=== PATIENT | male | born 1955 | race Caucasian/White ===

== ENCOUNTER 2017-12-12 07:31 | Emergency (ER) | payer MEDICARE ==
[2017-12-12 07:38] VITALS: RESP 18
[2017-12-12] MEDS ORDERED: MORPHINE SULFATE 4 MG/ML SYRINGE IVP STA (07:41)
[2017-12-12] MEDS ORDERED: SODIUM CHLORIDE 0.9% 500 ML IV STA (07:43)
--- NOTE | 2017-12-12 07:49 | ED ---
General Adult HPI - General Chief complaint: Abdominal Pain Stated complaint: ABd Pain Source: patient Mode of arrival: EMS Limitations: no limitations - History of Present Illness Initial comments: Dictation was produced using [employer] dictation software. please excuse any grammatical, word or spelling errors. Chief Complaint: 61-year-old male past medical history of coronary artery disease, diabetes, dyslipidemia, thyroid disease presents with abdominal pain 1 day. History of Present Illness: She states he's been having left-sided abdominal pain with vomiting since yesterday. Patient has a history of LAP-BAND surgery. He feels as though this pain is around his lap band site. He had this procedure done in [facility] several years ago. He has any constitutional symptoms. No diarrhea. She was brought in by EMS. Patient suffered a recent loss in his family. He states his for unknown reason recently. EMS reports that patient did have one episode of bilious emesis while in route to emergency department. The ROS documented in this emergency department record has been reviewed and confirmed by me. Those systems with pertinent positive or negative responses have been documented in the HPI. All other systems are other negative and/or noncontributory. - Related Data Home Medications Medication Instructions Recorded Confirmed Clopidogrel [Plavix] 75 mg PO DAILY 06/17/15 12/12/17 Famotidine [Pepcid] 20 mg PO BID 06/17/15 12/12/17 metFORMIN HCL [metFORMIN HCL ER] 1,000 mg PO BID 06/17/15 12/12/17 Metoprolol Succinate (ER) [Toprol 25 mg PO BID 12/13/15 12/12/17 XL] Nitroglycerin Sl Tabs [Nitrostat] 0.4 mg SUBLINGUAL Q5M PRN 12/13/15 12/12/17 Cariprazine HCl [Vraylar] 1.5 mg PO DIRECTED 12/12/17 12/12/17 Cariprazine HCl [Vraylar] 3 mg PO DIRECTED 12/12/17 12/12/17 Ergocalciferol (Vitamin D2) 50,000 unit PO MO 12/12/17 12/12/17 [Drisdol] Hydrocortisone [Cortef] 30 mg PO DAILY 12/12/17 12/12/17 Ibuprofen [Motrin] 800 mg PO TID PRN 12/12/17 12/12/17 Previous Rx's Medication Instructions Recorded Ondansetron Odt [Zofran Odt] 4 mg PO Q12HR PRN #16 tab 12/12/17 Allergies Allergy/AdvReac Type Severity Reaction Status Date / Time codeine AdvReac Nausea & Verified 12/12/17 08:17 Vomiting Review of Systems ROS Statement: Those systems with pertinent positive or pertinent negative responses have been documented in the HPI. ROS Other: All systems not noted in ROS Statement are negative. Past Medical History Past Medical History: Coronary Artery Disease (CAD), Diabetes Mellitus, Hyperlipidemia, Musculoskeletal Disorder, Thyroid Disorder Additional Past Medical History / Comment(s): ADRENAL INSUFFICIENCY. NIDDM. History of Any Multi-Drug Resistant Organisms: None Reported Past Surgical History: Back Surgery, Bariatric Surgery, Heart Catheterization With Stent Additional Past Surgical History / Comment(s): BACK SURG (decompression) X2. LAP BAND. Past Anesthesia/Blood Transfusion Reactions: No Reported Reaction Date of Last Stent Placement:: 1 Past Psychological History: Anxiety Smoking Status: Light tobacco smoker Past Alcohol Use History: None Reported Past Drug Use History: None Reported - Past Family History Father Family Medical History: Diabetes Mellitus Additional Family Medical History / Comment(s): of a ruptured aorta Mother Family Medical History: Cancer, Diabetes Mellitus Additional Family Medical History / Comment(s): PPM, liver [place] General Exam - General Exam Comments Initial Comments: PHYSICAL EXAM: General Impression: Alert and oriented x3, acute distress secondary to pain HEENT: Normocephalic atraumatic, extra-ocular movements intact, pupils equal and reactive to light bilaterally, mucous membranes moist. Cardiovascular: Heart regular rate and rhythm, S1&S2 audible, no murmurs, rubs or gallops Chest: Lungs clear to auscultation bilaterally, no rhonchi, no wheeze, no rales Abdomen: Tenderness to palpation over the left upper quadrant Musculoskeletal: Pulses present and equal in all extremities, no peripheral edema Motor: Power 5/5 bilaterally, no focal deficits noted Neurological: CN II-XII grossly intact, no focal motor or sensory deficits noted Skin: Intact with no visualized rashes Psych: Normal affect and mood Limitations: no limitations Course Vital Signs 12/12/17 12/12/17 07:32 09:13 Temperature 97.5 F L Pulse Rate 79 82 Respiratory 18 18 Rate Blood Pressure 155/77 174/80 O2 Sat by Pulse 97 96 Oximetry Medical Decision Making - Medical Decision Making ED course: 61-year-old male past medical history of bariatric surgery in LAP-BAND presents with abdominal pain to the left upper quadrant times one day. Vital signs upon arrival are within acceptable limits.Laboratory evaluation obtained. CBC is unremarkable. Coag panel shows INR 1.2. Blood panel is negative. Lactic acid level is 1.0. Abdominal labs are negative. Lipase is 31. Cardiac enzymes negative. Abdomen pelvis CT. CT abdomen and pelvis shows irregular calculus versus small adjacent calculi lower pole calyx of the left kidney. There is mild hydronephrosis with obstructing distal 2 mm ureter calculus. She is given multiple rounds of IV analgesics and antiemetics. Patient's symptoms improved. Patient is afebrile. No leukocytosis. Clinical presentation consistent with nephrolithiasis. Patient given intravenous fluids. Patient told to follow up with urology. Patient told to take his at-home Percocet when necessary pain. She is understandable and agreeable with this disposition. At this point no clear indication for administration of antibiotics at this time. Given patient's age, comorbidities and there is a obstructing 2 mm stone which is small we will withhold Flomax at this time. Pending urine culture. - Lab Data Result diagrams: 12/12/17 07:35 12/12/17 07:35 Lab Results 12/12/17 12/12/17 12/12/17 Range/Units 07:35 07:35 07:35 WBC 7.6 (3.8-10.6) k/uL RBC 4.51 (4.30-5.90) m/uL Hgb 12.6 L (13.0-17.5) gm/dL Hct 37.7 L (39.0-53.0) % MCV 83.7 (80.0-100.0) fL MCH 28.0 (25.0-35.0) pg MCHC 33.5 (31.0-37.0) g/dL RDW 14.4 (11.5-15.5) % Plt Count 259 (150-450) k/uL Neutrophils % 56 % Lymphocytes % 29 % Monocytes % 7 % Eosinophils % 6 % Basophils % 0 % Neutrophils # 4.3 (1.3-7.7) k/uL Lymphocytes # 2.2 (1.0-4.8) k/uL Monocytes # 0.6 (0-1.0) k/uL Eosinophils # 0.4 (0-0.7) k/uL Basophils # 0.0 (0-0.2) k/uL PT (9.0-12.0) sec INR (<1.2) Sodium 144 (137-145) mmol/L Potassium 3.8 (3.5-5.1) mmol/L Chloride 106 (98-107) mmol/L Carbon Dioxide 26 (22-30) mmol/L Anion Gap 12 mmol/L BUN 14 (9-20) mg/dL Creatinine 1.00 (0.66-1.25) mg/dL Est GFR (CKD-EPI)AfAm >90 (>60 ml/min/1.73 sqM) Est GFR (CKD-EPI)NonAf 80 (>60 ml/min/1.73 sqM) Glucose 108 H (74-99) mg/dL Plasma Lactic Acid Ras (0.7-2.0) mmol/L Calcium 9.9 (8.4-10.2) mg/dL Total Bilirubin 0.8 (0.2-1.3) mg/dL AST 17 (17-59) U/L ALT 24 (21-72) U/L Alkaline Phosphatase 74 (38-126) U/L Total Creatine Kinase <20 L (55-170) U/L CK-MB (CK-2) 0.2 (0.0-2.4) ng/mL CK-MB (CK-2) Rel Index Troponin I <0.012 (0.000-0.034) ng/mL Total Protein 6.9 (6.3-8.2) g/dL Albumin 3.9 (3.5-5.0) g/dL Amylase 110 (30-110) U/L Lipase 381 H (23-300) U/L 12/12/17 12/12/17 Range/Units 07:35 08:31 WBC (3.8-10.6) k/uL RBC (4.30-5.90) m/uL Hgb (13.0-17.5) gm/dL Hct (39.0-53.0) % MCV (80.0-100.0) fL MCH (25.0-35.0) pg MCHC (31.0-37.0) g/dL RDW (11.5-15.5) % Plt Count (150-450) k/uL Neutrophils % % Lymphocytes % % Monocytes % % Eosinophils % % Basophils % % Neutrophils # (1.3-7.7) k/uL Lymphocytes # (1.0-4.8) k/uL Monocytes # (0-1.0) k/uL Eosinophils # (0-0.7) k/uL Basophils # (0-0.2) k/uL PT 11.7 (9.0-12.0) sec INR 1.2 H (<1.2) Sodium (137-145) mmol/L Potassium (3.5-5.1) mmol/L Chloride (98-107) mmol/L Carbon Dioxide (22-30) mmol/L Anion Gap mmol/L BUN (9-20) mg/dL Creatinine (0.66-1.25) mg/dL Est GFR (CKD-EPI)AfAm (>60 ml/min/1.73 sqM) Est GFR (CKD-EPI)NonAf (>60 ml/min/1.73 sqM) Glucose (74-99) mg/dL Plasma Lactic Acid Ras 1.0 (0.7-2.0) mmol/L Calcium (8.4-10.2) mg/dL Total Bilirubin (0.2-1.3) mg/dL AST (17-59) U/L ALT (21-72) U/L Alkaline Phosphatase (38-126) U/L Total Creatine Kinase (55-170) U/L CK-MB (CK-2) (0.0-2.4) ng/mL CK-MB (CK-2) Rel Index Troponin I (0.000-0.034) ng/mL Total Protein (6.3-8.2) g/dL Albumin (3.5-5.0) g/dL Amylase (30-110) U/L Lipase (23-300) U/L Disposition Clinical Impression: Nephrolithiasis Disposition: HOME SELF-CARE Condition: Good Prescriptions: Ondansetron Odt [Zofran Odt] 4 mg PO Q12HR PRN #16 tab PRN Reason: Nausea Is patient prescribed a controlled substance at d/c from ED?: No Referrals: Chano Ames MD [Primary Care Provider] - 1-2 days Dio Mcginnis MD [STAFF PHYSICIAN] - 1-2 days Time of Disposition: 11:53
[2017-12-12 08:05] LABS: Basophils % (A) 0 %; Eosinophils # (A) 0.4 k/uL (0-0.7); Eosinophils % (A) 6 %; HCT 37.7 % (39.0-53.0); HGB 12.6 gm/dL (13.0-17.5); Lymphocytes # (A) 2.2 k/uL (1.0-4.8); Lymphocytes % (A) 29 %; MCHC 33.5 g/dL (31.0-37.0); MCV 83.7 fL (80.0-100.0); Mean Platelet Volume 6.9; Monocytes # (A) 0.6 k/uL (0-1.0); Monocytes % (A) 7 %; Neutrophils # (A) 4.3 k/uL (1.3-7.7); Neutrophils % (A) 56 %; Platelet Count 259 k/uL (150-450); RBC 4.51 m/uL (4.30-5.90); RDW 14.4 % (11.5-15.5); WBC 7.6 k/uL (3.8-10.6)
[2017-12-12 08:10] LABS: INR 1.2 (<1.2); Prothrombin Time 11.7 sec (9.0-12.0)
[2017-12-12 08:24] LABS: ALT 24 U/L (21-72); AST 17 U/L (17-59); Albumin 3.9 g/dL (3.5-5.0); Alkaline Phosphatase 74 U/L (38-126); Amylase 110 U/L (30-110); Anion Gap 12 mmol/L; Blood Urea Nitrogen 14 mg/dL (9-20); Calcium 9.9 mg/dL (8.4-10.2); Carbon Dioxide 26 mmol/L (22-30); Chloride 106 mmol/L (98-107); Glucose 108 mg/dL (74-99); Lipase 381 U/L (23-300); Potassium 3.8 mmol/L (3.5-5.1); Sodium 144 mmol/L (137-145); Total Bilirubin 0.8 mg/dL (0.2-1.3); Total Protein 6.9 g/dL (6.3-8.2)
[2017-12-12 08:31] LABS: Creatine Kinase <20 U/L (55-170)
[2017-12-12] MEDS ORDERED: ONDANSETRON 4 MG/2 ML VIAL IVP STA (08:37)
[2017-12-12 08:43] LABS: Creatine Kinase MB 0.2 ng/mL (0.0-2.4); Troponin I <0.012 ng/mL (0.000-0.034)
[2017-12-12] MEDS ORDERED: HYDROmorphone 0.5 MG/0.5 ML SYRINGE IVP STA (09:43)
--- NOTE | 2017-12-12 09:51 | CT ---
EXAMINATION TYPE: CT abdomen pelvis w con DATE OF EXAM: 12/12/2017 COMPARISON: CT abdomen November 03, 2009 HISTORY: LLQ pain per technologist. Abdominal pain not further specified per ER order. CT DLP: 1223.4 mGycm, Automated Exposure Control for Dose Reduction was Utilized. CONTRAST: CT scan of the abdomen and pelvis is performed without oral but with IV Contrast, patient injected wi th 100 mL of Isovue 300. FINDINGS: LUNG BASES: Dependent atelectasis is present in both bases.. LIVER/GB: Liver remains low dense relative to spleen suggesting diffuse fatty infiltration. PANCREAS: No significant abnormality is seen. SPLEEN: No significant abnormality is seen. ADRENALS: No significant abnormality is seen. KIDNEYS: There is irregular calculus in left lower pole calyx measuring up to 13 mm on long axis on c oronal image 53 versus small adjacent regular calculi felt less likely. Post contrast images show sat isfactory cortical medullary uptake and excretion from right kidney but absent excretion from left ki dney there is moderate left-sided perinephric fluid. There is moderate fullness of left renal pelvis without mild calyceal dilatation there is mild mid ureter with 2 mm calculus suspected in the distal left ureter axial image 70 and coronal image 49. No intraluminal calculi and bladder are present. BOWEL: New Lap band device is noted, position felt satisfactory just below diaphragm PROSTATE/SEMINAL VESICLES: No gross abnormality seen. LYMPH NODES: No greater than 1cm abdominal or pelvic lymph nodes are appreciated. Prominent but subc entimeter lymph nodes are seen in the bilateral groin. OSSEOUS STRUCTURES: There is dextroconvex scoliosis centered at L3 level. There is moderate to severe multilevel spurring in the thoracolumbar spine. There is moderate to severe multilevel disc space na rrowing in the mid to lower lumbar spine. There is transitional-type vertebra at lumbosacral junction . Most prominent findings are L3-L4 level with endplate sclerosis. There is postsurgical change in th e lower lumbar spine with bilateral laminectomy defects and spinous process resection at L4-L5 levels . There is moderate axial joint space loss in both hips. OTHER: No significant additional abnormality is seen. IMPRESSION: Prominent irregular calculus versus small adjacent calculi lower pole calyx left kidney. Delayed excretion left kidney with mild hydronephrosis due to obstructing distal 2 mm ureter calculus .
[2017-12-12] MEDS ORDERED: HYDROmorphone 1 MG/ML 1 ML SYRINGE IVP STA (09:55)
[2017-12-12 12:09] VITALS: BP 134/91; PULSE 89; TEMP 99.2
== END 2017-12-12 12:06 | disposition home or self-care (01) ==
LOC: EC 07:31
DX: N13.2 Hydronephrosis with renal and ureteral calculous obstruction (principal); I25.10 Atherosclerotic heart disease of native coronary artery without angina pectoris; E11.9 Type 2 diabetes mellitus without complications; F17.200 Nicotine dependence, unspecified, uncomplicated; Z79.84 Long term (current) use of oral hypoglycemic drugs; Z79.02 Long term (current) use of antithrombotics/antiplatelets; Z79.899 Other long term (current) drug therapy; Z88.5 Allergy status to narcotic agent; Z98.84 Bariatric surgery status; Z95.5 Presence of coronary angioplasty implant and graft
CPT/HCPCS: 36415; 93005; 80053; 82150; 82550; 82553; 83605; 83690; 84484; 85025; 85610; 74177; 99285; 96374; 96375 ×2; 96361; J2270; J2405; J1170; Q9967

== ENCOUNTER 2017-12-13 04:56 | Emergency (ER) | payer MEDICARE ==
[2017-12-13 05:03] VITALS: TEMP 97.9
[2017-12-13] MEDS ORDERED: KETOROLAC 30 MG/ML 1 ML VIAL IVP ONE (05:41)
[2017-12-13] MEDS ORDERED: SODIUM CHLORIDE 0.9% 1,000 ML IV ONE (05:41)
--- NOTE | 2017-12-13 05:42 | ED ---
General Adult HPI - General Chief complaint: Abdominal Pain Stated complaint: Kidney stone Time Seen by Provider: 12/13/17 05:10 Source: patient Mode of arrival: ambulatory Limitations: no limitations - History of Present Illness Initial comments: Suzan is a 61-year-old male who was evaluated in our emergency department yesterday for nausea vomiting abdominal pain, diagnosed with a kidney stone and discharged home in stable condition. Patient reports that the Dilaudid he received in the ER treated his pain immediate much more comfortable. Patient states that he had oxycodone at home but didn't take any because it doesn't work as well for his pain so when his pain returned he return to the ER requesting more Dilaudid. She denies any fevers, chills, nausea, vomiting. He has not attempted to eat or take anything at home for the medication. He still urinating, there is still mild blood in his urine. - Related Data Home Medications Medication Instructions Recorded Confirmed Clopidogrel [Plavix] 75 mg PO DAILY 06/17/15 12/12/17 Famotidine [Pepcid] 20 mg PO BID 06/17/15 12/12/17 metFORMIN HCL [metFORMIN HCL ER] 1,000 mg PO BID 06/17/15 12/12/17 Metoprolol Succinate (ER) [Toprol 25 mg PO BID 12/13/15 12/12/17 XL] Nitroglycerin Sl Tabs [Nitrostat] 0.4 mg SUBLINGUAL Q5M PRN 12/13/15 12/12/17 Cariprazine HCl [Vraylar] 1.5 mg PO DIRECTED 12/12/17 12/12/17 Cariprazine HCl [Vraylar] 3 mg PO DIRECTED 12/12/17 12/12/17 Ergocalciferol (Vitamin D2) 50,000 unit PO MO 12/12/17 12/12/17 [Drisdol] Hydrocortisone [Cortef] 30 mg PO DAILY 12/12/17 12/12/17 Ibuprofen [Motrin] 800 mg PO TID PRN 12/12/17 12/12/17 Previous Rx's Medication Instructions Recorded Ondansetron Odt [Zofran Odt] 4 mg PO Q12HR PRN #16 tab 12/12/17 Allergies Allergy/AdvReac Type Severity Reaction Status Date / Time codeine AdvReac Nausea & Verified 12/13/17 05:03 Vomiting Review of Systems ROS Statement: Those systems with pertinent positive or pertinent negative responses have been documented in the HPI. ROS Other: All systems not noted in ROS Statement are negative. Past Medical History Past Medical History: Coronary Artery Disease (CAD), Diabetes Mellitus, Hyperlipidemia, Musculoskeletal Disorder, Thyroid Disorder Additional Past Medical History / Comment(s): ADRENAL INSUFFICIENCY. NIDDM. History of Any Multi-Drug Resistant Organisms: None Reported Past Surgical History: Back Surgery, Bariatric Surgery, Heart Catheterization With Stent Additional Past Surgical History / Comment(s): BACK SURG (decompression) X2. LAP BAND. Past Anesthesia/Blood Transfusion Reactions: No Reported Reaction Date of Last Stent Placement:: 1 Past Psychological History: Anxiety Smoking Status: Light tobacco smoker Past Alcohol Use History: None Reported Past Drug Use History: None Reported - Past Family History Father Family Medical History: Diabetes Mellitus Additional Family Medical History / Comment(s): of a ruptured aorta Mother Family Medical History: Cancer, Diabetes Mellitus Additional Family Medical History / Comment(s): PPM, liver [place] General Exam - General Exam Comments Initial Comments: GENERAL: Patient is well-developed and well-nourished. Patient is nontoxic and well- hydrated, he appears anxious. HENT: Normocephalic, Atraumatic. EYES: The sclera were anicteric and conjunctiva were pink and moist. Extraocular movements were intact and pupils were equal round and reactive to light. Eyelids were unremarkable. PULMONARY: Unlabored respirations. Good breath sounds bilaterally. No audible rales rhonchi or wheezing was noted. CARDIOVASCULAR: There is a regular rate and rhythm without any murmurs gallops or rubs. ABDOMEN: Soft and nontender with normal bowel sounds. SKIN: Skin is clear with no lesions or rashes and otherwise unremarkable. NEUROLOGIC: Patient is alert and oriented x3. Cranial nerves II through XII are grossly intact. Motor and sensory are also intact. Normal speech, volume and content. Symmetrical smile. MUSCULOSKELETAL: Normal extremities with adequate strength and full range of motion. No lower extremity swelling or edema. No calf tenderness. LYMPHATICS: No significant lymphadenopathy is noted PSYCHIATRIC: Patient expresses grief over the loss of his on September 20 of this year, is following with a grief counselor Limitations: no limitations Limitations: no limitations Course Vital Signs 12/13/17 12/13/17 05:00 07:59 Temperature 97.9 F 97.9 F Pulse Rate 98 78 Respiratory 18 16 Rate Blood Pressure 139/90 138/59 O2 Sat by Pulse 98 99 Oximetry Medical Decision Making - Medical Decision Making The patient was seen and evaluated, history is obtained from patient and review of medical record patient has a 2 mm ureteral stone. he reports his pain was improved with IV Dilaudid, he has not attempted any home pain medications despite being prescribed oral narcotics Patient requesting IV Dilaudid Patient not expanse any nausea vomiting, diarrhea or worsening pain. Patient reports this pain has returned and is similar to earlier so he came back for repeat doses of Dilaudid At this time I do not feel feel it is appropriate to give the patient repeat doses of Dilaudid for a 2 mm stone with mild hydro-, I will repeat his labs as he did have a mildly elevated lipase earlier in the day Labs have improved from previous, creatinine stable At this time patient is stable for discharge home, and encouraged the patient to take by mouth medications return to the ER for any worsening pain or development of nausea, inability tolerate by mouth intake worsening pain, decreased urinary output or any new or concerning symptoms. - Lab Data Result diagrams: 12/13/17 05:20 12/13/17 05:20 Lab Results 12/13/17 12/13/17 12/13/17 Range/Units 05:20 05:20 06:44 WBC 8.6 (3.8-10.6) k/uL RBC 4.85 (4.30-5.90) m/uL Hgb 13.3 (13.0-17.5) gm/dL Hct 40.8 (39.0-53.0) % MCV 84.2 (80.0-100.0) fL MCH 27.5 (25.0-35.0) pg MCHC 32.7 (31.0-37.0) g/dL RDW 14.3 (11.5-15.5) % Plt Count 273 (150-450) k/uL Neutrophils % 66 % Lymphocytes % 23 % Monocytes % 6 % Eosinophils % 4 % Basophils % 0 % Neutrophils # 5.7 (1.3-7.7) k/uL Lymphocytes # 2.0 (1.0-4.8) k/uL Monocytes # 0.6 (0-1.0) k/uL Eosinophils # 0.3 (0-0.7) k/uL Basophils # 0.0 (0-0.2) k/uL Sodium 139 (137-145) mmol/L Potassium 4.0 (3.5-5.1) mmol/L Chloride 103 (98-107) mmol/L Carbon Dioxide 25 (22-30) mmol/L Anion Gap 11 mmol/L BUN 14 (9-20) mg/dL Creatinine 1.02 (0.66-1.25) mg/dL Est GFR (CKD-EPI)AfAm >90 (>60 ml/min/1.73 sqM) Est GFR (CKD-EPI)NonAf 78 (>60 ml/min/1.73 sqM) Glucose 121 H (74-99) mg/dL Calcium 10.0 (8.4-10.2) mg/dL Total Bilirubin 1.0 (0.2-1.3) mg/dL AST 19 (17-59) U/L ALT 21 (21-72) U/L Alkaline Phosphatase 81 (38-126) U/L Total Protein 6.9 (6.3-8.2) g/dL Albumin 3.9 (3.5-5.0) g/dL Lipase 197 (23-300) U/L Urine Color Yellow Urine Appearance Cloudy (Clear) Urine pH 5.5 (5.0-8.0) Ur Specific [place] 1.027 (1.001-1.035) Urine Protein 1+ H (Negative) Urine Glucose (UA) Negative (Negative) Urine Ketones Negative (Negative) Urine Blood Large H (Negative) Urine Nitrite Negative (Negative) Urine Bilirubin Negative (Negative) Urine Urobilinogen <2.0 (<2.0) mg/dL Ur Leukocyte Esterase Negative (Negative) Urine RBC 19 H (0-5) /hpf Urine WBC 1 (0-5) /hpf Ur Squamous Epith Cells 10 H (0-4) /hpf Urine Mucus Many H (None) /hpf Disposition Clinical Impression: Kidney stone Disposition: HOME SELF-CARE Condition: Stable Instructions: Kidney Stones (ED) Additional Instructions: Taking her home medications including her narcotic pain medications. Drink plenty of fluids. Return to the ER if you develop any nausea, vomiting inability to tolerate your oral medications fevers or signs of infection. Is patient prescribed a controlled substance at d/c from ED?: No Referrals: Chano Ames MD [Primary Care Provider] - 1-2 days
[2017-12-13 05:53] LABS: Basophils % (A) 0 %; Eosinophils # (A) 0.3 k/uL (0-0.7); Eosinophils % (A) 4 %; HCT 40.8 % (39.0-53.0); HGB 13.3 gm/dL (13.0-17.5); Lymphocytes % (A) 23 %; MCH 27.5 pg (25.0-35.0); MCHC 32.7 g/dL (31.0-37.0); MCV 84.2 fL (80.0-100.0); Mean Platelet Volume 6.8; Monocytes # (A) 0.6 k/uL (0-1.0); Monocytes % (A) 6 %; Neutrophils # (A) 5.7 k/uL (1.3-7.7); Neutrophils % (A) 66 %; Platelet Count 273 k/uL (150-450); RBC 4.85 m/uL (4.30-5.90); RDW 14.3 % (11.5-15.5); WBC 8.6 k/uL (3.8-10.6)
[2017-12-13 06:01] LABS: ALT 21 U/L (21-72); AST 19 U/L (17-59); Albumin 3.9 g/dL (3.5-5.0); Alkaline Phosphatase 81 U/L (38-126); Anion Gap 11 mmol/L; Blood Urea Nitrogen 14 mg/dL (9-20); Carbon Dioxide 25 mmol/L (22-30); Chloride 103 mmol/L (98-107); Glucose 121 mg/dL (74-99); Lipase 197 U/L (23-300); Sodium 139 mmol/L (137-145); Total Protein 6.9 g/dL (6.3-8.2)
[2017-12-13 07:00] LABS: Appearance,Urine Cloudy (Clear); Bilirubin,Urine Negative (Negative); Blood,Urine Large (Negative); Color,Urine Yellow; Glucose,Urine (UA) Negative (Negative); Ketones,Urine Negative (Negative); Leukocyte Esterase,Urine Negative (Negative); Mucus,Urine Many /hpf; Nitrite,Urine Negative (Negative); PH, Urine 5.5 (5.0-8.0); Protein,Urine 1+ (Negative); RBC,Urine 19 /hpf (0-5); Specific Gravity,Urine 1.027 (1.001-1.035); Squamous Epithelial Cell,Urine 10 /hpf (0-4); Urobilinogen,Urine <2.0 mg/dL (<2.0); WBC,Urine 1 /hpf (0-5)
[2017-12-13 08:00] VITALS: BP 138/59; PULSE 78; RESP 16
== END 2017-12-13 08:01 | disposition home or self-care (01) ==
LOC: EC 04:56
DX: N20.2 Calculus of kidney with calculus of ureter (principal); I25.10 Atherosclerotic heart disease of native coronary artery without angina pectoris; E11.9 Type 2 diabetes mellitus without complications; F17.200 Nicotine dependence, unspecified, uncomplicated; Z98.84 Bariatric surgery status; Z95.5 Presence of coronary angioplasty implant and graft; Z79.02 Long term (current) use of antithrombotics/antiplatelets; Z79.84 Long term (current) use of oral hypoglycemic drugs; Z79.52 Long term (current) use of systemic steroids; Z79.899 Other long term (current) drug therapy; Z88.5 Allergy status to narcotic agent
CPT/HCPCS: 36415; 80053; 83690; 85025; 81001; 99284; 96374; 96361; J1885

== ENCOUNTER 2018-02-16 11:55 | Emergency (ER) | payer MEDICARE ==
[2018-02-16 12:05] VITALS: TEMP 97.7
[2018-02-16 13:58] LABS: Basophils # (A) 0.1 k/uL (0-0.2); Basophils % (A) 1 %; Eosinophils # (A) 0.3 k/uL (0-0.7); Eosinophils % (A) 4 %; HCT 33.8 % (39.0-53.0); Lymphocytes % (A) 28 %; MCH 28.1 pg (25.0-35.0); MCHC 32.6 g/dL (31.0-37.0); MCV 86.2 fL (80.0-100.0); Mean Platelet Volume 6.7; Monocytes # (A) 0.3 k/uL (0-1.0); Monocytes % (A) 4 %; Neutrophils # (A) 4.3 k/uL (1.3-7.7); Neutrophils % (A) 62 %; Platelet Count 258 k/uL (150-450); RBC 3.92 m/uL (4.30-5.90); RDW 15.7 % (11.5-15.5)
--- NOTE | 2018-02-16 14:01 | ED ---
General Adult HPI - General Chief complaint: Urogenital Stated complaint: blood in urine Time Seen by Provider: 02/16/18 13:11 Source: patient, RN notes reviewed Mode of arrival: ambulatory Limitations: no limitations - History of Present Illness Initial comments: Patient 62-year-old male presented to the emergency room today with chief complaint of hematuria. Patient has not that he is on Plavix. He is been on this for the past 3 years after had stents placed. Patient states that he was some blood in his urine 2 days ago. He states that he did have quite a bit of pain with voiding. He states that if he goes with normal strength is uncomfortable. She states that he tries to slow things down and feels better. Patient denies any other complaints or symptoms. States never had symptoms like this in the past. Patient denies any recent fever, chills, shortness of breath, chest pain, back pain, abdominal pain, nausea or vomiting, numbness or tingling, headaches or visual changes, or any other complaints. - Related Data Home Medications Medication Instructions Recorded Confirmed Clopidogrel [Plavix] 75 mg PO DAILY 06/17/15 12/12/17 Famotidine [Pepcid] 20 mg PO BID 06/17/15 12/12/17 metFORMIN HCL [metFORMIN HCL ER] 1,000 mg PO BID 06/17/15 12/12/17 Metoprolol Succinate (ER) [Toprol 25 mg PO BID 12/13/15 12/12/17 XL] Nitroglycerin Sl Tabs [Nitrostat] 0.4 mg SUBLINGUAL Q5M PRN 12/13/15 12/12/17 Cariprazine HCl [Vraylar] 1.5 mg PO DIRECTED 12/12/17 12/12/17 Cariprazine HCl [Vraylar] 3 mg PO DIRECTED 12/12/17 12/12/17 Ergocalciferol (Vitamin D2) 50,000 unit PO MO 12/12/17 12/12/17 [Drisdol] Hydrocortisone [Cortef] 30 mg PO DAILY 12/12/17 12/12/17 Ibuprofen [Motrin] 800 mg PO TID PRN 12/12/17 12/12/17 Previous Rx's Medication Instructions Recorded Ondansetron Odt [Zofran Odt] 4 mg PO Q12HR PRN #16 tab 12/12/17 Sulfamethox-Tmp 800-160Mg [Bactrim 1 tab PO Q12HR #28 tab 02/16/18 DS 800-160 mg] Allergies Allergy/AdvReac Type Severity Reaction Status Date / Time codeine AdvReac Nausea & Verified 02/16/18 12:05 Vomiting Review of Systems ROS Statement: Those systems with pertinent positive or pertinent negative responses have been documented in the HPI. ROS Other: All systems not noted in ROS Statement are negative. Past Medical History Past Medical History: Coronary Artery Disease (CAD), Diabetes Mellitus, Hyperlipidemia, Musculoskeletal Disorder, Thyroid Disorder Additional Past Medical History / Comment(s): ADRENAL INSUFFICIENCY. NIDDM. History of Any Multi-Drug Resistant Organisms: None Reported Past Surgical History: Back Surgery, Bariatric Surgery, Heart Catheterization With Stent Additional Past Surgical History / Comment(s): BACK SURG (decompression) X2. LAP BAND. Past Anesthesia/Blood Transfusion Reactions: No Reported Reaction Date of Last Stent Placement:: 1 Past Psychological History: Anxiety Smoking Status: Light tobacco smoker Past Alcohol Use History: None Reported Past Drug Use History: None Reported - Past Family History Father Family Medical History: Diabetes Mellitus Additional Family Medical History / Comment(s): of a ruptured aorta Mother Family Medical History: Cancer, Diabetes Mellitus Additional Family Medical History / Comment(s): PPM, liver CA General Exam - General Exam Comments Initial Comments: General: The patient is awake and alert, in no distress, and does not appear acutely ill. Eye: There is normal conjunctiva bilaterally. No signs of icterus. Ears, nose, mouth and throat: There are moist mucous membranes and no oral lesions. Neck: The neck is supple, there is no tenderness or JVD. Cardiovascular: There is a regular rate and rhythm. No murmur, rub or gallop is appreciated. Respiratory: Lungs are clear to auscultation, respirations are non-labored, breath sounds are equal. No wheezes, stridor, rales, or rhonchi. Gastrointestinal: Soft on palpation. No rebound, guarding or CVA tenderness. Musculoskeletal: Normal ROM, no tenderness. Sensation intact. Strength 5/5. Pulses equal bilaterally 2+. Neurological: A&O x 3. CN II-XII intact, There are no obvious motor or sensory deficits. Coordination appears grossly intact. Speech is normal. Skin: Skin is warm and dry and no rashes or lesions are noted. Psychiatric: Cooperative, appropriate mood & affect, normal judgment. Limitations: no limitations Course Vital Signs 02/16/18 02/16/18 12:03 14:35 Temperature 97.7 F Pulse Rate 89 70 Respiratory 18 18 Rate Blood Pressure 124/74 124/60 O2 Sat by Pulse 98 98 Oximetry Medical Decision Making - Medical Decision Making Patient reexamined at this time shows no signs of distress resting comfortable. Patient's labs reviewed. Does show some blood with white cells in the urinalysis. Patient will be covered for infection. He is resting comfortably in his abdomen soft nontender. His mental history kidney stones. He states he does have a lot of pressure with voiding a few days ago. His possibility that a stone was passed. Patient is advised that he should follow-up urologist in the next 2 days. Advised to have repeat urinalysis. Advised to return if symptoms increase or worsen. - Lab Data Result diagrams: 02/16/18 13:37 02/16/18 13:37 Lab Results 02/16/18 02/16/18 02/16/18 Range/Units 13:37 13:37 13:37 WBC 7.0 (3.8-10.6) k/uL RBC 3.92 L (4.30-5.90) m/uL Hgb 11.0 L (13.0-17.5) gm/dL Hct 33.8 L (39.0-53.0) % MCV 86.2 (80.0-100.0) fL MCH 28.1 (25.0-35.0) pg MCHC 32.6 (31.0-37.0) g/dL RDW 15.7 H (11.5-15.5) % Plt Count 258 (150-450) k/uL Neutrophils % 62 % Lymphocytes % 28 % Monocytes % 4 % Eosinophils % 4 % Basophils % 1 % Neutrophils # 4.3 (1.3-7.7) k/uL Lymphocytes # 2.0 (1.0-4.8) k/uL Monocytes # 0.3 (0-1.0) k/uL Eosinophils # 0.3 (0-0.7) k/uL Basophils # 0.1 (0-0.2) k/uL PT 11.3 (9.0-12.0) sec INR 1.2 H (<1.2) APTT 23.1 (22.0-30.0) sec Sodium 141 (137-145) mmol/L Potassium 4.6 (3.5-5.1) mmol/L Chloride 108 H (98-107) mmol/L Carbon Dioxide 25 (22-30) mmol/L Anion Gap 8 mmol/L BUN 17 (9-20) mg/dL Creatinine 0.86 (0.66-1.25) mg/dL Est GFR (CKD-EPI)AfAm >90 (>60 ml/min/1.73 sqM) Est GFR (CKD-EPI)NonAf >90 (>60 ml/min/1.73 sqM) Glucose 176 H (74-99) mg/dL Calcium 10.5 H (8.4-10.2) mg/dL Total Bilirubin 0.4 (0.2-1.3) mg/dL AST 19 (17-59) U/L ALT 26 (21-72) U/L Alkaline Phosphatase 76 (38-126) U/L Total Protein 6.2 L (6.3-8.2) g/dL Albumin 3.3 L (3.5-5.0) g/dL Urine Color Urine Appearance (Clear) Urine pH (5.0-8.0) Ur Specific [place] (1.001-1.035) Urine Protein (Negative) Urine Glucose (UA) (Negative) Urine Ketones (Negative) Urine Blood (Negative) Urine Nitrite (Negative) Urine Bilirubin (Negative) Urine Urobilinogen (<2.0) mg/dL Ur Leukocyte Esterase (Negative) Urine RBC (0-5) /hpf Urine WBC (0-5) /hpf Ur Squamous Epith Cells (0-4) /hpf Calcium Oxalate Crystal (None) /hpf Hyaline Casts (0-2) /lpf Urine Mucus (None) /hpf 02/16/ Range/Units 13:37 WBC (3.8-10.6) k/uL RBC (4.30-5.90) m/uL Hgb (13.0-17.5) gm/dL Hct (39.0-53.0) % MCV (80.0-100.0) fL MCH (25.0-35.0) pg MCHC (31.0-37.0) g/dL RDW (11.5-15.5) % Plt Count (150-450) k/uL Neutrophils % % Lymphocytes % % Monocytes % % Eosinophils % % Basophils % % Neutrophils # (1.3-7.7) k/uL Lymphocytes # (1.0-4.8) k/uL Monocytes # (0-1.0) k/uL Eosinophils # (0-0.7) k/uL Basophils # (0-0.2) k/uL PT (9.0-12.0) sec INR (<1.2) APTT (22.0-30.0) sec Sodium (137-145) mmol/L Potassium (3.5-5.1) mmol/L Chloride (98-107) mmol/L Carbon Dioxide (22-30) mmol/L Anion Gap mmol/L BUN (9-20) mg/dL Creatinine (0.66-1.25) mg/dL Est GFR (CKD-EPI)AfAm (>60 ml/min/1.73 sqM) Est GFR (CKD-EPI)NonAf (>60 ml/min/1.73 sqM) Glucose (74-99) mg/dL Calcium (8.4-10.2) mg/dL Total Bilirubin (0.2-1.3) mg/dL AST (17-59) U/L ALT (21-72) U/L Alkaline Phosphatase (38-126) U/L Total Protein (6.3-8.2) g/dL Albumin (3.5-5.0) g/dL Urine Color Yellow Urine Appearance Cloudy (Clear) Urine pH 5.5 (5.0-8.0) Ur Specific [place] 1.020 (1.001-1.035) Urine Protein Trace H (Negative) Urine Glucose (UA) Trace H (Negative) Urine Ketones Negative (Negative) Urine Blood Trace H (Negative) Urine Nitrite Negative (Negative) Urine Bilirubin Negative (Negative) Urine Urobilinogen <2.0 (<2.0) mg/dL Ur Leukocyte Esterase Trace H (Negative) Urine RBC 14 H (0-5) /hpf Urine WBC 8 H (0-5) /hpf Ur Squamous Epith Cells 2 (0-4) /hpf Calcium Oxalate Crystal Rare H (None) /hpf Hyaline Casts 3 H (0-2) /lpf Urine Mucus Rare H (None) /hpf Disposition Clinical Impression: Hematuria, UTI (urinary tract infection) Disposition: HOME SELF-CARE Condition: Good Instructions: Urinary Tract Infection in Men (ED) Additional Instructions: Please use medication as discussed. Please follow-up with family doctor in the next 2 days of symptoms have not improved. Please return to emergency room if the symptoms increase or worsen or for any other concerns. Prescriptions: Sulfamethox-Tmp 800-160Mg [Bactrim DS 800-160 mg] 1 tab PO Q12HR #28 tab Is patient prescribed a controlled substance at d/c from ED?: No Referrals: Chano Ames MD [Primary Care Provider] - 1-2 days Time of Disposition: 15:31
[2018-02-16 14:05] LABS: ALT 26 U/L (21-72); AST 19 U/L (17-59); Albumin 3.3 g/dL (3.5-5.0); Alkaline Phosphatase 76 U/L (38-126); Anion Gap 8 mmol/L; Blood Urea Nitrogen 17 mg/dL (9-20); Calcium 10.5 mg/dL (8.4-10.2); Carbon Dioxide 25 mmol/L (22-30); Chloride 108 mmol/L (98-107); Glucose 176 mg/dL (74-99); Potassium 4.6 mmol/L (3.5-5.1); Sodium 141 mmol/L (137-145); Total Bilirubin 0.4 mg/dL (0.2-1.3); Total Protein 6.2 g/dL (6.3-8.2)
[2018-02-16 14:07] LABS: INR 1.2 (<1.2); Partial Thromboplastin Time 23.1 sec (22.0-30.0); Prothrombin Time 11.3 sec (9.0-12.0)
[2018-02-16 14:11] LABS: Appearance,Urine Cloudy (Clear); Bilirubin,Urine Negative (Negative); Blood,Urine Trace (Negative); Calcium Oxalate Crystals,Urine Rare /hpf; Color,Urine Yellow; Glucose,Urine (UA) Trace (Negative); Hyaline Casts,Urine 3 /lpf (0-2); Ketones,Urine Negative (Negative); Leukocyte Esterase,Urine Trace (Negative); Mucus,Urine Rare /hpf; Nitrite,Urine Negative (Negative); PH, Urine 5.5 (5.0-8.0); Protein,Urine Trace (Negative); RBC,Urine 14 /hpf (0-5); Squamous Epithelial Cell,Urine 2 /hpf (0-4); Urobilinogen,Urine <2.0 mg/dL (<2.0); WBC,Urine 8 /hpf (0-5)
--- NOTE | 2018-02-16 15:04 | XR ---
Abdomen HISTORY: Hematuria, pain Frontal view of the abdomen on [address] 12/12/2017 Patient is post lap band. Lung bases are clear. There is no evident bowel obstruction or pneumoperito neum. Calcification left hemipelvis felt likely to be due to phlebolith. There are air-fluid levels w ithout bowel distention. Overlying bowel gas may obscure underlying detail, renal calcifications. IMPRESSION: There may be an underlying ileus. Renal calcifications noted on prior CT may be obscured by overlying bowel gas, tubing, lap band port.
--- NOTE | 2018-02-16 15:37 | ED ---
Medical Decision Making - Lab Data Result diagrams: 02/16/18 13:37 02/16/18 13:37 Lab Results 02/16/18 02/16/18 02/16/18 Range/Units 13:37 13:37 13:37 WBC 7.0 (3.8-10.6) k/uL RBC 3.92 L (4.30-5.90) m/uL Hgb 11.0 L (13.0-17.5) gm/dL Hct 33.8 L (39.0-53.0) % MCV 86.2 (80.0-100.0) fL MCH 28.1 (25.0-35.0) pg MCHC 32.6 (31.0-37.0) g/dL RDW 15.7 H (11.5-15.5) % Plt Count 258 (150-450) k/uL Neutrophils % 62 % Lymphocytes % 28 % Monocytes % 4 % Eosinophils % 4 % Basophils % 1 % Neutrophils # 4.3 (1.3-7.7) k/uL Lymphocytes # 2.0 (1.0-4.8) k/uL Monocytes # 0.3 (0-1.0) k/uL Eosinophils # 0.3 (0-0.7) k/uL Basophils # 0.1 (0-0.2) k/uL PT 11.3 (9.0-12.0) sec INR 1.2 H (<1.2) APTT 23.1 (22.0-30.0) sec Sodium 141 (137-145) mmol/L Potassium 4.6 (3.5-5.1) mmol/L Chloride 108 H (98-107) mmol/L Carbon Dioxide 25 (22-30) mmol/L Anion Gap 8 mmol/L BUN 17 (9-20) mg/dL Creatinine 0.86 (0.66-1.25) mg/dL Est GFR (CKD-EPI)AfAm >90 (>60 ml/min/1.73 sqM) Est GFR (CKD-EPI)NonAf >90 (>60 ml/min/1.73 sqM) Glucose 176 H (74-99) mg/dL Calcium 10.5 H (8.4-10.2) mg/dL Total Bilirubin 0.4 (0.2-1.3) mg/dL AST 19 (17-59) U/L ALT 26 (21-72) U/L Alkaline Phosphatase 76 (38-126) U/L Total Protein 6.2 L (6.3-8.2) g/dL Albumin 3.3 L (3.5-5.0) g/dL Urine Color Urine Appearance (Clear) Urine pH (5.0-8.0) Ur Specific [place] (1.001-1.035) Urine Protein (Negative) Urine Glucose (UA) (Negative) Urine Ketones (Negative) Urine Blood (Negative) Urine Nitrite (Negative) Urine Bilirubin (Negative) Urine Urobilinogen (<2.0) mg/dL Ur Leukocyte Esterase (Negative) Urine RBC (0-5) /hpf Urine WBC (0-5) /hpf Ur Squamous Epith Cells (0-4) /hpf Calcium Oxalate Crystal (None) /hpf Hyaline Casts (0-2) /lpf Urine Mucus (None) /hpf 02/16/ Range/Units 13:37 WBC (3.8-10.6) k/uL RBC (4.30-5.90) m/uL Hgb (13.0-17.5) gm/dL Hct (39.0-53.0) % MCV (80.0-100.0) fL MCH (25.0-35.0) pg MCHC (31.0-37.0) g/dL RDW (11.5-15.5) % Plt Count (150-450) k/uL Neutrophils % % Lymphocytes % % Monocytes % % Eosinophils % % Basophils % % Neutrophils # (1.3-7.7) k/uL Lymphocytes # (1.0-4.8) k/uL Monocytes # (0-1.0) k/uL Eosinophils # (0-0.7) k/uL Basophils # (0-0.2) k/uL PT (9.0-12.0) sec INR (<1.2) APTT (22.0-30.0) sec Sodium (137-145) mmol/L Potassium (3.5-5.1) mmol/L Chloride (98-107) mmol/L Carbon Dioxide (22-30) mmol/L Anion Gap mmol/L BUN (9-20) mg/dL Creatinine (0.66-1.25) mg/dL Est GFR (CKD-EPI)AfAm (>60 ml/min/1.73 sqM) Est GFR (CKD-EPI)NonAf (>60 ml/min/1.73 sqM) Glucose (74-99) mg/dL Calcium (8.4-10.2) mg/dL Total Bilirubin (0.2-1.3) mg/dL AST (17-59) U/L ALT (21-72) U/L Alkaline Phosphatase (38-126) U/L Total Protein (6.3-8.2) g/dL Albumin (3.5-5.0) g/dL Urine Color Yellow Urine Appearance Cloudy (Clear) Urine pH 5.5 (5.0-8.0) Ur Specific [place] 1.020 (1.001-1.035) Urine Protein Trace H (Negative) Urine Glucose (UA) Trace H (Negative) Urine Ketones Negative (Negative) Urine Blood Trace H (Negative) Urine Nitrite Negative (Negative) Urine Bilirubin Negative (Negative) Urine Urobilinogen <2.0 (<2.0) mg/dL Ur Leukocyte Esterase Trace H (Negative) Urine RBC 14 H (0-5) /hpf Urine WBC 8 H (0-5) /hpf Ur Squamous Epith Cells 2 (0-4) /hpf Calcium Oxalate Crystal Rare H (None) /hpf Hyaline Casts 3 H (0-2) /lpf Urine Mucus Rare H (None) /hpf Disposition Clinical Impression: Hematuria, UTI (urinary tract infection) Disposition: HOME SELF-CARE Condition: Good Instructions: Urinary Tract Infection in Men (ED) Additional Instructions: Please use medication as discussed. Please follow-up with urology/family doctor in the next 2 days of symptoms have not improved. Please return to emergency room if the symptoms increase or worsen or for any other concerns. Prescriptions: Sulfamethox-Tmp 800-160Mg [Bactrim DS 800-160 mg] 1 tab PO Q12HR #28 tab Is patient prescribed a controlled substance at d/c from ED?: No Referrals: Chano Ames MD [Primary Care Provider] - 1-2 days Tomy Horner MD [STAFF PHYSICIAN] - 1-2 days Time of Disposition: 15:36
[2018-02-16 16:12] VITALS: BP 110/64; PULSE 79; RESP 16
== END 2018-02-16 16:05 | disposition home or self-care (01) ==
LOC: EC 11:55
DX: N39.0 Urinary tract infection, site not specified (principal); I25.10 Atherosclerotic heart disease of native coronary artery without angina pectoris; E11.9 Type 2 diabetes mellitus without complications; F17.200 Nicotine dependence, unspecified, uncomplicated; Z79.899 Other long term (current) drug therapy; Z88.5 Allergy status to narcotic agent; Z95.5 Presence of coronary angioplasty implant and graft; Z98.84 Bariatric surgery status
CPT/HCPCS: 36415; 74018; 80053; 81001; 85025; 85610; 85730; 87086; 99283

== ENCOUNTER → 2018-05-22 | Outpatient (CLI) | payer MEDICARE ==
--- NOTE | 2018-05-22 17:41 | CT ---
EXAMINATION TYPE: CT abdomen pelvis wo con DATE OF EXAM: 05/22/2018 COMPARISON: 12/12/2017 HISTORY: abdominal pain, hematuria CT DLP: 788.1 mGycm Automated exposure control for dose reduction was used. TECHNIQUE: Helical acquisition of images was performed from the lung bases through the pelvis. FINDINGS: Images are obtained from the diaphragm to the floor the pelvis with oral contrast only. There is mild pleural thickening and fluid at the left posterior lung base. Heart is top normal in si ze. There is no pericardial effusion. There is a gastric sling at the gastric fundus. Spleen appears normal. There is no evidence of a pancreatic mass. Liver shows no focal defect. Bile ducts are not di lated. There is no adrenal mass. The kidneys have normal size. There are multiple calcifications in the left renal pelvis. There is 2 cm exophytic cyst posterior left kidney. There is no hydronephrosis. Ureter s are not dilated. There is no retroperitoneal adenopathy. Bladder distends smoothly. There is no ing uinal hernia. There is no free fluid in the pelvis. I see no intestinal wall thickening. There is no evidence of free air. There is no ascites. There is no mesenteric edema. Appendix is not seen. There is no sign of appendicitis. There is multilevel spondylotic changes in the thoracic and lumbar spine. There is laminectomy defect in the lower lumbar spine. I see no focal bone destruction. IMPRESSION: THERE IS PLEURAL THICKENING AND ATELECTASIS AT THE LUNG BASES SIMILAR TO OLD EXAM. PREVIOUS BARIATRIC SURGERY. MULTIPLE LEFT RENAL CALCULI WITHOUT HYDRONEPHROSIS OR HYDROURETER. THERE IS CLEARING OF THE LEFT SIDE MILD HYDRONEPHROSIS COMPARED TO OLD EXAM.
== END | disposition home or self-care (01) ==
LOC: RADCTMAIN 15:04
PROVIDERS: ATTEND Family Medicine
DX: N20.0 Calculus of kidney (principal); Z98.84 Bariatric surgery status
CPT/HCPCS: 74176

== ENCOUNTER 2018-07-09 15:16 | Inpatient (IN) | payer MEDICARE ==
[2018-07-09 16:22] LABS: Anisocytosis Slight; Basophils % (A) 0 %; Eosinophils # (A) 0.1 k/uL (0-0.7); Eosinophils % (A) 1 %; HCT 29.6 % (39.0-53.0); HGB 9.3 gm/dL (13.0-17.5); Hypochromasia Slight; Lymphocytes # (A) 2.9 k/uL (1.0-4.8); Lymphocytes % (A) 29 %; MCH 29.1 pg (25.0-35.0); MCHC 31.6 g/dL (31.0-37.0); MCV 92.1 fL (80.0-100.0); Mean Platelet Volume 7.8; Monocytes # (A) 0.3 k/uL (0-1.0); Monocytes % (A) 3 %; Neutrophils # (A) 6.6 k/uL (1.3-7.7); Neutrophils % (A) 66 %; Platelet Count 260 k/uL (150-450); RBC 3.21 m/uL (4.30-5.90); RDW 16.7 % (11.5-15.5)
[2018-07-09 16:30] LABS: ALT 22 U/L (21-72); AST 19 U/L (17-59); Albumin 2.7 g/dL (3.5-5.0); Alkaline Phosphatase 77 U/L (38-126); Amylase <30 U/L (30-110); Anion Gap 8 mmol/L; Blood Urea Nitrogen 32 mg/dL (9-20); Calcium 8.9 mg/dL (8.4-10.2); Carbon Dioxide 29 mmol/L (22-30); Chloride 103 mmol/L (98-107); Glucose 248 mg/dL (74-99); INR 1.1 (<1.2); Lipase 30 U/L (23-300); Partial Thromboplastin Time 26.1 sec (22.0-30.0); Potassium 3.5 mmol/L (3.5-5.1); Prothrombin Time 11.9 sec (9.0-12.0); Sodium 140 mmol/L (137-145); Total Bilirubin 0.9 mg/dL (0.2-1.3); Total Protein 4.9 g/dL (6.3-8.2)
[2018-07-09] MEDS ORDERED: SODIUM CHLORIDE 0.9% 1,000 ML IV ONE (16:46)
--- NOTE | 2018-07-09 17:17 | ED ---
General Adult HPI - General Chief complaint: Abdominal Pain Stated complaint: Blood in urine Time Seen by Provider: 07/09/18 16:39 Source: patient, RN notes reviewed, old records reviewed Mode of arrival: ambulatory Limitations: no limitations - History of Present Illness Initial comments: 62-year-old male presents with increased generalized weakness. Patient has history of recent urinary tract infection, he was admitted at an outside hospital with diagnosis generalized weakness and UTI. He was initiated on antibiotics over these were discontinued. He states he's continued to have urinary frequency and incontinence. Denies flank pain or abdominal pain. Denies nausea vomiting or diarrhea. Denies fever but states he has been chills. He is not currently on any body aches. His previous history of CAD status post stenting. No dyspnea, no chest pain. Chief complaint generalized weakness and urinary frequency and incontinence. - Related Data Home Medications Medication Instructions Recorded Confirmed Famotidine [Pepcid] 20 mg PO BID 06/17/15 07/09/18 Metoprolol Succinate (ER) [Toprol 25 mg PO BID 12/13/15 07/09/18 XL] Ergocalciferol (Vitamin D2) 50,000 unit PO MO 12/12/17 07/09/18 [Drisdol] Hydrocortisone [Cortef] 30 mg PO DAILY 12/12/17 07/09/18 Ibuprofen [Motrin] 800 mg PO TID PRN 12/12/17 07/09/18 Atorvastatin [Lipitor] 80 mg PO HS 07/09/18 07/09/18 Diazepam 15 mg PO DAILY PRN 07/09/18 07/09/18 Ferrous Sulfate [Feosol] 325 mg PO DAILY 07/09/18 07/09/18 Levothyroxine Sodium 88 mcg PO DAILY 07/09/18 07/09/18 Omeprazole 40 mg PO DAILY 07/09/18 07/09/18 glyBURIDE [Diabeta] 2.5 mg PO AC-BID 07/09/18 07/09/18 metFORMIN HCL 1,000 mg PO BID 07/09/18 07/09/18 oxyCODONE HCL [oxyCODONE HCL (IR)] 30 mg PO Q6H PRN 07/09/18 07/09/18 Allergies Allergy/AdvReac Type Severity Reaction Status Date / Time codeine AdvReac Nausea & Verified 07/09/18 17:41 Vomiting Review of Systems ROS Statement: Those systems with pertinent positive or pertinent negative responses have been documented in the HPI. ROS Other: All systems not noted in ROS Statement are negative. Past Medical History Past Medical History: Coronary Artery Disease (CAD), Diabetes Mellitus, Hyperlipidemia, Musculoskeletal Disorder, Thyroid Disorder Additional Past Medical History / Comment(s): ADRENAL INSUFFICIENCY. NIDDM. History of Any Multi-Drug Resistant Organisms: None Reported Past Surgical History: Back Surgery, Bariatric Surgery, Heart Catheterization With Stent Additional Past Surgical History / Comment(s): BACK SURG (decompression) X2. LAP BAND. Past Anesthesia/Blood Transfusion Reactions: No Reported Reaction Date of Last Stent Placement:: 1 Past Psychological History: Anxiety Smoking Status: Light tobacco smoker Past Alcohol Use History: None Reported Past Drug Use History: None Reported - Past Family History Father Family Medical History: Diabetes Mellitus Additional Family Medical History / Comment(s): of a ruptured aorta Mother Family Medical History: Cancer, Diabetes Mellitus Additional Family Medical History / Comment(s): PPM, liver CA General Exam Limitations: no limitations General appearance: alert, in no apparent distress Head exam: Present: atraumatic, normocephalic Eye exam: Present: normal appearance, PERRL ENT exam: Present: mucous membranes dry Neck exam: Present: normal inspection. Absent: tenderness, meningismus Respiratory exam: Present: normal lung sounds bilaterally. Absent: respiratory distress, wheezes, rales Cardiovascular Exam: Present: regular rate, normal rhythm GI/Abdominal exam: Present: soft. Absent: distended, tenderness, guarding Extremities exam: Present: normal inspection, normal capillary refill. Absent: pedal edema Neurological exam: Present: alert, oriented X3, CN II-XII intact. Absent: motor sensory deficit Psychiatric exam: Present: normal affect, normal mood Skin exam: Present: warm, dry, intact. Absent: cyanosis, diaphoretic Course Vital Signs 07/09/18 07/09/18 07/09/18 15:32 17:45 18:32 Temperature 95.9 F L 97.0 F L 96.8 F L Pulse Rate 72 67 78 Respiratory 22 18 17 Rate Blood Pressure 92/50 93/52 93/52 O2 Sat by Pulse 97 98 98 Oximetry 07/09/18 19:03 Temperature Pulse Rate 71 Respiratory 18 Rate Blood Pressure 99/57 O2 Sat by Pulse 98 Oximetry Medical Decision Making - Medical Decision Making 62 male presenting for evaluation generalized weakness, recent UTI. Patient has normal white blood cell count, hemoglobin 9.3, normal electrolytes, lactic acid 2.0. His significant urinary tract infection, greater than 182 white cells, many bacteria. Cultures will be obtained. These records from outside hospital will be requested. Patient initiated on antibiotics, will be For IV antibiotics and IV hydration. Case discussed with admitting physician. - Lab Data Result diagrams: 07/09/18 16:00 07/09/18 16:00 Lab Results 07/09/18 07/09/18 07/09/18 Range/Units 16:00 16:00 16:00 WBC 10.0 (3.8-10.6) k/uL RBC 3.21 L (4.30-5.90) m/uL Hgb 9.3 L (13.0-17.5) gm/dL Hct 29.6 L (39.0-53.0) % MCV 92.1 (80.0-100.0) fL MCH 29.1 (25.0-35.0) pg MCHC 31.6 (31.0-37.0) g/dL RDW 16.7 H (11.5-15.5) % Plt Count 260 (150-450) k/uL Neutrophils % 66 % Lymphocytes % 29 % Monocytes % 3 % Eosinophils % 1 % Basophils % 0 % Neutrophils # 6.6 (1.3-7.7) k/uL Lymphocytes # 2.9 (1.0-4.8) k/uL Monocytes # 0.3 (0-1.0) k/uL Eosinophils # 0.1 (0-0.7) k/uL Basophils # 0.0 (0-0.2) k/uL Hypochromasia Slight Anisocytosis Slight PT (9.0-12.0) sec INR (<1.2) APTT (22.0-30.0) sec Sodium 140 (137-145) mmol/L Potassium 3.5 (3.5-5.1) mmol/L Chloride 103 (98-107) mmol/L Carbon Dioxide 29 (22-30) mmol/L Anion Gap 8 mmol/L BUN 32 H (9-20) mg/dL Creatinine 1.11 (0.66-1.25) mg/dL Est GFR (CKD-EPI)AfAm 81 (>60 ml/min/1.73 sqM) Est GFR (CKD-EPI)NonAf 70 (>60 ml/min/1.73 sqM) Glucose 248 H (74-99) mg/dL Plasma Lactic Acid Ras (0.7-2.0) mmol/L Calcium 8.9 (8.4-10.2) mg/dL Total Bilirubin 0.9 (0.2-1.3) mg/dL AST 19 (17-59) U/L ALT 22 (21-72) U/L Alkaline Phosphatase 77 (38-126) U/L Troponin I <0.012 (0.000-0.034) ng/mL Total Protein 4.9 L (6.3-8.2) g/dL Albumin 2.7 L (3.5-5.0) g/dL Amylase <30 L (30-110) U/L Lipase 30 (23-300) U/L TSH (0.465-4.680) mIU/L Urine Color Urine Appearance (Clear) Urine pH (5.0-8.0) Ur Specific [place] (1.001-1.035) Urine Protein (Negative) Urine Glucose (UA) (Negative) Urine Ketones (Negative) Urine Blood (Negative) Urine Nitrite (Negative) Urine Bilirubin (Negative) Urine Urobilinogen (<2.0) mg/dL Ur Leukocyte Esterase (Negative) Urine RBC (0-5) /hpf Urine WBC (0-5) /hpf Urine WBC Clumps (None) /hpf Ur Squamous Epith Cells (0-4) /hpf Amorphous Sediment (None) /hpf Urine Bacteria (None) /hpf Hyaline Casts (0-2) /lpf Urine Mucus (None) /hpf 07/09/18 07/09/18 07/09/18 Range/Units 16:00 16:00 17:14 WBC (3.8-10.6) k/uL RBC (4.30-5.90) m/uL Hgb (13.0-17.5) gm/dL Hct (39.0-53.0) % MCV (80.0-100.0) fL MCH (25.0-35.0) pg MCHC (31.0-37.0) g/dL RDW (11.5-15.5) % Plt Count (150-450) k/uL Neutrophils % % Lymphocytes % % Monocytes % % Eosinophils % % Basophils % % Neutrophils # (1.3-7.7) k/uL Lymphocytes # (1.0-4.8) k/uL Monocytes # (0-1.0) k/uL Eosinophils # (0-0.7) k/uL Basophils # (0-0.2) k/uL Hypochromasia Anisocytosis PT 11.9 (9.0-12.0) sec INR 1.1 (<1.2) APTT 26.1 (22.0-30.0) sec Sodium (137-145) mmol/L Potassium (3.5-5.1) mmol/L Chloride (98-107) mmol/L Carbon Dioxide (22-30) mmol/L Anion Gap mmol/L BUN (9-20) mg/dL Creatinine (0.66-1.25) mg/dL Est GFR (CKD-EPI)AfAm (>60 ml/min/1.73 sqM) Est GFR (CKD-EPI)NonAf (>60 ml/min/1.73 sqM) Glucose (74-99) mg/dL Plasma Lactic Acid Ras (0.7-2.0) mmol/L Calcium (8.4-10.2) mg/dL Total Bilirubin (0.2-1.3) mg/dL AST (17-59) U/L ALT (21-72) U/L Alkaline Phosphatase (38-126) U/L Troponin I (0.000-0.034) ng/mL Total Protein (6.3-8.2) g/dL Albumin (3.5-5.0) g/dL Amylase (30-110) U/L Lipase (23-300) U/L TSH 1.030 (0.465-4.680) mIU/L Urine Color Yellow Urine Appearance Cloudy (Clear) Urine pH 5.5 (5.0-8.0) Ur Specific [place] 1.022 (1.001-1.035) Urine Protein 1+ H (Negative) Urine Glucose (UA) Trace H (Negative) Urine Ketones Negative (Negative) Urine Blood Small H (Negative) Urine Nitrite Negative (Negative) Urine Bilirubin Negative (Negative) Urine Urobilinogen <2.0 (<2.0) mg/dL Ur Leukocyte Esterase Large H (Negative) Urine RBC 41 H (0-5) /hpf Urine WBC >182 H (0-5) /hpf Urine WBC Clumps Few H (None) /hpf Ur Squamous Epith Cells 2 (0-4) /hpf Amorphous Sediment Occasional H (None) /hpf Urine Bacteria Many H (None) /hpf Hyaline Casts 116 H (0-2) /lpf Urine Mucus Occasional H (None) /hpf 07/09/18 Range/Units 17:14 WBC (3.8-10.6) k/uL RBC (4.30-5.90) m/uL Hgb (13.0-17.5) gm/dL Hct (39.0-53.0) % MCV (80.0-100.0) fL MCH (25.0-35.0) pg MCHC (31.0-37.0) g/dL RDW (11.5-15.5) % Plt Count (150-450) k/uL Neutrophils % % Lymphocytes % % Monocytes % % Eosinophils % % Basophils % % Neutrophils # (1.3-7.7) k/uL Lymphocytes # (1.0-4.8) k/uL Monocytes # (0-1.0) k/uL Eosinophils # (0-0.7) k/uL Basophils # (0-0.2) k/uL Hypochromasia Anisocytosis PT (9.0-12.0) sec INR (<1.2) APTT (22.0-30.0) sec Sodium (137-145) mmol/L Potassium (3.5-5.1) mmol/L Chloride (98-107) mmol/L Carbon Dioxide (22-30) mmol/L Anion Gap mmol/L BUN (9-20) mg/dL Creatinine (0.66-1.25) mg/dL Est GFR (CKD-EPI)AfAm (>60 ml/min/1.73 sqM) Est GFR (CKD-EPI)NonAf (>60 ml/min/1.73 sqM) Glucose (74-99) mg/dL Plasma Lactic Acid Ras 2.0 (0.7-2.0) mmol/L Calcium (8.4-10.2) mg/dL Total Bilirubin (0.2-1.3) mg/dL AST (17-59) U/L ALT (21-72) U/L Alkaline Phosphatase (38-126) U/L Troponin I (0.000-0.034) ng/mL Total Protein (6.3-8.2) g/dL Albumin (3.5-5.0) g/dL Amylase (30-110) U/L Lipase (23-300) U/L TSH (0.465-4.680) mIU/L Urine Color Urine Appearance (Clear) Urine pH (5.0-8.0) Ur Specific [place] (1.001-1.035) Urine Protein (Negative) Urine Glucose (UA) (Negative) Urine Ketones (Negative) Urine Blood (Negative) Urine Nitrite (Negative) Urine Bilirubin (Negative) Urine Urobilinogen (<2.0) mg/dL Ur Leukocyte Esterase (Negative) Urine RBC (0-5) /hpf Urine WBC (0-5) /hpf Urine WBC Clumps (None) /hpf Ur Squamous Epith Cells (0-4) /hpf Amorphous Sediment (None) /hpf Urine Bacteria (None) /hpf Hyaline Casts (0-2) /lpf Urine Mucus (None) /hpf Disposition Clinical Impression: Dehydration, UTI (urinary tract infection) Disposition: ADMITTED IP TO THIS [facility] Condition: Stable Is patient prescribed a controlled substance at d/c from ED?: No Referrals: Chano Ames MD [Primary Care Provider] - 1-2 days Decision to Admit Reason: Admit from EC Decision Date: 07/09/18 Decision Time: 19:21
--- NOTE | 2018-07-09 17:39 | XR ---
EXAMINATION TYPE: XR chest 2V DATE OF EXAM: 07/09/2018 COMPARISON: 12/12/2015 HISTORY: Fever TECHNIQUE: Frontal and lateral views of the chest are obtained. FINDINGS: Heart and mediastinum are normal. Lungs are clear. Costophrenic angles are clear. Bony tho rax is intact. Pulmonary vascularity is normal. IMPRESSION: Normal chest. No change.
[2018-07-09 18:17] LABS: Amorphous Sediment,Urine Occasional /hpf; Appearance,Urine Cloudy (Clear); Bacteria,Urine Many /hpf; Bilirubin,Urine Negative (Negative); Blood,Urine Small (Negative); Color,Urine Yellow; Glucose,Urine (UA) Trace (Negative); Hyaline Casts,Urine 116 /lpf (0-2); Ketones,Urine Negative (Negative); Leukocyte Esterase,Urine Large (Negative); Mucus,Urine Occasional /hpf; Nitrite,Urine Negative (Negative); PH, Urine 5.5 (5.0-8.0); Protein,Urine 1+ (Negative); RBC,Urine 41 /hpf (0-5); Specific Gravity,Urine 1.022 (1.001-1.035); Squamous Epithelial Cell,Urine 2 /hpf (0-4); Urobilinogen,Urine <2.0 mg/dL (<2.0); WBC,Urine >182 /hpf (0-5)
[2018-07-09] MEDS ORDERED: cefTRIAXone IN SWFI 1,000 MG/10 ML SYRINGE IVP STA (18:41)
[2018-07-09] MEDS ORDERED: SODIUM CHLORIDE 0.9% 500 ML 500 ML IV ONE (18:42)
[2018-07-09] MEDS ORDERED: ACETAMINOPHEN TAB 325 MG TAB PO PRN (19:15)
[2018-07-09] MEDS ORDERED: NALOXONE 0.4 MG/ML 1 ML VIAL IV PRN (19:15)
[2018-07-09] MEDS: SODIUM CHLORIDE 0.9% 1,000 ML IV SCH (19:45)
[2018-07-09 23:07] VITALS: BMI 31.1
[2018-07-09] MEDS ORDERED: IBUPROFEN 800 MG TAB PO PRN (23:55)
[2018-07-09] MEDS ORDERED: DIAZEPAM 5 MG TAB PO PRN (23:57)
[2018-07-10] MEDS: FAMOTIDINE 20 MG TAB PO SCH ×3 (00:27→21:03)
[2018-07-10] MEDS: ATORVASTATIN 80 MG TAB PO SCH ×2 (00:27→21:03)
[2018-07-10] MEDS: LEVOTHYROXINE 88 MCG TAB PO SCH (05:52)
[2018-07-10] MEDS: SODIUM CHLORIDE 0.9% 1,000 ML IV SCH ×2 (05:53→17:17)
[2018-07-10] MEDS: METOPROLOL SUCCINATE (ER) 25 MG TAB.ER.24H PO SCH ×2 (07:16→21:03)
[2018-07-10] MEDS: PANTOPRAZOLE 40 MG TABLET PO SCH (07:21)
[2018-07-10] MEDS: metFORMIN 500 MG TAB PO SCH ×2 (07:22→18:06)
[2018-07-10 07:38] LABS: Glucose,Whole Blood 82 mg/dL (75-99)
[2018-07-10] MEDS ORDERED: HYDROCORTISONE 20 MG TAB PO SCH (09:00)
[2018-07-10 11:08] LABS: Glucose,Whole Blood 112 mg/dL (75-99)
[2018-07-10] MEDS: FERROUS SULFATE 325 MG TAB PO SCH (12:19)
[2018-07-10 16:55] LABS: Glucose,Whole Blood 238 mg/dL (75-99)
[2018-07-10 20:09] LABS: Glucose,Whole Blood 229 mg/dL (75-99)
[2018-07-10] MEDS: HYDROCORTISONE SUCCINATE 100 MG/2 ML VIAL IV SCH ×2 (21:03→23:32)
--- NOTE | 2018-07-10 21:53 | HP ---
HISTORY AND PHYSICAL DATE OF SERVICE: July 09, 2018. DATE OF SERVICE: July 10, 2018. PRESENTING COMPLAINT: Weak and tired. HISTORY OF PRESENTING COMPLAINT: A very pleasant 62 -year-old patient of Dr. Ames. Chronic stable medical conditions include coronary artery disease with stent, diabetes, hyperlipidemia, osteoarthritis, hypothyroid, renal insufficiency. The patient has recently had a UTI for which she was treated. The patient presents with feeling dizzy, lightheaded, really could not walk. Recently was treated with Bactrim DS. The patient's appetite had really gone down. No fever. No chills. Had some urinary symptoms. The patient admitted, found to have a infected appearing urine, started on IV ceftriaxone. Admitted for the same. The patient was feeling tired and run down. REVIEW OF SYSTEMS: CONSTITUTIONAL: Weak, tired, run down. HEENT: None. RESPIRATORY: None. CARDIOVASCULAR: None. GASTROINTESTINAL: None. GENITOURINARY: Urinary symptoms. DERMATOLOGICAL, HEMATOLOGIC, LYMPHATIC: none. PSYCHIATRY none. NEUROLOGICAL: None. PAST MEDICAL HISTORY: Coronary artery disease with stent, diabetes, hyperlipidemia, osteoarthritis, hypothyroid, adrenal insufficiency, kidney stones. PAST SURGICAL HISTORY: Back surgery, bariatric surgery, cardiac cath with stent, lap band. PSYCH HISTORY: Anxiety. SOCIAL HISTORY: Patient is smoking a pipe occasionally. Lives at home with his daughter and a 6-year- old grandson. 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 No alcohol. FAMILY HISTORY: Diabetes. HOME MEDICATIONS: 1. Oxycodone 30 mg q.6h p.r.n. 2. Metformin 1000 mg p.o. b.i.d. 3. DiaBeta 2.5 p.o. b.i.d. 4. Omeprazole 40 mg p.o. daily. 5. Toprol-XL 25 mg b.i.d. 6. Levothyroxine 88 mcg a day. 7. Motrin 800 mg p.o. t.i.d. p.r.n. 8. Cortef 30 mg p.o. daily. 9. Iron 325 p.o. daily. 10.Pepcid 20 mg b.i.d. 11.Drisdol 50,000 units p.o. Friday. 12.Valium 50 mg p.o. daily p.r.n. 13.Lipitor 80 mg q.h.s. 14.Tylenol 325 p.o. p.r.n. ALLERGIES: CODEINE, causing nausea, and vomiting. PHYSICAL EXAMINATION: VITAL SIGNS: Temperature 97, pulse 68, respiration 18, blood pressure 98/48. Pulse ox 97% on room air. GENERAL APPEARANCE: Well built, BMI 31.1. Lying in bed, tired-appearing. EYES: Pupils equal. Conjunctivae normal. HEENT: External appearance of nose and ears normal. Oral cavity normal. NECK: JVD not raised. Mass not palpable. RESPIRATORY: Effort normal. LUNGS are clear. CARDIOVASCULAR: 1st and 2nd heart sounds normal. ABDOMEN: Soft, nontender. Liver and spleen not palpable. LYMPHATICS: No lymph nodes palpable in the neck and axilla. PSYCHIATRY: Alert and oriented x3. Mood and affect normal. NEUROLOGICAL: Pupils equal. Cranial nerves grossly intact. Power and sensation grossly intact. INVESTIGATIONS: White count 10, hemoglobin 9.3, potassium 3.5, BUN 32, creatinine 1.11. UA positive for leukocyte esterase. WBC, RBC 2 epithelial cells. ASSESSMENT: 1. Acute severe urinary tract infection from cystitis that has been recurrent with systemic symptoms of feeling dizzy, lightheaded, really could not walk. 2. Coronary artery disease with stents. 3. Diabetes mellitus type 2 on oral hypoglycemic. 4. Hyperlipidemia. 5. Primary osteoarthritis. 6. Hypothyroidism. 7. Adrenal insufficiency. PLAN: Home medications resumed. Patient put on IV ceftriaxone. Getting IV fluids. Will put the patient on a stress dose of steroids. Care was discussed with the patient. Questions were answered. Copy to Dr. Ames. DUYEN / MINDY: [id number] /
[2018-07-11 04:59] VITALS: BP 110/54; PULSE 72; RESP 16; TEMP 97.8
[2018-07-11] MEDS: LEVOTHYROXINE 88 MCG TAB PO SCH (06:23)
[2018-07-11 07:06] LABS: Glucose,Whole Blood 216 mg/dL (75-99)
[2018-07-11] MEDS: HYDROCORTISONE SUCCINATE 100 MG/2 ML VIAL IV SCH (08:52)
[2018-07-11] MEDS: PANTOPRAZOLE 40 MG TABLET PO SCH (08:52)
[2018-07-11] MEDS: FAMOTIDINE 20 MG TAB PO SCH (08:52)
[2018-07-11] MEDS: METOPROLOL SUCCINATE (ER) 25 MG TAB.ER.24H PO SCH (08:53)
[2018-07-11] MEDS: FERROUS SULFATE 325 MG TAB PO SCH (08:54)
[2018-07-11] MEDS: metFORMIN 500 MG TAB PO SCH (09:02)
[2018-07-11 11:22] LABS: Glucose,Whole Blood 214 mg/dL (75-99)
--- NOTE | 2018-07-11 16:03 | P.DS ---
Providers Date of admission: 07/09/18 19:16 Attending physician: Prem Yadav [facility]: 63-year-old admitted for possibly. Tract infection urine is positive for gram- negative bacilli which are less than 100,000 although patient was partially treated recently with Bactrim double strength after which his symptoms returned. Patient is insisting on discharge because of which are good and discharge him on Ceftin patient apparently was discharged on ampicillin in the past. On admission patient was also lightheaded which is better I believe secondary to his opiates he is using and low blood pressure secondary to that. PHYSICAL EXAMINATION: GENERAL: The patient is alert and oriented x3, not in any acute distress. Well developed, well nourished. HEENT: Pupils are round and equally reacting to light. EOMI. No scleral icterus. No conjunctival pallor. Normocephalic, atraumatic. No pharyngeal erythema. No thyromegaly. CARDIOVASCULAR: S1 and S2 present. No murmurs, rubs, or gallops. PULMONARY: Chest is clear to auscultation, no wheezing or crackles. ABDOMEN: Soft, nontender, nondistended, normoactive bowel sounds. No palpable organomegaly. MUSCULOSKELETAL: No joint swelling or deformity. EXTREMITIES: No cyanosis, clubbing, or pedal edema. NEUROLOGICAL: Gross neurological examination did not reveal any focal deficits. SKIN: No rashes. For rest of the other chronic medical problems and hospital physician course please refer to dictation of H&P a from Dr. Yadav from yesterday Patient Condition at Discharge: Stable Plan - Discharge Summary Discharge Rx Participant: Yes New Discharge Prescriptions: New Cefuroxime Axetil [Ceftin] 500 mg PO BID #10 tab Continue Famotidine [Pepcid] 20 mg PO BID Metoprolol Succinate (ER) [Toprol XL] 25 mg PO BID Ergocalciferol (Vitamin D2) [Drisdol] 50,000 unit PO MO Hydrocortisone [Cortef] 30 mg PO DAILY Ibuprofen [Motrin] 800 mg PO TID PRN PRN Reason: Pain metFORMIN HCL 1,000 mg PO BID Atorvastatin [Lipitor] 80 mg PO HS Diazepam 15 mg PO DAILY PRN PRN Reason: Anxiety Ferrous Sulfate [Iron (65 MG Elemental)] 325 mg PO DAILY glyBURIDE [Diabeta] 2.5 mg PO AC-BID Levothyroxine Sodium 88 mcg PO DAILY Omeprazole 40 mg PO DAILY oxyCODONE HCL [oxyCODONE HCL (IR)] 30 mg PO Q6H PRN PRN Reason: Pain Acetaminophen 325 mg PO PRN PRN Reason: Pain Discharge Medication List Famotidine [Pepcid] 20 mg PO BID 06/17/15 [History] Metoprolol Succinate (ER) [Toprol XL] 25 mg PO BID 12/13/15 [History] Ergocalciferol (Vitamin D2) [Drisdol] 50,000 unit PO MO 12/12/17 [History] Hydrocortisone [Cortef] 30 mg PO DAILY 12/12/17 [History] Ibuprofen [Motrin] 800 mg PO TID PRN 12/12/17 [History] Acetaminophen 325 mg PO PRN 07/09/18 [History] Atorvastatin [Lipitor] 80 mg PO HS 07/09/18 [History] Diazepam 15 mg PO DAILY PRN 07/09/18 [History] Ferrous Sulfate [Iron (65 MG Elemental)] 325 mg PO DAILY 07/09/18 [History] Levothyroxine Sodium 88 mcg PO DAILY 07/09/18 [History] Omeprazole 40 mg PO DAILY 07/09/18 [History] glyBURIDE [Diabeta] 2.5 mg PO AC-BID 07/09/18 [History] metFORMIN HCL 1,000 mg PO BID 07/09/18 [History] oxyCODONE HCL [oxyCODONE HCL (IR)] 30 mg PO Q6H PRN 07/09/18 [History] Cefuroxime Axetil [Ceftin] 500 mg PO BID #10 tab 07/11/18 [Rx] Follow up Appointment(s)/Referral(s): Chano Ames MD [Primary Care Provider] - 3 Days (Patient to call Dr. Ames's office Friday to schedule follow up a ppointment. The office is closed at time of discharge. ) Patient Instructions/Handouts: Cefuroxime (By mouth), Dehydration (DC), Urinary Tract Infection in Men (DC) Discharge Disposition: HOME SELF-CARE
== END 2018-07-11 14:10 | disposition home or self-care (01) | DRG 690 ==
LOC: EC 15:16 → 3NMEDONC 19:15 → OBSVTOIN 19:16
PROVIDERS: ADMIT Hospitalist; ATTEND Hospitalist
DX: N30.01 Acute cystitis with hematuria (principal); E27.40 Unspecified adrenocortical insufficiency; B96.1 Klebsiella pneumoniae [K. pneumoniae] as the cause of diseases classified elsewhere; E03.9 Hypothyroidism, unspecified; E11.9 Type 2 diabetes mellitus without complications; E78.5 Hyperlipidemia, unspecified; E86.0 Dehydration; F17.210 Nicotine dependence, cigarettes, uncomplicated; I25.10 Atherosclerotic heart disease of native coronary artery without angina pectoris; M19.91 Primary osteoarthritis, unspecified site; N28.9 Disorder of kidney and ureter, unspecified; Z79.84 Long term (current) use of oral hypoglycemic drugs; Z79.890 Hormone replacement therapy; Z80.0 Family history of malignant neoplasm of digestive organs; Z83.3 Family history of diabetes mellitus; Z87.442 Personal history of urinary calculi; Z95.5 Presence of coronary angioplasty implant and graft; Z79.899 Other long term (current) drug therapy; Z98.84 Bariatric surgery status; M19.90 Unspecified osteoarthritis, unspecified site
CPT/HCPCS: 36415; 71046; 80053; 81001; 82150; 83605; 83690; 84443; 84484; 85025; 85610; 85730; 87040; 87077; 87086; 87186; 93005; 96361; 96374; 99285

== ENCOUNTER 2018-09-12 14:13 | Inpatient (IN) | payer MEDICARE ==
[2018-09-12] MEDS ORDERED: ACETAMINOPHEN TAB 325 MG TAB PO STA (14:40)
--- NOTE | 2018-09-12 14:45 | ED ---
General Adult HPI - General Chief complaint: Altered Mental Status Stated complaint: Altered mental status Time Seen by Provider: 09/12/18 14:20 Source: patient, family, EMS Mode of arrival: EMS Limitations: altered mental status - History of Present Illness Initial comments: Dictation was produced using [employer] dictation software. please excuse any grammatical, word or spelling errors. Chief Complaint: 62-year-old male with recently diagnosed lymphoma, coronary artery disease, thyroid disease presents with altered mental status. History of Present Illness: [age]-year-old male. Patient was brought in by EMS. He was allegedly at [facility] reported to [facility] staff that he needed a PET scan. Patient has no complaints at this time. He does feel however generally weak. Denies chest pain, shortness breath, cough, urinary symptoms. Vital signs are stable per EMS with normal sugar. Patient states he has no specific complaints at this time. He reports that he is here to get his PET scan. More history was obtained from daughter who is unable to come to the emergency department at this time. She reports that patient has intermittent episodes of confusion. She told us that patient was supposed to have an MRI performed at [facility]. The ROS documented in this emergency department record has been reviewed and confirmed by me. Those systems with pertinent positive or negative responses have been documented in the HPI. All other systems are other negative and/or noncontributory. PHYSICAL EXAM: General Impression: Alert and oriented x3, not in acute distress HEENT: Normocephalic atraumatic, extra-ocular movements intact, pupils equal and reactive to light bilaterally, mucous membranes moist. Cardiovascular: Heart regular rate and rhythm, S1&S2 audible, no murmurs, rubs or gallops Chest: Lungs clear to auscultation bilaterally, no rhonchi, no wheeze, no rales Abdomen: Bowel sounds present, abdomen soft, non-tender, non-distended, no organomegaly Musculoskeletal: Pulses present and equal in all extremities, no peripheral edema Motor: no focal deficits noted Neurological: CN II-XII grossly intact, no focal motor or sensory deficits noted Skin: Intact with no visualized rashes, port site in the right upper chest is clean dry and intact without any erythema or signs of infection, there is also a 2 cm well-healing wound to the right groin area Psych: Normal affect and mood ED course: 62-year-old male presents with altered mental status. Patient is alert and oriented 4 out of 4. He has no specific complaints at this time. He reports that he is here for his PET scan. Shows temperature 102.8, respiratory signs within acceptable limits. Patient has any localizing symptoms at this time. There is concern that patient's mentation is secondary to sepsis.Laboratory evaluation obtained. CBC is unremarkable. No leukocytosis. Patient has a hemoglobin of 9.7 which is at his baseline. Coag panel unremarkable. Patient has a critical low potassium of 2.7. Patient does have alkalosis on his metabolic panel. Lactic acidosis 2.3. Rest of labs grossly unremarkable. Urinalysis negative. Influenza test is negative. Chest x-ray was obtained showing interstitial changes concerning for possible pneumonia. Brain CT is negative. Patient given antibiotics for concerns of sepsis. There is concern that patient's fever is from pulmonary source. Patient however does not have any localizing complaints. Patient treated with antibiotics. Patient to be admitted to [facility]. Discussed patient case with Dr. Kyler wilson. Patient also given [id number] potassium. EKG interpretation: Ventricular rate 85, normal sinus rhythm,. Interval 150, Q's 82, QTc 454. No MS prolongation, no QTC prolongation, no ST or T-wave changes noted. Overall, this EKG is unremarkable - Related Data Home Medications Medication Instructions Recorded Confirmed Famotidine [Pepcid] 20 mg PO BID 06/17/15 09/12/18 Metoprolol Succinate (ER) [Toprol 25 mg PO BID 12/13/15 09/12/18 XL] Levothyroxine Sodium 88 mcg PO DAILY 07/09/18 09/12/18 glyBURIDE [Diabeta] 2.5 mg PO AC-BID 07/09/18 09/12/18 metFORMIN HCL 1,000 mg PO BID 07/09/18 09/12/18 Atorvastatin [Lipitor] 40 mg PO HS 09/12/18 09/12/18 Cortisone Acetate [Cortone] 25 mg PO DAILY 09/12/18 09/12/18 Furosemide [Lasix] 40 mg PO DAILY 09/12/18 09/12/18 Potassium Chloride [Klor-Con 10] 10 meq PO DAILY 09/12/18 09/12/18 Allergies Allergy/AdvReac Type Severity Reaction Status Date / Time codeine AdvReac Nausea & Verified 09/12/18 14:59 Vomiting Review of Systems ROS Statement: Those systems with pertinent positive or pertinent negative responses have been documented in the HPI. ROS Other: All systems not noted in ROS Statement are negative. Past Medical History Past Medical History: Coronary Artery Disease (CAD), Diabetes Mellitus, Hyperlipidemia, Osteoarthritis (OA), Thyroid Disorder Additional Past Medical History / Comment(s): ADRENAL INSUFFICIENCY, NIDDM, kidney stones, recurrent UTI History of Any Multi-Drug Resistant Organisms: ESBL Date of last positivie culture/infection: 07/09/18 MDRO Source:: ESBL URINE Past Surgical History: Back Surgery, Bariatric Surgery, Heart Catheterization With Stent Additional Past Surgical History / Comment(s): BACK SURG (decompression) X2. LAP BAND. Past Anesthesia/Blood Transfusion Reactions: No Reported Reaction Date of Last Stent Placement:: 2014 Past Psychological History: Anxiety Smoking Status: Light tobacco smoker Past Alcohol Use History: None Reported Past Drug Use History: None Reported - Past Family History Father Family Medical History: Diabetes Mellitus Additional Family Medical History / Comment(s): of a ruptured aorta Mother Family Medical History: Cancer, Diabetes Mellitus Additional Family Medical History / Comment(s): PPM, liver CA General Exam Limitations: altered mental status Course Vital Signs 09/12/18 09/12/18 09/12/18 14:23 14:40 17:22 Temperature 102.8 F H 99.0 F Pulse Rate 96 71 Respiratory 18 18 Rate Blood Pressure 101/49 105/52 O2 Sat by Pulse 98 99 96 Oximetry Medical Decision Making - Lab Data Result diagrams: 09/12/18 14:22 09/12/18 14:22 Lab Results 09/12/18 09/12/18 09/12/18 Range/Units 14:22 14:22 14:22 WBC 5.7 (3.8-10.6) k/uL RBC 3.23 L (4.30-5.90) m/uL Hgb 9.7 L (13.0-17.5) gm/dL Hct 29.5 L (39.0-53.0) % MCV 91.3 (80.0-100.0) fL MCH 29.9 (25.0-35.0) pg MCHC 32.7 (31.0-37.0) g/dL RDW 16.8 H (11.5-15.5) % Plt Count 187 (150-450) k/uL Neutrophils % 39 % Lymphocytes % 49 % Monocytes % 6 % Eosinophils % 4 % Basophils % 0 % Neutrophils # 2.2 (1.3-7.7) k/uL Lymphocytes # 2.8 (1.0-4.8) k/uL Monocytes # 0.4 (0-1.0) k/uL Eosinophils # 0.2 (0-0.7) k/uL Basophils # 0.0 (0-0.2) k/uL Hypochromasia Slight Poikilocytosis Slight Anisocytosis Slight PT (9.0-12.0) sec INR (<1.2) APTT (22.0-30.0) sec Sodium 138 (137-145) mmol/L Potassium 2.7 L* (3.5-5.1) mmol/L Chloride 94 L (98-107) mmol/L Carbon Dioxide 39 H (22-30) mmol/L Anion Gap 5 mmol/L BUN 16 (9-20) mg/dL Creatinine 0.86 (0.66-1.25) mg/dL Est GFR (CKD-EPI)AfAm >90 (>60 ml/min/1.73 sqM) Est GFR (CKD-EPI)NonAf >90 (>60 ml/min/1.73 sqM) Glucose 85 (74-99) mg/dL Plasma Lactic Acid Ras 2.3 H* (0.7-2.0) mmol/L Calcium 8.4 (8.4-10.2) mg/dL Total Bilirubin 1.2 (0.2-1.3) mg/dL AST 17 (17-59) U/L ALT 15 L (21-72) U/L Alkaline Phosphatase 56 (38-126) U/L Total Protein 4.8 L (6.3-8.2) g/dL Albumin 2.8 L (3.5-5.0) g/dL Urine Color Urine Appearance (Clear) Urine pH (5.0-8.0) Ur Specific [place] (1.001-1.035) Urine Protein (Negative) Urine Glucose (UA) (Negative) Urine Ketones (Negative) Urine Blood (Negative) Urine Nitrite (Negative) Urine Bilirubin (Negative) Urine Urobilinogen (<2.0) mg/dL Ur Leukocyte Esterase (Negative) Influenza Type A RNA (Not Detectd) Influenza Type B (PCR) (Not Detectd) 09/12/18 09/12/18 09/12/18 Range/Units 14:22 15:09 Unknown WBC (3.8-10.6) k/uL RBC (4.30-5.90) m/uL Hgb (13.0-17.5) gm/dL Hct (39.0-53.0) % MCV (80.0-100.0) fL MCH (25.0-35.0) pg MCHC (31.0-37.0) g/dL RDW (11.5-15.5) % Plt Count (150-450) k/uL Neutrophils % % Lymphocytes % % Monocytes % % Eosinophils % % Basophils % % Neutrophils # (1.3-7.7) k/uL Lymphocytes # (1.0-4.8) k/uL Monocytes # (0-1.0) k/uL Eosinophils # (0-0.7) k/uL Basophils # (0-0.2) k/uL Hypochromasia Poikilocytosis Anisocytosis PT 12.4 H (9.0-12.0) sec INR 1.2 H (<1.2) APTT 26.5 (22.0-30.0) sec Sodium (137-145) mmol/L Potassium (3.5-5.1) mmol/L Chloride (98-107) mmol/L Carbon Dioxide (22-30) mmol/L Anion Gap mmol/L BUN (9-20) mg/dL Creatinine (0.66-1.25) mg/dL Est GFR (CKD-EPI)AfAm (>60 ml/min/1.73 sqM) Est GFR (CKD-EPI)NonAf (>60 ml/min/1.73 sqM) Glucose (74-99) mg/dL Plasma Lactic Acid Ras (0.7-2.0) mmol/L Calcium (8.4-10.2) mg/dL Total Bilirubin (0.2-1.3) mg/dL AST (17-59) U/L ALT (21-72) U/L Alkaline Phosphatase (38-126) U/L Total Protein (6.3-8.2) g/dL Albumin (3.5-5.0) g/dL Urine Color Yellow Urine Appearance Clear (Clear) Urine pH 6.0 (5.0-8.0) Ur Specific [place] 1.014 (1.001-1.035) Urine Protein Trace H (Negative) Urine Glucose (UA) Negative (Negative) Urine Ketones Negative (Negative) Urine Blood Negative (Negative) Urine Nitrite Negative (Negative) Urine Bilirubin Negative (Negative) Urine Urobilinogen <2.0 (<2.0) mg/dL Ur Leukocyte Esterase Negative (Negative) Influenza Type A RNA Not Detected (Not Detectd) Influenza Type B (PCR) Not Detected (Not Detectd) Disposition Clinical Impression: Hypokalemia, Sepsis due to pneumonia Disposition: ADMITTED IP TO THIS HOSP Condition: Fair Referrals: Chano Ames MD [Primary Care Provider] - 1-2 days Decision Time: 17:35
[2018-09-12 14:53] LABS: Anisocytosis Slight; Basophils % (A) 0 %; Eosinophils # (A) 0.2 k/uL (0-0.7); Eosinophils % (A) 4 %; HCT 29.5 % (39.0-53.0); HGB 9.7 gm/dL (13.0-17.5); Hypochromasia Slight; Lymphocytes # (A) 2.8 k/uL (1.0-4.8); Lymphocytes % (A) 49 %; MCH 29.9 pg (25.0-35.0); MCHC 32.7 g/dL (31.0-37.0); MCV 91.3 fL (80.0-100.0); Mean Platelet Volume 7.4; Monocytes # (A) 0.4 k/uL (0-1.0); Monocytes % (A) 6 %; Neutrophils # (A) 2.2 k/uL (1.3-7.7); Neutrophils % (A) 39 %; Platelet Count 187 k/uL (150-450); Poikilocytosis Slight; RBC 3.23 m/uL (4.30-5.90); RDW 16.8 % (11.5-15.5); WBC 5.7 k/uL (3.8-10.6)
[2018-09-12] MEDS: SODIUM CHLORIDE 0.9% 500 ML 500 ML IV SCH (15:05)
[2018-09-12 15:07] LABS: ALT 15 U/L (21-72); AST 17 U/L (17-59); African American GFR (CKD) >90 (>60 ml/min/1.73 sqM); Albumin 2.8 g/dL (3.5-5.0); Alkaline Phosphatase 56 U/L (38-126); Anion Gap 5 mmol/L; Blood Urea Nitrogen 16 mg/dL (9-20); Calcium 8.4 mg/dL (8.4-10.2); Carbon Dioxide 39 mmol/L (22-30); Chloride 94 mmol/L (98-107); Glucose 85 mg/dL (74-99); Sodium 138 mmol/L (137-145); Total Bilirubin 1.2 mg/dL (0.2-1.3); Total Protein 4.8 g/dL (6.3-8.2)
[2018-09-12 15:08] LABS: INR 1.2 (<1.2); Partial Thromboplastin Time 26.5 sec (22.0-30.0); Prothrombin Time 12.4 sec (9.0-12.0)
[2018-09-12 15:11] LABS: Potassium 2.7 mmol/L (3.5-5.1)
--- NOTE | 2018-09-12 15:51 | CT ---
EXAMINATION TYPE: CT brain wo con DATE OF EXAM: 09/12/2018 COMPARISON: 12/12/2015 HISTORY: 62-year-old male confusion, Altered mental status. TECHNIQUE: Examination was done in axial plane without intravenous contrast. Coronal and sagittal r econstructions performed. CT DLP: 1066.4 mGycm Automated exposure control for dose reduction was used. FINDINGS: There is no evidence of acute intracranial hemorrhage, acute ischemic changes, mass, mass-effect, or extra-axial fluid collection. There is no effacement of cerebral sulci or basal subarachnoid cister ns. There is no hydrocephalus. There is no midline shift. Rich-white matter distinction is preserv ed. Scattered moderate mucosal thickening ethmoid air cells. Mastoid air cells well pneumatized. The glob es are intact. Mild bifrontal cerebral atrophy. Benign basal ganglionic calcifications on the right. IMPRESSION: Mild bifrontal atrophy. No acute intracranial abnormality seen. Mild chronic ethmoid sinus disease.
--- NOTE | 2018-09-12 16:03 | XR ---
EXAMINATION TYPE: XR chest 2V DATE OF EXAM: 09/12/2018 COMPARISON: 07/09/2018 HISTORY: 62-year-old male fever TECHNIQUE: AP and lateral views FINDINGS: Heart upper limits of normal size. Right anterior chest wall injection port with subclavian approach. Catheter tip seen at the upper SVC level. Mild diffuse interstitial prominence slightly increased. B and of atelectasis at the left base. Patchy posterior basilar opacity on the lateral view. IMPRESSION: Increased interstitial changes and patchy posterior basilar opacity on the lateral view. Underlying p neumonia difficult to exclude including possibility of atypical pneumonias.
[2018-09-12] MEDS ORDERED: AZITHROMYCIN 500 MG in SODIUM CHLORIDE 0.9% 250 ML IVPB STA (16:50)
[2018-09-12 17:08] LABS: Appearance,Urine Clear (Clear); Bilirubin,Urine Negative (Negative); Blood,Urine Negative (Negative); Color,Urine Yellow; Glucose,Urine (UA) Negative (Negative); Ketones,Urine Negative (Negative); Leukocyte Esterase,Urine Negative (Negative); Nitrite,Urine Negative (Negative); Protein,Urine Trace (Negative); Specific Gravity,Urine 1.014 (1.001-1.035); Urobilinogen,Urine <2.0 mg/dL (<2.0)
[2018-09-12] MEDS ORDERED: ONDANSETRON 4 MG/2 ML VIAL IVP PRN (17:09)
[2018-09-12] MEDS ORDERED: NALOXONE 0.4 MG/ML 1 ML VIAL IV PRN (17:09)
--- NOTE | 2018-09-12 17:15 | P.HPIM ---
History of Present Illness H&P Date: 09/12/18 Chief Complaint: Confusion The patient is a 62-year-old male with recently diagnosed lymphoma, history of coronary artery disease with stenting 2, adrenal insufficiency, type 2 diabetes, essential hypertension, hyperlipidemia and hypothyroidism presents to the ER after being brought here by EMS with apparent confusion. Apparently the patient was at [facility] trying to obtain a PET scan that was ordered by Dr. Gama. The patient was initially confused and much of the history was obtained by his daughter Who reports increasing episodes of confusion over the last several days, the patient has been increasingly weak and dizzy and has had falls. Patient was apparently recently diagnosed with lymphoma and had a Mediport placed and was supposed to follow-up with Dr. Gama in clinic. The patient denied any chest pain or shortness of breath, he does report intermittent fevers, he is denying any episodes of confusion. Review of records indicates the patient was recently here approximately a month ago and was diagnosed with ESBL Klebsiella UTI with noted multi drug-resistant and was subsequently discharged on Ceftin. In the ER the patient had a comprehensive workup, he was was be febrile with a temperature 102.8, hemoglobin was 9.7, serum potassium was 2.7 and serum lactic acid was 2.3, influenza was negative. Chest x-ray showed interstitial changes and patchy posterior basilar opacity in the lateral view. CT of the head showed mild bifrontal cerebral atrophy without any acute intracranial pathology Past Medical History Past Medical History: Coronary Artery Disease (CAD), Diabetes Mellitus, Hyper lipidemia, Osteoarthritis (OA), Thyroid Disorder Additional Past Medical History / Comment(s): ADRENAL INSUFFICIENCY, NIDDM, kidney stones, recurrent UTI History of Any Multi-Drug Resistant Organisms: ESBL Date of last positivie culture/infection: 07/09/18 MDRO Source:: ESBL URINE Past Surgical History: Back Surgery, Bariatric Surgery, Heart Catheterization With Stent Additional Past Surgical History / Comment(s): BACK SURG (decompression) X2. [place] P BAND. Past Anesthesia/Blood Transfusion Reactions: No Reported Reaction Date of Last Stent Placement:: 2014 Past Psychological History: Anxiety Smoking Status: Light tobacco smoker Past Alcohol Use History: None Reported Past Drug Use History: None Reported - Past Family History Father Family Medical History: Diabetes Mellitus Additional Family Medical History / Comment(s): of a ruptured aorta Mother Family Medical History: Cancer, Diabetes Mellitus Additional Family Medical History / Comment(s): PPM, liver CA Medications and Allergies Home Medications Medication Instructions Recorded Confirmed Type Famotidine [Pepcid] 20 mg PO BID 06/17/15 09/12/18 History Metoprolol Succinate (ER) [Toprol 25 mg PO BID 12/13/15 09/12/18 History XL] Levothyroxine Sodium 88 mcg PO DAILY 07/09/18 09/12/18 History glyBURIDE [Diabeta] 2.5 mg PO AC-BID 07/09/18 09/12/18 History metFORMIN HCL 1,000 mg PO BID 07/09/18 09/12/18 History Atorvastatin [Lipitor] 40 mg PO HS 09/12/18 09/12/18 History Cortisone Acetate [Cortone] 25 mg PO DAILY 09/12/18 09/12/18 History Furosemide [Lasix] 40 mg PO DAILY 09/12/18 09/12/18 History Potassium Chloride [Klor-Con 10] 10 meq PO DAILY 09/12/18 09/12/18 History Allergies Allergy/AdvReac Type Severity Reaction Status Date / Time codeine AdvReac Nausea & Verified 09/12/18 14:59 Vomiting Physical Exam Vitals: Vital Signs Temp Pulse Resp BP Pulse Ox 09/12/18 14:40 99 09/12/18 14:23 102.8 F H 96 18 101/49 98 Intake and Output 09/12/18 09/12/18 09/12/18 06:59 14:59 22:59 Other: Weight 85.729 kg Constitutional: No acute distress, conversant, pleasant Eyes: Anicteric sclerae, moist conjunctiva, no lid-lag, PERRLA ENMT: NC/AT,Oropharynx clear, no erythema, exudates Neck:Supple, FROM, no masses, or JVD, No carotid bruits; No thyromegaly Lungs: Diminished in the bases, left sided Rales and rhonchi noted Cardiovascular: Heart regular in rate and rhythm, No murmurs, gallops, or rubs no peripheral edema Abdominal: Soft Nontender, nom distended, no guarding, no rebound or rigidity, Normoactive bowel sounds No hepatomegaly, No splenomegaly, No palpable mass No abdominal wall hernia noted Skin: Normal temperature, tone, texture, turgor, No induration No subcutaneous nodules, No rash, lesions, No ulcers Extremities:No digital cyanosis No clubbing, Pedal pulses intact and symmetrical Radial pulses intact and symmetrical Normal gait and station, No calf tenderness Psychiatric: Alert and oriented to person, place and time, Appropriate affect Intact judgement Neuro: Muscles Strength 5/5 in all 4 extremities, Sensation to light touch grossly present throughout, Cranial nerves II-XII grossly intact. No focal sensory deficits Results CBC & Chem 7: 09/13/18 06:48 09/13/18 06:48 Labs: Abnormal Lab Results - Last 24 Hours (Table) 09/12/18 09/12/18 09/12/18 Range/Units 14:22 14:22 14:22 RBC 3.23 L (4.30-5.90) m/uL Hgb 9.7 L (13.0-17.5) gm/dL Hct 29.5 L (39.0-53.0) % RDW 16.8 H (11.5-15.5) % PT (9.0-12.0) sec INR (<1.2) Potassium 2.7 L* (3.5-5.1) mmol/L Chloride 94 L (98-107) mmol/L Carbon Dioxide 39 H (22-30) mmol/L Plasma Lactic Acid Ras 2.3 H* (0.7-2.0) mmol/L ALT 15 L (21-72) U/L Total Protein 4.8 L (6.3-8.2) g/dL Albumin 2.8 L (3.5-5.0) g/dL 09/12/18 Range/Units 14:22 RBC (4.30-5.90) m/uL Hgb (13.0-17.5) gm/dL Hct (39.0-53.0) % RDW (11.5-15.5) % PT 12.4 H (9.0-12.0) sec INR 1.2 H (<1.2) Potassium (3.5-5.1) mmol/L Chloride (98-107) mmol/L Carbon Dioxide (22-30) mmol/L Plasma Lactic Acid Ras (0.7-2.0) mmol/L ALT (21-72) U/L Total Protein (6.3-8.2) g/dL Albumin (3.5-5.0) g/dL Assessment and Plan (1) Acute metabolic encephalopathy Current Visit: Yes Status: Acute Code(s): G93.41 - METABOLIC ENCEPHALOPATHY SNOMED Code(s): 42088122 (2) Sepsis Current Visit: Yes Status: Acute Code(s): A41.9 - SEPSIS, UNSPECIFIED ORGANISM SNOMED Code(s): 64269687 (3) Pneumonia Current Visit: Yes Status: Acute Code(s): J18.9 - PNEUMONIA, UNSPECIFIED ORGANISM SNOMED Code(s): 047657444 (4) Hypokalemia Current Visit: Yes Status: Acute Code(s): E87.6 - HYPOKALEMIA SNOMED Code(s): 31719340 (5) Type 2 diabetes mellitus Current Visit: Yes Status: Acute Code(s): E11.9 - TYPE 2 DIABETES MELLITUS WITHOUT COMPLICATIONS SNOMED Code(s): 24432083 Plan: The patient is admitted anticipated greater than 2 midnight stay with sepsis presumably secondary to the pneumonia with acute metabolic encephalopathy and severe hypokalemia. The patient was started on empiric IV antibiotics we'll switch to Zosyn and Levaquin as a patient was recently hospitalized, we'll put replace his potassium check a magnesium. We'll hold his blood pressure medication today as BP is borderline. We'll consult heme onc for further recommendations. Urinalysis is negative, blood cultures are pending. Continue to follow his clinical course. CODE STATUS: Full code Discussed plan of care with: Patient and his daughter Anticipated discharge: 2-3 days Prophylaxis SCDs and heparin Time with Patient: Greater than 30
[2018-09-12] MEDS: POTASSIUM CHLORIDE 10 MEQ in WATER FOR INJECTION 1 100ML.BAG IVPB SCH ×6 (17:21→22:45)
[2018-09-12] MEDS ORDERED: GLYBURIDE 2.5 MG PO SCH (17:30)
[2018-09-12] MEDS ORDERED: PIPERACILLIN-TAZOBACTAM 3.375 GM in SODIUM CHLORIDE 0.9% 100 ML IVPB ONE (17:45)
[2018-09-12] MEDS ORDERED: LEVOFLOXACIN 750MG-D5W PMX 750 MG in DEXTROSE/WATER 1 150ML.BAG IVPB ONE (17:45)
[2018-09-12] MEDS: FAMOTIDINE 20 MG TAB PO SCH (20:38)
[2018-09-12] MEDS: ATORVASTATIN 40 MG TAB PO SCH (20:38)
[2018-09-12 21:28] LABS: Glucose,Whole Blood 171 mg/dL (75-99)
[2018-09-13] MEDS: PIPERACILLIN-TAZOBACTAM 3.375 GM in SODIUM CHLORIDE 0.9% 100 ML IVPB SCH ×4 (00:02→23:49)
[2018-09-13] MEDS: HEPARIN SODIUM,PORCINE 5,000 UNIT/ML 1 ML VIAL SQ SCH ×4 (00:02→23:49)
[2018-09-13 01:44] LABS: Hemoglobin A1C 5.8 % (4.0-6.0)
[2018-09-13] MEDS: LEVOTHYROXINE 88 MCG TAB PO SCH ×2 (05:10→06:27)
[2018-09-13] MEDS: ACETAMINOPHEN TAB 325 MG TAB PO PRN ×3 (06:27→20:19)
[2018-09-13 07:00] LABS: Glucose,Whole Blood 96 mg/dL (75-99)
[2018-09-13 07:11] LABS: Anisocytosis Slight; Basophils % (A) 0 %; Eosinophils # (A) 0.2 k/uL (0-0.7); Eosinophils % (A) 4 %; Hypochromasia Moderate; Lymphocytes # (A) 2.4 k/uL (1.0-4.8); Lymphocytes % (A) 46 %; MCH 28.6 pg (25.0-35.0); MCV 92.3 fL (80.0-100.0); Mean Platelet Volume 7.1; Monocytes # (A) 0.3 k/uL (0-1.0); Monocytes % (A) 6 %; Neutrophils # (A) 2.2 k/uL (1.3-7.7); Neutrophils % (A) 42 %; Platelet Count 210 k/uL (150-450); Poikilocytosis Slight; RBC 3.15 m/uL (4.30-5.90); RDW 16.7 % (11.5-15.5); WBC 5.2 k/uL (3.8-10.6)
[2018-09-13 07:27] LABS: ALT 15 U/L (21-72); AST 18 U/L (17-59); African American GFR (CKD) >90 (>60 ml/min/1.73 sqM); Albumin 2.7 g/dL (3.5-5.0); Alkaline Phosphatase 57 U/L (38-126); Anion Gap 3 mmol/L; Blood Urea Nitrogen 21 mg/dL (9-20); Calcium 8.7 mg/dL (8.4-10.2); Carbon Dioxide 38 mmol/L (22-30); Chloride 99 mmol/L (98-107); Glucose 91 mg/dL (74-99); Magnesium 1.3 mg/dL (1.6-2.3); Potassium 3.1 mmol/L (3.5-5.1); Sodium 140 mmol/L (137-145); Total Bilirubin 1.3 mg/dL (0.2-1.3); Total Protein 4.7 g/dL (6.3-8.2)
[2018-09-13] MEDS: MAGNESIUM SULFATE-D5W PMX 1 GM in DEXTROSE/WATER 1 100ML.BAG IVPB SCH ×3 (07:43→09:49)
[2018-09-13] MEDS: FAMOTIDINE 20 MG TAB PO SCH ×2 (07:44→20:19)
[2018-09-13] MEDS: FUROSEMIDE 40 MG TAB PO SCH (07:44)
[2018-09-13] MEDS: CORTISONE ACETATE 25 MG PO SCH (08:37)
[2018-09-13 10:49] LABS: Glucose,Whole Blood 197 mg/dL (75-99)
--- NOTE | 2018-09-13 11:15 | P.PN ---
Subjective Progress Note Date: 09/13/18 Patient seen and examined at bedside, and mentation appears to be better today. Still nurses still reporting episodes of confusion, the patient found to be profoundly hypomagnesemic yesterday with a mag level of 1.1, this morning's potassium is 3.1. Patient also appears to be febrile at 100.7. Objective - Vital Signs Vital signs: Vital Signs Temp 100.7 F H 09/13/18 07:21 Pulse 84 09/13/18 05:49 Resp 16 09/13/18 08:00 BP 124/69 09/13/18 05:49 Pulse Ox 95 09/13/18 05:49 Intake & Output 09/12/18 09/13/18 09/13/18 18:59 06:59 18:59 Weight 85.729 kg Other: Voiding Method Toilet Toilet # Voids 3 3 - Exam Constitutional: No acute distress, conversant, pleasant Eyes: Anicteric sclerae, moist conjunctiva, no lid-lag, PERRLA ENMT: NC/AT,Oropharynx clear, no erythema, exudates Neck:Supple, FROM, no masses, or JVD, No carotid bruits; No thyromegaly Lungs: Diminished in the bases, left-sided basilar rales Cardiovascular: Heart regular in rate and rhythm, No murmurs, gallops, or rubs no peripheral edema Abdominal: Soft Nontender, nom distended, no guarding, no rebound or rigidity, Normoactive bowel sounds No hepatomegaly, No splenomegaly, No palpable mass No abdominal wall hernia noted Skin: Normal temperature, tone, texture, turgor, No induration No subcutaneous nodules, No rash, lesions, No ulcers Extremities:No digital cyanosis No clubbing, Pedal pulses intact and symmetrical Radial pulses intact and symmetrical Normal gait and station, No calf tenderness Psychiatric: Alert and oriented to person, place and time, Appropriate affect Intact judgement Neuro: Muscles Strength 5/5 in all 4 extremities, Sensation to light touch grossly present throughout, Cranial nerves II-XII grossly intact. No focal sensory deficits - Labs CBC & Chem 7: 09/13/18 06:48 09/13/18 06:48 Labs: Abnormal Lab Results - Last 24 Hours (Table) 09/12/18 09/12/18 09/12/18 Range/Units 14:22 14:22 14:22 RBC 3.23 L (4.30-5.90) m/uL Hgb 9.7 L (13.0-17.5) gm/dL Hct 29.5 L (39.0-53.0) % RDW 16.8 H (11.5-15.5) % PT (9.0-12.0) sec INR (<1.2) Potassium 2.7 L* (3.5-5.1) mmol/L Chloride 94 L (98-107) mmol/L Carbon Dioxide 39 H (22-30) mmol/L BUN (9-20) mg/dL POC Glucose (mg/dL) (75-99) mg/dL Plasma Lactic Acid Ras 2.3 H* (0.7-2.0) mmol/L Magnesium (1.6-2.3) mg/dL ALT 15 L (21-72) U/L Total Protein 4.8 L (6.3-8.2) g/dL Albumin 2.8 L (3.5-5.0) g/dL Urine Protein (Negative) 09/12/18 09/12/18 09/12/18 Range/Units 14:22 14:22 21:16 RBC (4.30-5.90) m/uL Hgb (13.0-17.5) gm/dL Hct (39.0-53.0) % RDW (11.5-15.5) % PT 12.4 H (9.0-12.0) sec INR 1.2 H (<1.2) Potassium (3.5-5.1) mmol/L Chloride (98-107) mmol/L Carbon Dioxide (22-30) mmol/L BUN (9-20) mg/dL POC Glucose (mg/dL) 171 H (75-99) mg/dL Plasma Lactic Acid Ras (0.7-2.0) mmol/L Magnesium 1.1 L (1.6-2.3) mg/dL ALT (21-72) U/L Total Protein (6.3-8.2) g/dL Albumin (3.5-5.0) g/dL Urine Protein (Negative) 09/12/18 09/13/18 09/13/18 Range/Units Unknown 06:48 06:48 RBC 3.15 L (4.30-5.90) m/uL Hgb 9.0 L (13.0-17.5) gm/dL Hct 29.0 L (39.0-53.0) % RDW 16.7 H (11.5-15.5) % PT (9.0-12.0) sec INR (<1.2) Potassium 3.1 L (3.5-5.1) mmol/L Chloride (98-107) mmol/L Carbon Dioxide 38 H (22-30) mmol/L BUN 21 H (9-20) mg/dL POC Glucose (mg/dL) (75-99) mg/dL Plasma Lactic Acid Ras (0.7-2.0) mmol/L Magnesium 1.3 L (1.6-2.3) mg/dL ALT 15 L (21-72) U/L Total Protein 4.7 L (6.3-8.2) g/dL Albumin 2.7 L (3.5-5.0) g/dL Urine Protein Trace H (Negative) 09/13/18 Range/Units 10:47 RBC (4.30-5.90) m/uL Hgb (13.0-17.5) gm/dL Hct (39.0-53.0) % RDW (11.5-15.5) % PT (9.0-12.0) sec INR (<1.2) Potassium (3.5-5.1) mmol/L Chloride (98-107) mmol/L Carbon Dioxide (22-30) mmol/L BUN (9-20) mg/dL POC Glucose (mg/dL) 197 H (75-99) mg/dL Plasma Lactic Acid Ras (0.7-2.0) mmol/L Magnesium (1.6-2.3) mg/dL ALT (21-72) U/L Total Protein (6.3-8.2) g/dL Albumin (3.5-5.0) g/dL Urine Protein (Negative) Microbiology - Last 24 Hours (Table) 09/12/18 Unknown Urine Culture - Preliminary Urine,Voided Assessment and Plan (1) Sepsis Narrative/Plan: * Secondary to pneumonia, urinalysis negative, blood culture pending * continue regimen with Levaquin and Zosyn * Patient hemodynamically stable Current Visit: Yes Status: Acute Code(s): A41.9 - SEPSIS, UNSPECIFIED ORGANISM SNOMED Code(s): 87645149 (2) Acute metabolic encephalopathy Narrative/Plan: * Possibly secondary to sepsis and profound electrolyte abnormalities * We'll consult neurology for further recommendations * Current Visit: Yes Status: Resolved Code(s): G93.41 - METABOLIC ENCEPHALOPATHY SNOMED Code(s): 96761406 (3) Pneumonia Narrative/Plan: * Treatment as above Current Visit: Yes Status: Acute Code(s): J18.9 - PNEUMONIA, UNSPECIFIED O RGANISM SNOMED Code(s): 117381779 (4) Hypokalemia Narrative/Plan: * Also profound hypomagnesemia * We'll replace his magnesium and potassium today and recheck in the morning Current Visit: Yes Status: Acute Code(s): E87.6 - HYPOKALEMIA SNOMED Code(s): 20418122 (5) Type 2 diabetes mellitus Narrative/Plan: * Blood sugars elevated as high as 197 this morning and fasting blood sugar * Continue Accu-Cheks we'll initiate sliding scale protocol Current Visit: Yes Status: Acute Code(s): E11.9 - TYPE 2 DIABETES MELLITUS WITHOUT COMPLICATIONS SNOMED Code(s): 70021659 Plan: Disposition * Follow-up consultants recommendations * Patient still running fevers, continue IV antibiotics and breathing treatments
--- NOTE | 2018-09-13 12:00 | P.CONS ---
History of Present Illness - Reason for Consult Consult date: 09/13/18 Diffuse large B-cell non-Hodgkin's lymphoma multiple sites, MS changes - History of Present Illness The patient is a 62-year-old white male, well known to our service. He has a fairly completed past medical history. He had initially presented with enlarged lymph nodes in the b/l neck area in 09/15. He had a left scalene node biopsied revealing an atypical T cell proliferation. He was referred to Dr Philip. However T cell receptor gene rearrangement was negative for any malignant population, and thus the referral was cancelled. The pt continued to have enlarged nodes in the neck area. He had also develop ed the same in b/l inguinal regions since at least early 2018. However he remained asymptomatic He was admitted with weakness and fever, due to UTI and sepsis to [facility] in 08/16. He recovered well with treatment. CT CAP showed extensive adenopathy in the b/l cervical, SC, mediastinal, axillary, retroperitoneal and inguinal nodes. He was therefore seen in consult on 08/20/18, and repeat biopsy recommended. He had right inguinal lymph node biopsy on 08/25/18 revealing diffuse large B-cell lymphoma, BCL-2 positive but BCL 6 negative. He was admitted again in the first week of 09/16, with progressive weakness. There was concern for recurrent UTI though the symptoms could also have been due to lymphoma. He was seen again that visit and set up for a follow-up PET scan and office follow up The patient was supposed to have a PET scan on 09/12/18. He states that he felt fine, but continued past the hospital and ended up 3 [place] in [facility] parking lot. He was apparently making inquiries they're about his PET scan. He was therefore asked to come back into the hospital. In the emergency room imaging revealed the possibility of pneumonia. His potassium was also quite low. He was therefore admitted further management. The patient denied any diarrhea. He feels that his lymph nodes have increased in size further over the last couple of weeks. Review of Systems Constitutional: Reports poor appetite, Reports sweats, Reports weakness Eyes: denies blurred vision, denies pain Ears: deny: decreased hearing, ear discharge, earache, tinnitus Ears, nose, mouth and throat: Denies headache, Denies sore throat Cardiovascular: Reports decreased exercise tolerance Respiratory: Denies cough Gastrointestinal: Denies abdominal pain, Denies diarrhea, Denies nausea, Denies vomiting Genitourinary: Reports as per HPI, Reports urinary frequency, Reports urinary hesitancy Musculoskeletal: Reports muscle weakness Integumentary: Denies pruritus, Denies rash Neurological: Reports change in mentation, Reports confusion, Reports weakness Psychiatric: Reports confusion Endocrine: Reports fatigue Hematologic/Lymphatic: Reports lymphadenopathy Past Medical History Past Medical History: Coronary Artery Disease (CAD), Diabetes Mellitus, Hyperlipidemia, Osteoarthritis (OA), Thyroid Disorder Additional Past Medical History / Comment(s): ADRENAL INSUFFICIENCY, NIDDM, kidney stones, recurrent UTI History of Any Multi-Drug Resistant Organisms: ESBL Year Discovered:: 07/09/18 MDRO Source:: ESBL URINE Past Surgical History: Back Surgery, Bariatric Surgery, Heart Catheterization With Stent Additional Past Surgical History / Comment(s): BACK SURG (decompression) X2. LAP BAND. Past Anesthesia/Blood Transfusion Reactions: No Reported Reaction Date of Last Stent Placement:: 2014 Past Psychological History: Anxiety Smoking Status: Light tobacco smoker Past Alcohol Use History: None Reported Past Drug Use History: None Reported - Past Family History Father Family Medical History: Diabetes Mellitus Additional Family Medical History / Comment(s): of a ruptured aorta Mother Family Medical History: Cancer, Diabetes Mellitus Additional Family Medical History / Comment(s): PPM, liver CA Medications and Allergies Home Medications Medication Instructions Recorded Confirmed Type Famotidine [Pepcid] 20 mg PO BID 06/17/15 09/12/18 History Metoprolol Succinate (ER) [Toprol 25 mg PO BID 12/13/15 09/12/18 History XL] Levothyroxine Sodium 88 mcg PO DAILY 07/09/18 09/12/18 History glyBURIDE [Diabeta] 2.5 mg PO AC-BID 07/09/18 09/12/18 History metFORMIN HCL 1,000 mg PO BID 07/09/18 09/12/18 History Atorvastatin [Lipitor] 40 mg PO HS 09/12/18 09/12/18 History Cortisone Acetate [Cortone] 25 mg PO DAILY 09/12/18 09/12/18 History Furosemide [Lasix] 40 mg PO DAILY 09/12/18 09/12/18 History Potassium Chloride [Klor-Con 10] 10 meq PO DAILY 06/15/19 06/15/19 History Allergies Allergy/AdvReac Type Severity Reaction Status Date / Time codeine AdvReac Nausea & Verified 09/12/18 14:59 Vomiting Physical Exam Vitals: Vital Signs Temp Pulse Pulse Resp BP BP Pulse Ox 09/13/18 08:00 16 09/13/18 07:21 100.7 F H 09/13/18 05:49 98.7 F 84 16 124/69 95 09/12/18 22:00 98.5 F 70 16 100/64 99 09/12/18 20:52 96 09/12/18 17:22 99.0 F 71 18 105/52 96 09/12/18 14:40 99 09/12/18 14:23 102.8 F H 96 18 101/49 98 Intake and Output 09/12/18 09/13/18 09/13/18 22:59 06:59 14:59 Other: Voiding Method Toilet Toilet # Voids 1 3 3 - Constitutional General appearance: no acute distress - EENT Eyes: EOMI, PERRLA ENT: hearing grossly normal, normal oropharynx - Neck Neck: lymphadenopathy (Bilateral supraclavicular, multiple confluent nodes, ranging from subcentimeter to about 2 cm) Thyroid: bilateral: normal size - Respiratory Respiratory: bilateral: CTA - Cardiovascular Rhythm: regular Heart sounds: normal: S1, S2 - Gastrointestinal General gastrointestinal: normal bowel sounds, soft - Integumentary Integumentary: normal - Neurologic Neurologic: CNII-XII intact - Musculoskeletal Musculoskeletal: generalized weakness, strength equal bilaterally - Psychiatric Psychiatric: A&O x's 3, appropriate affect Bilateral extensive confluent inguinal adenopathy, largest nodes 3-4 cm, bilateral axillary nodes, largest 1.5-2 cm Results CBC & Chem 7: 09/13/18 06:48 09/13/18 06:48 Labs: Abnormal Lab Results - Last 24 Hours (Table) 09/12/18 09/12/18 09/12/18 Range/Units 14:22 14:22 14:22 RBC 3.23 L (4.30-5.90) m/uL Hgb 9.7 L (13.0-17.5) gm/dL Hct 29.5 L (39.0-53.0) % RDW 16.8 H (11.5-15.5) % PT (9.0-12.0) sec INR (<1.2) Potassium 2.7 L* (3.5-5.1) mmol/L Chloride 94 L (98-107) mmol/L Carbon Dioxide 39 H (22-30) mmol/L BUN (9-20) mg/dL POC Glucose (mg/dL) (75-99) mg/dL Plasma Lactic Acid Ras 2.3 H* (0.7-2.0) mmol/L Magnesium (1.6-2.3) mg/dL ALT 15 L (21-72) U/L Total Protein 4.8 L (6.3-8.2) g/dL Albumin 2.8 L (3.5-5.0) g/dL Urine Protein (Negative) 09/12/18 09/12/18 09/12/18 Range/Units 14:22 14:22 21:16 RBC (4.30-5.90) m/uL Hgb (13.0-17.5) gm/dL Hct (39.0-53.0) % RDW (11.5-15.5) % PT 12.4 H (9.0-12.0) sec INR 1.2 H (<1.2) Potassium (3.5-5.1) mmol/L Chloride (98-107) mmol/L Carbon Dioxide (22-30) mmol/L BUN (9-20) mg/dL POC Glucose (mg/dL) 171 H (75-99) mg/dL Plasma Lactic Acid Ras (0.7-2.0) mmol/L Magnesium 1.1 L (1.6-2.3) mg/dL ALT (21-72) U/L Total Protein (6.3-8.2) g/dL Albumin (3.5-5.0) g/dL Urine Protein (Negative) 09/12/18 09/13/18 09/13/18 Range/Units Unknown 06:48 06:48 RBC 3.15 L (4.30-5.90) m/uL Hgb 9.0 L (13.0-17.5) gm/dL Hct 29.0 L (39.0-53.0) % RDW 16.7 H (11.5-15.5) % PT (9.0-12.0) sec INR (<1.2) Potassium 3.1 L (3.5-5.1) mmol/L Chloride (98-107) mmol/L Carbon Dioxide 38 H (22-30) mmol/L BUN 21 H (9-20) mg/dL POC Glucose (mg/dL) (75-99) mg/dL Plasma Lactic Acid Ras (0.7-2.0) mmol/L Magnesium 1.3 L (1.6-2.3) mg/dL ALT 15 L (21-72) U/L Total Protein 4.7 L (6.3-8.2) g/dL Albumin 2.7 L (3.5-5.0) g/dL Urine Protein Trace H (Negative) 09/13/18 Range/Units 10:47 RBC (4.30-5.90) m/uL Hgb (13.0-17.5) gm/dL Hct (39.0-53.0) % RDW (11.5-15.5) % PT (9.0-12.0) sec INR (<1.2) Potassium (3.5-5.1) mmol/L Chloride (98-107) mmol/L Carbon Dioxide (22-30) mmol/L BUN (9-20) mg/dL POC Glucose (mg/dL) 197 H (75-99) mg/dL Plasma Lactic Acid Ras (0.7-2.0) mmol/L Magnesium (1.6-2.3) mg/dL ALT (21-72) U/L Total Protein (6.3-8.2) g/dL Albumin (3.5-5.0) g/dL Urine Protein (Negative) Microbiology - Last 24 Hours (Table) 09/12/18 Unknown Urine Culture - Preliminary Urine,Voided Chest x-ray: report reviewed CT Scan - head: report reviewed Assessment and Plan (1) Altered mental status Narrative/Plan: On questioning the patient states that he is apparently had episodes in the past infrequently. He cannot remember other circumstances, specifically these were related to his UTI occurrences. The current episode could be due to pneumonia and metabolic encephalopathy given his severe hypokalemia. However I'm concerned with his history of lymphoma and rapid progression. The patient certainly appears to be improved with antibiotics and fluids. I will check MRI of the brain. If negative LP can be considered to rule out lepto meningeal disease Current Visit: No Status: Acute Code(s): R41.82 - ALTERED MENTAL STATUS, UNSPECIFIED SNOMED Code(s): 311763736 (2) Large B-cell lymphoma Narrative/Plan: Diagnosis, with extensive disease. The patient appears to be having clinical progression even within a few weeks. He was supposed to have a PET scan done yesterday but was unable to do so. We'll discuss with the primary oncologist about starting treatment, without necessarily waiting for the PET scan, since t he patient has at least stage III disease. We will however need to rule out SPORTS ANNOUNCER involvement. At this time testing for triple hit lymphoma is also pending. Assuming that his current presentation is due to pneumonia, we will need to wait for adequate course of antibiotic therapy before starting treatment anyway. Again, if this presentation is due to pneumonia and other metabolic issues, the patient's symptoms from the lymphoma itself are not very marked despite extensive adenopathy. Check uric acid level. No evidence of tumor lysis otherwise with normal creatinine and actually low potassium Current Visit: Yes Status: Acute Code(s): C85.10 - UNSPECIFIED B-CELL LYMPHOMA, UNSPECIFIED SITE SNOMED Code(s): 525764586 Plan: Defer to the admitting service for management of his other medical problems
[2018-09-13] MEDS: INSULIN ASPART (NovoLOG) 100 UNIT/ML VIAL SQ PRN ×3 (12:24→20:21)
[2018-09-13 16:41] LABS: Glucose,Whole Blood 161 mg/dL (75-99)
[2018-09-13] MEDS: LEVOFLOXACIN 750MG-D5W PMX 750 MG in DEXTROSE/WATER 1 150ML.BAG IVPB SCH (17:56)
[2018-09-13 20:13] LABS: Glucose,Whole Blood 147 mg/dL (75-99)
[2018-09-13] MEDS: ATORVASTATIN 40 MG TAB PO SCH (20:19)
--- NOTE | 2018-09-13 23:12 | P.CNNES ---
History of Present Illness Consult date: 09/13/18 Reason for Consult: Episodes of confusion History of Present Illness: Patient is a 62-year-old male, who has been diagnosed with lymphoma was brought to the hospital after he was noted to be confused. Patient apparently was scheduled for PET scan, and he went to [facility] to get his PET scan done. Patient was felt to be confused by [facility] staff therefore EMS was called and patient was brought to the hospital. There were no focal symptoms reported. Patient did not have any chest pain shortness of breath cough or urinary symptoms. He had normal vitals and blood sugar. It was later reported by his daughter to the ED staff that patient has intermittent episodes of confusion. Patient was scheduled for an MRI of the brain at [facility]. According to the nurse, patient although is fully oriented, but still gets sometimes confused . He also appears to be very short tempered, and if does not get anything that he wants, gets upset very easily. Patient denies any focal symptoms, numbness tingling problem with the vision speech or swallow. Patient denies any problem with walking, using his upper extremities. Patient himself says that he sometimes not able to find his ways around. Patient's temperature was 102.8 when he arrived to the ER, pulse rate 96 blood pressure 101/49 and oxygen 98. Computed tomography scan of head showed mild bifrontal atrophy with no acute abnormality. EKG showed normal sinus rhythm. Chest x-ray showed increased interstitial changes and patchy posterior basilar opacity on lateral view. Underlying pneumonia versus atypical pneumonia is a concern. Patient's blood test shows WBC 5.2 hemoglobin 9.0 platelets 210. Sodium 140 potassium 3.1 normal renal functions. Calcium normal, UA negative. Liver panel normal. Review of Systems Denies any diplopia, headache, problem with the vision, dysphagia, dysarthria. Complains of frequency of urination as he is getting IV fluids and some medication. Denies any neck or back pain. Past Medical History Past Medical History: Coronary Artery Disease (CAD), Diabetes Mellitus, H yperlipidemia, Osteoarthritis (OA), Thyroid Disorder Additional Past Medical History / Comment(s): ADRENAL INSUFFICIENCY, NIDDM, kidney stones, recurrent UTI History of Any Multi-Drug Resistant Organisms: ESBL Date of last positivie culture/infection: 07/09/18 MDRO Source:: ESBL URINE Past Surgical History: Back Surgery, Bariatric Surgery, Heart Catheterization With Stent Additional Past Surgical History / Comment(s): BACK SURG (decompression) X2. LAP BAND. Past Anesthesia/Blood Transfusion Reactions: No Reported Reaction Date of Last Stent Placement:: 2014 Past Psychological History: Anxiety Smoking Status: Light tobacco smoker Past Alcohol Use History: None Reported Past Drug Use History: None Reported - Past Family History Father Family Medical History: Diabetes Mellitus Additional Family Medical History / Comment(s): of a ruptured aorta Mother Family Medical History: Cancer, Diabetes Mellitus Additional Family Medical History / Comment(s): PPM, liver CA Medications and Allergies Home Medications Medication Instructions Recorded Confirmed Type Famotidine [Pepcid] 20 mg PO BID 06/17/15 09/12/18 History Metoprolol Succinate (ER) [Toprol 25 mg PO BID 12/13/15 09/12/18 History XL] Levothyroxine Sodium 88 mcg PO DAILY 07/09/18 09/12/18 History glyBURIDE [Diabeta] 2.5 mg PO AC-BID 07/09/18 09/12/18 History metFORMIN HCL 1,000 mg PO BID 07/09/18 09/12/18 History Atorvastatin [Lipitor] 40 mg PO HS 09/12/18 09/12/18 History Cortisone Acetate [Cortone] 25 mg PO DAILY 09/12/18 09/12/18 History Furosemide [Lasix] 40 mg PO DAILY 09/12/18 09/12/18 History Potassium Chloride [Klor-Con 10] 10 meq PO DAILY 09/12/18 09/12/18 History Allergies Allergy/AdvReac Type Severity Reaction Status Date / Time codeine AdvReac Nausea & Verified 09/12/18 14:59 Vomiting Physical Examination - Vital Signs Vital Signs: Vital Signs Temp Pulse Resp BP Pulse Ox 09/13/18 14:53 16 09/13/18 11:42 98.2 F 86 16 101/55 93 L 09/13/18 08:00 16 09/13/18 07:21 100.7 F H 09/13/18 05:49 98.7 F 84 16 124/69 95 09/12/18 22:00 98.5 F 70 16 100/64 99 09/12/18 20:52 96 Intake and Output 09/13/18 09/13/18 09/13/18 06:59 14:59 22:59 Other: Voiding Method Toilet # Voids 3 1 On examination patient is an elderly male, in no acute distress. He is alert and awake. He knows it is August 2018 that he is in [facility]. He knows that he is in the hospital but does not know the name, [facility]. He knows name of the current president and believes his age is 52. Speech and language functions are normal. Attention and concentration and fund of knowledge appears adequate. On cranial nerve examination pupils are round and reacting, visual liang are full, face is symmetric and tongue protrudes the midline. Palatal elevation sensation normal. On muscle strength testing there is no pronator drift and the strength is normal in arms and legs distally and proximally. Reflexes are slightly hypoactive and plantars downgoing sensory touch is equal. No ataxia for [id number] testing, tone of muscles normal bulk of muscles slightly decreased in the proximal upper extremities. No obvious bruit or murmur. No edema. Results - Laboratory Findings CBC and BMP: 09/13/18 06:48 09/13/18 06:48 Abnormal Lab Findings: Abnormal Labs 09/12/18 09/12/18 09/12/18 14:22 14:22 14:22 RBC 3.23 L Hgb 9.7 L Hct 29.5 L RDW 16.8 H PT INR Potassium 2.7 L* Chloride 94 L Carbon Dioxide 39 H BUN POC Glucose (mg/dL) Plasma Lactic Acid Ras 2.3 H* Magnesium ALT 15 L Total Protein 4.8 L Albumin 2.8 L Urine Protein 09/12/18 09/12/18 09/12/18 14:22 14:22 21:16 RBC Hgb Hct RDW PT 12.4 H INR 1.2 H Potassium Chloride Carbon Dioxide BUN POC Glucose (mg/dL) 171 H Plasma Lactic Acid Ras Magnesium 1.1 L ALT Total Protein Albumin Urine Protein 09/12/18 09/13/18 09/13/18 Unknown 06:48 06:48 RBC 3.15 L Hgb 9.0 L Hct 29.0 L RDW 16.7 H PT INR Potassium 3.1 L Chloride Carbon Dioxide 38 H BUN 21 H POC Glucose (mg/dL) Plasma Lactic Acid Ras Magnesium 1.3 L ALT 15 L Total Protein 4.7 L Albumin 2.7 L Urine Protein Trace H 09/13/18 09/13/18 09/13/18 10:47 16:40 20:11 RBC Hgb Hct RDW PT INR Potassium Chloride Carbon Dioxide BUN POC Glucose (mg/dL) 197 H 161 H 147 H Plasma Lactic Acid Ras Magnesium ALT Total Protein Albumin Urine Protein Assessment and Plan Assessment: * Altered mental status, probably due metabolic encephalopathy due to probable pneumonia. * Diffuse large B-cell lymphoma diagnosed 08/25/2018, stage III * Probable pneumonia with sepsis. * Type 2 diabetes Plan: * MRI of the brain with and without contrast to rule out any FIRE EQUIPMENT REPAIRER INSPECTOR involvement from lymphoma. * EEG to rule out any epileptiform activity versus encephalopathy. * His altered mental status probably due to pneumonia. If mentation worsens, then may need lumbar puncture. * Hematology input appreciated. * Patient's TSH is normal. We will also check B12, folate. Hemoglobin A1c normal 5.8. * Patient now to be followed up by Dr. Nahid Muse from neurology perspective.
[2018-09-14] MEDS: ACETAMINOPHEN TAB 325 MG TAB PO PRN ×3 (04:50→18:37)
[2018-09-14 07:20] LABS: Glucose,Whole Blood 91 mg/dL (75-99)
[2018-09-14] MEDS: PIPERACILLIN-TAZOBACTAM 3.375 GM in SODIUM CHLORIDE 0.9% 100 ML IVPB SCH ×2 (09:08→15:42)
[2018-09-14] MEDS ORDERED: VANCOMYCIN IV PER PHARMACY 1 EACH MISC MISCELLANE PRN (09:22)
[2018-09-14] MEDS ORDERED: MAGNESIUM SULFATE-D5W PMX 1 GM in DEXTROSE/WATER 1 100ML.BAG IVPB SCH (09:30)
[2018-09-14] MEDS ORDERED: VANCOMYCIN 1,500 MG in SODIUM CHLORIDE 0.9% 250 ML IVPB SCH (10:00)
[2018-09-14 10:21] LABS: Calcium 8.3 mg/dL (8.4-10.2); Magnesium 1.3 mg/dL (1.6-2.3)
[2018-09-14 10:30] LABS: Potassium 2.6 mmol/L (3.5-5.1)
[2018-09-14] MEDS: HEPARIN SODIUM,PORCINE 5,000 UNIT/ML 1 ML VIAL SQ SCH ×3 (10:41→23:16)
[2018-09-14] MEDS: FUROSEMIDE 40 MG TAB PO SCH (10:43)
[2018-09-14] MEDS: FAMOTIDINE 20 MG TAB PO SCH ×2 (10:43→20:13)
[2018-09-14] MEDS: CORTISONE ACETATE 25 MG PO SCH (11:32)
[2018-09-14 11:35] LABS: Glucose,Whole Blood 101 mg/dL (75-99)
[2018-09-14] MEDS: MAGNESIUM SULFATE-D5W PMX 1 GM in DEXTROSE/WATER 1 100ML.BAG IVPB SCH ×3 (12:57→15:41)
[2018-09-14] MEDS: POTASSIUM CHLORIDE ER 20 MEQ TAB.ER PO SCH ×2 (13:03→14:24)
--- NOTE | 2018-09-14 13:17 | P.PN ---
Subjective Progress Note Date: 09/14/18 Patient seen and examined at bedside, and mentation appears to be better today. Still nurses still reporting episodes of confusion, the patient found to be hypomagnesemic this am with a mag level of 1.3 , this morning's potassium is 2.6. Patient also appears to be febrile at tmax 103.2 today. patient seen by neurology today planks have a EEG and MRI done. Objective - Vital Signs Vital signs: Vital Signs Temp 100.9 F H 09/14/18 05:34 Pulse 89 09/14/18 05:34 Resp 16 09/14/18 08:50 BP 152/67 09/14/18 05:00 Pulse Ox 93 L 09/14/18 05:00 Intake & Output 09/13/18 09/14/18 09/14/18 18:59 06:59 18:59 Intake Total 950 Balance 950 Intake: Oral 950 Other: Voiding Method Toilet Toilet Urinal # Voids 1 3 - Exam Constitutional: No acute distress, conversant, pleasant, nurses still reporting episodes of confusion Eyes: Anicteric sclerae, moist conjunctiva, no lid-lag, PERRLA ENMT: NC/AT,Oropharynx clear, no erythema, exudates Neck:Supple, FROM, no masses, or JVD, No carotid bruits; No thyromegaly Lungs: Diminished in the bases, left-sided basilar rales Cardiovascular: Heart regular in rate and rhythm, No murmurs, gallops, or rubs no peripheral edema Abdominal: Soft Nontender, nom distended, no guarding, no rebound or rigidity, Normoactive bowel sounds No hepatomegaly, No splenomegaly, No palpable mass No abdominal wall hernia noted Skin: Normal temperature, tone, texture, turgor, No induration No subcutaneous nodules, No rash, lesions, No ulcers Extremities:No digital cyanosis No clubbing, Pedal pulses intact and sym metrical Radial pulses intact and symmetrical Normal gait and station, No calf tenderness Psychiatric: Alert and oriented to person, place and time, Appropriate affect Intact judgement Neuro: Muscles Strength 5/5 in all 4 extremities, Sensation to light touch grossly present throughout, Cranial nerves II-XII grossly intact. No focal sensory deficits - Labs CBC & Chem 7: 09/13/18 06:48 09/14/18 09:34 Labs: Abnormal Lab Results - Last 24 Hours (Table) 09/13/18 09/13/18 09/14/18 Range/Units 16:40 20:11 09:34 Potassium 2.6 L* (3.5-5.1) mmol/L Chloride 95 L (98-107) mmol/L Carbon Dioxide 37 H (22-30) mmol/L Glucose 105 H (74-99) mg/dL POC Glucose (mg/dL) 161 H 147 H (75-99) mg/dL Calcium 8.3 L (8.4-10.2) mg/dL Magnesium 1.3 L (1.6-2.3) mg/dL 09/14/18 Range/Units 11:32 Potassium (3.5-5.1) mmol/L Chloride (98-107) mmol/L Carbon Dioxide (22-30) mmol/L Glucose (74-99) mg/dL POC Glucose (mg/dL) 101 H (75-99) mg/dL Calcium (8.4-10.2) mg/dL Magnesium (1.6-2.3) mg/dL Microbiology - Last 24 Hours (Table) 09/12/18 Unknown Urine Culture - Final Urine,Voided 09/12/18 14:49 Blood Culture - Preliminary Blood No Growth after 24 hours Assessment and Plan (1) Sepsis Narrative/Plan: * Secondary to pneumonia, urinalysis negative, blood culture pending * the patient continues to be febrile,we'll plan to expand coverage to include vancomycin and continue regimen with Levaquin and Zosyn * Patient hemodynamically stable * plans consult ID for further recommendations Current Visit: Yes Status: Acute Code(s): A41.9 - SEPSIS, UNSPECIFIED ORGANISM SNOMED Code(s): 35984518 (2) Acute metabolic encephalopathy Narrative/Plan: * Possibly secondary to sepsis and profound electrolyte abnormalities * appreciate neurology recommendations * EEG done today we'll follow-up results, MRI scheduled for later today Current Visit: Yes Status: Resolved Code(s): G93.41 - METABOLIC ENCEPHALOPATHY SNOMED Code(s): 44063555 (3) Pneumonia Narrative/Plan: * Treatment as above Current Visit: Yes Status: Acute Code(s): J18.9 - PNEUMONIA, UNSPECIFIED ORGANISM SNOMED Code(s): 828867409 (4) Hypokalemia Narrative/Plan: * Also profound hypomagnesemic * We'll replace his magnesium and potassium today and recheck in the morning * initiate daily oral supplementation Current Visit: Yes Status: Acute Code(s): E87.6 - HYPOKALEMIA SNOMED Code(s): 28298337 (5) Type 2 diabetes mellitus Narrative/Plan: * Blood sugars much improved this morning, A1c ` 5.8 * Continue Accu-Cheks we'll initiate sliding scale protocol Current Visit: Yes Status: Acute Code(s): E11.9 - TYPE 2 DIABETES MELLITUS WITHOUT COMPLICATIONS SNOMED Code(s): 20243900 Plan: Disposition * Follow-up consultants recommendations * Patient still running fevers, continue IV antibiotics and breathing treatments
--- NOTE | 2018-09-14 14:58 | P.PN ---
Subjective Progress Note Date: 09/14/18 Principal diagnosis: Fever, NHL In f/u today pt continues to have some trouble comprehending his lymphoma and treatment, he had fever overnight, denies sores in mouth, difficulty swallowing, chest pain, TROY, abd distension, diarrhea or swelling. He states the adenopathy in his neck can be tender at times. Objective - Vital Signs Vital signs: Vital Signs Temp 98.8 F 09/14/18 13:00 Pulse 92 09/14/18 13:00 Resp 17 09/14/18 13:00 BP 90/52 09/14/18 13:00 Pulse Ox 93 L 09/14/18 13:00 Intake & Output 09/13/18 09/14/18 09/14/18 18:59 06:59 18:59 Intake Total 950 Balance 950 Intake: Oral 950 Other: Voiding Method Toilet Toilet Urinal # Voids 1 3 2 - Constitutional General appearance: Present: average body habitus, cooperative, mild distress - EENT Eyes: Present: anicteric sclerae, EOMI ENT: Present: hearing grossly normal, normal oropharynx - Neck Details: cervical, supraclavicular, axillary and inguinal adenopathy palpable, nuberous node, most <2cm, firm/hard, fixed, tender Neck: Present: lymphadenopathy - Respiratory Respiratory: bilateral: CTA - Cardiovascular Heart sounds: normal: S1, S2 Abnormal Heart Sounds: Absent: systolic murmur, diastolic murmur, rub, S3 Gallop, S4 Gallop, click, other - Peripheral edema leg Peripheral Edema: bilateral: None - Gastrointestinal General gastrointestinal: Present: normal bowel sounds, soft - Neurologic Neurologic: Present: CNII-XII intact - Musculoskeletal Musculoskeletal: Present: strength equal bilaterally - Psychiatric Psychiatric: Present: A&O x's 3, appropriate affect - Labs CBC & Chem 7: 09/13/18 06:48 09/14/18 09:34 Labs: Abnormal Lab Results - Last 24 Hours (Table) 09/13/18 09/13/18 09/14/18 Range/Units 16:40 20:11 09:34 Potassium 2.6 L* (3.5-5.1) mmol/L Chloride 95 L (98-107) mmol/L Carbon Dioxide 37 H (22-30) mmol/L Glucose 105 H (74-99) mg/dL POC Glucose (mg/dL) 161 H 147 H (75-99) mg/dL Calcium 8.3 L (8.4-10.2) mg/dL Magnesium 1.3 L (1.6-2.3) mg/dL 09/14/18 Range/Units 11:32 Potassium (3.5-5.1) mmol/L Chloride (98-107) mmol/L Carbon Dioxide (22-30) mmol/L Glucose (74-99) mg/dL POC Glucose (mg/dL) 101 H (75-99) mg/dL Calcium (8.4-10.2) mg/dL Magnesium (1.6-2.3) mg/dL Microbiology - Last 24 Hours (Table) 09/12/18 Unknown Urine Culture - Final Urine,Voided 09/12/18 14:49 Blood Culture - Preliminary Blood No Growth after 24 hours Assessment and Plan (1) Sepsis Narrative/Plan: Tmax 103.2F this AM. Micro at 24 hours is negative. Pt continues on mult abx Current Visit: Yes Status: Acute Code(s): A41.9 - SEPSIS, UNSPECIFIED ORGANISM SNOMED Code(s): 90967990 (2) Fever Narrative/Plan: Persistent. Pt has had recurrent infections-secondary to his poor immunity from NHL. Despite shortage, small doses of IVIG are available for serious situations, we will evaluate pt Ig levels for severity. Current Visit: Yes Status: Acute Priority: High Code(s): R50.9 - FEVER, UNSPECIFIED SNOMED Code(s): 015058851 (3) Lymphadenopathy Narrative/Plan: Secondary to NHL DLBCL Current Visit: Yes Status: Acute Priority: High Code(s): R59.1 - GENERALIZED ENLARGED LYMPH NODES SNOMED Code(s): 62674157 (4) Large B-cell lymphoma Narrative/Plan: Port placed, pending staging PET Current Visit: Yes Status: Acute Code(s): C85.10 - UNSPECIFIED B-CELL LYMPHOMA, UNSPECIFIED SITE SNOMED Code(s): 973085712 Plan: Pt is needing to start treatment for symptomatic disease. Will review case with Primary Oncologist
[2018-09-14 16:38] LABS: Folate, Serum 6.2 ng/mL
[2018-09-14 17:09] LABS: Glucose,Whole Blood 120 mg/dL (75-99)
--- NOTE | 2018-09-14 17:15 | MR ---
EXAMINATION TYPE: MR brain wo/w con DATE OF EXAM: 09/14/2018 COMPARISON: 12/13/2015 HISTORY: Lymphoma. Altered mental status TECHNIQUE: Multiplanar, multisequence images of the brain and brainstem is performed without and with IV contras t, utilizing 8.5 mL intravenous . gadavist. FINDINGS: There is some thinning of the corpus callosum. There is diffuse cerebral cortical atrophy. There is n o mass effect nor midline shift. There is no sign of intracranial hemorrhage. Brainstem is intact. On the FLAIR images there is some linear increased signal in the periventricular white matter. There is patchy increased fluid signal in the ethmoid sinuses bilaterally. There is no evidence of cortical i nfarct. There is some enlargement of the sella turcica. There is symmetric prominent pituitary gland. Gland m easures 10.5 x 7 mm. Optic chiasm appears normal. There is no definite pathologic enhancement. IMPRESSION: Cerebral atrophy. 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 No significant hydrocephalus. Large pituitary gland unchanged. Ethmoid sinusitis. No definite evidence for intracranial metastatic disease. There is overall not a significant change c ompared to old exam. There was a small focus of left frontal lobe cortical increased signal on old ex am that is not evident on today's exam.
[2018-09-14] MEDS: LEVOFLOXACIN 750MG-D5W PMX 750 MG in DEXTROSE/WATER 1 150ML.BAG IVPB SCH (19:09)
[2018-09-14] MEDS: ERTAPENEM 1 GM in SODIUM CHLORIDE 0.9% 50 ML IVPB SCH (19:13)
[2018-09-14 20:08] LABS: Glucose,Whole Blood 131 mg/dL (75-99)
[2018-09-14] MEDS: ATORVASTATIN 40 MG TAB PO SCH (20:13)
[2018-09-14] MEDS: MAGNESIUM OXIDE 400 MG TAB PO SCH (20:13)
--- NOTE | 2018-09-14 23:54 | P.CONS ---
History of Present Illness - Reason for Consult Consult date: 09/14/18 - Chief Complaint Fever and weakness - History of Present Illness 62-year-old male who has been having difficulties over the last year, the patient did have a scalene node biopsy performed last summer that was nondiagnostic of any specific disease state. The patient continues some diff iculties with lymphadenopathy. He required hospitalization at an outside facility, Nontender was evidence of sepsis and there was also evidence of multiple areas of lymphadenopathy including inguinal. Given him a difficulties general surgery did perform the inguinal lymph node biopsy in August 25. This has now come back as the diffuse large B-cell lymphoma and he has been referred to oncology. He was admitted at the outside hospital with a fever which was thought to be due to urinary tract infection as well as a possibility of fever related to his underlying disease state. It is related the patient was driving to go to his PET scan. [facility] and went into the store, the employees were very concerned about him and EMS was called he was transported to the emergency center where he was found evidence of significant confusion. He was admitted without and 3.2 fever with concerns of sepsis in immunocompromised host the consult was requested. It is in the patient has received fluids hydration and antibiotic therapy and seems to be doing somewhat better. It is noticed that he did have a low IgG level at the other facility. Review of Systems The patient is somewhat vague but is able to answer specific questions HEENT:Denies headache or acute visual change. Denies sinus or mouth discomforts. Denies neck stiffness or pain. Denies significant oral cavity pain. Denies difficulty on swallowing. Lungs: Denies significant shortness of breath, cough, sputum production, or hemoptysis. Cardiovascular: Denies significant shortness of breath, chest pain, chest wall pain, orthopnea, dyspnea on exertion, syncope Gastrointestinal:Denies nausea, vomiting, diarrhea, constipation, hematemesis, melena, hematochezia. No no significant change of bowel habit noticed. Musculoskeletal: Chronic musculoskeletal pain Skin: Denies new rash or lesions. No new ulcers or wounds are related.. Neuro: No headache no seizures Psychiatric:Denies anxiety or depression. Endocrine: Significant fatigue has had weight loss Past Medical History Past Medical History: Coronary Artery Disease (CAD), Diabetes Mellitus, Hyperlipidemia, Osteoarthritis (OA), Thyroid Disorder Additional Past Medical History / Comment(s): ADRENAL INSUFFICIENCY, NIDDM, kidney stones, recurrent UTI History of Any Multi-Drug Resistant Organisms: ESBL Year Discovered:: 09/13/2018 MDRO Source:: ESBL URINE Past Surgical History: Back Surgery, Bariatric Surgery, Heart Catheterization With Stent Additional Past Surgical History / Comment(s): BACK SURG (decompression) X2. LAP BAND. Past Anesthesia/Blood Transfusion Reactions: No Reported Reaction Date of Last Stent Placement:: 2014 Past Psychological History: Anxiety Smoking Status: Light tobacco smoker Past Alcohol Use History: None Reported Past Drug Use History: None Reported - Past Family History Father Family Medical History: Diabetes Mellitus Additional Family Medical History / Comment(s): of a ruptured aorta Mother Family Medical History: Cancer, Diabetes Mellitus Additional Family Medical History / Comment(s): PPM, liver CA Medications and Allergies Home Medications and Allergies Comment(s): Current Medications Acetaminophen (Tylenol Tab) 650 mg PO Q6HR PRN PRN Reason: Mild Pain or Fever > 100.5 Last Admin: 09/14/18 18:37 Dose: 650 mg Documented by: Atorvastatin Calcium (Lipitor) 40 mg PO HS [facility] Last Admin: 09/14/18 20:13 Dose: 40 mg Documented by: Famotidine (Pepcid) 20 mg PO BID [facility] Last Admin: 09/14/18 20:13 Dose: 20 mg Documented by: Furosemide (Lasix) 40 mg PO DAILY [facility] Last Admin: 09/14/18 10:43 Dose: 40 mg Documented by: Heparin Sodium (Porcine) (Heparin) 5,000 unit SQ Q8HR [facility] Last Admin: 09/14/18 23:16 Dose: 5,000 unit Documented by: Hydrocortisone (Cortef) 20 mg PO DAILY [facility] Ertapenem 1 gm/ Sodium (Chloride) 50 mls @ 100 mls/hr IVPB DAILY [facility]; Protocol Last Admin: 09/14/18 19:13 Dose: 100 mls/hr Documented by: Insulin Aspart (Novolog) 0 unit SQ ACHS PRN; Protocol PRN Reason: Blood Sugar - High Last Admin: 09/13/18 20:21 Dose: 1 unit Documented by: Levothyroxine Sodium (Synthroid) 88 mcg PO DAILY@0630 [facility] Last Admin: 09/13/18 06:27 Dose: 88 mcg Documented by: Magnesium Oxide (Mag-Ox) 400 mg PO BID [facility] Last Admin: 09/14/18 20:13 Dose: 400 mg Documented by: Naloxone HCl (Narcan) 0.2 mg IV Q2M PRN PRN Reason: Opioid Reversal Ondansetron HCl (Zofran) 4 mg IVP Q8HR PRN PRN Reason: Nausea And Vomiting Potassium Chloride (K-Dur 20) 40 meq PO DAILY [facility] Tramadol HCl (Ultram) 50 mg PO QID PRN PRN Reason: Pain Home Medications Medication Instructions Recorded Confirmed Type Famotidine [Pepcid] 20 mg PO BID 06/17/15 09/12/18 History Metoprolol Succinate (ER) [Toprol 25 mg PO BID 12/13/15 09/12/18 History XL] Levothyroxine Sodium 88 mcg PO DAILY 07/09/18 09/12/18 History glyBURIDE [Diabeta] 2.5 mg PO AC-BID 07/09/18 09/12/18 History metFORMIN HCL 1,000 mg PO BID 07/09/18 09/12/18 History Atorvastatin [Lipitor] 40 mg PO HS 09/12/18 09/12/18 History Cortisone Acetate [Cortone] 25 mg PO DAILY 09/12/18 09/12/18 History Furosemide [Lasix] 40 mg PO DAILY 09/12/18 09/12/18 History Potassium Chloride [Klor-Con 10] 10 meq PO DAILY 09/12/18 09/12/18 History Allergies Allergy/AdvReac Type Severity Reaction Status Date / Time codeine AdvReac Nausea & Verified 09/12/18 14:59 Vomiting Physical Exam Vitals: Vital Signs Temp Pulse Resp BP Pulse Ox 09/14/18 20:52 99.0 F 78 16 93/57 95 09/14/18 17:30 99.4 F 108/61 09/14/18 13:00 98.8 F 92 17 90/52 93 L 09/14/18 08:50 16 09/14/18 05:34 100.9 F H 89 09/14/18 05:00 103.2 F H 103 H 16 152/67 93 L 09/14/18 00:00 16 Intake and Output 09/14/18 09/14/18 09/15/18 14:59 22:59 06:59 Intake Total 480 Balance 480 Intake: Oral 480 Other: Voiding Method Urinal Urinal # Voids 2 62-year-old male who does not remember me from consultation at the other hospital. HEENT: Anicteric conjunctiva pale nasal mucosa grossly intact without significant lesions, there is no thrush. Neck: The neck is supple without significant lymphadenopathy or thyromegaly. Lungs: Symmetrical air entry with expiratory wheezes that are scattered with no jaye bronchial sounds or dullness or egophony Heart: Regular rate and rhythm with an audible S1-S2, no S3 no S4. There is no significant murmur click or rub, PMI was nondisplaced. Abdomen: Obese, Positive bowel sounds soft and nontender without palpable masses or organomegaly. There was no guarding or rebound. Extremities: The upper extremities have excellent pulses they are symmetric, no significant petechiae or telangiectasia. No splinter hemorrhages were noted. Lower extremities have 1+ symmetric edema without open ulcerations Neuro: Awake alert oriented to person and is aware he is at Hospital does not recall the observer from his other hospital stays. Results CBC & Chem 7: 09/13/18 06:48 09/14/18 09:34 Labs: Abnormal Lab Results - Last 24 Hours (Table) 09/14/18 09/14/18 09/14/18 Range/Units 09:34 11:32 17:04 Potassium 2.6 L* (3.5-5.1) mmol/L Chloride 95 L (98-107) mmol/L Carbon Dioxide 37 H (22-30) mmol/L Glucose 105 H (74-99) mg/dL POC Glucose (mg/dL) 101 H 120 H (75-99) mg/dL Calcium 8.3 L (8.4-10.2) mg/dL Magnesium 1.3 L (1.6-2.3) mg/dL 09/14/18 Range/Units 20:06 Potassium (3.5-5.1) mmol/L Chloride (98-107) mmol/L Carbon Dioxide (22-30) mmol/L Glucose (74-99) mg/dL POC Glucose (mg/dL) 131 H (75-99) mg/dL Calcium (8.4-10.2) mg/dL Magnesium (1.6-2.3) mg/dL Microbiology - Last 24 Hours (Table) 09/12/18 14:49 Blood Culture - Preliminary Blood No Growth after 48 hours 09/12/18 Unknown Urine Culture - Final Urine,Voided Laboratory Results WBC 5.2 k/uL (3.8-10.6) 09/13/18 06:48 RBC 3.15 m/uL (4.30-5.90) L 09/13/18 06:48 Hgb 9.0 gm/dL (13.0-17.5) L 09/13/18 06:48 Hct 29.0 % (39.0-53.0) L 09/13/18 06:48 MCV 92.3 fL (80.0-100.0) 09/13/18 06:48 MCH 28.6 pg (25.0-35.0) 09/13/18 06:48 MCHC 31.0 g/dL (31.0-37.0) 09/13/18 06:48 RDW 16.7 % (11.5-15.5) H 09/13/18 06:48 Plt Count 210 k/uL (150-450) 09/13/18 06:48 Neutrophils % 42 % 09/13/18 06:48 Lymphocytes % 46 % 09/13/18 06:48 Monocytes % 6 % 09/13/18 06:48 Eosinophils % 4 % 09/13/18 06:48 Basophils % 0 % 09/13/18 06:48 Neutrophils # 2.2 k/uL (1.3-7.7) 09/13/18 06:48 Lymphocytes # 2.4 k/uL (1.0-4.8) 09/13/18 06:48 Monocytes # 0.3 k/uL (0-1.0) 09/13/18 06:48 Eosinophils # 0.2 k/uL (0-0.7) 09/13/18 06:48 Basophils # 0.0 k/uL (0-0.2) 09/13/18 06:48 Hypochromasia Moderate 09/13/18 06:48 Poikilocytosis Slight 09/13/18 06:48 Anisocytosis Slight 09/13/18 06:48 PT 12.4 sec (9.0-12.0) H 09/12/18 14:22 INR 1.2 (<1.2) H 09/12/18 14:22 APTT 26.5 sec (22.0-30.0) 09/12/18 14:22 Sodium 140 mmol/L (137-145) 09/14/18 09:34 Potassium 2.6 mmol/L (3.5-5.1) L* 09/14/18 09:34 Chloride 95 mmol/L (98-107) L 09/14/18 09:34 Carbon Dioxide 37 mmol/L (22-30) H 09/14/18 09:34 Anion Gap 8 mmol/L 09/14/18 09:34 BUN 17 mg/dL (9-20) 09/14/18 09:34 Creatinine 1.02 mg/dL (0.66-1.25) 09/14/18 09:34 Est GFR (CKD-EPI)AfAm 90 (>60 ml/min/1.73 sqM) 09/14/18 09:34 Est GFR (CKD-EPI)NonAf 78 (>60 ml/min/1.73 sqM) 09/14/18 09:34 Glucose 105 mg/dL (74-99) H 09/14/18 09:34 POC Glucose (mg/dL) 131 mg/dL (75-99) H 09/14/18 20:06 POC Glu Assembly Operator Diya Jade 09/14/18 20:[address] Glu mg/dL 120 09/12/18 14:22 Hemoglobin A1c 5.8 % (4.0-6.0) 09/12/18 14:22 Lactic Ac Sepsis Rflx Y 09/12/18 15:16 Plasma Lactic Acid Ras 1.5 mmol/L (0.7-2.0) 09/12/18 18:25 Calcium 8.3 mg/dL (8.4-10.2) L 09/14/18 09:34 Magnesium 1.3 mg/dL (1.6-2.3) L 09/14/18 09:34 Total Bilirubin 1.3 mg/dL (0.2-1.3) 09/13/18 06:48 AST 18 U/L (17-59) 09/13/18 06:48 ALT 15 U/L (21-72) L 09/13/18 06:48 Alkaline Phosphatase 57 U/L (38-126) 09/13/18 06:48 Total Protein 4.7 g/dL (6.3-8.2) L 09/13/18 06:48 Albumin 2.7 g/dL (3.5-5.0) L 09/13/18 06:48 Vitamin B12 224.0 pg/mL (200.0-944.0) 09/13/18 06:48 Folate 6.2 ng/mL 09/13/18 06:48 Urine Color Yellow 09/12/18 Unknown Urine Appearance Clear (Clear) 09/12/18 Unknown Urine pH 6.0 (5.0-8.0) 09/12/18 Unknown Ur Specific [place] 1.014 (1.001-1.035) 09/12/18 Unknown Urine Protein Trace (Negative) H 09/12/18 Unknown Urine Glucose (UA) Negative (Negative) 09/12/18 Unknown Urine Ketones Negative (Negative) 09/12/18 Unknown Urine Blood Negative (Negative) 09/12/18 Unknown Urine Nitrite Negative (Negative) 09/12/18 Unknown Urine Bilirubin Negative (Negative) 09/12/18 Unknown Urine Urobilinogen <2.0 mg/dL (<2.0) 09/12/18 Unknown Ur Leukocyte Esterase Negative (Negative) 09/12/18 Unknown Influenza Type A RNA Not Detected (Not Detectd) 09/12/18 15:09 Influenza Type B (PCR) Not Detected (Not Detectd) 09/12/18 15:09 Microbiology 09/12/18 14:49 Blood Blood Culture - Preliminary No Growth after 48 hours 09/12/18 Unknown Urine,Voided Urine Culture - Final Assessment and Plan (1) Large B-cell lymphoma Current Visit: Yes Status: Acute Code(s): C85.10 - UNSPECIFIED B-CELL LYMPHOMA, UNSPECIFIED SITE SNOMED Code(s): 714605738 (2) Hypogammaglobulinemia Current Visit: Yes Status: Acute Code(s): D80.1 - NONFAMILIAL HYPOGAMMAGLOBULINEMIA SNOMED Code(s): 703722520 (3) Fever Narrative/Plan: 62-year-old male with a history of recently diagnosed large B-cell lymphoma who has been seen by oncology with plans for intervention. He was to have his PET scan performed but he became confused and is now admitted with another bout of high-grade fever and concerns to sepsis. Review of data from the other hospital does reveal at his discharge day urine culture was obtained and now shows evidence of the ESBL Klebsiella. With this ertapenem was initiated for treatment of this pathogen. Once the patient has improved especially if there is no bacteremia with him be able to initiate his chemotherapy as per oncology. At this time would appear that his mental status changes on the basis of his underlying sepsis however oncology is pursuing further workup, then may need lumbar puncture to evaluate for central nervous system involvement. MRI does not reveal evidence of any significant disease at this time. Current Visit: Yes Status: Acute Priority: High Code(s): R50.9 - FEVER, UNSPECIFIED SNOMED Code(s): 791244911
[2018-09-15] MEDS: LEVOTHYROXINE 88 MCG TAB PO SCH (05:32)
[2018-09-15] MEDS: traMADol 50 MG TAB PO PRN (05:32)
[2018-09-15 06:59] LABS: Glucose,Whole Blood 97 mg/dL (75-99)
[2018-09-15 07:00] LABS: Anisocytosis Slight; Basophils % (A) 1 %; Eosinophils # (A) 0.3 k/uL (0-0.7); Eosinophils % (A) 5 %; HCT 28.2 % (39.0-53.0); HGB 8.6 gm/dL (13.0-17.5); Hypochromasia Moderate; Lymphocytes # (A) 2.4 k/uL (1.0-4.8); Lymphocytes % (A) 52 %; MCH 28.5 pg (25.0-35.0); MCHC 30.6 g/dL (31.0-37.0); MCV 93.1 fL (80.0-100.0); Mean Platelet Volume 7.7; Monocytes # (A) 0.3 k/uL (0-1.0); Monocytes % (A) 5 %; Neutrophils # (A) 1.6 k/uL (1.3-7.7); Neutrophils % (A) 35 %; Platelet Count 178 k/uL (150-450); RBC 3.03 m/uL (4.30-5.90); RDW 17.1 % (11.5-15.5); WBC 4.6 k/uL (3.8-10.6)
[2018-09-15 07:27] LABS: Calcium 8.4 mg/dL (8.4-10.2)
[2018-09-15] MEDS: ERTAPENEM 1 GM in SODIUM CHLORIDE 0.9% 50 ML IVPB SCH (08:35)
[2018-09-15] MEDS: ACETAMINOPHEN TAB 325 MG TAB PO PRN (08:36)
[2018-09-15] MEDS: HEPARIN SODIUM,PORCINE 5,000 UNIT/ML 1 ML VIAL SQ SCH ×3 (08:36→23:10)
[2018-09-15] MEDS: HYDROCORTISONE 20 MG TAB PO SCH (08:37)
[2018-09-15] MEDS: FAMOTIDINE 20 MG TAB PO SCH ×2 (08:37→20:10)
[2018-09-15] MEDS: MAGNESIUM OXIDE 400 MG TAB PO SCH ×2 (08:37→20:10)
[2018-09-15] MEDS: FUROSEMIDE 40 MG TAB PO SCH (08:37)
[2018-09-15] MEDS: POTASSIUM CHLORIDE ER 20 MEQ TAB.ER PO SCH (08:40)
--- NOTE | 2018-09-15 09:43 | EEG ---
ELECTROENCEPHALOGRAM REPORT REFERRING PHYSICIAN: Kyler Barnes MD CLINICAL HISTORY: This is an 18 channel EEG with 1 channel EKG recording on a 62-year-old male with mental status changes and recently diagnosed lymphoma. This study is being done to rule out epileptiform discharges. FINDINGS: Wakefulness was obtained during the recording. In maximal awake state, a moderate voltage 10 hertz posterior dominant background rhythm was demonstrated. This is regulated, sustained, symmetric and reactive. Low-voltage faster frequencies were best seen over the frontal central head regions. Photic stimulation produced a symmetric driving response at a few flash frequencies. No sleep architecture was seen. No epileptiform discharges or focal lateralizing features are present. SUMMARY: Normal awake EEG. INTERPRETATION: This EEG is within normal limits for age. No epileptiform discharges or focal lateralizing features are present. MMODL / IJN: [id number] / MTDD
[2018-09-15 11:19] LABS: Glucose,Whole Blood 110 mg/dL (75-99)
--- NOTE | 2018-09-15 11:34 | P.PN ---
Subjective Progress Note Date: 09/15/18 Principal diagnosis: Fever, NHL In f/u today ongoing difficulties with comprehension of disease, current hospitalization (pt thought he was being admitted to hospital for chemo, did not remember being at [facility] asking where he gets his PET). no fever overnight, states he only drinks water, not eating, states weakness but he ambulated to the bathroom without difficulty or ambulatory device. Objective - Vital Signs Vital signs: Vital Signs Temp 99.5 F 09/15/18 05:00 Pulse 92 09/15/18 05:00 Resp 17 09/15/18 07:45 BP 110/65 09/15/18 05:00 Pulse Ox 94 L 09/15/18 05:00 Intake & Output 09/14/18 09/15/18 09/15/18 18:59 06:59 18:59 Intake Total 1600 Output Total 800 Balance 800 Intake: Intake, IV Titration 50 Amount Ertapenem 1 gm In Sodium 50 Chloride 0.9% 50 ml @ 100 mls/hr IVPB DAILY [facility] Rx #:[id number] Oral 1550 Output: Urine 800 Other: Voiding Method Urinal Urinal Urinal # Voids 2 2 - Constitutional General appearance: Present: average body habitus, mild distress - EENT Eyes: Present: anicteric sclerae ENT: Present: hearing grossly normal - Neck Neck: Present: lymphadenopathy - Respiratory Details: respirations even and unlabored - Cardiovascular Details: skin warm and dry, radial pulse 2+, regular - Peripheral edema leg Peripheral Edema: bilateral: None - Gastrointestinal General gastrointestinal: Present: normal bowel sounds, soft - Neurologic Neurologic: Present: CNII-XII intact - Musculoskeletal Musculoskeletal: Present: strength equal bilaterally - Psychiatric Psychiatric Comment(s): Alert, oriented to self, place and time, occasionally to situation - Labs CBC & Chem 7: 09/15/18 06:36 09/15/18 06:36 Labs: Abnormal Lab Results - Last 24 Hours (Table) 09/14/18 09/14/18 09/14/18 Range/Units 11:32 17:04 20:06 RBC (4.30-5.90) m/uL Hgb (13.0-17.5) gm/dL Hct (39.0-53.0) % MCHC (31.0-37.0) g/dL RDW (11.5-15.5) % Potassium (3.5-5.1) mmol/L Carbon Dioxide (22-30) mmol/L POC Glucose (mg/dL) 101 H 120 H 131 H (75-99) mg/dL Magnesium (1.6-2.3) mg/dL 09/15/18 09/15/18 09/15/18 Range/Units 06:36 06:36 06:36 RBC 3.03 L (4.30-5.90) m/uL Hgb 8.6 L (13.0-17.5) gm/dL Hct 28.2 L (39.0-53.0) % MCHC 30.6 L (31.0-37.0) g/dL RDW 17.1 H (11.5-15.5) % Potassium 3.0 L (3.5-5.1) mmol/L Carbon Dioxide 38 H (22-30) mmol/L POC Glucose (mg/dL) (75-99) mg/dL Magnesium 1.5 L (1.6-2.3) mg/dL Microbiology - Last 24 Hours (Table) 09/12/18 14:49 Blood Culture - Preliminary Blood No Growth after 48 hours - Imaging and Cardiology MRI - head: report reviewed Assessment and Plan (1) Sepsis Narrative/Plan: No fever since yesterday afternoon. Urine and blood cultures negative at 48 hours. Pt continues on mult abx. ESBL in urine, ID following Current Visit: Yes Status: Acute Priority: Medium Code(s): A41.9 - SEPSIS, UNSPECIFIED ORGANISM SNOMED Code(s): 35182916 (2) Fever Current Visit: Yes Status: Resolved Priority: High Code(s): R50.9 - FEVER, UNSPECIFIED SNOMED Code(s): 540756277 (3) Lymphadenopathy Current Visit: Yes Status: Acute Priority: High Code(s): R59.1 - GENERA LIZED ENLARGED LYMPH NODES SNOMED Code(s): 01048195 (4) Large B-cell lymphoma Narrative/Plan: Port placed. Awaiting Primary Oncologist decision if staging with CT vs PET to expedite initiation of treatment Current Visit: Yes Status: Acute Code(s): C85.10 - UNSPECIFIED B-CELL LYMPHOMA, UNSPECIFIED SITE SNOMED Code(s): 562517715 (5) White matter abnormality on MRI of brain Narrative/Plan: Discussed abnormal findings with pt. He denied any history of ETOH abuse or neurological disorders. Explained to pt that evaluation of the CSF will tell us if his lymphoma is in the CSF, which would alter treatment to include treatment of the CSF. I told him that the Physician performing the procedure would go over it with him and he said "I don't want to", stating to just do it. I told him that he has to consent to the procedure or it will not be performed. Discussed briefly with Neurologist, who agrees with LP with CSF studies. Orders entered for procedure with IR, lab studies requested. Current Visit: Yes Status: Acute Priority: High Code(s): R90.82 - WHITE MATTER DISEASE, UNSPECIFIED SNOMED Code(s): 374995497 Plan: Pt asked about chemo and what he needs to do. I told pt that he needs to eat, drink and move. He needs to maintain his strength. Will cont to reinforce self care and importance of mobility-not only for treatment but for quality of life.
--- NOTE | 2018-09-15 12:34 | PN ---
PROGRESS NOTE DATE OF SERVICE: 09/15/2018 Esequiel Dukes is a 62-year-old male who is seen in neurologic followup/crosscover. Patient initially presented on 09/12/2018 due to confusion as he apparently inadvertently went to a [facility] to get a scheduled PET scan done. Initial CT scan of the brain demonstrated mild bifrontal atrophy but no acute pathology was identified. The patient was febrile on presentation and has had a temperature as high as 103.2 yesterday. A few days before this admission, the patient had been at [facility] and states he was treated for a urinary tract infection. Urine cultures from that facility demonstrated ESBL and Klebsiella. Question was also raised regarding possible underlying pneumonia as the patient's chest x-ray demonstrated increase in interstitial changes and patchy posterior basilar opacity. Currently, the patient denies headache, vertigo, diplopia, dysarthria, difficulty chewing/swallowing or focal weakness/numbness in the extremities. He has no previous history of stroke or seizure. Nursing staff continues to report intermittent confusion. The patient states he underwent lap band surgery around 5 years ago with 50 pound weight loss. CURRENT MEDICATIONS: Tylenol p.r.n., atorvastatin, ertapenem, Pepcid, Lasix, heparin subcu, hydrocortisone, NovoLog, Synthroid, Mag-Ox, K-Dur and Ultram p.r.n. PHYSICAL EXAMINATION: On physical exam, upon my arrival to the patient's room, he was lying in bed, appears comfortable, alert, in no acute distress. He is not agitated or delusional. VITAL SIGNS: Blood pressure is 110/65 with pulse of 92, respiratory rate 16, temperature is 99.5. NEUROLOGIC EXAMINATION: The patient is alert and oriented to self. He knew he was in [place], knew the year, month and day of week. He was able to name and repeat. There was no aphasia or dysarthria. CRANIAL NERVES II THROUGH XII: Pupils are postsurgical and reactive to light. No afferent pupillary defect. Visual liang are intact to confrontation. Extraocular movements were full. No facial asymmetry. Palate edouard in the midline. Dentition is poor. Trapezius strength intact. Tongue protruded midline. MOTOR EXAMINATION: There is no pronator drift. Normal bulk and tone noted in all major muscle groups with no involuntary movements noted. Strength is 5/5 throughout. Plantar responses flexor bilaterally. Abraham's is absent. Nbkghf-qv-ofks, tbdw-tj-sgkk movements are intact. Rapid alternating movements are symmetric with finger tapping. DIAGNOSTIC TESTING: The patient had an MRI of the brain completed with and without contrast, which demonstrated atrophy without hydrocephalus. There is no evidence of acute stroke, enhancing lesions. Pituitary gland was described as large. Overall this study was described as unchanged including the pituitary gland as compared to a previous imaging study of 12/13/2015. EEG from 09/14/2018 demonstrated no epileptiform discharges and was read as normal study. Lab work demonstrates a white blood count of 4.6, hemoglobin of 8.6, platelet count 178. Sodium 139, potassium 3.0, BUN 15 with a creatinine 1.07. Hemoglobin A1c 5.8. Magnesium 1.3. ALT 15, AST 18. B12 of 228, folate 6.2. Blood cultures demonstrated no growth at 48 hours. IMPRESSION: 1. Encephalopathy with fever likely secondary to urinary tract infection (ESBL/Klebsiella) per culture at outside facility where the patient had been admitted a few days prior to this hospitalization. The patient currently denies headache and has no meningeal signs. 2. Stage III diffuse large B-cell lymphoma diagnosed on 08/25/2018, the patient has undergone no treatments in this regard to date. 3. Hypogammaglobulinemia. 4. Type 2 diabetes mellitus. 5. History of lap band surgery 5 years ago with 50 pound weight loss. 6. Borderline B12 level. 7. Hypomagnesemia. RECOMMENDATION: 1. I discussed the results of the patient's diagnostic testing with him and he expressed understanding. 2. In the setting of the patient's fever, episodic confusion, and recently diagnosed lymphoma, agree with pursuing lumbar puncture to include cell count/differential, protein, glucose, flow cytometry, cytology, cultures and HSV PCR. 3. Treatment of urinary tract infection/electrolyte derangements per primary service. 4. B12 supplementation. 5. We will follow with you. Thank you for allowing me to participate in the care of your patient. MMODL / IJN: [id number] / [email or web address]
--- NOTE | 2018-09-15 12:55 | CDI ---
Documentation Clarification Form Date: 09/15/2018 12:41:04 PM From: Elo Aguirre RN, CCDS Admit Date: 09/12/2018 5:13:00 PM Patient Name: Esequiel Dukes Visit Number: [id number] Discharge Date: ATTENTION: The Clinical Documentation Specialists (CDI) and [facility] Coding Staff appreciate your assistance in clarifying documentation. Please respond to the clarification below the line at the bottom and electronically sign. The CDI & [facility] Coding staff will review the response and follow-up if needed. Please note: Queries are made part of the Legal Health Record. If you have any questions, please contact the author of this message via ITS. Dr. Kyler Barnes Pneumonia was documented in the H & P and Progress Note History/Risk Factors: 62 year old male presented to the ED via EMS for confusion. Medical history includes new diagnosis of Lymphoma, DM; CAD; Clinical Indicators: Per the H & P The patient was started on empiric IV antibiotics well switch to Zosyn and Levaqiun as patient was recently hospitalized Vital signs: 101/49 96 102.8 18 98% ra WBC 5.7 X-ray: Increased interstital changes and patchy posterior basilar opacity on the lateral view Lung/Breathing assessment diminished in the bases, left sided rales and rhonchi noted. Treatment: Antibiotics Zosyn Ivpb and Levaquin Ivpb Discontinued. Started on Ertapenem Ivpb Daily In order to capture the severity of condition, please clarify if the condition signifies and you are treating for: * please refer to progress note 09/15 (Last Revision: June 2017) MTDD
--- NOTE | 2018-09-15 15:55 | FL ---
EXAMINATION TYPE: FL guided lumbar puncture LP DATE OF EXAM: 09/15/2018 HISTORY: Lymphoma Maximal barrier technique was utilized. The skin overlying the L3 vertebral body was localized under fluoroscopy and the overlying skin prepped and draped. Lidocaine used for local anesthesia. 20-gau ge needle was advanced into the thecal sac under fluoroscopic guidance and cerebrospinal fluid was no zulema to return in the hub of the needle. Approximately 10 cc of cerebrospinal fluid was obtained for laboratory analysis and submitted in sterile tubes. Needle was removed. Hemostasis achieved. No immed iate complication. 33 seconds fluoroscopy time, no intraoperative images. The patient remained in stable condition, the needle was removed. Hemostasis achieved. No immediate complication. IMPRESSION: Cerebral spinal fluid obtained for laboratory analysis, this procedure performed by the undersigned.
--- NOTE | 2018-09-15 15:57 | P.PCN ---
Date of Procedure: 09/15/18 Preoperative Diagnosis: lymphoma Postoperative Diagnosis: same Procedure(s) Performed: lumbar puncture Anesthesia: local Estimated Blood Loss (ml): 5 Pathology: other (4 tubes csf) Condition: stable Disposition: floor Indications for Procedure: above Operative Findings: 2-3cc per tube, 4 tubes
--- NOTE | 2018-09-15 16:29 | P.PN ---
Subjective Progress Note Date: 09/15/18 Patient seen and examined at bedside, nursing reporting improvement of his cognition. Patient was apparently afebrile overnight. Patient apparently has ESBL Klebsiella from previous hospitalization at outside facility and was started on Invanz by ID. 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 Objective - Vital Signs Vital signs: Vital Signs Temp 98.1 F 09/15/18 11:47 Pulse 81 09/15/18 15:30 Resp 16 09/15/18 15:30 BP 115/73 09/15/18 15:30 Pulse Ox 96 09/15/18 15:30 Intake & Output 09/14/18 09/15/18 09/15/18 18:59 06:59 18:59 Intake Total 1600 450 Output Total 800 Balance 800 450 Intake: Intake, IV Titration 50 100 Amount Ertapenem 1 gm In Sodium 50 100 Chloride 0.9% 50 ml @ 100 mls/hr IVPB DAILY [facility] Rx #:[id number] Oral 1550 350 Output: Urine 800 Other: Voiding Method Urinal Urinal Urinal # Voids 2 2 2 - Exam Constitutional: No acute distress, conversant, pleasant, nurses still reporting episodes of confusion Eyes: Anicteric sclerae, moist conjunctiva, no lid-lag, PERRLA ENMT: NC/AT,Oropharynx clear, no erythema, exudates Neck:Supple, FROM, no masses, or JVD, No carotid bruits; No thyromegaly Lungs: Diminished in the bases, left-sided basilar rales Cardiovascular: Heart regular in rate and rhythm, No murmurs, gallops, or rubs no peripheral edema Abdominal: Soft Nontender, nom distended, no guarding, no rebound or rigidity, Normoactive bowel sounds No hepatomegaly, No splenomegaly, No palpable mass No abdominal wall hernia noted Skin: Normal temperature, tone, texture, turgor, No induration No subcutaneous nodules, No rash, lesions, No ulcers Extremities:No digital cyanosis No clubbing, Pedal pulses intact and symmetrical Radial pulses intact and symmetrical Normal gait and station, No calf tenderness Psychiatric: Alert and oriented to person, place and time, Appropriate affect Intact judgement Neuro: Muscles Strength 5/5 in all 4 extremities, Sensation to light touch grossly present throughout, Cranial nerves II-XII grossly intact. No focal sensory deficits - Labs CBC & Chem 7: 09/15/18 06:36 09/15/18 06:36 Labs: Abnormal Lab Results - Last 24 Hours (Table) 09/14/18 09/14/18 09/15/18 Range/Units 17:04 20:06 06:36 RBC 3.03 L (4.30-5.90) m/uL Hgb 8.6 L (13.0-17.5) gm/dL Hct 28.2 L (39.0-53.0) % MCHC 30.6 L (31.0-37.0) g/dL RDW 17.1 H (11.5-15.5) % Potassium (3.5-5.1) mmol/L Carbon Dioxide (22-30) mmol/L POC Glucose (mg/dL) 120 H 131 H (75-99) mg/dL Magnesium (1.6-2.3) mg/dL 09/15/18 09/15/18 09/15/18 Range/Units 06:36 06:36 11:18 RBC (4.30-5.90) m/uL Hgb (13.0-17.5) gm/dL Hct (39.0-53.0) % MCHC (31.0-37.0) g/dL RDW (11.5-15.5) % Potassium 3.0 L (3.5-5.1) mmol/L Carbon Dioxide 38 H (22-30) mmol/L POC Glucose (mg/dL) 110 H (75-99) mg/dL Magnesium 1.5 L (1.6-2.3) mg/dL Microbiology - Last 24 Hours (Table) 09/12/18 14:49 Blood Culture - Preliminary Blood No Growth after 48 hours Assessment and Plan (1) Sepsis Narrative/Plan: * Secondary to ESBL Klebsiella blood culture negative 2 days * the patient afebrile since starting on Invanz * Patient hemodynamically stable * Appreciate ID recommendations * Previously thought to be secondary to secondary to pneumonia however this is now unlikely Current Visit: Yes Status: Acute Priority: Medium Code(s): A41.9 - SEPSIS, UNSPECIFIED ORGANISM SNOMED Code(s): 87158302 (2) Acute metabolic encephalopathy Narrative/Plan: * Possibly secondary to sepsis due to ESBL UTI and profound electrolyte abnormalities now improved * appreciate neurology recommendations * EEG done today we'll follow-up results, MRI indicating cerebral atrophy an paraventricular subependymoma * Patient scheduled to have IR to do lumbar puncture with CSF analysis including flow cytometry Current Visit: Yes Status: Resolved Code(s): G93.41 - METABOLIC ENCEPHALOPATHY SNOMED Code(s): 85897529 (3) Hypokalemia Narrative/Plan: * We'll replace his magnesium and potassium today and recheck in the morning * Continue daily oral supplementation Current Visit: Yes Status: Acute Code(s): E87.6 - HYPOKALEMIA SNOMED Code(s): 90206100 (4) Type 2 diabetes mellitus Narrative/Plan: * Blood sugars much improved this morning, A1c ` 5.8 * Continue Accu-Cheks we'll initiate sliding scale protocol Current Visit: Yes Status: Chronic Code(s): E11.9 - TYPE 2 DIABETES MELLITUS WITHOUT COMPLICATIONS SNOMED Code(s): 68615855 (5) Large B-cell lymphoma Narrative/Plan: * Port placed. Awaiting Primary Oncologist decision if staging with CT vs PET to expedite initiation of treatment Current Visit: Yes Status: Acute Code(s): C85.10 - UNSPECIFIED B-CELL LYMPHOMA, UNSPECIFIED SITE SNOMED Code(s): 545000494
[2018-09-15 16:57] LABS: Glucose,Whole Blood 120 mg/dL (75-99)
[2018-09-15 17:45] LABS: Immunoglobulin A 55.2 mg/dL (60.0-350.0); Immunoglobulin M 21.7 mg/dL (40.0-280.0)
[2018-09-15 18:42] LABS: Appearance,CSF Clear; CSF Tube Number 4; CSF Tube Volume 2.5; Glucose,CSF 53 mg/dL (40-70); Nucleated Cells, CSF 0 u/L (0-5); Red Blood Cell,CSF 0 u/L (0-10); Total Protein,CSF 45 mg/dL (12-60)
[2018-09-15 18:43] LABS: Appearance,CSF Clear; CSF Tube Number 1; CSF Tube Volume 2.5; Nucleated Cells, CSF 1 u/L (0-5); Red Blood Cell,CSF 1 u/L (0-10)
[2018-09-15] MEDS: ATORVASTATIN 40 MG TAB PO SCH (20:10)
[2018-09-15 20:41] LABS: Glucose,Whole Blood 134 mg/dL (75-99)
[2018-09-15 21:22] LABS: Glucose,CSF 56 mg/dL (40-70); Total Protein,CSF 37 mg/dL (12-60)
[2018-09-16] MEDS: traMADol 50 MG TAB PO PRN ×2 (00:26→05:48)
[2018-09-16] MEDS: LEVOTHYROXINE 88 MCG TAB PO SCH (05:48)
[2018-09-16 07:21] LABS: Glucose,Whole Blood 92 mg/dL (75-99)
[2018-09-16] MEDS: ERTAPENEM 1 GM in SODIUM CHLORIDE 0.9% 50 ML IVPB SCH (08:35)
[2018-09-16] MEDS: POTASSIUM CHLORIDE ER 20 MEQ TAB.ER PO SCH (08:35)
[2018-09-16] MEDS: FAMOTIDINE 20 MG TAB PO SCH ×2 (08:36→21:15)
[2018-09-16] MEDS: FUROSEMIDE 40 MG TAB PO SCH (08:36)
[2018-09-16] MEDS: MAGNESIUM OXIDE 400 MG TAB PO SCH ×2 (08:37→21:15)
[2018-09-16] MEDS: HYDROCORTISONE 20 MG TAB PO SCH (08:43)
[2018-09-16] MEDS: CYANOCOBALAMIN 1,000 MCG/ML 1 ML VIAL IM SCH (08:43)
[2018-09-16] MEDS: HEPARIN SODIUM,PORCINE 5,000 UNIT/ML 1 ML VIAL SQ SCH ×2 (08:44→15:38)
[2018-09-16 09:47] LABS: Anisocytosis Slight; Basophils % (A) 1 %; Eosinophils # (A) 0.3 k/uL (0-0.7); Eosinophils % (A) 6 %; HCT 27.4 % (39.0-53.0); HGB 8.2 gm/dL (13.0-17.5); Hypochromasia Marked; Lymphocytes # (A) 1.9 k/uL (1.0-4.8); Lymphocytes % (A) 44 %; MCH 28.4 pg (25.0-35.0); MCV 94.5 fL (80.0-100.0); Mean Platelet Volume 7.8; Monocytes # (A) 0.3 k/uL (0-1.0); Monocytes % (A) 7 %; Neutrophils # (A) 1.8 k/uL (1.3-7.7); Neutrophils % (A) 42 %; Platelet Count 207 k/uL (150-450); RDW 17.1 % (11.5-15.5); WBC 4.3 k/uL (3.8-10.6)
--- NOTE | 2018-09-16 09:58 | PN ---
PROGRESS NOTE DATE OF SERVICE: 09/16/2018 I had the pleasure of re-evaluating Esequiel Dukes who is currently lying flat in bed, status post lumbar puncture performed yesterday. The patient currently denies headache. Nursing staff stated that he has been doing quite well without fluctuating confusion and has been afebrile for nearly 24 hours. The patient was quite appropriate, when discussing what day it was he stated that he needed to call his daughter and remind her to take out the garbage tomorrow. CURRENT MEDICATIONS: Tylenol, Lipitor, B12, ertapenem, Pepcid, Lasix, heparin subcu, hydrocortisone, NovoLog, Synthroid, magnesium, Zofran p.r.n., K-Dur, and Ultram p.r.n. PHYSICAL EXAM: The patient is currently lying flat in bed, he was watching television when I entered the room. The patient was receptive to the examiner, recollecting me from yesterday's examination. He is alert and conversant. VITAL SIGNS: Blood pressure is 134/58 with a pulse of 84, respiratory rate 16, temperature is 98.1. SKIN AND EXTREMITIES: Arthritic change on the hands. HEAD AND NECK: Neck is supple without meningeal signs. Arteries are nontender and without bruits. HEART: Regular rate and rhythm. HIGHER CORTICAL FUNCTION: MENTAL STATUS: Patient was alert, oriented to self. He knew he was in [facility]. He knew the floor, year, month and day of the week. He was able to name and repeat. There was no aphasia or dysarthria. CRANIAL NERVES 2 through 12 are intact with postsurgical pupils. Visual liang are intact to confrontation. There is no facial asymmetry. Tongue is midline. Shoulder shrug is equal. MOTOR EXAMINATION: There is no pronator drift. Normal bulk and tone is noted in all major muscle groups with no involuntary movements noted. Strength is 5/5 throughout. Plantar responses flexor bilaterally. Abraham's is absent. COORDINATION: Zaywhj-jv-kiqd, zwue-pi-ciyl movements are intact. Rapid alternating movements are symmetric with finger tapping. DIAGNOSTIC TESTING: The patient had lumbar puncture completed yesterday with preliminary results including in tube #1 CSF WBC 1, CSF RBC 1, in tube #4 CSF WBC 0, CSF RBC 0, CSF glucose 56, CSF protein 37. CSF Gram stain no organisms. Blood cultures demonstrated no growth at 72 hours. IMPRESSION: 1. Encephalopathy with fever likely secondary to urinary tract infection (ESBL/Klebsiella) per culture at outside facility where the patient had been admitted a few days prior to this hospitalization. MRI of the brain demonstrated no structural lesion or stroke, EEG was normal and preliminary CSF analysis is unrevealing. 2. Stage III diffuse large B-cell lymphoma diagnosed on 08/25/2018, the patient has undergone no treatments in this regard to date. The unrevealing preliminary CSF results would speak against meningeal carcinomatosis. Flow cytometry and cytology are pending at the time of this dictation. 3. Hypogammaglobulinemia. 4. Type 2 diabetes mellitus. 5. History of lap band surgery 5 years ago with 50-pound weight loss. 6. Borderline B12 level, under supplementation. RECOMMENDATION: 1. I discussed my impression and results of diagnostic testing with the patient and he expressed understanding. 2. The patient will remain flat post lumbar puncture per protocol. 3. CSF flow cytometry, cytology and cultures are pending. 4. Treatment of urinary tract infection per primary service. 5. Will follow with you on an intermittent basis. Thank you for allowing me to participate in the care of your patient. MMODL / IJN: [id number] / DONAVAN
[2018-09-16 09:59] LABS: African American GFR (CKD) >90 (>60 ml/min/1.73 sqM); Anion Gap 3 mmol/L; Blood Urea Nitrogen 17 mg/dL (9-20); Calcium 8.1 mg/dL (8.4-10.2); Carbon Dioxide 34 mmol/L (22-30); Chloride 102 mmol/L (98-107); Glucose 82 mg/dL (74-99); Potassium 3.1 mmol/L (3.5-5.1); Sodium 139 mmol/L (137-145)
[2018-09-16 12:13] LABS: Glucose,Whole Blood 141 mg/dL (75-99)
--- NOTE | 2018-09-16 16:34 | P.PN ---
Subjective Progress Note Date: 09/16/18 Principal diagnosis: Fever, NHL In f/u today pt feels better, he is more alert and comprehending the information. No fevers, chills, he is drinking, eating some, no nausea, he has not been up since LP, denies back pain or headache Objective - Vital Signs Vital signs: Vital Signs Temp 98.6 F 09/16/18 12:34 Pulse 80 09/16/18 12:34 Resp 18 09/16/18 12:34 BP 107/59 09/16/18 12:34 Pulse Ox 90 L 09/16/18 12:34 Intake & Output 09/15/18 09/16/18 09/16/18 18:59 06:59 18:59 Intake Total 450 590 460 Output Total 200 150 Balance 450 390 310 Weight 80.5 kg Intake: Intake, IV Titration 100 100 Amount Ertapenem 1 gm In Sodium 100 100 Chloride 0.9% 50 ml @ 100 mls/hr IVPB DAILY [facility] Rx #:[id number] Oral 350 590 360 Output: Urine 200 150 Other: Voiding Method Urinal Urinal Urinal # Voids 2 2 2 - Constitutional General appearance: Present: average body habitus, cooperative, no acute distress - EENT Eyes: Present: anicteric sclerae, EOMI - Respiratory Respiratory: bilateral: CTA - Cardiovascular Heart sounds: normal: S1, S2 - Peripheral edema leg Peripheral Edema: bilateral: None - Gastrointestinal General gastrointestinal: Present: normal bowel sounds, soft - Musculoskeletal Musculoskeletal: Present: generalized weakness, strength equal bilaterally - Psychiatric Psychiatric: Present: A&O x's 3, appropriate affect, intact judgment & insight - Labs CBC & Chem 7: 09/16/18 08:39 09/16/18 08:39 Labs: Abnormal Lab Results - Last 24 Hours (Table) 09/14/18 09/15/18 09/15/18 Range/Units 09:34 16:56 20:40 RBC (4.30-5.90) m/uL Hgb (13.0-17.5) gm/dL Hct (39.0-53.0) % MCHC (31.0-37.0) g/dL RDW (11.5-15.5) % Potassium (3.5-5.1) mmol/L Carbon Dioxide (22-30) mmol/L POC Glucose (mg/dL) 120 H 134 H (75-99) mg/dL Calcium (8.4-10.2) mg/dL IgG 346.0 L (700.0-1600.0) mg/dL IgA 55.2 L (60.0-350.0) mg/dL IgM 21.7 L (40.0-280.0) mg/dL 09/16/18 09/16/18 09/16/18 Range/Units 08:39 08:39 11:53 RBC 2.90 L (4.30-5.90) m/uL Hgb 8.2 L (13.0-17.5) gm/dL Hct 27.4 L (39.0-53.0) % MCHC 30.0 L (31.0-37.0) g/dL RDW 17.1 H (11.5-15.5) % Potassium 3.1 L (3.5-5.1) mmol/L Carbon Dioxide 34 H (22-30) mmol/L POC Glucose (mg/dL) 141 H (75-99) mg/dL Calcium 8.1 L (8.4-10.2) mg/dL IgG (700.0-1600.0) mg/dL IgA (60.0-350.0) mg/dL IgM (40.0-280.0) mg/dL Microbiology - Last 24 Hours (Table) 09/15/18 15:15 CSF Gram Stain - Preliminary Cerebral Spinal Fluid CSF Culture - Preliminary 09/15/18 15:15 Anaerobic Culture - Preliminary Cerebral Spinal Fluid 09/12/18 14:49 Blood Culture - Preliminary Blood No Growth after 72 hours Assessment and Plan (1) Sepsis Current Visit: Yes Status: Resolved Priority: Medium Code(s): A41.9 - SEPSIS, UNSPECIFIED ORGANISM SNOMED Code(s): 98903567 (2) Fever Current Visit: Yes Status: Resolved Priority: High Code(s): R50.9 - FEVER, UNSPECIFIED SNOMED Code(s): 618504459 (3) Lymphadenopathy Current Visit: Yes Status: Acute Priority: High Code(s): R59.1 - GENERALIZED ENLARGED LYMPH NODES SNOMED Code(s): 15021902 (4) Large B-cell lymphoma Narrative/Plan: Port placed. Pending staging images Patient is going to require IV antibiotics for ESBL urinary tract infection. No chemotherapy will be considered/administered until patient has completed therapy for the same. Current Visit: Yes Status: Acute Code(s): C85.10 - UNSPECIFIED B-CELL LYMPHOMA, UNSPECIFIED SITE SNOMED Code(s): 572196110 (5) White matter abnormality on MRI of brain Narrative/Plan: Case discussed with Neurologist. Does not appear to be infectious or malignant. This was discussed with the patient. Unknown white matter changes, Neuro continues to follow Current Visit: Yes Status: Acute Priority: High Code(s): R90.82 - WHITE MATTER DISEASE, UNSPECIFIED SNOMED Code(s): 018563227 (6) Hypogammaglobulinemia Narrative/Plan: IgG level is <400, untreated lymphoma, active infection. Case discussed with Pharmacist who will review case for need/availability of IVIG during shortage. Current Visit: Yes Status: Acute Priority: High Code(s): D80.1 - NONFAMILIAL HYPOGAMMAGLOBULINEMIA SNOMED Code(s): 633751484 Plan: reinforced self care during chemo, eating, drinking and moving.
--- NOTE | 2018-09-16 17:11 | P.PN ---
Subjective Progress Note Date: 09/16/18 Patient seen and examined at bedside, nursing reporting improvement of his cognition, episodes of confusion have resolved, patient has been afebrile for over 2 days. Patient apparently has ESBL Klebsiella from previous hospitalization at outside facility and was started on Invanz by ID. 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 Patient had LP done yesterday, preliminary analysis is not suggestive of any infection at this time Objective - Vital Signs Vital signs: Vital Signs Temp 98.6 F 09/16/18 12:34 Pulse 80 09/16/18 12:34 Resp 18 09/16/18 15:50 BP 107/59 09/16/18 12:34 Pulse Ox 90 L 09/16/18 12:34 Intake & Output 09/15/18 09/16/18 09/16/18 18:59 06:59 18:59 Intake Total 450 590 460 Output Total 200 150 Balance 450 390 310 Weight 80.5 kg Intake: Intake, IV Titration 100 100 Amount Ertapenem 1 gm In Sodium 100 100 Chloride 0.9% 50 ml @ 100 mls/hr IVPB DAILY [facility] Rx #:[id number] Oral 350 590 360 Output: Urine 200 150 Other: Voiding Method Urinal Urinal Toilet Urinal # Voids 2 2 2 - Exam Constitutional: No acute distress, conversant, pleasant, nurses still reporting episodes of confusion Eyes: Anicteric sclerae, moist conjunctiva, no lid-lag, PERRLA ENMT: NC/AT,Oropharynx clear, no erythema, exudates Neck:Supple, FROM, no masses, or JVD, No carotid bruits; No thyromegaly Lungs: Diminished in the bases, left-sided basilar rales Cardiovascular: Heart regular in rate and rhythm, No murmurs, gallops, or rubs no peripheral edema Abdominal: Soft Nontender, nom distended, no guarding, no rebound or rigidity, Normoactive bowel sounds No hepatomegaly, No splenomegaly, No palpable mass No abdominal wall hernia noted Skin: Normal temperature, tone, texture, turgor, No induration No subcutaneous nodules, No rash, lesions, No ulcers Extremities:No digital cyanosis No clubbing, Pedal pulses intact and symmetrical Radial pulses intact and symmetrical Normal gait and station, No calf tenderness Psychiatric: Alert and oriented to person, place and time, Appropriate affect Intact judgement Neuro: Muscles Strength 5/5 in all 4 extremities, Sensation to light touch grossly present throughout, Cranial nerves II-XII grossly intact. No focal sensory deficits - Labs CBC & Chem 7: 09/16/18 08:39 09/16/18 08:39 Labs: Abnormal Lab Results - Last 24 Hours (Table) 09/14/18 09/15/18 09/16/18 Range/Units 09:34 20:40 08:39 RBC 2.90 L (4.30-5.90) m/uL Hgb 8.2 L (13.0-17.5) gm/dL Hct 27.4 L (39.0-53.0) % MCHC 30.0 L (31.0-37.0) g/dL RDW 17.1 H (11.5-15.5) % Potassium (3.5-5.1) mmol/L Carbon Dioxide (22-30) mmol/L POC Glucose (mg/dL) 134 H (75-99) mg/dL Calcium (8.4-10.2) mg/dL IgG 346.0 L (700.0-1600.0) mg/dL IgA 55.2 L (60.0-350.0) mg/dL IgM 21.7 L (40.0-280.0) mg/dL 09/16/18 09/16/18 Range/Units 08:39 11:53 RBC (4.30-5.90) m/uL Hgb (13.0-17.5) gm/dL Hct (39.0-53.0) % MCHC (31.0-37.0) g/dL RDW (11.5-15.5) % Potassium 3.1 L (3.5-5.1) mmol/L Carbon Dioxide 34 H (22-30) mmol/L POC Glucose (mg/dL) 141 H (75-99) mg/dL Calcium 8.1 L (8.4-10.2) mg/dL IgG (700.0-1600.0) mg/dL IgA (60.0-350.0) mg/dL IgM (40.0-280.0) mg/dL Microbiology - Last 24 Hours (Table) 09/12/18 14:49 Blood Culture - Preliminary Blood No Growth after 96 hours 09/15/18 15:15 CSF Gram Stain - Preliminary Cerebral Spinal Fluid CSF Culture - Preliminary 09/15/18 15:15 Anaerobic Culture - Preliminary Cerebral Spinal Fluid Assessment and Plan (1) Sepsis Narrative/Plan: * Secondary to ESBL Klebsiella blood culture negative 2 days * the patient afebrile since starting on Invanz * Patient hemodynamically stable * Appreciate ID recommendations * Previously thought to be secondary to secondary to pneumonia however this is now unlikely Current Visit: Yes Status: Resolved Priority: Medium Code(s): A41.9 - SEPSIS, UNSPECIFIED ORGANISM SNOMED Code(s): 91889631 (2) Acute metabolic encephalopathy Narrative/Plan: * Possibly secondary to sepsis due to ESBL UTI and profound electrolyte abnormalities now improved * appreciate neurology recommendations * EEG done today we'll follow-up results, MRI indicating cerebral atrophy an paraventricular subependymoma * Patient scheduled to have IR to do lumbar puncture with CSF analysis including flow cytometry Current Visit: Yes Status: Resolved Code(s): G93.41 - METABOLIC ENCEPHALOPATHY SNOMED Code(s): 82368412 (3) Hypokalemia Narrative/Plan: * We'll replace his magnesium and potassium today and recheck in the morning * Continue daily oral supplementation Current Visit: Yes Status: Acute Code(s): E87.6 - HYPOKALEMIA SNOMED Code(s): 54268077 (4) Type 2 diabetes mellitus Narrative/Plan: * Blood sugars much improved this morning, A1c ` 5.8 * Continue Accu-Cheks we'll initiate sliding scale protocol Current Visit: Yes Status: Chronic Code(s): E11.9 - TYPE 2 DIABETES MELLITUS WITHOUT COMPLICATIONS SNOMED Code(s): 31360155 (5) Large B-cell lymphoma Narrative/Plan: * Port placed. Awaiting Primary Oncologist decision if staging with CT vs PET to expedite initiation of treatment Current Visit: Yes Status: Acute Code(s): C85.10 - UNSPECIFIED B-CELL LYMPH NARDA, UNSPECIFIED SITE SNOMED Code(s): 336236041 Plan: Disposition * Follow-up consultants recommendations * Patient still running fevers, continue IV antibiotics and breathing treatments
[2018-09-16 17:30] LABS: Glucose,Whole Blood 187 mg/dL (75-99)
[2018-09-16] MEDS: INSULIN ASPART (NovoLOG) 100 UNIT/ML VIAL SQ PRN ×2 (18:09→21:19)
[2018-09-16 20:11] LABS: Glucose,Whole Blood 196 mg/dL (75-99)
[2018-09-16] MEDS: ATORVASTATIN 40 MG TAB PO SCH (21:15)
[2018-09-17] MEDS: HEPARIN SODIUM,PORCINE 5,000 UNIT/ML 1 ML VIAL SQ SCH ×4 (00:49→23:24)
[2018-09-17 06:47] LABS: Glucose,Whole Blood 103 mg/dL (75-99)
[2018-09-17] MEDS: LEVOTHYROXINE 88 MCG TAB PO SCH (07:32)
[2018-09-17 07:40] LABS: Anisocytosis Slight; Basophils % (A) 1 %; Eosinophils # (A) 0.2 k/uL (0-0.7); Eosinophils % (A) 5 %; HCT 27.6 % (39.0-53.0); HGB 8.4 gm/dL (13.0-17.5); Hypochromasia Marked; Lymphocytes % (A) 46 %; MCH 28.4 pg (25.0-35.0); MCHC 30.4 g/dL (31.0-37.0); MCV 93.4 fL (80.0-100.0); Mean Platelet Volume 7.8; Monocytes # (A) 0.3 k/uL (0-1.0); Monocytes % (A) 6 %; Neutrophils # (A) 1.8 k/uL (1.3-7.7); Neutrophils % (A) 40 %; Platelet Count 194 k/uL (150-450); Poikilocytosis Slight; RBC 2.95 m/uL (4.30-5.90); RDW 16.4 % (11.5-15.5); WBC 4.4 k/uL (3.8-10.6)
[2018-09-17 08:04] LABS: African American GFR (CKD) >90 (>60 ml/min/1.73 sqM); Anion Gap 5 mmol/L; Blood Urea Nitrogen 16 mg/dL (9-20); Carbon Dioxide 31 mmol/L (22-30); Chloride 106 mmol/L (98-107); Glucose 84 mg/dL (74-99); Sodium 142 mmol/L (137-145)
[2018-09-17] MEDS: ERTAPENEM 1 GM in SODIUM CHLORIDE 0.9% 50 ML IVPB SCH (09:40)
[2018-09-17] MEDS: CYANOCOBALAMIN 1,000 MCG/ML 1 ML VIAL IM SCH (09:45)
[2018-09-17] MEDS: POTASSIUM CHLORIDE ER 20 MEQ TAB.ER PO SCH (09:46)
[2018-09-17] MEDS: FAMOTIDINE 20 MG TAB PO SCH ×2 (09:46→21:37)
[2018-09-17] MEDS: MAGNESIUM OXIDE 400 MG TAB PO SCH ×2 (09:46→21:37)
[2018-09-17] MEDS: FUROSEMIDE 40 MG TAB PO SCH (09:46)
[2018-09-17] MEDS: HYDROCORTISONE 20 MG TAB PO SCH (09:46)
[2018-09-17 11:27] LABS: Glucose,Whole Blood 168 mg/dL (75-99)
[2018-09-17] MEDS ORDERED: IMMUNE GLOBULIN (GAMMAGARD) 10 GM in EMPTY BAG 1 BAG IV ONE (12:00)
[2018-09-17] MEDS ORDERED: IMMUNE GLOBULIN (GAMMAGARD) 20 GM in EMPTY BAG 1 BAG IV ONE (12:00)
--- NOTE | 2018-09-17 15:32 | P.PN ---
Subjective Progress Note Date: 09/17/18 Principal diagnosis: Fever, NHL In f/u today pt continues to feel better, he is getting around the room independently, tolerating oral intake, no fevers. Objective - Vital Signs Vital signs: Vital Signs Temp 98.3 F 09/17/18 13:00 Pulse 68 09/17/18 13:00 Resp 16 09/17/18 13:00 BP 104/94 09/17/18 13:00 Pulse Ox 94 L 09/17/18 13:00 Intake & Output 09/16/18 09/17/18 09/17/18 18:59 06:59 18:59 Intake Total 460 650 Output Total 150 750 Balance 310 -100 Weight 80.9 kg Intake: Intake, IV Titration 100 Amount Ertapenem 1 gm In Sodium 100 Chloride 0.9% 50 ml @ 100 mls/hr IVPB DAILY [facility] Rx #:[id number] Oral 360 650 Output: Urine 150 750 Other: Voiding Method Toilet Toilet Urinal Urinal # Voids 2 2 - Constitutional General appearance: Present: average body habitus, cooperative, no acute distress - EENT Eyes: Present: anicteric sclerae, EOMI - Neck Neck: Present: lymphadenopathy - Respiratory Respiratory: bilateral: CTA - Cardiovascular Heart sounds: normal: S1, S2 - Peripheral edema leg Peripheral Edema: bilateral: None - Gastrointestinal General gastrointestinal: Present: normal bowel sounds, soft - Neurologic Neurologic: Present: CNII-XII intact - Musculoskeletal Musculoskeletal: Present: strength equal bilaterally - Psychiatric Psychiatric Comment(s): Has trouble remembering complex information/kimmie care plans Psychiatric: Present: A&O x's 3, appropriate affect - Labs CBC & Chem 7: 09/17/18 07:15 09/17/18 07:15 Labs: Abnormal Lab Results - Last 24 Hours (Table) 09/16/18 09/16/18 09/17/18 Range/Units 17:18 20:09 06:46 RBC (4.30-5.90) m/uL Hgb (13.0-17.5) gm/dL Hct (39.0-53.0) % MCHC (31.0-37.0) g/dL RDW (11.5-15.5) % Potassium (3.5-5.1) mmol/L Carbon Dioxide (22-30) mmol/L POC Glucose (mg/dL) 187 H 196 H 103 H (75-99) mg/dL 09/17/18 09/17/18 09/17/18 Range/Units 07:15 07:15 11:26 RBC 2.95 L (4.30-5.90) m/uL Hgb 8.4 L (13.0-17.5) gm/dL Hct 27.6 L (39.0-53.0) % MCHC 30.4 L (31.0-37.0) g/dL RDW 16.4 H (11.5-15.5) % Potassium 3.0 L (3.5-5.1) mmol/L Carbon Dioxide 31 H (22-30) mmol/L POC Glucose (mg/dL) 168 H (75-99) mg/dL Microbiology - Last 24 Hours (Table) 09/15/18 15:15 CSF Gram Stain - Preliminary Cerebral Spinal Fluid CSF Culture - Preliminary 09/12/18 14:49 Blood Culture - Preliminary Blood No Growth after 96 hours Assessment and Plan (1) Sepsis Current Visit: Yes Status: Resolved Priority: Medium Code(s): A41.9 - SEPSIS, UNSPECIFIED ORGANISM SNOMED Code(s): 44915647 (2) Fever Current Visit: Yes Status: Resolved Priority: High Code(s): R50.9 - FEVER, UNSPECIFIED SNOMED Code(s): 073750237 (3) Lymphadenopathy Current Visit: Yes Status: Acute Priority: High Code(s): R59.1 - GENERALIZED ENLARGED LYMPH NODES SNOMED Code(s): 23574833 (4) Large B-cell lymphoma Narrative/Plan: Port placed. ECHO completed last month at [facility]. Pending staging images. Patient is going to require IV antibiotics for ESBL urinary tract infection. No chemotherapy will be considered/administered until patient has completed treatment for the same. We reviewed this plan again. Told pt that he can receive his abx outpatient and once complete he will be able to start treatment for his lymphoma. He verbalized understanding the plan at this time. Will continue to reinforce Current Visit: Yes Status: Acute Code(s): C85.10 - UNSPECIFIED B-CELL LYMPHOMA, UNSPECIFIED SITE SNOMED Code(s): 015162845 (5) White matter abnormality on MRI of brain Narrative/Plan: Pathology is still pending Current Visit: Yes Status: Acute Priority: High Code(s): R90.82 - WHITE MATTER DISEASE, UNSPECIFIED SNOMED Code(s): 575100423 (6) Hypogammaglobulinemia Narrative/Plan: Pharmacy was able to obtain IVIG! Pt will receive a dose today Current Visit: Yes Status: Acute Priority: High Code(s): D80.1 - NONFAMILIAL HYPOGAMMAGLOBULINEMIA SNOMED Code(s): 366494732
[2018-09-17 16:44] LABS: Glucose,Whole Blood 205 mg/dL (75-99)
[2018-09-17] MEDS: INSULIN ASPART (NovoLOG) 100 UNIT/ML VIAL SQ PRN (18:13)
[2018-09-17] MEDS: ATORVASTATIN 40 MG TAB PO SCH (21:37)
--- NOTE | 2018-09-17 21:45 | P.PN ---
Progress Note - Text Progress Note Date: 09/17/18 Presenting complaint: Tired Interval history: This is a patient with diffuse large B-cell non-Hodgkin's lymphoma pending starting a treatment, chronic renal insufficiency, coronary artery disease with stent. Recently's had recurrent UTIs including ESBL Klebsiella. CSF fluid came back negative for any lymphoma cells. Today-feels better. Has been out of bed. Did tolerate his diet. No fever no chills. Review of systems: Was done for constitutional, cardiovascular, GI, pulmonary. relevant finding as above Current medications are reviewed and include IV ertapenem On examination: VITAL SIGNS: Afebrile, 68, 16, 104/94, 94% room air GENERAL APPEARANCE: Average build. Lying in bed, not in distress. HEENT: Normal external appearance of nose and ear. Oral cavity normal EYES: Pupils equal. Conjunctiva normal. NECK: JVD not raised. Mass not palpable. RESPIRATORY: Respiratory effort normal. Lungs clear to auscultation. CARDIOVASCULAR: First and second sounds normal. No edema. ABDOMEN: Soft. Liver and spleen not palpable. No tenderness. No mass palpable. PSYCHIATRY: Alert and oriented x3. Mood and affect normal. Investigations: White count 4.5, hemoglobin 8.4, potassium 3.0, BUN 16 creatinine 0.87 Urine and blood cultures are negative none CSF negative for cytology Assessment: -Sepsis causing acute metabolic encephalopathy, exact source unknown. UA being negative -Chronic kidney dysfunction uses a walker -Essential hypertension -Hypothyroidism -Coronary artery disease a prior history of stent -Diabetes mellitus type 2 -Chronic renal insufficiency -Diffuse large B cell non-Hodgkin lymphoma Plan: Care was discussed with the patient. Patient clinically looking better. No fever. I'll discuss with Dr. Lara about antibiotics. Patient anxious to start his treatment for his NHL. Patient patient was informed that it is hard and that we clear the infection.
[2018-09-18 00:02] LABS: Glucose,Whole Blood 140 mg/dL (75-99)
--- NOTE | 2018-09-18 00:14 | P.PN ---
Subjective Progress Note Date: 09/17/18 62-year-old male who has been having difficulties over the last year, the patient did have a scalene node biopsy performed last summer that was nondiagnostic of any specific disease state. The patient continues some difficulties with lymphadenopathy. He required hospitalization at an outside f acility, Nontender was evidence of sepsis and there was also evidence of multiple areas of lymphadenopathy including inguinal. Given him a difficulties general surgery did perform the inguinal lymph node biopsy in August 25. This has now come back as the diffuse large B-cell lymphoma and he has been referred to oncology. He was admitted at the outside hospital with a fever which was thought to be due to urinary tract infection as well as a possibility of fever related to his underlying disease state. It is related the patient was driving to go to his PET scan. He ended up at [email or web address] and went into the store, the employees were very concerned about him and EMS was called he was transported to the emergency center where he was found evidence of significant confusion. He was admitted without and 3.2 fever with concerns of sepsis in immunocompromised host the consult was requested. It is i n the patient has received fluids hydration and antibiotic therapy and seems to be doing somewhat better. It is noticed that he did have a low IgG level at the other facility. 09/17/2018 the patient is feeling slightly better. Still has confusion. Is having difficulty understanding the complexity of the situation. Wants to discuss: Start his chemotherapy. We discussed that he has an underlying infection and this will need to be adequately treated before he would be a good candidate for chemotherapy for the treatment of his lymphoma. Fortunately a dose of IVIG as become available is receiving that today. Hopefully that will help him more rapidly resolve his current urinary infection. Objective - Vital Signs Vital signs: Vital Signs Temp 97.7 F 09/17/18 20:30 Pulse 71 09/17/18 20:30 Resp 20 09/17/18 20:30 BP 113/59 09/17/18 20:30 Pulse Ox 95 09/17/18 20:30 Intake & Output 09/17/18 09/17/18 09/18/18 06:59 18:59 06:59 Intake Total 650 373.5 Output Total 750 Balance -100 373.5 Weight 80.9 kg Intake: IV 150 0.9 150 Intake, IV Titration 223.5 Amount Ertapenem 1 gm In Sodium 50 Chloride 0.9% 50 ml @ 100 mls/hr IVPB DAILY [facility] Rx #:[id number] Immune Globulin ( 173.5 Gammagard) 20 gm In Empty Bag 1 bag @ Titrate IV . Q0M ONE Rx#:[id number] Oral 650 Output: Urine 750 Other: Voiding Method Toilet Toilet Urinal Urinal # Voids 2 3 1 - Exam 62-year-old male who does not remember me from consultation at the other hospital. HEENT: Anicteric conjunctiva pale nasal mucosa grossly intact without significant lesions, there is no thrush. Neck: The neck is supple without significant lymphadenopathy or thyromegaly. Lungs: Symmetrical air entry with expiratory wheezes that are scattered with no jaye bronchial sounds or dullness or egophony Heart: Regular rate and rhythm with an audible S1-S2, no S3 no S4. There is no significant murmur click or rub, PMI was nondisplaced. Abdomen: Obese, Positive bowel sounds soft and nontender without palpable masses or organomegaly. There was no guarding or rebound. Extremities: The upper extremities have excellent pulses they are symmetric, no significant petechiae or telangiectasia. No splinter hemorrhages were noted. Lower extremities have 1+ symmetric edema without open ulcerations Neuro: Awake alert oriented to person and is aware he is at Hospital does not re call the observer from his other hospital stays. - Labs CBC & Chem 7: 09/17/18 07:15 09/17/18 07:15 Labs: Abnormal Lab Results - Last 24 Hours (Table) 09/17/18 09/17/18 09/17/18 Range/Units 06:46 07:15 07:15 RBC 2.95 L (4.30-5.90) m/uL Hgb 8.4 L (13.0-17.5) gm/dL Hct 27.6 L (39.0-53.0) % MCHC 30.4 L (31.0-37.0) g/dL RDW 16.4 H (11.5-15.5) % Potassium 3.0 L (3.5-5.1) mmol/L Carbon Dioxide 31 H (22-30) mmol/L POC Glucose (mg/dL) 103 H (75-99) mg/dL 09/17/18 09/17/18 Range/Units 11:26 16:43 RBC (4.30-5.90) m/uL Hgb (13.0-17.5) gm/dL Hct (39.0-53.0) % MCHC (31.0-37.0) g/dL RDW (11.5-15.5) % Potassium (3.5-5.1) mmol/L Carbon Dioxide (22-30) mmol/L POC Glucose (mg/dL) 168 H 205 H (75-99) mg/dL Microbiology - Last 24 Hours (Table) 09/12/18 14:49 Blood Culture - Preliminary Blood No Growth after 120 hours 09/15/18 15:15 CSF Gram Stain - Preliminary Cerebral Spinal Fluid CSF Culture - Preliminary Laboratory Results WBC 4.4 k/uL (3.8-10.6) 09/17/18 07:15 RBC 2.95 m/uL (4.30-5.90) L 09/17/18 07:15 Hgb 8.4 gm/dL (13.0-17.5) L 09/17/18 07:15 Hct 27.6 % (39.0-53.0) L 09/17/18 07:15 MCV 93.4 fL (80.0-100.0) 09/17/18 07:15 MCH 28.4 pg (25.0-35.0) 09/17/18 07:15 MCHC 30.4 g/dL (31.0-37.0) L 09/17/18 07:15 RDW 16.4 % (11.5-15.5) H 09/17/18 07:15 Plt Count 194 k/uL (150-450) 09/17/18 07:15 Neutrophils % 40 % 09/17/18 07:15 Lymphocytes % 46 % 09/17/18 07:15 Monocytes % 6 % 09/17/18 07:15 Eosinophils % 5 % 09/17/18 07:15 Basophils % 1 % 09/17/18 07:15 Neutrophils # 1.8 k/uL (1.3-7.7) 09/17/18 07:15 Lymphocytes # 2.0 k/uL (1.0-4.8) 09/17/18 07:15 Monocytes # 0.3 k/uL (0-1.0) 09/17/18 07:15 Eosinophils # 0.2 k/uL (0-0.7) 09/17/18 07:15 Basophils # 0.0 k/uL (0-0.2) 09/17/18 07:15 Hypochromasia Marked 09/17/18 07:15 Poikilocytosis Slight 09/17/18 07:15 Anisocytosis Slight 09/17/18 07:15 PT 12.4 sec (9.0-12.0) H 09/12/18 14:22 INR 1.2 (<1.2) H 09/12/18 14:22 APTT 26.5 sec (22.0-30.0) 09/12/18 14:22 Sodium 142 mmol/L (137-145) 09/17/18 07:15 Potassium 3.0 mmol/L (3.5-5.1) L 09/17/18 07:15 Chloride 106 mmol/L (98-107) 09/17/18 07:15 Carbon Dioxide 31 mmol/L (22-30) H 09/17/18 07:15 Anion Gap 5 mmol/L 09/17/18 07:15 BUN 16 mg/dL (9-20) 09/17/18 07:15 Creatinine 0.87 mg/dL (0.66-1.25) 09/17/18 07:15 Est GFR (CKD-EPI)AfAm >90 (>60 ml/min/1.73 sqM) 09/17/18 07:15 Est GFR (CKD-EPI)NonAf >90 (>60 ml/min/1.73 sqM) 09/17/18 07:15 Glucose 84 mg/dL (74-99) 09/17/18 07:15 POC Glucose (mg/dL) 140 mg/dL (75-99) H 09/18/18 00:00 POC Glu Data Warehouse Manager ID Fernanda Barkley 09/18/18 00:[address] Glu mg/dL 120 09/12/18 14:22 Hemoglobin A1c 5.8 % (4.0-6.0) 09/12/18 14:22 Lactic Ac Sepsis Rflx Y 09/12/18 15:16 Plasma Lactic Acid Ars 1.5 mmol/L (0.7-2.0) 09/12/18 18:25 Calcium 9.0 mg/dL (8.4-10.2) 09/17/18 07:15 Magnesium 1.5 mg/dL (1.6-2.3) L 09/15/18 06:36 Total Bilirubin 1.3 mg/dL (0.2-1.3) 09/13/18 06:48 AST 18 U/L (17-59) 09/13/18 06:48 ALT 15 U/L (21-72) L 09/13/18 06:48 Alkaline Phosphatase 57 U/L (38-126) 09/13/18 06:48 Total Protein 4.7 g/dL (6.3-8.2) L 09/13/18 06:48 Albumin 2.7 g/dL (3.5-5.0) L 09/13/18 06:48 Vitamin B12 224.0 pg/mL (200.0-944.0) 09/13/18 06:48 Folate 6.2 ng/mL 09/13/18 06:48 Urine Color Yellow 09/12/18 Unknown Urine Appearance Clear (Clear) 09/12/18 Unknown Urine pH 6.0 (5.0-8.0) 09/12/18 Unknown Ur Specific [place] 1.014 (1.001-1.035) 09/12/18 Unknown Urine Protein Trace (Negative) H 09/12/18 Unknown Urine Glucose (UA) Negative (Negative) 09/12/18 Unknown Urine Ketones Negative (Negative) 09/12/18 Unknown Urine Blood Negative (Negative) 09/12/18 Unknown Urine Nitrite Negative (Negative) 09/12/18 Unknown Urine Bilirubin Negative (Negative) 09/12/18 Unknown Urine Urobilinogen <2.0 mg/dL (<2.0) 09/12/18 Unknown Ur Leukocyte Esterase Negative (Negative) 09/12/18 Unknown CSF Tube Number 1 09/15/18 15:15 CSF Volume 2.5 09/15/18 15:15 CSF Appearance Clear 09/15/18 15:15 CSF Color Colorless 09/15/18 15:15 CSF RBC 1 u/L (0-10) 09/15/18 15:15 CSF Tot Nucleated Cells 1 u/L (0-5) 09/15/18 15:15 CSF Glucose 56 mg/dL (40-70) 09/15/18 15:18 CSF Total Protein 37 mg/dL (12-60) 09/15/18 15:18 IgG 346.0 mg/dL (700.0-1600.0) L 09/14/18 09:34 IgA 55.2 mg/dL (60.0-350.0) L 09/14/18 09:34 IgM 21.7 mg/dL (40.0-280.0) L 09/14/18 09:34 HSV I DNA PCR Not detected (Not detected) 09/15/18 15:15 HSV II DNA PCR Not detected (Not detected) 09/15/18 15:15 HSV (PCR) Source 09/15/18 15:15 Influenza Type A RNA Not Detected (Not Detectd) 09/12/18 15:09 Influenza Type B (PCR) Not Detected (Not Detectd) 09/12/18 15:09 Flow Results See Pathology Report 09/15/18 15:34 Microbiology 09/12/18 14:49 Blood Blood Culture - Preliminary No Growth after 120 hours 09/15/18 15:15 Cerebral Spinal Fluid CSF Gram Stain - Preliminary 09/15/18 15:15 Cerebral Spinal Fluid CSF Culture - Preliminary 09/15/18 15:15 Cerebral Spinal Fluid Anaerobic Culture - Preliminary 09/12/18 Unknown Urine,Voided Urine Culture - Final Assessment and Plan (1) Large B-cell lymphoma Current Visit: Yes Status: Acute Code(s): C85.10 - UNSPECIFIED B-CELL LYMPHOMA, UNSPECIFIED SITE SNOMED Code(s): 118973441 (2) Hypogammaglobulinemia Current Visit: Yes Status: Acute Priority: High Code(s): D80.1 - NONFAMILIAL HYPOGAMMAGLOBULINEMIA SNOMED Code(s): 819660990 (3) Fever Narrative/Plan: 62-year-old male with a history of recently diagnosed large B-cell lymphoma who has been seen by oncology with plans for intervention. He was to have his PET scan performed but he became confused and is now admitted with another bout of high-grade fever and concerns to sepsis. Review of data from the other hospital does reveal at his discharge day urine culture was obtained and now shows evidence of the ESBL Klebsiella. With this ertapenem was initiated for treatment of this pathogen. Once the patient has improved especially if there is no bacteremia with him be able to initiate his chemotherapy as per oncology. At this time would appear that his mental status changes on the basis of his underlying sepsis however oncology is pursuing further workup, then may need lumbar puncture to evaluate for central nervous system involvement. MRI does not reveal evidence of any significant disease at this time. 09/17/2018 the patient seems to be less confused. It is still somewhat anxious to initiate chemotherapy. Unclear if the discharge plan will be to go to rehab to complete his antibiotics and start his chemotherapy profile outpatient antibiotic therapy and then start his chemotherapy. As noted there is no bacteremia. We would need four more days of Invanz, and as long is without symptoms and fever may proceed to chemotherapy at that time. Current Visit: Yes Status: Resolved Priority: High Code(s): R50.9 - FEVER, UNSPECIFIED SNOMED Code(s): 349682832
[2018-09-18 07:34] LABS: Glucose,Whole Blood 110 mg/dL (75-99)
[2018-09-18] MEDS: HYDROCORTISONE 20 MG TAB PO SCH (08:11)
[2018-09-18] MEDS: POTASSIUM CHLORIDE ER 20 MEQ TAB.ER PO SCH (08:11)
[2018-09-18] MEDS: FUROSEMIDE 40 MG TAB PO SCH (08:11)
[2018-09-18] MEDS: FAMOTIDINE 20 MG TAB PO SCH ×2 (08:11→21:40)
[2018-09-18] MEDS: LEVOTHYROXINE 88 MCG TAB PO SCH (08:11)
[2018-09-18] MEDS: CYANOCOBALAMIN 1,000 MCG/ML 1 ML VIAL IM SCH (08:12)
[2018-09-18] MEDS: MAGNESIUM OXIDE 400 MG TAB PO SCH ×2 (08:12→21:40)
[2018-09-18] MEDS: HEPARIN SODIUM,PORCINE 5,000 UNIT/ML 1 ML VIAL SQ SCH ×2 (08:12→17:36)
[2018-09-18] MEDS: ERTAPENEM 1 GM in SODIUM CHLORIDE 0.9% 50 ML IVPB SCH (08:13)
[2018-09-18 11:07] LABS: Glucose,Whole Blood 168 mg/dL (75-99)
[2018-09-18] MEDS: ACETAMINOPHEN TAB 325 MG TAB PO PRN (12:24)
[2018-09-18] MEDS: INSULIN ASPART (NovoLOG) 100 UNIT/ML VIAL SQ PRN ×2 (13:23→17:36)
--- NOTE | 2018-09-18 15:58 | PN ---
PROGRESS NOTE DATE OF SERVICE: 09/18/2018 I had the pleasure of re-evaluating Esequiel Dukes. The patient is currently lying in bed. He denies confusion, although states he feels weaker today than he did yesterday. He states yesterday he was up walking in the hallway with 2 assistants. He did work with Physical Therapy earlier today. He denies headache. CURRENT MEDICATIONS: 1. Tylenol. 2. Lipitor. 3. B12. 4. Ertapenem. 5. Pepcid. 6. Lasix. 7. Heparin subcutaneously. 8. Hydrocortisone. 9. NovoLog. 10.Synthroid. 11.Magnesium. 12.Zofran. 13.K-Dur. 14.Ultram. PHYSICAL EXAMINATION: The patient is lying in bed, receptive to the examiner. He is alert and conversant. Affect is mildly flat. VITAL SIGNS: Blood pressure is 105/55 with a pulse 73, respiratory rate 16. Temperature is 97.9. The patient has been afebrile since 09/15/2018. SKIN AND EXTREMITIES: Arthritic changes are noted in the hands. HEAD AND NECK: Neck is supple without meningeal signs. HEART: Regular rate and rhythm. HIGHER CORTICAL FUNCTION: MENTAL STATUS: Patient was alert and oriented to self. He knew he was at [facility]. He knew the year, month. Speech was fluent and he followed commands readily. CRANIAL NERVES II THROUGH XII: Cranial nerves II through XII demonstrate post- surgical pupils. Visual liang were intact to confrontation. There was no facial asymmetry. Tongue was midline. Shoulder shrug was equal. MOTOR EXAMINATION: No pronator drift. Normal bulk and tone is noted in all major muscle groups with no involuntary movements noted. Strength is 5/5 throughout. Plantar response is flexor bilaterally. Abraham's is absent. COORDINATION: Eplycq-ym-psbc, rnca-ib-ciqv movements are intact. Rapid alternating movements are symmetric with finger tapping. TESTING: Patient's CSF cultures have demonstrated no growth at 48 hours. CSF HSV PCR negative. CSF cytology negative. IMPRESSION: 1. Encephalopathy with fever likely secondary to urinary tract infection (ESBL/Klebsiella) per culture at outside facility. Patient has been afebrile for several days, MRI of the brain demonstrated no structural lesion or stroke, EEG was normal, and CSF analysis was unrevealing. 2. Stage III diffuse large B-cell lymphoma diagnosed on 08/25/2018. The patient has undergone no treatment in this regard to date. CSF cytology was negative. 3. Hypogammaglobulinemia. 4. Type 2 diabetes mellitus. 5. History of lap band surgery 5 years ago with 50-pound weight loss. 6. Borderline B12 level, under supplementation. 7. Deconditioning. RECOMMENDATIONS: 1. I discussed the follow-up spinal fluid results with the patient and he expressed understanding. 2. Treatment of urinary tract infection per primary service. 3. Physical therapy for conditioning exercises. The patient should increase activity as tolerated. 4. Please feel free to contact me if there are further questions from a neurologic standpoint. Thank you for the opportunity to participate in the care of your patient. MMODL / IJN: [id number] / DONAVAN
--- NOTE | 2018-09-18 16:33 | P.PN ---
Subjective Progress Note Date: 09/18/18 Principal diagnosis: ESBL Urine. IV Antibiotics and Physical Debility with recent diagnosis lymphoma. patient is rounding close to completion of IV antibiotics, although he is a high risk for tumor lysis with first chemotherapy. Recommend first treatment in hospital with [facility] next week if cleared by infectious disease, then plan for rehab. Objective - Vital Signs Vital signs: Vital Signs Temp 97.9 F 09/18/18 11:38 Pulse 73 09/18/18 11:38 Resp 16 09/18/18 11:38 BP 105/55 09/18/18 11:38 Pulse Ox 95 09/18/18 11:38 Intake & Output 09/17/18 09/18/18 09/18/18 18:59 06:59 18:59 Intake Total 373.5 350 Output Total 550 Balance 373.5 -200 Weight 82.3 kg 82.3 kg Intake: IV 150 0.9 150 Intake, IV Titration 223.5 100 Amount Ertapenem 1 gm In Sodium 50 Chloride 0.9% 50 ml @ 100 mls/hr IVPB DAILY [facility] Rx #:[id number] Immune Globulin ( 100 Gammagard) 10 gm In Empty Bag 1 bag @ Titrate IV . Q0M ONE Rx#:[id number] Immune Globulin ( 173.5 Gammagard) 20 gm In Empty Bag 1 bag @ Titrate IV . Q0M ONE Rx#:[id number] Oral 250 Output: Urine 550 Other: Voiding Method Toilet Toilet Toilet Urinal Urinal Urinal # Voids 3 1 # Bowel Movements 1 - Exam General: Alert and Oriented x3, No Acute Distress Head: Normocytic, Atraumatic Neck: Supple Mouth: No Lesions, No Thrush Eyes: Non-sclerotic No Palpable cervical, supraclavicular, axillary adenopathy Heart: Regular Rate, Regular Rhythm Lungs: Clear to Ausculations, No Wheeze, No Rhonchi, Diminishe bilateral lower lobes, No increased respiratory effort noted Abdomen: Soft, Non-Distended, Non-Tended, BSx4 Extremities: No Edema, Equal Strength Neurological: No Focal Defects: No sensory or motor deficits noted Psych: Calm and cooperative - Labs CBC & Chem 7: 09/17/18 07:15 09/17/18 07:15 Labs: Abnormal Lab Results - Last 24 Hours (Table) 09/17/18 09/18/18 09/18/18 Range/Units 16:43 00:00 07:32 POC Glucose (mg/dL) 205 H 140 H 110 H (75-99) mg/dL 09/18/18 Range/Units 11:06 POC Glucose (mg/dL) 168 H (75-99) mg/dL Microbiology - Last 24 Hours (Table) 09/12/18 14:49 Blood Culture - Preliminary Blood No Growth after 120 hours 09/15/18 15:15 CSF Gram Stain - Preliminary Cerebral Spinal Fluid CSF Culture - Preliminary Assessment and Plan Plan: Assesment and Recommendations: 1. Non Hodgkins Lymphoma: - Rec initiation of chemotherapy induction after completion of antibiotics - High Risk for TLS, therefore recommended to receive first treatment inpatient if ok with ID after completeion of IV antibiotics. 2. ESBL Urine - IV Antibiotics - 4 days of IV antibiotics left although has become considerably weaker over the past few weeks, rehabilitation is recommended. 3. Acute Illness Debility - Rehabilitation is recommendation for his worsening performance status over the past few weeks secondary to acute infection - Will hold off on chemotherapy until increased performamce although with already delayed treatment would like to initiate within next 10-14 days. PT to evaluate expectations and if greater than 2 weeks may give first dose of chemotherapy inpatient prior to discharge to rehab. 4. Hypokalemia: - Recheck potassium and magnesium today and tomorrow - Replace prn. Plan: Recommend first treatment in hospital with [facility] next week if cleared by infectious disease, then plan for rehab. Physician Attestation: I have performed the full physical examination and r eviewed the full history of this patient, as well as pertinent findings. I have created the completed impression and recommendations. I agree with the above dictation by DAVIDSON Rodriguez. This dictation has been written as a scribe.
--- NOTE | 2018-09-18 17:01 | DS ---
DISCHARGE SUMMARY DATE OF ADMISSION: 09/12/2018 DATE OF DISCHARGE: 09/18/2018 FINAL DIAGNOSES: 1. Sepsis causing acute metabolic encephalopathy, exact source unknown; possible urinary tract infection. 2. Chronic gait dysfunction. Uses a walker. 3. Essential hypertension. 4. Hypothyroidism. 5. Coronary artery disease with prior history of stent. 6. Diabetes mellitus, type 2. 7. Diffuse large B-cell non-Hodgkin's lymphoma, pending treatment. 8. Chronic adrenal insufficiency. CONSULTATIONS: 1. Dr. Lara from Infectious Disease. 2. Dr. Gorman from Oncology. 3. Dr. Muse from Neurology. HOSPITAL COURSE: This is a patient diagnosed with the above type of non-Hodgkin's lymphoma, pending treatment when his UTI is cleared up. Patient yet again with a sepsis picture. Encephalopathy did improve. No obvious source of infection was found. It could have been a UTI again. The patient had some mental status changes. Subsequently, the patient did have an MRI of the brain that showed some chronic cerebral atrophy, nil acute. EEG was within normal limits. No seizure activity. He also had a lumbar puncture. Cytology specimen was unremarkable. The patient was seen by Dr. Lara. Antibiotics were coordinated. The patient's blood cultures were negative. Urine culture was negative. CSF was negative for Gram stain or white blood cells. The patient at baseline is unsteady on his feet. Today care was discussed at length with the patient. Many questions were answered. He is keen to get his treatment started for his non-Hodgkin's lymphoma. I explained to him at length that he needs to have infection cleared. On examination, temperature 97.9, pulse 73, respiration 16, blood pressure 105/55, pulse 95% on room air. LUNGS: Fair air entry. CARDIOVASCULAR: First and second sounds normal. LABS: White count 4.4, hemoglobin 8.4, platelets 194. BUN 16, creatinine 0.87. DISCHARGE MEDICATIONS: 1. Pepcid 20 mg b.i.d. 2. Levothyroxine 88 mcg a day. 3. Metformin 1000 mg b.i.d. 4. Lipitor 40 mg at bedtime. 5. Cortisone 25 mg p.o. daily. 6. Lasix 40 mg p.o. daily. 7. Potassium 10 mEq daily. 8. Invanz 1 gram IV piggyback daily. 9. Toprol-XL 25 mg a day. DISCONTINUED MEDICATION: DiaBeta is discontinued. FOLLOWUP: 1. Follow up with Dr. Isaac at [facility]. 2. Follow up with Dr. Chano Ames after discharge from the [facility]. 3. Follow up with Dr. Gorman in one week. Discussion and discharge planning more than 35 minutes. DUYEN / SHELLEYN: [id number] /
[2018-09-18 17:17] LABS: Anisocytosis Slight; Basophils % (A) 1 %; Eosinophils # (A) 0.1 k/uL (0-0.7); Eosinophils % (A) 3 %; HCT 26.8 % (39.0-53.0); HGB 8.5 gm/dL (13.0-17.5); Hypochromasia Marked; Lymphocytes # (A) 2.4 k/uL (1.0-4.8); Lymphocytes % (A) 54 %; MCH 28.8 pg (25.0-35.0); MCHC 31.6 g/dL (31.0-37.0); MCV 91.4 fL (80.0-100.0); Mean Platelet Volume 8.8; Monocytes # (A) 0.3 k/uL (0-1.0); Monocytes % (A) 7 %; Neutrophils # (A) 1.5 k/uL (1.3-7.7); Neutrophils % (A) 33 %; Platelet Count 198 k/uL (150-450); Poikilocytosis Slight; RBC 2.93 m/uL (4.30-5.90); RDW 16.6 % (11.5-15.5); WBC 4.4 k/uL (3.8-10.6)
[2018-09-18 17:21] LABS: Glucose,Whole Blood 174 mg/dL (75-99)
[2018-09-18 17:28] LABS: ALT 22 U/L (21-72); AST 20 U/L (17-59); African American GFR (CKD) >90 (>60 ml/min/1.73 sqM); Albumin 2.5 g/dL (3.5-5.0); Alkaline Phosphatase 91 U/L (38-126); Anion Gap 5 mmol/L; Blood Urea Nitrogen 14 mg/dL (9-20); Calcium 9.2 mg/dL (8.4-10.2); Carbon Dioxide 33 mmol/L (22-30); Chloride 103 mmol/L (98-107); Glucose 169 mg/dL (74-99); Magnesium 1.3 mg/dL (1.6-2.3); Potassium 3.3 mmol/L (3.5-5.1); Sodium 141 mmol/L (137-145); Total Bilirubin 0.6 mg/dL (0.2-1.3); Total Protein 4.8 g/dL (6.3-8.2); Uric Acid 5.1 mg/dL (3.5-8.5)
[2018-09-18 20:29] LABS: Glucose,Whole Blood 218 mg/dL (75-99)
[2018-09-18] MEDS: ATORVASTATIN 40 MG TAB PO SCH (21:40)
[2018-09-18] MEDS: INSULIN ASPART (NovoLOG) 100 UNIT/ML VIAL SQ SCH (21:40)
--- NOTE | 2018-09-18 22:54 | P.PN ---
Progress Note - Text Progress Note Date: 09/18/18 Presenting complaint: Tired Interval history: This is a patient with diffuse large B-cell non-Hodgkin's lymphoma pending starting a treatment, chronic renal insufficiency, coronary artery disease with stent. Recently's had recurrent UTIs including ESBL Klebsiella. CSF fluid came back negative for any lymphoma cells. Today-anxious to get discharged. Hearing intact. Patient is on IV antibiotics for [address] Lara. the case medical/psychiatric social worker. Looking onto patient will ECF. Review of systems: Was done for constitutional, cardiovascular, GI, pulmonary. relevant finding as above Current medications are reviewed and include IV ertapenem On examination: VITAL SIGNS: 97.9, 73, 16, 105/55, 95% room air GENERAL APPEARANCE: Laying in bed, comfortable. HEENT: Normal external appearance of nose and ear. Oral cavity normal EYES: Pupils equal. Conjunctiva normal. NECK: JVD not raised. Mass not palpable. RESPIRATORY: Respiratory effort normal. Lungs clear to auscultation. CARDIOVASCULAR: First and second sounds normal. No edema. ABDOMEN: Soft. Liver and spleen not palpable. No tenderness. No mass palpable. PSYCHIATRY: Alert and oriented x3. Mood and affect normal. Investigations: White count 4.4 hemoglobin 8.5 potassium 3.3. 1420 0.93 Accu-Cheks 169, 134, 218 Assessment: -Sepsis causing acute metabolic encephalopathy, exact source unknown. UA being negative, clinically improved -Chronic kidney dysfunction uses a walker -Essential hypertension -Hypothyroidism -Coronary artery disease a prior history of stent -Diabetes mellitus type 2 -Chronic renal insufficiency -Diffuse large B cell non-Hodgkin lymphoma Plan: Patient is ready for discharge. Pending clearance from discharge planners. The continue current medication treatment plan. Care was discussed with the patient. Patient be discharged when bed is available at the ECF. Patient was i nitially not ready to cough the ECF but the daughter called to say that she is not able to help the patient much. Patient finally agreed. Spoke with the psychiatric social worker.
[2018-09-19] MEDS: HEPARIN SODIUM,PORCINE 5,000 UNIT/ML 1 ML VIAL SQ SCH ×3 (00:05→18:06)
[2018-09-19 07:04] LABS: Glucose,Whole Blood 120 mg/dL (75-99)
[2018-09-19 08:01] LABS: Anisocytosis Slight; Basophils # (A) 0.1 k/uL (0-0.2); Basophils % (A) 1 %; Eosinophils # (A) 0.2 k/uL (0-0.7); Eosinophils % (A) 4 %; HCT 27.6 % (39.0-53.0); HGB 8.4 gm/dL (13.0-17.5); Hypochromasia Marked; Lymphocytes # (A) 2.6 k/uL (1.0-4.8); Lymphocytes % (A) 47 %; MCH 28.1 pg (25.0-35.0); MCHC 30.4 g/dL (31.0-37.0); MCV 92.4 fL (80.0-100.0); Monocytes # (A) 0.4 k/uL (0-1.0); Monocytes % (A) 7 %; Neutrophils # (A) 2.1 k/uL (1.3-7.7); Neutrophils % (A) 39 %; Platelet Count 206 k/uL (150-450); Poikilocytosis Slight; RBC 2.99 m/uL (4.30-5.90); RDW 16.9 % (11.5-15.5); WBC 5.5 k/uL (3.8-10.6)
[2018-09-19 08:11] LABS: ALT 24 U/L (21-72); AST 16 U/L (17-59); African American GFR (CKD) >90 (>60 ml/min/1.73 sqM); Albumin 2.4 g/dL (3.5-5.0); Alkaline Phosphatase 82 U/L (38-126); Anion Gap 5 mmol/L; Blood Urea Nitrogen 15 mg/dL (9-20); Calcium 9.4 mg/dL (8.4-10.2); Carbon Dioxide 33 mmol/L (22-30); Chloride 107 mmol/L (98-107); Glucose 102 mg/dL (74-99); Magnesium 1.4 mg/dL (1.6-2.3); Potassium 3.1 mmol/L (3.5-5.1); Sodium 145 mmol/L (137-145); Total Bilirubin 0.6 mg/dL (0.2-1.3); Total Protein 4.7 g/dL (6.3-8.2)
[2018-09-19] MEDS: ERTAPENEM 1 GM in SODIUM CHLORIDE 0.9% 50 ML IVPB SCH (09:45)
[2018-09-19] MEDS: POTASSIUM CHLORIDE ER 20 MEQ TAB.ER PO SCH (09:46)
[2018-09-19] MEDS: FUROSEMIDE 40 MG TAB PO SCH (09:46)
[2018-09-19] MEDS: MAGNESIUM OXIDE 400 MG TAB PO SCH ×2 (09:46→20:30)
[2018-09-19] MEDS: FAMOTIDINE 20 MG TAB PO SCH ×2 (09:46→20:37)
[2018-09-19] MEDS: INSULIN ASPART (NovoLOG) 100 UNIT/ML VIAL SQ SCH ×4 (09:48→20:38)
[2018-09-19] MEDS: LEVOTHYROXINE 88 MCG TAB PO SCH (09:51)
[2018-09-19] MEDS: CYANOCOBALAMIN 1,000 MCG/ML 1 ML VIAL IM SCH (09:51)
[2018-09-19] MEDS: HYDROCORTISONE 20 MG TAB PO SCH (09:51)
[2018-09-19] MEDS: ACETAMINOPHEN TAB 325 MG TAB PO PRN (10:00)
[2018-09-19 11:10] LABS: Glucose,Whole Blood 158 mg/dL (75-99)
[2018-09-19 17:21] LABS: Glucose,Whole Blood 293 mg/dL (75-99)
[2018-09-19] MEDS ORDERED: Magnesium Replacement Protocol 1 EACH MISC MISCELLANE PRN (19:06)
[2018-09-19] MEDS ORDERED: Potassium Replacement Protocol 1 EACH MISC MISCELLANE PRN ×2 (19:06→19:09)
[2018-09-19 19:55] LABS: Glucose,Whole Blood 212 mg/dL (75-99)
[2018-09-19] MEDS: ATORVASTATIN 40 MG TAB PO SCH (20:37)
[2018-09-19] MEDS: MAGNESIUM SULFATE-D5W PMX 1 GM in DEXTROSE/WATER 1 100ML.BAG IVPB SCH ×3 (20:38→22:37)
--- NOTE | 2018-09-19 21:25 | P.PN ---
Progress Note - Text Progress Note Date: 09/19/18 Presenting complaint: Tired Interval history: This is a patient with diffuse large B-cell non-Hodgkin's lymphoma pending starting a treatment, chronic renal insufficiency, coronary artery disease with stent. Recently's had recurrent UTIs including ESBL Klebsiella. CSF fluid came back negative for any lymphoma cells. Today-laying in bed. Comfortable. Start his diet. Awaiting transfer to the ECF. No new issues. No fever. Review of systems: Was done for constitutional, cardiovascular, GI, pulmonary. relevant finding as above Current medications are reviewed and include IV ertapenem On examination: VITAL SIGNS: 98.1, 78, 17, 110/53, 91% room air GENERAL APPEARANCE: Laying in bed, comfortable. HEENT: Normal external appearance of nose and ear. Oral cavity normal EYES: Pupils equal. Conjunctiva normal. NECK: JVD not raised. Mass not palpable. RESPIRATORY: Respiratory effort normal. Lungs clear to auscultation. CARDIOVASCULAR: First and second sounds normal. No edema. ABDOMEN: Soft. Liver and spleen not palpable. No tenderness. No mass palpable. PSYCHIATRY: Alert and oriented x3. Mood and affect normal. Investigations: Accu-Cheks 158, 293, 212 Assessment: -Sepsis causing acute metabolic encephalopathy, exact source unknown. UA being negative, clinically improved -Chronic kidney dysfunction uses a walker -Essential hypertension -Hypothyroidism -Coronary artery disease a prior history of stent -Diabetes mellitus type 2 -Chronic renal insufficiency -Diffuse large B cell non-Hodgkin lymphoma Plan: Stable. Getting IV antibiotics. Spoke to chris from case management. Discharge to wait till Friday. Patient antibiotic should be done by then. We'll await further input from them. This was discussed with the patient.
[2018-09-20] MEDS: HEPARIN SODIUM,PORCINE 5,000 UNIT/ML 1 ML VIAL SQ SCH ×3 (00:39→16:20)
[2018-09-20] MEDS: POTASSIUM CHLORIDE 20 MEQ in WATER FOR INJECTION 1 100ML.BAG IVPB SCH ×2 (00:39→02:38)
[2018-09-20 07:02] LABS: Glucose,Whole Blood 90 mg/dL (75-99)
[2018-09-20] MEDS: INSULIN ASPART (NovoLOG) 100 UNIT/ML VIAL SQ SCH ×4 (07:11→21:45)
[2018-09-20 07:25] LABS: African American GFR (CKD) >90 (>60 ml/min/1.73 sqM); Anion Gap 5 mmol/L; Blood Urea Nitrogen 15 mg/dL (9-20); Calcium 9.2 mg/dL (8.4-10.2); Carbon Dioxide 33 mmol/L (22-30); Chloride 106 mmol/L (98-107); Glucose 93 mg/dL (74-99); Magnesium 1.8 mg/dL (1.6-2.3); Potassium 3.7 mmol/L (3.5-5.1); Sodium 144 mmol/L (137-145)
[2018-09-20] MEDS: CYANOCOBALAMIN 1,000 MCG/ML 1 ML VIAL IM SCH (07:36)
[2018-09-20] MEDS: HYDROCORTISONE 20 MG TAB PO SCH (07:36)
[2018-09-20] MEDS: LEVOTHYROXINE 88 MCG TAB PO SCH (07:37)
[2018-09-20] MEDS: FUROSEMIDE 40 MG TAB PO SCH (07:39)
[2018-09-20] MEDS: POTASSIUM CHLORIDE ER 20 MEQ TAB.ER PO SCH (07:39)
[2018-09-20] MEDS: FAMOTIDINE 20 MG TAB PO SCH ×2 (07:39→21:44)
[2018-09-20] MEDS: MAGNESIUM OXIDE 400 MG TAB PO SCH ×2 (07:39→21:44)
[2018-09-20] MEDS: ERTAPENEM 1 GM in SODIUM CHLORIDE 0.9% 50 ML IVPB SCH (07:40)
[2018-09-20] MEDS: MAGNESIUM SULFATE-D5W PMX 1 GM in DEXTROSE/WATER 1 100ML.BAG IVPB SCH ×2 (09:31→10:30)
[2018-09-20] MEDS ORDERED: POTASSIUM CHLORIDE ER 20 MEQ TAB.ER PO SCH (10:00)
[2018-09-20 11:09] LABS: Glucose,Whole Blood 276 mg/dL (75-99)
[2018-09-20 17:15] LABS: Glucose,Whole Blood 215 mg/dL (75-99)
[2018-09-20] MEDS: ACETAMINOPHEN TAB 325 MG TAB PO PRN (17:41)
[2018-09-20 20:01] LABS: Glucose,Whole Blood 168 mg/dL (75-99)
--- NOTE | 2018-09-20 20:16 | P.PN ---
Progress Note - Text Progress Note Date: 09/20/18 Presenting complaint: Tired Interval history: This is a patient with diffuse large B-cell non-Hodgkin's lymphoma pending starting a treatment, chronic renal insufficiency, coronary artery disease with stent. Recently's had recurrent UTIs including ESBL Klebsiella. CSF fluid came back negative for any lymphoma cells. Today-no new issues. Tolerating a diet. Getting IV antibiotic. Anxious about course of things. Was to go home not to rehab. Review of systems: Was done for constitutional, cardiovascular, GI, pulmonary. relevant finding as above Current medications are reviewed and include IV ertapenem On examination: VITAL SIGNS: 98.2, 83, 15, 106/54, 93% room air GENERAL APPEARANCE: Laying in bed, comfortable. HEENT: Normal external appearance of nose and ear. Oral cavity normal EYES: Pupils equal. Conjunctiva normal. NECK: JVD not raised. Mass not palpable. RESPIRATORY: Respiratory effort normal. Lungs clear to auscultation. CARDIOVASCULAR: First and second sounds normal. No edema. ABDOMEN: Soft. Liver and spleen not palpable. No tenderness. No mass palpable. PSYCHIATRY: Alert and oriented x3. Mood and affect normal. Investigations: Potassium 3.7, BUN 15, creatinine 0.95 Tzen-Thkmu-40, 276, 215 Assessment: -Sepsis causing acute metabolic encephalopathy, exact source unknown. UA being negative, clinically improved -Chronic kidney dysfunction uses a walker -Essential hypertension -Hypothyroidism -Coronary artery disease a prior history of stent -Diabetes mellitus type 2 -Chronic renal insufficiency probably not present. Creatinine is now normal. -Diffuse large B cell non-Hodgkin lymphoma Plan: Patient gives lost his of IV antibiotic tomorrow. She'll be done then. Did talk to the patient. He is keen to go home. He'll doctor's daughter. Not inclined to go to rehab. Did speak to test case developer. We'll finalize accordingly.
[2018-09-20] MEDS: ATORVASTATIN 40 MG TAB PO SCH (21:45)
[2018-09-21] MEDS: HEPARIN SODIUM,PORCINE 5,000 UNIT/ML 1 ML VIAL SQ SCH ×4 (03:14→23:44)
[2018-09-21 06:15] LABS: Glucose,Whole Blood 92 mg/dL (75-99)
[2018-09-21] MEDS: INSULIN ASPART (NovoLOG) 100 UNIT/ML VIAL SQ SCH ×4 (08:25→20:39)
[2018-09-21] MEDS: LEVOTHYROXINE 88 MCG TAB PO SCH ×2 (08:26→08:32)
[2018-09-21] MEDS: FUROSEMIDE 40 MG TAB PO SCH (08:31)
[2018-09-21] MEDS: ERTAPENEM 1 GM in SODIUM CHLORIDE 0.9% 50 ML IVPB SCH (08:31)
[2018-09-21] MEDS: POTASSIUM CHLORIDE ER 20 MEQ TAB.ER PO SCH (08:31)
[2018-09-21] MEDS: FAMOTIDINE 20 MG TAB PO SCH ×2 (08:31→19:48)
[2018-09-21] MEDS: MAGNESIUM OXIDE 400 MG TAB PO SCH ×2 (08:31→19:48)
[2018-09-21] MEDS: ACETAMINOPHEN TAB 325 MG TAB PO PRN (08:32)
[2018-09-21] MEDS: HYDROCORTISONE 20 MG TAB PO SCH (08:32)
[2018-09-21 09:37] LABS: African American GFR (CKD) >90 (>60 ml/min/1.73 sqM); Anion Gap 7 mmol/L; Blood Urea Nitrogen 13 mg/dL (9-20); Calcium 9.6 mg/dL (8.4-10.2); Carbon Dioxide 32 mmol/L (22-30); Chloride 103 mmol/L (98-107); Glucose 104 mg/dL (74-99); Magnesium 1.6 mg/dL (1.6-2.3); Potassium 3.2 mmol/L (3.5-5.1); Sodium 142 mmol/L (137-145)
[2018-09-21 11:14] LABS: Glucose,Whole Blood 144 mg/dL (75-99)
--- NOTE | 2018-09-21 13:52 | P.PN ---
Progress Note - Text Progress Note Date: 09/21/18 Presenting complaint: Tired Interval history: This is a patient with diffuse large B-cell non-Hodgkin's lymphoma pending starting a treatment, chronic renal insufficiency, coronary artery disease with stent. Recently's had recurrent UTIs including ESBL Klebsiella. CSF fluid came back negative for any lymphoma cells. Today-stable. Comfortable. Getting IV antibiotics. Tolerating a diet. No fever or chills. Feeling well. Anxious about starting chemotherapy. Review of systems: Was done for constitutional, cardiovascular, GI, pulmonary. relevant finding as above Current medications are reviewed and include IV ertapenem On examination: VITAL SIGNS: 97.9, 85, 18, 91/58, 94% room air GENERAL APPEARANCE: Laying in bed, comfortable. HEENT: Normal external appearance of nose and ear. Oral cavity normal EYES: Pupils equal. Conjunctiva normal. NECK: JVD not raised. Mass not palpable. RESPIRATORY: Respiratory effort normal. Lungs clear to auscultation. CARDIOVASCULAR: First and second sounds normal. No edema. ABDOMEN: Soft. Liver and spleen not palpable. No tenderness. No mass palpable. PSYCHIATRY: Alert and oriented x3. Mood and affect normal. Investigations: Potassium 3.2 Accu-Cheks 144 Assessment: -Sepsis causing acute metabolic encephalopathy, exact source unknown. UA being negative, clinically improved. Last dose of antibiotic today -Chronic kidney dysfunction uses a walker -Essential hypertension -Hypothyroidism -Coronary artery disease a prior history of stent -Diabetes mellitus type 2 -Chronic renal insufficiency probably not present. Creatinine is now normal. -Diffuse large B cell non-Hodgkin lymphoma Plan: Dr. Davion lozano in [facility] from oncology. Last dose of antibiotic today. They will be starting first dose of chemotherapy tomorrow. As it is rather toxic it is to be done inpatient. And watching for 24 hours. Arrangements are being made for the same. I conveyed this to the patient. Patient anxious about the same. He had further questions I told him to discuss it with hematology. Also discussed with the nurse. If everything goes as planned and anticipate discharge on per oncology. Repeat labs in the morning.
--- NOTE | 2018-09-21 16:14 | P.PN ---
Subjective Progress Note Date: 09/21/18 Principal diagnosis: Fever, NHL In follow-up today patient is going to be completing his antibiotics for ESBL positive urine. He is concerned about his lymphoma growing as he has not started treatment yet. Patient requires frequent view of his diagnosis in plan of care. Patient denies fevers, nausea, difficulty swallowing, abdominal pain, patient is experiencing some groin pain on the left due to an enlarged lymph node, denies acute changes in bowel or bladder habits, adenopathy pain is fairly well managed. Objective - Vital Signs Vital signs: Vital Signs Temp 97.9 F 09/21/18 11:50 Pulse 85 09/21/18 11:50 Resp 18 09/21/18 11:50 BP 91/58 09/21/18 11:50 Pulse Ox 94 L 09/21/18 11:50 Intake & Output 09/20/18 09/21/18 09/21/18 18:59 06:59 18:59 Intake Total 90 Output Total 800 Balance -800 90 Weight 81.873 kg 80.7 kg Intake: IV 40 0.9 40 Intake, IV Titration 50 Amount Ertapenem 1 gm In Sodium 50 Chloride 0.9% 50 ml @ 100 mls/hr IVPB DAILY [facility] Rx #:[id number] Output: Urine 800 Other: Voiding Method Toilet Toilet Toilet Urinal Urinal Urinal # Voids 1 1 - Constitutional General appearance: Present: average body habitus, cooperative, no acute distress - EENT Eyes: Present: anicteric sclerae, EOMI ENT: Present: hearing grossly normal, normal oropharynx - Neck Details: slightly progressive adenopathy in the left groin Neck: Present: lymphadenopathy - Respiratory Respiratory: bilateral: CTA - Cardiovascular Rhythm: regular Heart sounds: normal: S1, S2 Abnormal Heart Sounds: Absent: systolic murmur, diastolic murmur, rub, S3 Gallop, S4 Gallop, click, other - Peripheral edema leg Peripheral Edema: bilateral: None - Gastrointestinal General gastrointestinal: Present: normal bowel sounds, soft - Integumentary Integumentary: Present: normal turgor - Neurologic Neurologic: Present: CNII-XII intact - Musculoskeletal Musculoskeletal: Present: strength equal bilaterally - Psychiatric Psychiatric: Present: A&O x's 3, appropriate affect - Labs CBC & Chem 7: 09/19/18 07:30 09/21/18 08:45 Labs: Abnormal Lab Results - Last 24 Hours (Table) 09/20/18 09/20/18 09/21/18 Range/Units 17:14 20:00 08:45 Potassium 3.2 L (3.5-5.1) mmol/L Carbon Dioxide 32 H (22-30) mmol/L Glucose 104 H (74-99) mg/dL POC Glucose (mg/dL) 215 H 168 H (75-99) mg/dL 09/21/18 Range/Units 11:04 Potassium (3.5-5.1) mmol/L Carbon Dioxide (22-30) mmol/L Glucose (74-99) mg/dL POC Glucose (mg/dL) 144 H (75-99) mg/dL Assessment and Plan (1) Sepsis Current Visit: Yes Status: Resolved Priority: Medium Code(s): A41.9 - SEPSIS, UNSPECIFIED ORGANISM SNOMED Code(s): 44450351 (2) Fever Current Visit: Yes Status: Resolved Priority: High Code(s): R50.9 - FEVER, UNSPECIFIED SNOMED Code(s): 096896510 (3) Lymphadenopathy Narrative/Plan: Secondary to NHL DLBCL, enlarging LN in the left groin Current Visit: Yes Status: Acute Priority: High Code(s): R59.1 - GENERALIZED ENLARGED LYMPH NODES SNOMED Code(s): 83906194 (4) Large B-cell lymphoma Narrative/Plan: Plan is to start treatment as soon as antibiotic therapy for ESBL is completed. Case was discussed with Attending Physician today. Patient is receiving his last dose of parenteral antibiotics today. Plan is to administer chemotherapy as soon as possible inpatient. The reason for inpatient is due to heavy disease burden, pt has significant adenopathy and is at significant risk for tumor lysis syndrome. Labs of been ordered for monitoring of the same. Orders are being sent over by chemotherapy nurses to the unit as well as to pharmacy. Hope to give tomorrow Current Visit: Yes Status: Acute Code(s): C85.10 - UNSPECIFIED B-CELL LYMPHOMA, UNSPECIFIED SITE SNOMED Code(s): 889257401 (5) White matter abnormality on MRI of brain Narrative/Plan: Pathology negative for malignant cells. Discussed case with Oncologist, no recommendation at this time for prophylactic intrathecal chemotherapy due to the underlying abnormalities of white matter and unknown cause. Current Visit: Yes Status: Acute Priority: High Code(s): R90.82 - WHITE MATTER DISEASE, UNSPECIFIED SNOMED Code(s): 791822622 (6) Hypogammaglobulinemia Narrative/Plan: Pt did received a dose of IVIG Current Visit: Yes Status: Acute Priority: High Code(s): D80.1 - NONFAMILIAL HYPOGAMMAGLOBULINEMIA SNOMED Code(s): 209545853
[2018-09-21 17:48] LABS: Glucose,Whole Blood 204 mg/dL (75-99)
[2018-09-21] MEDS: ATORVASTATIN 40 MG TAB PO SCH (19:48)
[2018-09-21 20:36] LABS: Glucose,Whole Blood 187 mg/dL (75-99)
--- NOTE | 2018-09-22 00:37 | P.PN ---
Subjective Progress Note Date: 09/21/18 62-year-old male who has been having difficulties over the last year, the patient did have a scalene node biopsy performed last summer that was nondiagnostic of any specific disease state. The patient continues some difficulties with lymphadenopathy. He required hospitalization at an outside f acility, Nontender was evidence of sepsis and there was also evidence of multiple areas of lymphadenopathy including inguinal. Given him a difficulties general surgery did perform the inguinal lymph node biopsy in August 25. This has now come back as the diffuse large B-cell lymphoma and he has been referred to oncology. He was admitted at the outside hospital with a fever which was thought to be due to urinary tract infection as well as a possibility of fever related to his underlying disease state. It is related the patient was driving to go to his PET scan. [facility] and went into the store, the employees were very concerned about him and EMS was called he was transported to the emergency center where he was found evidence of significant confusion. He was admitted without and 3.2 fever with concerns of sepsis in immunocompromised host the consult was requested. It is i n the patient has received fluids hydration and antibiotic therapy and seems to be doing somewhat better. It is noticed that he did have a low IgG level at the other facility. 09/17/2018 the patient is feeling slightly better. Still has confusion. Is having difficulty understanding the complexity of the situation. Wants to discuss: Start his chemotherapy. We discussed that he has an underlying infection and this will need to be adequately treated before he would be a good candidate for chemotherapy for the treatment of his lymphoma. Fortunately a dose of IVIG as become available is receiving that today. Hopefully that will help him more rapidly resolve his current urinary infection. 09/21/2018 the patient does feel better. Confusion persists. He is hopefully to start chemotherapy tomorrow now that is completed the treatment of his ESBL E. coli. He has been given a dose of IVIG. He does appear to be feeling a bit stronger overall. He no difficulty arising from a laying flat position to sitting up. Objective - Vital Signs Vital signs: Vital Signs Temp 98.0 F 09/21/18 21:00 Pulse 69 09/21/18 21:00 Resp 16 09/21/18 21:00 BP 105/66 09/21/18 21:00 Pulse Ox 96 09/21/18 21:00 Intake & Output 09/21/18 09/21/18 09/22/18 06:59 18:59 06:59 Intake Total 90 Balance 90 Weight 80.7 kg Intake: IV 40 0.9 40 Intake, IV Titration 50 Amount Ertapenem 1 gm In Sodium 50 Chloride 0.9% 50 ml @ 100 mls/hr IVPB DAILY [facility] Rx #:[id number] Other: Voiding Method Toilet Toilet Toilet Urinal Urinal Urinal # Voids 1 1 - Exam 62-year-old male who does not remember me from consultation at the other hospital. HEENT: Anicteric conjunctiva pale nasal mucosa grossly intact without significant lesions, there is no thrush. Neck: The neck is supple without significant lymphadenopathy or thyromegaly. Lungs: Symmetrical air entry with expiratory wheezes that are scattered with no jaye bronchial sounds or dullness or egophony Heart: Regular rate and rhythm with an audible S1-S2, no S3 no S4. There is no significant murmur click or rub, PMI was nondisplaced. Abdomen: Obese, Positive bowel sounds soft and nontender without palpable masses or organomegaly. There was no guarding or rebound. Extremities: The upper extremities have excellent pulses they are symmetric, no significant petechiae or telangiectasia. No splinter hemorrhages were noted. Lower extremities have 1+ symmetric edema without open ulcerations Neuro: Awake alert oriented to person and is aware he is at Hospital does not recall the observer from his other hospital stays. - Labs CBC & Chem 7: 09/19/18 07:30 09/21/18 08:45 Labs: Abnormal Lab Results - Last 24 Hours (Table) 09/21/18 09/21/18 09/21/18 Range/Units 08:45 11:04 17:45 Potassium 3.2 L (3.5-5.1) mmol/L Carbon Dioxide 32 H (22-30) mmol/L Glucose 104 H (74-99) mg/dL POC Glucose (mg/dL) 144 H 204 H (75-99) mg/dL 09/21/18 Range/Units 20:35 Potassium (3.5-5.1) mmol/L Carbon Dioxide (22-30) mmol/L Glucose (74-99) mg/dL POC Glucose (mg/dL) 187 H (75-99) mg/dL Laboratory Results WBC 5.5 k/uL (3.8-10.6) 09/19/18 07:30 RBC 2.99 m/uL (4.30-5.90) L 09/19/18 07:30 Hgb 8.4 gm/dL (13.0-17.5) L 09/19/18 07:30 Hct 27.6 % (39.0-53.0) L 09/19/18 07:30 MCV 92.4 fL (80.0-100.0) 09/19/18 07:30 MCH 28.1 pg (25.0-35.0) 09/19/18 07:30 MCHC 30.4 g/dL (31.0-37.0) L 09/19/18 07:30 RDW 16.9 % (11.5-15.5) H 09/19/18 07:30 Plt Count 206 k/uL (150-450) 09/19/18 07:30 Neutrophils % 39 % 09/19/18 07:30 Lymphocytes % 47 % 09/19/18 07:30 Monocytes % 7 % 09/19/18 07:30 Eosinophils % 4 % 09/19/18 07:30 Basophils % 1 % 09/19/18 07:30 Neutrophils # 2.1 k/uL (1.3-7.7) 09/19/18 07:30 Lymphocytes # 2.6 k/uL (1.0-4.8) 09/19/18 07:30 Monocytes # 0.4 k/uL (0-1.0) 09/19/18 07:30 Eosinophils # 0.2 k/uL (0-0.7) 09/19/18 07:30 Basophils # 0.1 k/uL (0-0.2) 09/19/18 07:30 Hypochromasia Marked 09/19/18 07:30 Poikilocytosis Slight 09/19/18 07:30 Anisocytosis Slight 09/19/18 07:30 PT 12.4 sec (9.0-12.0) H 09/12/18 14:22 INR 1.2 (<1.2) H 09/12/18 14:22 APTT 26.5 sec (22.0-30.0) 09/12/18 14:22 Sodium 142 mmol/L (137-145) 09/21/18 08:45 Potassium 3.2 mmol/L (3.5-5.1) L 09/21/18 08:45 Chloride 103 mmol/L (98-107) 09/21/18 08:45 Carbon Dioxide 32 mmol/L (22-30) H 09/21/18 08:45 Anion Gap 7 mmol/L 09/21/18 08:45 BUN 13 mg/dL (9-20) 09/21/18 08:45 Creatinine 0.90 mg/dL (0.66-1.25) 09/21/18 08:45 Est GFR (CKD-EPI)AfAm >90 (>60 ml/min/1.73 sqM) 09/21/18 08:45 Est GFR (CKD-EPI)NonAf 90 (>60 ml/min/1.73 sqM) 09/21/18 08:45 Glucose 104 mg/dL (74-99) H 09/21/18 08:45 POC Glucose (mg/dL) 187 mg/dL (75-99) H 09/21/18 20:35 POC Glu Naturopathic Doctor Diya Jade 09/21/18 20:[address] Glu mg/dL 120 09/12/18 14:22 Hemoglobin A1c 5.8 % (4.0-6.0) 09/12/18 14:22 Lactic Ac Sepsis Rflx Y 09/12/18 15:16 Plasma Lactic Acid Ras 1.5 mmol/L (0.7-2.0) 09/12/18 18:25 Uric Acid 5.1 mg/dL (3.5-8.5) 09/18/18 17:03 Calcium 9.6 mg/dL (8.4-10.2) 09/21/18 08:45 Magnesium 1.6 mg/dL (1.6-2.3) 09/21/18 08:45 Total Bilirubin 0.6 mg/dL (0.2-1.3) 09/19/18 07:30 AST 16 U/L (17-59) L 09/19/18 07:30 ALT 24 U/L (21-72) 09/19/18 07:30 Alkaline Phosphatase 82 U/L (38-126) 09/19/18 07:30 Total Protein 4.7 g/dL (6.3-8.2) L 09/19/18 07:30 Albumin 2.4 g/dL (3.5-5.0) L 09/19/18 07:30 Vitamin B12 224.0 pg/mL (200.0-944.0) 09/13/18 06:48 Folate 6.2 ng/mL 09/13/18 06:48 Urine Color Yellow 09/12/18 Unknown Urine Appearance Clear (Clear) 09/12/18 Unknown Urine pH 6.0 (5.0-8.0) 09/12/18 Unknown Ur Specific [place] 1.014 (1.001-1.035) 09/12/18 Unknown Urine Protein Trace (Negative) H 09/12/18 Unknown Urine Glucose (UA) Negative (Negative) 09/12/18 Unknown Urine Ketones Negative (Negative) 09/12/18 Unknown Urine Blood Negative (Negative) 09/12/18 Unknown Urine Nitrite Negative (Negative) 09/12/18 Unknown Urine Bilirubin Negative (Negative) 09/12/18 Unknown Urine Urobilinogen <2.0 mg/dL (<2.0) 09/12/18 Unknown Ur Leukocyte Esterase Negative (Negative) 09/12/18 Unknown CSF Tube Number 1 09/15/18 15:15 CSF Volume 2.5 09/15/18 15:15 CSF Appearance Clear 09/15/18 15:15 CSF Color Colorless 09/15/18 15:15 CSF RBC 1 u/L (0-10) 09/15/18 15:15 CSF Tot Nucleated Cells 1 u/L (0-5) 09/15/18 15:15 CSF Glucose 56 mg/dL (40-70) 09/15/18 15:18 CSF Total Protein 37 mg/dL (12-60) 09/15/18 15:18 IgG 346.0 mg/dL (700.0-1600.0) L 09/14/18 09:34 IgA 55.2 mg/dL (60.0-350.0) L 09/14/18 09:34 IgM 21.7 mg/dL (40.0-280.0) L 09/14/18 09:34 HSV I DNA PCR Not detected (Not detected) 09/15/18 15:15 HSV II DNA PCR Not detected (Not detected) 09/15/18 15:15 HSV (PCR) Source 09/15/18 15:15 Influenza Type A RNA Not Detected (Not Detectd) 09/12/18 15:09 Influenza Type B (PCR) Not Detected (Not Detectd) 09/12/18 15:09 Flow Results See Pathology Report 09/15/18 15:34 Microbiology 09/15/18 15:15 Cerebral Spinal Fluid CSF Gram Stain - Final 09/15/18 15:15 Cerebral Spinal Fluid CSF Culture - Final 09/12/18 14:49 Blood Blood Culture - Final No Growth after 144 hours 09/15/18 15:15 Cerebral Spinal Fluid Anaerobic Culture - Preliminary 09/12/18 Unknown Urine,Voided Urine Culture - Final Assessment and Plan (1) Large B-cell lymphoma Current Visit: Yes Status: Acute Code(s): C85.10 - UNSPECIFIED B-CELL LYMPHOMA, UNSPECIFIED SITE SNOMED Code(s): 892381779 (2) Hypogammaglobulinemia Current Visit: Yes Status: Acute Priority: High Code(s): D80.1 - NONFAMILIAL HYPOGAMMAGLOBULINEMIA SNOMED Code(s): 839074385 (3) Fever Narrative/Plan: 62-year-old male with a history of recently diagnosed large B-cell lymphoma who has been seen by oncology with plans for intervention. He was to have his PET scan performed but he became confused and is now admitted with another bout of high-grade fever and concerns to sepsis. Review of data from the other hospital does reveal at his discharge day urine culture was obtained and now shows evidence of the ESBL Klebsiella. With this ertapenem was initiated for treatment of this pathogen. Once the patient has improved especially if there is no bacteremia with him be able to initiate his chemotherapy as per oncology. At this time would appear that his mental status changes on the basis of his underlying sepsis however oncology is pursuing further workup, then may need lumbar puncture to evaluate for central nervous system involvement. MRI does not reveal evidence of any significant disease at this time. 09/17/2018 the patient seems to be less confused. It is still somewhat anxious to initiate chemotherapy. Unclear if the discharge plan will be to go to rehab to complete his antibiotics and start his chemotherapy profile outpatient anti biotic therapy and then start his chemotherapy. As noted there is no bacteremia. We would need four more days of Invanz, and as long is without symptoms and fever may proceed to chemotherapy at that time. 09/21/2018 the patient has now completed his course of intravenous antibiotic therapy with Invanz for his ESBL Klebsiella urinary tract infection. He is improved his mental status has improved somewhat but certainly is not a normal baseline. He will be initiating his chemotherapy for his B-cell lymphoma as of tomorrow. Current Visit: Yes Status: Resolved Priority: High Code(s): R50.9 - FEVER, UNSPECIFIED SNOMED Code(s): 486103038
[2018-09-22] MEDS: ACETAMINOPHEN TAB 325 MG TAB PO PRN (04:29)
[2018-09-22] MEDS: LEVOTHYROXINE 88 MCG TAB PO SCH (06:01)
[2018-09-22 07:14] LABS: Glucose,Whole Blood 106 mg/dL (75-99)
[2018-09-22] MEDS: INSULIN ASPART (NovoLOG) 100 UNIT/ML VIAL SQ SCH ×4 (08:38→20:36)
[2018-09-22] MEDS: HEPARIN SODIUM,PORCINE 5,000 UNIT/ML 1 ML VIAL SQ SCH ×3 (09:07→23:05)
[2018-09-22] MEDS: FAMOTIDINE 20 MG TAB PO SCH ×2 (09:07→20:37)
[2018-09-22] MEDS: FUROSEMIDE 40 MG TAB PO SCH (09:07)
[2018-09-22] MEDS: MAGNESIUM OXIDE 400 MG TAB PO SCH ×2 (09:07→20:37)
[2018-09-22] MEDS: POTASSIUM CHLORIDE ER 20 MEQ TAB.ER PO SCH (09:07)
[2018-09-22 09:36] LABS: Anisocytosis Slight; Basophils % (A) 0 %; Eosinophils # (A) 0.2 k/uL (0-0.7); Eosinophils % (A) 5 %; HCT 27.8 % (39.0-53.0); HGB 8.3 gm/dL (13.0-17.5); Hypochromasia Marked; Lymphocytes # (A) 2.4 k/uL (1.0-4.8); Lymphocytes % (A) 50 %; MCHC 29.8 g/dL (31.0-37.0); MCV 93.8 fL (80.0-100.0); Mean Platelet Volume 7.9; Monocytes # (A) 0.4 k/uL (0-1.0); Monocytes % (A) 9 %; Neutrophils # (A) 1.7 k/uL (1.3-7.7); Neutrophils % (A) 34 %; Platelet Count 205 k/uL (150-450); RBC 2.96 m/uL (4.30-5.90); RDW 16.9 % (11.5-15.5); WBC 4.9 k/uL (3.8-10.6)
[2018-09-22] MEDS: HYDROCORTISONE 20 MG TAB PO SCH (09:39)
[2018-09-22 09:47] LABS: Albumin 2.4 g/dL (3.5-5.0); Calcium 9.4 mg/dL (8.4-10.2); Magnesium 1.4 mg/dL (1.6-2.3); Phosphorus 3.8 mg/dL (2.5-4.5); Potassium 3.1 mmol/L (3.5-5.1); Total Bilirubin 0.7 mg/dL (0.2-1.3); Total Protein 4.4 g/dL (6.3-8.2); Uric Acid 6.2 mg/dL (3.5-8.5)
[2018-09-22 10:59] LABS: Glucose,Whole Blood 186 mg/dL (75-99)
[2018-09-22] MEDS: FAMOTIDINE 20 MG/2 ML VIAL IV SCH (12:55)
[2018-09-22 15:07] VITALS: BMI 30.4
[2018-09-22] MEDS ORDERED: methylPREDNISolone SOD SUCCI 125 MG/2 ML VIAL IV ONE (16:00)
[2018-09-22] MEDS ORDERED: diphenhydrAMINE 50 MG/ML 1 ML VIAL IVP ONE (16:00)
[2018-09-22] MEDS ORDERED: ACETAMINOPHEN TAB 500 MG TAB PO ONE (16:00)
[2018-09-22] MEDS ORDERED: riTUXimab 700 MG in SODIUM CHLORIDE 0.9% 500 ML 500 ML IV NR (16:00)
[2018-09-22] MEDS ORDERED: PETROLATUM, WHITE OINT 50 GM TUBE TOPICAL PRN (16:08)
--- NOTE | 2018-09-22 16:08 | P.PN ---
Subjective Progress Note Date: 09/22/18 Principal diagnosis: Fever, NHL In follow-up today patient had fever of 100.6F, no chills, nausea, difficulty swallowing, abdominal pain, acute changes in bowel or bladder habits, adenopathy pain is fairly well managed. Objective - Vital Signs Vital signs: Vital Signs Temp 98.1 F 09/22/18 14:30 Pulse 72 09/22/18 14:30 Resp 14 09/22/18 14:30 BP 106/55 09/22/18 14:30 Pulse Ox 92 L 09/22/18 14:30 Intake & Output 09/21/18 09/22/18 09/22/18 18:59 06:59 18:59 Intake Total 90 590 25 Output Total 500 Balance 90 90 25 Weight 80.5 kg 80.5 kg Intake: IV 40 0.9 40 Intake, IV Titration 50 25 Amount Ertapenem 1 gm In Sodium 50 Chloride 0.9% 50 ml @ 100 mls/hr IVPB DAILY [facility] Rx #:[id number] riTUXimab 700 mg In 25 Sodium Chloride 0.9% 500 ml 500 ml @ Titrate IV . Q0M NR Rx#:[id number] Oral 590 Output: Urine 500 Other: Voiding Method Toilet Toilet Toilet Urinal Urinal Urinal # Voids 1 3 4 # Bowel Movements 1 - Exam Well-developed, well-nourished, no acute distress, anicteric sclera,alert and oriented to self, place, time, patient does require reorientation to his situation, definite component of anxiety related to disease process and treatment of disease, respirations even and unlabored, patient is independently ambulatory, no lower extremity swelling - Labs CBC & Chem 7: 09/22/18 08:47 09/22/18 08:47 Labs: Abnormal Lab Results - Last 24 Hours (Table) 09/21/18 09/21/18 09/22/18 Range/Units 17:45 20:35 07:00 RBC (4.30-5.90) m/uL Hgb (13.0-17.5) gm/dL Hct (39.0-53.0) % MCHC (31.0-37.0) g/dL RDW (11.5-15.5) % Potassium (3.5-5.1) mmol/L Carbon Dioxide (22-30) mmol/L Glucose (74-99) mg/dL POC Glucose (mg/dL) 204 H 187 H 106 H (75-99) mg/dL Magnesium (1.6-2.3) mg/dL AST (17-59) U/L ALT (21-72) U/L Total Protein (6.3-8.2) g/dL Albumin (3.5-5.0) g/dL 09/22/18 09/22/18 09/22/18 Range/Units 08:47 08:47 10:56 RBC 2.96 L (4.30-5.90) m/uL Hgb 8.3 L (13.0-17.5) gm/dL Hct 27.8 L (39.0-53.0) % MCHC 29.8 L (31.0-37.0) g/dL RDW 16.9 H (11.5-15.5) % Potassium 3.1 L (3.5-5.1) mmol/L Carbon Dioxide 31 H (22-30) mmol/L Glucose 153 H (74-99) mg/dL POC Glucose (mg/dL) 186 H (75-99) mg/dL Magnesium 1.4 L (1.6-2.3) mg/dL AST 14 L (17-59) U/L ALT 14 L (21-72) U/L Total Protein 4.4 L (6.3-8.2) g/dL Albumin 2.4 L (3.5-5.0) g/dL Assessment and Plan (1) Sepsis Current Visit: Yes Status: Resolved Priority: Medium Code(s): A41.9 - SEPSIS, UNSPECIFIED ORGANISM SNOMED Code(s): 69304027 (2) Fever Narrative/Plan: Highly suspecting 100.6 Fahrenheit fever related to tumor/lymphoma. Collaborated with ID, no additional orders at this time, patient is to be monitored closely for any signs or symptoms of infection Current Visit: Yes Status: Resolved Priority: High Code(s): R50.9 - FEVER, UNSPECIFIED SNOMED Code(s): 958236201 (3) Lymphadenopathy Current Visit: Yes Status: Acute Priority: High Code(s): R59.1 - GENERALIZED ENLARGED LYMPH NODES SNOMED Code(s): 77879348 (4) Large B-cell lymphoma Narrative/Plan: Due to the high risk for tumor lysis patient is being administered R [facility] inpatient. Labs have been ordered daily for monitoring. Anticipate discharge in the next 48-72 hours as long as patient does well. Current Visit: Yes Status: Acute Code(s): C85.10 - UNSPECIFIED B-CELL LYMPHOMA, UNSPECIFIED SITE SNOMED Code(s): 385914640 (5) White matter abnormality on MRI of brain Current Visit: Yes Status: Acute Priority: High Code(s): R90.82 - WHITE MATTER DISEASE, UNSPECIFIED SNOMED Code(s): 117131768 (6) Hypogammaglobulinemia Current Visit: Yes Status: Acute Priority: High Code(s): D80.1 - NONFAMILIAL HYPOGAMMAGLOBULINEMIA SNOMED Code(s): 697433992 Plan: Supportive medications ordered, labs ordered, proceed with chemotherapy.
[2018-09-22] MEDS ORDERED: ONDANSETRON 4 MG/2 ML VIAL IVP PRN (16:10)
[2018-09-22 17:02] LABS: Glucose,Whole Blood 290 mg/dL (75-99)
[2018-09-22] MEDS: SALT AND SODA MOUTHWASH 1,000 ML PO SCH ×3 (18:05→23:07)
[2018-09-22 20:17] LABS: Glucose,Whole Blood 356 mg/dL (75-99)
[2018-09-22] MEDS: ATORVASTATIN 40 MG TAB PO SCH (20:37)
--- NOTE | 2018-09-22 20:38 | P.PN ---
Progress Note - Text Progress Note Date: 09/22/18 Presenting complaint: Tired Interval history: This is a patient with diffuse large B-cell non-Hodgkin's lymphoma pending starting a treatment, chronic renal insufficiency, coronary artery disease with stent. Recently's had recurrent UTIs including ESBL Klebsiella. CSF fluid came back negative for any lymphoma cells. Today-feeling better. Laying in bed. Due to get started with chemotherapy today. No other new issues. Patient anxious about the same. Review of systems: Was done for constitutional, cardiovascular, GI, pulmonary. relevant finding as above Current medications are reviewed and include IV ertapenem On examination: VITAL SIGNS: 98.2, 77, 20, 101/51, 95% room air GENERAL APPEARANCE: Laying in bed, comfortable. HEENT: Normal external appearance of nose and ear. Oral cavity normal EYES: Pupils equal. Conjunctiva normal. NECK: JVD not raised. Mass not palpable. RESPIRATORY: Respiratory effort normal. Lungs clear to auscultation. CARDIOVASCULAR: First and second sounds normal. No edema. ABDOMEN: Soft. Liver and spleen not palpable. No tenderness. No mass palpable. PSYCHIATRY: Alert and oriented x3. Mood and affect normal. Investigations: White count 4.9, hemoglobin 8.3, platelets 205, potassium 3.1, crit 1.0 to Assessment: -Sepsis causing acute metabolic encephalopathy, exact source unknown. UA being negative, clinically improved. Antibiotic completed -Chronic kidney dysfunction uses a walker -Essential hypertension -Hypothyroidism -Coronary artery disease a prior history of stent -Diabetes mellitus type 2 -Chronic renal insufficiency probably not present. Creatinine is now normal. -Diffuse large B cell non-Hodgkin lymphoma Plan: Patient had his last dose of antibiotics last night antibiotic. Due to start chemotherapy today. Care was discussed with the patient reassured. Follow with oncology.
--- NOTE | 2018-09-22 22:24 | P.PN ---
Subjective Progress Note Date: 09/22/18 62-year-old male who has been having difficulties over the last year, the patient did have a scalene node biopsy performed last summer that was nondiagnostic of any specific disease state. The patient continues some difficulties with lymphadenopathy. He required hospitalization at an outside f acility, Nontender was evidence of sepsis and there was also evidence of multiple areas of lymphadenopathy including inguinal. Given him a difficulties general surgery did perform the inguinal lymph node biopsy in August 25. This has now come back as the diffuse large B-cell lymphoma and he has been referred to oncology. He was admitted at the outside hospital with a fever which was thought to be due to urinary tract infection as well as a possibility of fever related to his underlying disease state. It is related the patient was driving to go to his PET scan. [facility] and went into the store, the employees were very concerned about him and EMS was called he was transported to the emergency center where he was found evidence of significant confusion. He was admitted without and 3.2 fever with concerns of sepsis in immunocompromised host the consult was requested. It is i n the patient has received fluids hydration and antibiotic therapy and seems to be doing somewhat better. It is noticed that he did have a low IgG level at the other facility. 09/17/2018 the patient is feeling slightly better. Still has confusion. Is having difficulty understanding the complexity of the situation. Wants to discuss: Start his chemotherapy. We discussed that he has an underlying infection and this will need to be adequately treated before he would be a good candidate for chemotherapy for the treatment of his lymphoma. Fortunately a dose of IVIG as become available is receiving that today. Hopefully that will help him more rapidly resolve his current urinary infection. 09/21/2018 the patient does feel better. Confusion persists. He is hopefully to start chemotherapy tomorrow now that is completed the treatment of his ESBL E. coli. He has been given a dose of IVIG. He does appear to be feeling a bit stronger overall. He no difficulty arising from a laying flat position to sitting up. 09/22/2018 patient is comfortable and actually awaits his chemotherapy to start today. No new complaints except his extensive lymphadenopathy which is painful. Objective - Vital Signs Vital signs: Vital Signs Temp 97.5 F L 09/22/18 20:33 Pulse 64 09/22/18 20:33 Resp 20 09/22/18 20:33 BP 122/59 09/22/18 20:33 Pulse Ox 95 09/22/18 20:33 Intake & Output 09/22/18 09/22/18 09/23/18 06:59 18:59 06:59 Intake Total 590 501.667 Output Total 500 Balance 90 501.667 Weight 80.5 kg 80.5 kg Intake: Intake, IV Titration 501.667 Amount riTUXimab 700 mg In 501.667 Sodium Chloride 0.9% 500 ml 500 ml @ Titrate IV . Q0M NR Rx#:[id number] Oral 590 Output: Urine 500 Other: Voiding Method Toilet Toilet Urinal Urinal # Voids 3 4 # Bowel Movements 1 - Exam 62-year-old male anxious but comfortable HEENT: Anicteric conjunctiva pale nasal mucosa grossly intact without significant lesions, there is no thrush. Neck: The neck is supple without significant lymphadenopathy or thyromegaly. Lungs: Symmetrical air entry with expiratory wheezes that are scattered with no jaye bronchial sounds or dullness or egophony Heart: Regular rate and rhythm with an audible S1-S2, no S3 no S4. There is no significant murmur click or rub, PMI was nondisplaced. Abdomen: Obese, Positive bowel sounds soft and nontender without palpable masses or organomegaly. There was no guarding or rebound. Extremities: The upper extremities have excellent pulses they are symmetric, no significant petechiae or telangiectasia. No splinter hemorrhages were noted. Lower extremities have 1+ symmetric edema without open ulcerations Neuro: Awake alert oriented to person and is aware he is at Hospital some confusion - Labs CBC & Chem 7: 09/22/18 08:47 09/22/18 08:47 Labs: Abnormal Lab Results - Last 24 Hours (Table) 09/22/18 09/22/18 09/22/18 Range/Units 07:00 08:47 08:47 RBC 2.96 L (4.30-5.90) m/uL Hgb 8.3 L (13.0-17.5) gm/dL Hct 27.8 L (39.0-53.0) % MCHC 29.8 L (31.0-37.0) g/dL RDW 16.9 H (11.5-15.5) % Potassium 3.1 L (3.5-5.1) mmol/L Carbon Dioxide 31 H (22-30) mmol/L Glucose 153 H (74-99) mg/dL POC Glucose (mg/dL) 106 H (75-99) mg/dL Magnesium 1.4 L (1.6-2.3) mg/dL AST 14 L (17-59) U/L ALT 14 L (21-72) U/L Total Protein 4.4 L (6.3-8.2) g/dL Albumin 2.4 L (3.5-5.0) g/dL 09/22/18 09/22/18 09/22/18 Range/Units 10:56 17:01 20:16 RBC (4.30-5.90) m/uL Hgb (13.0-17.5) gm/dL Hct (39.0-53.0) % MCHC (31.0-37.0) g/dL RDW (11.5-15.5) % Potassium (3.5-5.1) mmol/L Carbon Dioxide (22-30) mmol/L Glucose (74-99) mg/dL POC Glucose (mg/dL) 186 H 290 H 356 H (75-99) mg/dL Magnesium (1.6-2.3) mg/dL AST (17-59) U/L ALT (21-72) U/L Total Protein (6.3-8.2) g/dL Albumin (3.5-5.0) g/dL Laboratory Results WBC 4.9 k/uL (3.8-10.6) 09/22/18 08:47 RBC 2.96 m/uL (4.30-5.90) L 09/22/18 08:47 Hgb 8.3 gm/dL (13.0-17.5) L 09/22/18 08:47 Hct 27.8 % (39.0-53.0) L 09/22/18 08:47 MCV 93.8 fL (80.0-100.0) 09/22/18 08:47 MCH 28.0 pg (25.0-35.0) 09/22/18 08:47 MCHC 29.8 g/dL (31.0-37.0) L 09/22/18 08:47 RDW 16.9 % (11.5-15.5) H 09/22/18 08:47 Plt Count 205 k/uL (150-450) 09/22/18 08:47 Neutrophils % 34 % 09/22/18 08:47 Lymphocytes % 50 % 09/22/18 08:47 Monocytes % 9 % 09/22/18 08:47 Eosinophils % 5 % 09/22/18 08:47 Basophils % 0 % 09/22/18 08:47 Neutrophils # 1.7 k/uL (1.3-7.7) 09/22/18 08:47 Lymphocytes # 2.4 k/uL (1.0-4.8) 09/22/18 08:47 Monocytes # 0.4 k/uL (0-1.0) 09/22/18 08:47 Eosinophils # 0.2 k/uL (0-0.7) 09/22/18 08:47 Basophils # 0.0 k/uL (0-0.2) 09/22/18 08:47 Hypochromasia Marked 09/22/18 08:47 Poikilocytosis Slight 09/19/18 07:30 Anisocytosis Slight 09/22/18 08:47 PT 12.4 sec (9.0-12.0) H 09/12/18 14:22 INR 1.2 (<1.2) H 09/12/18 14:22 APTT 26.5 sec (22.0-30.0) 09/12/18 14:22 Sodium 143 mmol/L (137-145) 09/22/18 08:47 Potassium 3.1 mmol/L (3.5-5.1) L 09/22/18 08:47 Chloride 103 mmol/L (98-107) 09/22/18 08:47 Carbon Dioxide 31 mmol/L (22-30) H 09/22/18 08:47 Anion Gap 9 mmol/L 09/22/18 08:47 BUN 16 mg/dL (9-20) 09/22/18 08:47 Creatinine 1.02 mg/dL (0.66-1.25) 09/22/18 08:47 Est GFR (CKD-EPI)AfAm 90 (>60 ml/min/1.73 sqM) 09/22/18 08:47 Est GFR (CKD-EPI)NonAf 78 (>60 ml/min/1.73 sqM) 09/22/18 08:47 Glucose 153 mg/dL (74-99) H 09/22/18 08:47 POC Glucose (mg/dL) 356 mg/dL (75-99) H 09/22/18 20:16 POC Glu Meat Clerk ID Diya Brandon 09/22/18 20:[address] Glu mg/dL 120 09/12/18 14:22 Hemoglobin A1c 5.8 % (4.0-6.0) 09/12/18 14:22 Lactic Ac Sepsis Rflx Y 09/12/18 15:16 Plasma Lactic Acid Ras 1.5 mmol/L (0.7-2.0) 09/12/18 18:25 Uric Acid 6.2 mg/dL (3.5-8.5) 09/22/18 08:47 Calcium 9.4 mg/dL (8.4-10.2) 09/22/18 08:47 Phosphorus 3.8 mg/dL (2.5-4.5) 09/22/18 08:47 Magnesium 1.4 mg/dL (1.6-2.3) L 09/22/18 08:47 Total Bilirubin 0.7 mg/dL (0.2-1.3) 09/22/18 08:47 AST 14 U/L (17-59) L 09/22/18 08:47 ALT 14 U/L (21-72) L 09/22/18 08:47 Alkaline Phosphatase 68 U/L (38-126) 09/22/18 08:47 Total Protein 4.4 g/dL (6.3-8.2) L 09/22/18 08:47 Albumin 2.4 g/dL (3.5-5.0) L 09/22/18 08:47 Vitamin B12 224.0 pg/mL (200.0-944.0) 09/13/18 06:48 Folate 6.2 ng/mL 09/13/18 06:48 Urine Color Yellow 09/12/18 Unknown Urine Appearance Clear (Clear) 09/12/18 Unknown Urine pH 6.0 (5.0-8.0) 09/12/18 Unknown Ur Specific [place] 1.014 (1.001-1.035) 09/12/18 Unknown Urine Protein Trace (Negative) H 09/12/18 Unknown Urine Glucose (UA) Negative (Negative) 09/12/18 Unknown Urine Ketones Negative (Negative) 09/12/18 Unknown Urine Blood Negative (Negative) 09/12/18 Unknown Urine Nitrite Negative (Negative) 09/12/18 Unknown Urine Bilirubin Negative (Negative) 09/12/18 Unknown Urine Urobilinogen <2.0 mg/dL (<2.0) 09/12/18 Unknown Ur Leukocyte Esterase Negative (Negative) 09/12/18 Unknown CSF Tube Number 1 09/15/18 15:15 CSF Volume 2.5 09/15/18 15:15 CSF Appearance Clear 09/15/18 15:15 CSF Color Colorless 09/15/18 15:15 CSF RBC 1 u/L (0-10) 09/15/18 15:15 CSF Tot Nucleated Cells 1 u/L (0-5) 09/15/18 15:15 CSF Glucose 56 mg/dL (40-70) 09/15/18 15:18 CSF Total Protein 37 mg/dL (12-60) 09/15/18 15:18 IgG 346.0 mg/dL (700.0-1600.0) L 09/14/18 09:34 IgA 55.2 mg/dL (60.0-350.0) L 09/14/18 09:34 IgM 21.7 mg/dL (40.0-280.0) L 09/14/18 09:34 HSV I DNA PCR Not detected (Not detected) 09/15/18 15:15 HSV II DNA PCR Not detected (Not detected) 09/15/18 15:15 HSV (PCR) Source 09/15/18 15:15 Influenza Type A RNA Not Detected (Not Detectd) 09/12/18 15:09 Influenza Type B (PCR) Not Detected (Not Detectd) 09/12/18 15:09 Flow Results See Pathology Report 09/15/18 15:34 Microbiology 09/15/18 15:15 Cerebral Spinal Fluid CSF Gram Stain - Final 09/15/18 15:15 Cerebral Spinal Fluid CSF Culture - Final 09/12/18 14:49 Blood Blood Culture - Final No Growth after 144 hours 09/15/18 15:15 Cerebral Spinal Fluid Anaerobic Culture - Preliminary 09/12/18 Unknown Urine,Voided Urine Culture - Final Assessment and Plan (1) Large B-cell lymphoma Current Visit: Yes Status: Acute Code(s): C85.10 - UNSPECIFIED B-CELL LYMPHOMA, UNSPECIFIED SITE SNOMED Code(s): 659442286 (2) Hypogammaglobulinemia Current Visit: Yes Status: Acute Priority: High Code(s): D80.1 - NONFAMILIAL HYPOGAMMAGLOBULINEMIA SNOMED Code(s): 661491451 (3) Fever Narrative/Plan: 62-year-old male with a history of recently diagnosed large B-cell lymphoma who has been seen by oncology with plans for intervention. He was to have his PET scan performed but he became confused and is now admitted with another bout of high-grade fever and concerns to sepsis. Review of data from the other hospital does reveal at his discharge day urine culture was obtained and now shows evidence of the ESBL Klebsiella. With this ertapenem was initiated for treatment of this pathogen. Once the patient has improved especially if there is no bacteremia with him be able to initiate his chemotherapy as per oncology. At this time would appear that his mental status changes on the basis of his underlying sepsis however oncology is pursuing further workup, then may need lumbar puncture to evaluate for central nervous system involvement. MRI does not reveal evidence of any significant disease at this time. 09/17/2018 the patient seems to be less confused. It is still somewhat anxious to initiate chemotherapy. Unclear if the discharge plan will be to go to rehab to complete his antibiotics and start his chemotherapy profile outpatient antibiotic therapy and then start his chemotherapy. As noted there is no bacteremia. We would need four more days of Invanz, and as long is without symptoms and fever may proceed to chemotherapy at that time. 09/21/2018 the patient has now completed his course of intravenous antibiotic therapy with Invanz for his ESBL Klebsiella urinary tract infection. He is improved his mental status has improved somewhat but certainly is not a normal baseline. He will be initiating his chemotherapy for his B-cell lymphoma as of tomorrow. 09/22/2018 patient had low-grade fever yesterday 100.6 likely due to underlying disease state. He has no new urinary symptoms prior urinary tract infection has been well treated with his antibiotic therapy and will start his chemotherapy today. Current Visit: Yes Status: Resolved Priority: High Code(s): R50.9 - FEVER, UNSPECIFIED SNOMED Code(s): 961383663
[2018-09-23] MEDS: SALT AND SODA MOUTHWASH 1,000 ML PO SCH ×5 (06:03→23:26)
[2018-09-23] MEDS: LEVOTHYROXINE 88 MCG TAB PO SCH (06:03)
[2018-09-23 06:59] LABS: Glucose,Whole Blood 294 mg/dL (75-99)
[2018-09-23 07:42] LABS: African American GFR (CKD) >90 (>60 ml/min/1.73 sqM); Anion Gap 3 mmol/L; Blood Urea Nitrogen 21 mg/dL (9-20); Calcium 9.2 mg/dL (8.4-10.2); Carbon Dioxide 33 mmol/L (22-30); Chloride 108 mmol/L (98-107); Glucose 238 mg/dL (74-99); Magnesium 1.5 mg/dL (1.6-2.3); Phosphorus 4.3 mg/dL (2.5-4.5); Potassium 4.1 mmol/L (3.5-5.1); Sodium 144 mmol/L (137-145); Uric Acid 6.8 mg/dL (3.5-8.5)
[2018-09-23] MEDS: predniSONE 50 MG TAB PO SCH (08:16)
[2018-09-23] MEDS: FUROSEMIDE 40 MG TAB PO SCH (08:16)
[2018-09-23] MEDS: MAGNESIUM OXIDE 400 MG TAB PO SCH ×2 (08:16→20:30)
[2018-09-23] MEDS: HEPARIN SODIUM,PORCINE 5,000 UNIT/ML 1 ML VIAL SQ SCH ×3 (08:16→23:24)
[2018-09-23] MEDS: INSULIN ASPART (NovoLOG) 100 UNIT/ML VIAL SQ SCH ×4 (08:16→20:30)
[2018-09-23] MEDS: POTASSIUM CHLORIDE ER 20 MEQ TAB.ER PO SCH (08:16)
[2018-09-23] MEDS: FAMOTIDINE 20 MG TAB PO SCH ×2 (08:16→20:30)
[2018-09-23] MEDS: HYDROCORTISONE 20 MG TAB PO SCH (08:49)
[2018-09-23 11:49] LABS: Glucose,Whole Blood 206 mg/dL (75-99)
[2018-09-23] MEDS: FAMOTIDINE 20 MG/2 ML VIAL IV SCH (14:21)
--- NOTE | 2018-09-23 15:37 | P.PN ---
Subjective Progress Note Date: 09/23/18 Principal diagnosis: Fever, NHL In follow-up today patient doing well, no fevers, oral irritation, TROY, SOB, cough, palpitations, abdominal pain, acute changes in bowel or bladder habits, he feels that his adenopathy may already be shrinking. Objective - Vital Signs Vital signs: Vital Signs Temp 97.5 F L 09/23/18 12:00 Pulse 82 09/23/18 12:00 Resp 20 09/23/18 12:00 BP 119/58 09/23/18 12:00 Pulse Ox 97 09/23/18 12:00 Intake & Output 09/22/18 09/23/18 09/23/18 18:59 06:59 18:59 Intake Total 501.667 420 Balance 501.667 420 Weight 80.5 kg 81.5 kg Intake: Intake, IV Titration 501.667 Amount riTUXimab 700 mg In 501.667 Sodium Chloride 0.9% 500 ml 500 ml @ Titrate IV . Q0M NR Rx#:[id number] Oral 420 Other: Voiding Method Toilet Toilet Urinal # Voids 4 2 3 # Bowel Movements 1 - Constitutional General appearance: Present: average body habitus, cooperative, no acute distress - EENT Eyes: Present: anicteric sclerae, EOMI ENT: Present: hearing grossly normal, normal oropharynx - Neck Neck: Present: lymphadenopathy - Respiratory Respiratory: bilateral: CTA - Cardiovascular Rhythm: regular Heart sounds: normal: S1, S2 Abnormal Heart Sounds: Absent: systolic murmur, diastolic murmur, rub, S3 Gallop, S4 Gallop, click, other - Peripheral edema leg Peripheral Edema: bilateral: None - Gastrointestinal General gastrointestinal: Present: normal bowel sounds, soft - Neurologic Neurologic: Present: CNII-XII intact - Musculoskeletal Musculoskeletal: Present: strength equal bilaterally - Psychiatric Psychiatric: Present: A&O x's 3, appropriate affect, intact judgment & insight - Labs CBC & Chem 7: 09/22/18 08:47 09/23/18 06:48 Labs: Abnormal Lab Results - Last 24 Hours (Table) 09/22/18 09/22/18 09/23/18 Range/Units 17:01 20:16 06:48 Chloride 108 H (98-107) mmol/L Carbon Dioxide 33 H (22-30) mmol/L BUN 21 H (9-20) mg/dL Glucose 238 H (74-99) mg/dL POC Glucose (mg/dL) 290 H 356 H (75-99) mg/dL Magnesium 1.5 L (1.6-2.3) mg/dL 09/23/18 09/23/18 Range/Units 06:57 11:47 Chloride (98-107) mmol/L Carbon Dioxide (22-30) mmol/L BUN (9-20) mg/dL Glucose (74-99) mg/dL POC Glucose (mg/dL) 294 H 206 H (75-99) mg/dL Magnesium (1.6-2.3) mg/dL Microbiology - Last 24 Hours (Table) 09/15/18 15:15 Anaerobic Culture - Final Cerebral Spinal Fluid Assessment and Plan (1) Sepsis Current Visit: Yes Status: Resolved Priority: Medium Code(s): A41.9 - SEPSIS, UNSPECIFIED ORGANISM SNOMED Code(s): 46269328 (2) Fever Current Visit: Yes Status: Resolved Priority: High Code(s): R50.9 - FEVER, UNSPECIFIED SNOMED Code(s): 837064671 (3) Lymphadenopathy Current Visit: Yes Status: Acute Priority: High Code(s): R59.1 - GENERALIZED ENLARGED LYMPH NODES SNOMED Code(s): 91297752 (4) Large B-cell lymphoma Narrative/Plan: Day 2 of R-CHOP today. Pt handled well so far, no evidence to suggest TLS at this time. Pt encouraged to drink plenty of fluids and move around. Anticipate DC tomorrow as long as stable and doing well. Current Visit: Yes Status: Acute Code(s): C85.10 - UNSPECIFIED B-CELL LYMPHOMA, UNSPECIFIED SITE SNOMED Code(s): 813072549 (5) White matter abnormality on MRI of brain Current Visit: Yes Status: Acute Priority: High Code(s): R90.82 - WHITE MATTER DISEASE, UNSPECIFIED SNOMED Code(s): 363402722 (6) Hypogammaglobulinemia Current Visit: Yes Status: Acute Priority: High Code(s): D80.1 - NONFAMILIAL HYPOGAMMAGLOBULINEMIA SNOMED Code(s): 853508098 Plan: Supportive medications ordered, labs ordered, proceed with chemotherapy as ordered. Pt will receive GCSF in the outpatient setting
[2018-09-23] MEDS ORDERED: DOXORUBICIN HCL IV ONE ×2 (16:00)
[2018-09-23] MEDS ORDERED: APREPITANT 130 MG/18 ML VIAL IV ONE (16:00)
[2018-09-23] MEDS ORDERED: ONDANSETRON 16 MG in SODIUM CHLORIDE 0.9% 50 ML IVPB ONE (16:00)
[2018-09-23] MEDS ORDERED: DEXAMETHASONE SOD PHOSPHATE 10 MG/ML 1 ML VIAL IV ONE (16:00)
[2018-09-23] MEDS ORDERED: [UNRECOGNIZED DRUG - OTHER] IV ONE (16:00)
[2018-09-23] MEDS ORDERED: CYCLOPHOSPHAMIDE IV ONE (16:00)
[2018-09-23 17:20] LABS: Glucose,Whole Blood 358 mg/dL (75-99)
[2018-09-23 20:15] LABS: Glucose,Whole Blood 364 mg/dL (75-99)
--- NOTE | 2018-09-23 20:17 | P.PN ---
Progress Note - Text Progress Note Date: 09/23/18 Presenting complaint: Tired Interval history: This is a patient with diffuse large B-cell non-Hodgkin's lymphoma pending starting a treatment, chronic renal insufficiency, coronary artery disease with stent. Recently's had recurrent UTIs including ESBL Klebsiella. CSF fluid came back negative for any lymphoma cells. Today-patient received chemotherapy yesterday.. Laying in bed. No new issues. No fever no chills. Review of systems: Was done for constitutional, cardiovascular, GI, pulmonary. relevant finding as above Current medications are reviewed and include IV ertapenem On examination: VITAL SIGNS: 97.7, 62, 16, 1 36 x 63, 94% on room air GENERAL APPEARANCE: Laying in bed, comfortable. HEENT: Normal external appearance of nose and ear. Oral cavity normal EYES: Pupils equal. Conjunctiva normal. NECK: JVD not raised. Mass not palpable. RESPIRATORY: Respiratory effort normal. Lungs clear to auscultation. CARDIOVASCULAR: First and second sounds normal. No edema. ABDOMEN: Soft. Liver and spleen not palpable. No tenderness. No mass palpable. PSYCHIATRY: Alert and oriented x3. Mood and affect normal. Investigations: Potassium 4.1 BUN 21 and creatinine 0.89 Accu-Cheks noted to 194, 206, Assessment: -Sepsis causing acute metabolic encephalopathy, exact source unknown. UA being negative, clinically improved. Antibiotic completed -Chronic kidney dysfunction uses a walker -Essential hypertension -Hypothyroidism -Coronary artery disease a prior history of stent -Diabetes mellitus type 2 -Chronic renal insufficiency probably not present. Creatinine is now normal. -Diffuse large B cell non-Hodgkin lymphoma-started on chemotherapy Plan: Chemotherapy started. Given yesterday. No new issues. Follow with oncology
[2018-09-23] MEDS: ACETAMINOPHEN TAB 325 MG TAB PO PRN (20:29)
[2018-09-23] MEDS: ATORVASTATIN 40 MG TAB PO SCH (20:30)
[2018-09-23 21:34] VITALS: RESP 16
[2018-09-24 05:28] VITALS: BP 129/56; PULSE 52; TEMP 97.7
[2018-09-24] MEDS: SALT AND SODA MOUTHWASH 1,000 ML PO SCH (05:29)
[2018-09-24] MEDS: LEVOTHYROXINE 88 MCG TAB PO SCH (06:26)
[2018-09-24 07:29] LABS: Glucose,Whole Blood 217 mg/dL (75-99)
[2018-09-24] MEDS: FUROSEMIDE 40 MG TAB PO SCH (08:10)
[2018-09-24] MEDS: POTASSIUM CHLORIDE ER 20 MEQ TAB.ER PO SCH (08:10)
[2018-09-24] MEDS: predniSONE 50 MG TAB PO SCH (08:10)
[2018-09-24] MEDS: MAGNESIUM OXIDE 400 MG TAB PO SCH (08:10)
[2018-09-24] MEDS: INSULIN ASPART (NovoLOG) 100 UNIT/ML VIAL SQ SCH (08:10)
[2018-09-24] MEDS: FAMOTIDINE 20 MG TAB PO SCH (08:10)
[2018-09-24] MEDS: HEPARIN SODIUM,PORCINE 5,000 UNIT/ML 1 ML VIAL SQ SCH (08:11)
[2018-09-24] MEDS: HYDROCORTISONE 20 MG TAB PO SCH (08:52)
[2018-09-24 08:54] LABS: Anisocytosis Slight; Basophils % (A) 0 %; Eosinophils % (A) 0 %; HCT 28.9 % (39.0-53.0); HGB 8.6 gm/dL (13.0-17.5); Hypochromasia Marked; Lymphocytes % (A) 28 %; MCH 28.4 pg (25.0-35.0); MCHC 29.9 g/dL (31.0-37.0); MCV 95.1 fL (80.0-100.0); Mean Platelet Volume 7.8; Monocytes # (A) 0.3 k/uL (0-1.0); Monocytes % (A) 5 %; Neutrophils # (A) 4.7 k/uL (1.3-7.7); Neutrophils % (A) 66 %; Platelet Count 283 k/uL (150-450); RBC 3.04 m/uL (4.30-5.90); RDW 16.9 % (11.5-15.5); WBC 7.2 k/uL (3.8-10.6)
[2018-09-24 09:02] LABS: ALT 19 U/L (21-72); AST 15 U/L (17-59); African American GFR (CKD) >90 (>60 ml/min/1.73 sqM); Albumin 2.5 g/dL (3.5-5.0); Alkaline Phosphatase 68 U/L (38-126); Anion Gap 4 mmol/L; Blood Urea Nitrogen 24 mg/dL (9-20); Calcium 9.2 mg/dL (8.4-10.2); Carbon Dioxide 31 mmol/L (22-30); Chloride 108 mmol/L (98-107); Glucose 235 mg/dL (74-99); Magnesium 1.6 mg/dL (1.6-2.3); Phosphorus 4.1 mg/dL (2.5-4.5); Potassium 3.8 mmol/L (3.5-5.1); Sodium 143 mmol/L (137-145); Total Bilirubin 0.6 mg/dL (0.2-1.3); Total Protein 4.6 g/dL (6.3-8.2); Uric Acid 6.5 mg/dL (3.5-8.5)
--- NOTE | 2018-09-24 09:36 | P.PN ---
Subjective Progress Note Date: 09/24/18 Principal diagnosis: Fever, NHL In f/u pt states feeling very well, he is anxious to go home. He is tolerating plenty of fluids, no nausea, oral irritation, SOB, cough, abd bloating or discomfort, he had a normal BM yesterday, no swelling in his legs, no pain. Objective - Vital Signs Vital signs: Vital Signs Temp 97.7 F 09/24/18 05:26 Pulse 52 L 09/24/18 05:26 Resp 16 09/24/18 05:26 BP 129/56 09/24/18 05:26 Pulse Ox 97 09/24/18 05:26 Intake & Output 09/23/18 09/24/18 09/24/18 18:59 06:59 18:59 Intake Total 710 Output Total 400 Balance 310 Weight 82.5 kg Intake: Oral 710 Output: Urine 400 Other: Voiding Method Toilet Toilet Toilet # Voids 3 2 - Constitutional General appearance: Present: average body habitus, cooperative, no acute distress - EENT Eyes: Present: anicteric sclerae, EOMI ENT: Present: hearing grossly normal, normal oropharynx - Respiratory Respiratory: bilateral: CTA - Cardiovascular Rhythm: regular Heart sounds: normal: S1, S2 Abnormal Heart Sounds: Absent: systolic murmur, diastolic murmur, rub, S3 Gallop, S4 Gallop, click, other - Peripheral edema leg Peripheral Edema: bilateral: None - Gastrointestinal General gastrointestinal: Present: normal bowel sounds, soft - Neurologic Neurologic: Present: CNII-XII intact - Musculoskeletal Musculoskeletal: Present: strength equal bilaterally - Psychiatric Psychiatric: Present: A&O x's 3, appropriate affect, intact judgment & insight - Labs CBC & Chem 7: 09/24/18 07:17 09/24/18 07:17 Labs: Abnormal Lab Results - Last 24 Hours (Table) 09/23/18 09/23/18 09/23/18 Range/Units 11:47 17:19 20:12 RBC (4.30-5.90) m/uL Hgb (13.0-17.5) gm/dL Hct (39.0-53.0) % MCHC (31.0-37.0) g/dL RDW (11.5-15.5) % Chloride (98-107) mmol/L Carbon Dioxide (22-30) mmol/L BUN (9-20) mg/dL Glucose (74-99) mg/dL POC Glucose (mg/dL) 206 H 358 H 364 H (75-99) mg/dL AST (17-59) U/L ALT (21-72) U/L Total Protein (6.3-8.2) g/dL Albumin (3.5-5.0) g/dL 09/24/18 09/24/18 09/24/18 Range/Units 07:17 07:17 07:28 RBC 3.04 L (4.30-5.90) m/uL Hgb 8.6 L (13.0-17.5) gm/dL Hct 28.9 L (39.0-53.0) % MCHC 29.9 L (31.0-37.0) g/dL RDW 16.9 H (11.5-15.5) % Chloride 108 H (98-107) mmol/L Carbon Dioxide 31 H (22-30) mmol/L BUN 24 H (9-20) mg/dL Glucose 235 H (74-99) mg/dL POC Glucose (mg/dL) 217 H (75-99) mg/dL AST 15 L (17-59) U/L ALT 19 L (21-72) U/L Total Protein 4.6 L (6.3-8.2) g/dL Albumin 2.5 L (3.5-5.0) g/dL Microbiology - Last 24 Hours (Table) 09/15/18 15:15 Anaerobic Culture - Final Cerebral Spinal Fluid Assessment and Plan (1) Large B-cell lymphoma Narrative/Plan: 1st cycle of R-CHOP completed. 2 more days of prednisone, Erx. He will receive GCSF in office tomorrow. No evidence of TLS. Labs will continue to be monitored in the outpatient s etting Self care while on chemo reviewed with pt. Antiemetic Erx Current Visit: Yes Status: Acute Priority: High Code(s): C85.10 - UNSPECIFIED B-CELL LYMPHOMA, UNSPECIFIED SITE SNOMED Code(s): 974193067 (2) Sepsis Current Visit: Yes Status: Resolved Priority: Medium Code(s): A41.9 - SEPSIS, UNSPECIFIED ORGANISM SNOMED Code(s): 43638321 (3) Fever Current Visit: Yes Status: Resolved Priority: High Code(s): R50.9 - FEVER, UNSPECIFIED SNOMED Code(s): 215790695 (4) Lymphadenopathy Narrative/Plan: Some improvement visibly and palpably apparent in the left groin adenopathy Current Visit: Yes Status: Acute Priority: High Code(s): R59.1 - GENERALIZED ENLARGED LYMPH NODES SNOMED Code(s): 58507766 (5) White matter abnormality on MRI of brain Current Visit: Yes Status: Acute Priority: High Code(s): R90.82 - WHITE MATTER DISEASE, UNSPECIFIED SNOMED Code(s): 710707695 (6) Hypogammaglobulinemia Current Visit: Yes Status: Acute Priority: High Code(s): D80.1 - NONFAMILIAL HYPOGAMMAGLOBULINEMIA SNOMED Code(s): 494809525
[2018-09-24] MEDS: ACETAMINOPHEN TAB 325 MG TAB PO PRN (10:07)
[2018-09-24 11:06] LABS: Glucose,Whole Blood 281 mg/dL (75-99)
--- NOTE | 2018-09-24 13:57 | P.PN ---
Progress Note - Text Progress Note Date: 09/24/18 Routine consult order received today. Patient already discharged and left the hospital when I went to his room to see him.
--- NOTE | 2018-09-25 22:02 | P.DS ---
Providers Date of admission: 09/12/18 17:13 Expected date of discharge: 09/24/18 Attending physician: Prem Yadav Consults: 09/12/18 17:11 Consult Physician Routine Consulting Provider: Han Gorman Consult Reason/Comments: Lymphoma Do you want consulting provider notified?: Yes 09/13/18 11:13 Consult Physician Routine Consulting Provider: [place] Consult Reason/Comments: episodes of confusion Do you want consulting provider notified?: Yes 09/14/18 09:21 Consult Physician Routine Consulting Provider: Chandan Lara Consult Reason/Comments: sepsis pneumonia Do you want consulting provider notified?: Yes 09/23/18 20:19 Consult Physician Routine Consulting Provider: Tavon Diaz Consult Reason/Comments: abnormal MRI brain Do you want consulting provider notified?: Yes Primary care physician: Chano Ames [facility] Course: Discharge diagnosis: -Sepsis causing acute metabolic encephalopathy, exact source unknown. UA being negative, clinically improved. Antibiotic completed -Chronic kidney dysfunction uses a walker -Essential hypertension -Hypothyroidism -Coronary artery disease a prior history of stent -Diabetes mellitus type 2 -Chronic renal insufficiency probably not present. Creatinine is now normal. -Diffuse large B cell non-Hodgkin lymphoma-started on chemotherapy Interval history: This is a patient with diffuse large B-cell non-Hodgkin's lymphoma pending starting a treatment, chronic renal insufficiency, coronary artery disease with stent. Recently's had recurrent UTIs including ESBL Klebsiella. CSF fluid came back negative for any lymphoma cells. After getting treated for infection was given his first dose of chemotherapy. Which she tolerated well. Consultation: Dr. Gorman from oncology Dr. Lara from ID On examination: VITAL SIGNS: 97.7, 52, 16, 129/56 GENERAL APPEARANCE: Laying in bed, comfortable. HEENT: Normal external appearance of nose and ear. Oral cavity normal EYES: Pupils equal. Conjunctiva normal. NECK: JVD not raised. Mass not palpable. RESPIRATORY: Respiratory effort normal. Lungs clear to auscultation. CARDIOVASCULAR: First and second sounds normal. No edema. ABDOMEN: Soft. Liver and spleen not palpable. No tenderness. No mass palpable. PSYCHIATRY: Alert and oriented x3. Mood and affect normal. Investigations: White count 7.2, hemoglobin 8.6, platelets 23, potassium 3.8, BUN 24, creatinine 0.83 Disposition: Home with daughter Patient Condition at Discharge: Fair Plan - Discharge Summary New Discharge Prescriptions: New Prochlorperazine [Compazine] 10 mg PO Q6H PRN #50 tab PRN Reason: Nausea predniSONE 50 mg PO DAILY #4 tablet Continue Famotidine [Pepcid] 20 mg PO BID metFORMIN HCL 1,000 mg PO BID Levothyroxine Sodium 88 mcg PO DAILY Potassium Chloride [Klor-Con 10] 10 meq PO DAILY Furosemide [Lasix] 40 mg PO DAILY Cortisone Acetate [Cortone] 25 mg PO DAILY Atorvastatin [Lipitor] 40 mg PO HS Changed Metoprolol Succinate (ER) [Toprol XL] 25 mg PO DAILY #0 Discontinued glyBURIDE [Diabeta] 2.5 mg PO AC-BID Discharge Medication List Famotidine [Pepcid] 20 mg PO BID 06/17/15 [History] Levothyroxine Sodium 88 mcg PO DAILY 07/09/18 [History] metFORMIN HCL 1,000 mg PO BID 07/09/18 [History] Atorvastatin [Lipitor] 40 mg PO HS 09/12/18 [History] Cortisone Acetate [Cortone] 25 mg PO DAILY 09/12/18 [History] Furosemide [Lasix] 40 mg PO DAILY 09/12/18 [History] Potassium Chloride [Klor-Con 10] 10 meq PO DAILY 09/12/18 [History] Metoprolol Succinate (ER) [Toprol XL] 25 mg PO DAILY #0 09/18/18 [Rx] Prochlorperazine [Compazine] 10 mg PO Q6H PRN #50 tab 09/24/18 [Rx] predniSONE 50 mg PO DAILY #4 tablet 09/24/18 [Rx] Follow up Appointment(s)/Referral(s): Han Gorman MD [STAFF PHYSICIAN] - 09/25/18 8:30 am (this is for penelope, more appts will be made when he gets there) Chano Ames MD [Primary Care Provider] - 3 Days (patient to call office for follow up appt) Patient Instructions/Handouts: Urinary Tract Infection in Men (DC), Extended Spectrum Beta Lactamase (GEN), Altered Mental Status (GEN), Fall Prevention (DC) Discharge Disposition: HOME SELF-CARE
== END 2018-09-24 13:34 | disposition home or self-care (01) | DRG 871 ==
LOC: EC 14:13 → 3NMEDONC 17:13
PROVIDERS: ADMIT Hospitalist; ATTEND Hospitalist
PROC: 009U3ZX Drainage of Spinal Canal, Percutaneous Approach, Diagnostic (ICD-10-PCS; principal; 2018-09-15)
DX: A41.89 Other specified sepsis (principal); G93.41 Metabolic encephalopathy; N39.0 Urinary tract infection, site not specified; E27.40 Unspecified adrenocortical insufficiency; D80.1 Nonfamilial hypogammaglobulinemia; E87.4 Mixed disorder of acid-base balance; C83.31 Diffuse large B-cell lymphoma, lymph nodes of head, face, and neck; A41.59 Other Gram-negative sepsis; E87.6 Hypokalemia; I25.10 Atherosclerotic heart disease of native coronary artery without angina pectoris; E03.9 Hypothyroidism, unspecified; E11.9 Type 2 diabetes mellitus without complications; R26.9 Unspecified abnormalities of gait and mobility; I10 Essential (primary) hypertension; B96.1 Klebsiella pneumoniae [K. pneumoniae] as the cause of diseases classified elsewhere; E11.22 Type 2 diabetes mellitus with diabetic chronic kidney disease; E78.5 Hyperlipidemia, unspecified; E83.42 Hypomagnesemia; F17.200 Nicotine dependence, unspecified, uncomplicated; F41.9 Anxiety disorder, unspecified; I12.9 Hypertensive chronic kidney disease with stage 1 through stage 4 chronic kidney disease, or unspecified chronic kidney disease; N18.9 Chronic kidney disease, unspecified; Z16.12 Extended spectrum beta lactamase (ESBL) resistance; Z79.84 Long term (current) use of oral hypoglycemic drugs; Z79.890 Hormone replacement therapy; Z79.899 Other long term (current) drug therapy; Z87.440 Personal history of urinary (tract) infections; Z87.442 Personal history of urinary calculi; Z91.81 History of falling; Z98.84 Bariatric surgery status; Z95.5 Presence of coronary angioplasty implant and graft; Z80.0 Family history of malignant neoplasm of digestive organs; Z83.3 Family history of diabetes mellitus
CPT/HCPCS: 36415; 62270; 70450; 70553; 71046; 80048; 80053; 81003; 82607; 82746; 82784; 82945; 83036; 83605; 83735; 84100; 84157; 84550; 85025; 85610; 85730; 87040; 87070; 87075; 87086; 87205; 87502; 87529; 88108; 89050; 93005; 94760; 95816; 96361; 96365; 96368; 99285

== ENCOUNTER → 2018-10-08 | Outpatient (CLI) | payer MEDICARE ==
--- NOTE | 2018-10-08 13:28 | US ---
EXAMINATION TYPE: US groin RT DATE OF EXAM: 10/08/2018 COMPARISON: NONE CLINICAL HISTORY: R68.89 Abnormal physical exam. TECHNIQUE/FINDINGS: Targeted ultrasound was performed of the right groin in the patient's area of pal pable abnormality. This is a palpable area in patients right groin at a previous biopsy site. The biopsy was done 2 law hs prior. Patient doesn't have any pain at the this area or redness. There is a complex irregular shaped non-vascular mass at patients palpable measuring 4.3 x 2.7 x 3.7c m. There is are adjacent nodes largest measuring up to 1.4cm with abnormal cortical thickening and abnor mal rounded in morphology. IMPRESSION: Large complex heterogenous lesion corresponding the palpable abnormality with lacelike i nternal echoes appears most sonographically compatible with a hematoma and is avascular. However give n this patient's history of lymphoma lipomatous lesion is possible but less likely. Correlate with pr ior biopsy results. Adjacent abnormal-appearing lymph node with cortical thickening is seen.
== END | disposition home or self-care (01) ==
LOC: RADUSWWP 12:46
PROVIDERS: ATTEND Internal Medicine Hematology & Oncology
DX: S70.11XA Contusion of right thigh, initial encounter (principal)

== ENCOUNTER → 2018-11-11 | Outpatient (CLI) | payer MEDICARE ==
[2018-11-11 07:18] LABS: African American GFR (CKD) >90 (>60 ml/min/1.73 sqM); Blood Urea Nitrogen 20 mg/dL (9-20); Non-African American GFR(CKD) >90 (>60 ml/min/1.73 sqM)
--- NOTE | 2018-11-11 09:57 | CT ---
EXAMINATION TYPE: CT ChestAbdPelvis w con DATE OF EXAM: 11/11/2018 COMPARISON: CT of the abdomen and pelvis without contrast dated 05/22/[address] of the abdomen and p shira with contrast dated 12/12/2017 HISTORY: Lymphoma CT DLP: 1147.8 mGycm Automated exposure control for dose reduction was used. CONTRAST: CT scan of the chest, abdomen and pelvis is performed with Oral Contrast and with IV Contrast, patien t injected with 100 mL of Isovue 300. FINDINGS: LUNGS: The lungs are grossly clear, there is no concerning parenchymal mass or nodule identified. T here is no pleural effusion or pneumothorax seen. The tracheobronchial tree is patent. MEDIASTINUM: There are no greater than 1 cm hilar or mediastinal lymph nodes. No pericardial effusi on is seen. OTHER: There is a 1.1 cm left axillary lymph node which is best seen on axial images page 10. Additi onal smaller nonenlarged lymph nodes are seen inferiorly. There is also a mildly prominent right supr aclavicular lymph node measuring up to 0.8 cm and best seen on page 6. No right-sided axillary lympha denopathy. LIVER/GB: Liver is normal in size. No evidence of intrahepatic lesion. In the nondependent portion of the gallbladder near the fundus there is a soft tissue mass measuring 1.8 cm, which appears more apparent on the current exam and is best seen on image 23. No evidence of intrahepatic or extrahepatic biliary dilatation. PANCREAS: No significant abnormality is seen. SPLEEN: No significant abnormality is seen. ADRENALS: No significant abnormality is seen. KIDNEYS: Redemonstration of small cyst in the midpole of the left kidney measuring up to 1.5 cm. Mult iple irregular calculi are seen in the renal pelvis and inferior left kidney calyx. Symmetric perfusi on of the bilateral kidneys. No solid renal mass. No hydronephrosis. BOWEL: No significant abnormality is seen. REPRODUCTIVE ORGANS: Diffuse bladder wall thickening maybe related to contracted gallbladder, but als o in the differential would be bladder outlet obstruction. LYMPH NODES: Multiple enlarged inguinal lymph nodes are visualized. Largest on the left is seen measu ring up to 1.6 cm and best seen on coronal image 22 and largest on the right is seen measuring 1.6 cm . The overall size of the femoral inguinal lymph nodes has decreased when compared to 05/22/2018. Prev ious measurements were approximately 2.2 and a 3.0 cm. OSSEOUS STRUCTURES: Redemonstration of dextroconvex scoliosis centered at L3. Moderate to severe mult ilevel thoracolumbar spondylosis. Postsurgical changes of bilateral laminectomy at L4-5. Degenerative changes of the bilateral hips. OTHER: There appears to be a small fluid collection beneath the subcutaneous tissues anteriorly in th e right inguinal femoral region measuring 1.5 x 2.3 cm. The fluid collection extends to the subcutane ous surface. IMPRESSION: Redemonstration of bilateral femoral inguinal lymph nodes with overall decrease of size when compared to study dated 05/22/2018. Additionally note was made of an enlarged left axillary lymph node. Findin gs are likely on the basis of patient's provided history of lymphoma. Enhancing soft tissue mass within the nondependent portion of the gallbladder measuring up to 1.8 cm. Differential for these findings include gallbladder carcinoma, gallbladder polyp, or lymphoma. Furth er evaluation with abdominal ultrasound is recommended. Right groin subcutaneous fluid collection may be related to small abscess or recent procedure. Correl ate clinically. Redemonstration of multiple left renal calculi without hydronephrosis or hydroureter.
== END | disposition home or self-care (01) ==
LOC: RADCTMAIN 06:24
PROVIDERS: ATTEND Internal Medicine Hematology & Oncology
DX: R59.0 Localized enlarged lymph nodes (principal); C83.38 Diffuse large B-cell lymphoma, lymph nodes of multiple sites
CPT/HCPCS: 82565; 84520; 71260; 74177; 36415; Q9967

== ENCOUNTER 2018-12-25 15:58 | Emergency (ER) | payer MEDICARE ==
[2018-12-25 16:14] VITALS: TEMP 97.8
--- NOTE | 2018-12-25 18:02 | ED ---
General Adult HPI - General Chief complaint: ENT Stated complaint: Sore throat, unable to swallow Time Seen by Provider: 12/25/18 16:24 Source: patient, RN notes reviewed Mode of arrival: ambulatory Limitations: no limitations - History of Present Illness Initial comments: 62-year-old male with a past medical history of CAD, diabetes, adrenal insufficiency, hyperlipidemia presents to the emergency department for a chief complaint of sore throat. Patient states that he has had a sore throat for 6 days. States that it is painful to swallow but denies any difficulty swallowing. Patient denies fevers or chills. Patient states he has non- Hodgkin's lymphoma and had chemo about a week and a half ago. States he saw his oncologist couple days ago and they gave him Levaquin however that does not make him feel well so he has not been taking it. Patient was checked for the flu at that time which was negative. Denies any headache or neck pain. Denies any neck stiffness.Patient has no other complaints at this time including shortness of breath, chest pain, abdominal pain, nausea or vomiting, headache, or visual changes. - Related Data Home Medications Medication Instructions Recorded Confirmed Famotidine [Pepcid] 20 mg PO BID 06/17/15 09/12/18 Levothyroxine Sodium 88 mcg PO DAILY 07/09/18 09/12/18 metFORMIN HCL 1,000 mg PO BID 07/09/18 09/12/18 Atorvastatin [Lipitor] 40 mg PO HS 09/12/18 09/12/18 Cortisone Acetate [Cortone] 25 mg PO DAILY 09/12/18 09/12/18 Furosemide [Lasix] 40 mg PO DAILY 09/12/18 09/12/18 Potassium Chloride [Klor-Con 10] 10 meq PO DAILY 09/12/18 09/12/18 Previous Rx's Medication Instructions Recorded Metoprolol Succinate (ER) [Toprol 25 mg PO DAILY #0 09/18/18 XL] Prochlorperazine [Compazine] 10 mg PO Q6H PRN #50 tab 09/24/18 predniSONE 50 mg PO DAILY #4 tablet 09/24/18 Allergies Allergy/AdvReac Type Severity Reaction Status Date / Time codeine AdvReac Nausea & Verified 12/25/18 16:14 Vomiting Review of Systems ROS Statement: Those systems with pertinent positive or pertinent negative responses have been documented in the HPI. ROS Other: All systems not noted in ROS Statement are negative. Past Medical History Past Medical History: Coronary Artery Disease (CAD), Diabetes Mellitus, Hyperlipidemia, Osteoarthritis (OA), Thyroid Disorder Additional Past Medical History / Comment(s): ADRENAL INSUFFICIENCY, NIDDM, kidney stones, recurrent UTI History of Any Multi-Drug Resistant Organisms: ESBL Date of last positivie culture/infection: 09/13/2018 MDRO Source:: ESBL URINE Past Surgical History: Back Surgery, Bariatric Surgery, Heart Catheterization With Stent Additional Past Surgical History / Comment(s): BACK SURG (decompression) X2. LAP BAND. Past Anesthesia/Blood Transfusion Reactions: No Reported Reaction Date of Last Stent Placement:: 2014 Past Psychological History: Anxiety Smoking Status: Light tobacco smoker Past Alcohol Use History: None Reported Past Drug Use History: None Reported - Past Family History Father Family Medical History: Diabetes Mellitus Additional Family Medical History / Comment(s): of a ruptured aorta Mother Family Medical History: Cancer, Diabetes Mellitus Additional Family Medical History / Comment(s): PPM, liver CA General Exam Limitations: no limitations General appearance: alert, in no apparent distress Head exam: Present: atraumatic, normocephalic, normal inspection Eye exam: Present: normal appearance, PERRL, EOMI. Absent: scleral icterus, conjunctival injection, periorbital swelling ENT exam: Present: normal exam, mucous membranes moist, TM's normal bilaterally, normal external ear exam. Absent: normal oropharynx (Minimally erythematous. No exudates noted. Uvula is midline. No evidence for abscess.) Neck exam: Present: normal inspection, full ROM. Absent: tenderness, meningismus, lymphadenopathy (No significant lymphadenopathy noted.) Respiratory exam: Present: normal lung sounds bilaterally. Absent: respiratory distress, wheezes, rales, rhonchi, stridor Cardiovascular Exam: Present: regular rate, normal rhythm, normal heart sounds. Absent: systolic murmur, diastolic murmur, rubs, gallop, clicks Neurological exam: Present: alert Psychiatric exam: Present: normal affect, normal mood Course Vital Signs 12/25/18 16:12 Temperature 97.8 F Pulse Rate 91 Respiratory 20 Rate Blood Pressure 93/62 O2 Sat by Pulse 100 Oximetry Medical Decision Making - Medical Decision Making 62-year-old male presents for sore throat 6 days. States it is painful to swa llow but denies difficulty swallowing. Denies any fevers, neck stiffness, headache, neck pain. Patient has a history of non-Hodgkin lymphoma and had chemo about 1.5 weeks ago. Vitals are stable here in the emergency department. Patient is afebrile. Exam reveals a minimally erythematous throat without tonsillar exudates, uvula midline, no tonsillar exudates bilaterally. Full range motion of the neck. No significant lymphadenopathy. Strep is negative. Culture pending. Influenza was negative a few days ago. Patient has an appointment with his primary care provider tomorrow. At this time patient likely has a viral pharyngitis. I did offer patient pain medication which he refused. Discussed [id number] medication for patient. Discussed he is a follow-up with his primary care provider and if this does not resolve that he may need additional imaging. Patient is agreeable to this and requesting discharge. I discussed this case with attending Dr. Grewal who agrees with this assessment and treatment plan. - Lab Data Lab Results 12/25/18 Range/Units 16:37 Group A Strep Rapid Negative (Negative) Disposition Clinical Impression: Sore throat Disposition: HOME SELF-CARE Condition: Good Instructions (If sedation given, give patient instructions): Strep Throat (ED) Additional Instructions: Please use [id number] cough drops such as Cepacol for pain. Use warm salt water gargles. Follow-up with primary care your appointment tomorrow. If you have worsening symptoms, fevers or unable to swallow return to the emergency department. Is patient prescribed a controlled substance at d/c from ED?: No Referrals: Chano Ames MD [Primary Care Provider] - 1-2 days Time of Disposition: 18:01
[2018-12-25 18:10] VITALS: BP 110/65; PULSE 88; RESP 16
== END 2018-12-25 18:05 | disposition home or self-care (01) ==
LOC: EC 15:58
DX: J02.9 Acute pharyngitis, unspecified (principal); Z85.72 Personal history of non-Hodgkin lymphomas; I25.10 Atherosclerotic heart disease of native coronary artery without angina pectoris; E11.9 Type 2 diabetes mellitus without complications; E78.5 Hyperlipidemia, unspecified; E07.9 Disorder of thyroid, unspecified; F17.200 Nicotine dependence, unspecified, uncomplicated; Z79.890 Hormone replacement therapy; Z79.84 Long term (current) use of oral hypoglycemic drugs; Z79.899 Other long term (current) drug therapy; Z88.5 Allergy status to narcotic agent; Z95.5 Presence of coronary angioplasty implant and graft; Z98.84 Bariatric surgery status
CPT/HCPCS: 87081; 87430; 99283

== ENCOUNTER → 2019-02-06 | Outpatient (CLI) | payer MEDICARE ==
--- NOTE | 2019-02-08 10:39 | PE ---
EXAMINATION TYPE: PET CT fusion skull to thigh DATE OF EXAM: 02/06/2019 COMPARISON: CT chest, abdomen, and pelvis dated 11/11/2018 HISTORY: Non-Hodgkin's lymphoma (diffuse large be cell lymphoma) previously treated with chemotherapy approximately 3 weeks prior. TECHNIQUE: Following the intravenous administration of 13.56 mCi of F-18 FDG, whole body images are performed from the skull base to the midthigh. Images are reviewed on the computer in the coronal, a xial, and sagittal planes. Reconstructed rotating images are created on independent workstation and reviewed on the computer. A localization and attenuation correction CT is performed in conjunction with the PET scan. SCAN: Subsequent treatment strategy. First PET CT available at this institution. FINDINGS: Mediastinal background: 2.12 Abdominal background: 4.37 Metformin usage does limit evaluation of the bowel and liver creating diffuse uptake. Report from outside institution of 08/20/2018 demonstrates multiple lung nodules the largest in the ri ght lower lobe measuring 1.6 cm, lymphadenopathy (axillary, mediastinal, hilar, and retrocrural nodes ) the largest in the left axilla measuring 3.3 cm, AP window 1.7 cm, hilar lymph node up to 1.8 cm, p eriaortic and pericaval noted up to 1.6 cm, bilateral inguinal nodes measuring up to 2.3 cm, and sple nomegaly. SKULL BASE AND NECK: No suspicious hypermetabolic uptake. CHEST, MEDIASTINUM, AND HILAR REGION: On the outside exam of 08/20/2018 AP window lymph node measured 1.7 cm. The largest AP window lymph node now measures 0.8 cm. Left axillary lymph node was present me asuring 3.3 cm in short axis. No greater than 1 cm short axis left axillary lymph nodes remaining. Th e largest measures 9 mm in short axis. No greater than 1 cm short axis lymph nodes in the mediastinum . 5 mm right lower lobe pulmonary nodule on image 98 is below the threshold of PET CT. Dimension 1.6 cm nodule on the outside examination is not demonstrated as not seen on the exam of 11/11/2018. Therefor e this could represent an improved pulmonary nodule or prior airspace disease. ABDOMEN AND PELVIS: Retrocaval and retrocrural adenopathy was seen on the exam of 08/20/2018 and outsi de institution. Currently there are no greater than 1 cm short axis lymph nodes in the retroperitonea l spaces. The largest lymph nodes in the left periaortic space measuring up to 6 mm. The previously s een superficial inguinal adenopathy bilaterally measuring up to 1.6 cm on the left on the exam of 10/29 have also decreased in size of the largest on the left measuring 1.0 cm in short axis. On the right the largest measures 0.8 cm in short axis. On the prior examination of 11/11/2018 the largest on the right also measured 1.6 cm. Diffuse uptake in the bowel and liver likely is on the basis of metformin usage and excretion with a maximum SUV of the splenic flexure of 10.3 cm. No obstructive process. Right paraspinal focal uptake from T11 through L1 is seen with a maximum SUV of 3.7. Gluteal uptake i s seen bilaterally with a maximum SUV on the right of 3.92 and on the left at 3.15. Right hip adducto r musculature uptake has a maximum SUV of 3.4. These are below mediastinal background and could relat e to muscular strain or myositis. OSSEOUS STRUCTURES: Diffuse uptake throughout the spine is likely reactive to recent chemotherapy wit h cervical spine maximum SUV of 3.6, thoracic spine maximum SUV of 2.7, and lumbar spine maximum SUV of 3.0. Arthropathy of the right shoulder is also seen with maximum SUV of 2.6. OTHER CT: Bibasilar subsegmental dependent atelectasis. Moderate to severe coronary artery calcificat ions. No pericardial effusion. Gallbladder is elongated measuring up to 8.8 cm. No radiopaque calculi . Bilateral nephrolithiasis is seen with multiple calculi in the left renal sinus and the lower pole measuring up to 1.0 cm. Subcentimeter punctate calculi are present on the right. No dilated large or small bowel. Left renal lesion measures 2.1 cm and is slightly hyperdense but was cystic on the exam of 11/11/2018. There is likely a new hemorrhagic or proteinaceous component. Paranasal sinuses and mastoid air cells are well aerated. Moderate degenerative changes of the spine. Right-sided Mediport is seen. Left and appears appropriately placed. Incomplete distention of the ur inary bladder. Previously seen urinary bladder wall thickening is not well appreciated given this fac t. Moderate atherosclerosis of the abdominal aorta and its branches. Few scattered colonic diverticula. No dilated large or small bowel. Slight adrenal gland thickening bilaterally, likely adrenal gland hy perplasia. The previously seen splenomegaly is not appreciated as the spleen measures 10.7 cm in long itudinal dimension. IMPRESSION: 1. Complete response to treatment. No hypermetabolic or pathologically enlarged adenopathy remaining in the chest, abdomen, and or pelvis. The described enlarged lymph nodes on the outside exam of 2018 enlarged lymph nodes in the mediastinum, axilla, retrocrural area, and groin do not persist on t tisha's exam. 2. Diffuse low-level avidity throughout the osseous structures, typically post therapy change in this patient with recent chemotherapy. No focal suspicious area of uptake. 3. Multifocal muscular uptake in the right paraspinal muscles from T3 through L1, bilateral gluteal m uscles, and hip abductor musculature. Uptake is less than abdominal background and likely relates to myositis or muscular strain. 4. The previously described right lower lobe pulmonary nodule does not persist with only 5 mm pulmona ry nodule seen on today's exam (below the threshold of PET CT). No suspicious uptake in the lungs.
== END | disposition home or self-care (01) ==
LOC: RADPETMAIN 09:48
PROVIDERS: ATTEND Internal Medicine Hematology & Oncology
DX: C83.38 Diffuse large B-cell lymphoma, lymph nodes of multiple sites (principal); R91.1 Solitary pulmonary nodule; Z92.21 Personal history of antineoplastic chemotherapy
CPT/HCPCS: 78815; A9552

== ENCOUNTER → 2019-05-12 | Outpatient (CLI) | payer MEDICARE ==
--- NOTE | 2019-05-12 15:38 | CT ---
EXAMINATION TYPE: CT ChestAbdPelvis w con DATE OF EXAM: 05/12/2019 COMPARISON: Prior nuclear medicine PET/CT 02/06/2019 HISTORY: Lymphoma CT DLP: 1803.2 mGycm Automated exposure control for dose reduction was used. CONTRAST: CT scan of the chest, abdomen and pelvis is performed with Oral Contrast and with IV Contrast, patien t injected with 100 mL of Isovue 300. FINDINGS: LUNGS: The lungs are grossly clear, there is no concerning parenchymal mass or nodule identified. T here is no pleural effusion or pneumothorax seen. The tracheobronchial tree is patent. MEDIASTINUM: There are no greater than 1 cm hilar or mediastinal lymph nodes. No pericardial effusi on is seen. Coronary artery calcifications are present. AORTA: No significant abnormality is seen. OTHER: Patient is status post lap band. Port is in the left upper quadrant subcutaneous fat. Port-A- Cath present in the right pectoral region coursing via a subclavian approach. LIVER/GB: No significant abnormality is appreciated. PANCREAS: No significant abnormality is seen. SPLEEN: No significant abnormality is seen. ADRENALS: No significant abnormality is seen. KIDNEYS: Multiple calculi present within the left kidney, too calculi within the left renal pelvis me asuring approximately 10 mm and 9 mm respectively, lower pole calculus is nonobstructive and measures 9 mm. Cortical cyst is present at the midpole and an exophytic location posteriorly. REPRODUCTIVE ORGANS: No gross abnormality seen. BOWEL: No significant abnormality is seen. FREE AIR: No Free Air visible. ASCITES: None seen. RETROPERITONEAL ADENOPATHY: No retroperitoneal adenopathy is seen. LYMPH NODES: No greater than 1 cm abdominal or pelvic lymph nodes are appreciated. URINARY BLADDER: No significant abnormality is seen. PELVIC ADENOPATHY: None visualized. OSSEOUS STRUCTURES: Postop changes noted to the lower lumbar spine. Degenerative disc changes are gr eatest in the lumbar spine.. IMPRESSION: Left nephrolithiasis. Postop changes. No evident adenopathy.
== END | disposition home or self-care (01) ==
LOC: RADPROMAIN 09:41
PROVIDERS: ATTEND Internal Medicine Hematology & Oncology
DX: Z03.89 Encounter for observation for other suspected diseases and conditions ruled out (principal); N20.0 Calculus of kidney; C83.38 Diffuse large B-cell lymphoma, lymph nodes of multiple sites; Z98.890 Other specified postprocedural states
CPT/HCPCS: 82565; 84520; 71260; 74177; 36415; Q9967 ×2

== ENCOUNTER 2019-05-18 06:09 | Emergency (ER) | payer MEDICARE ==
[2019-05-18 06:16] VITALS: RESP 18; TEMP 97
--- NOTE | 2019-05-18 06:26 | ED ---
General Adult HPI - General Chief complaint: Urogenital Stated complaint: Urinary Retention Time Seen by Provider: 05/18/19 06:18 Source: patient, EMS, RN notes reviewed Mode of arrival: EMS Limitations: no limitations - History of Present Illness Initial comments: 63-year-old male with a past medical history of CAD, NIDDM, kidney stones, urinary tract infection presents to the emergency department for a chief complaint of urinary retention. Patient states he has not urinated and 18 hours. States he gets in and out of the shower because he feels like he can "dribble" when he is in the shower. Patient denies any recent fevers. Denies dysuria. States this has happened once before but a very long time ago.Patient has no other complaints at this time including shortness of breath, chest pain, abdominal pain, nausea or vomiting, headache, or visual changes. - Related Data Home Medications Medication Instructions Recorded Confirmed Famotidine [Pepcid] 20 mg PO BID 06/17/15 09/12/18 Levothyroxine Sodium 88 mcg PO DAILY 07/09/18 09/12/18 metFORMIN HCL 1,000 mg PO BID 07/09/18 09/12/18 Atorvastatin [Lipitor] 40 mg PO HS 09/12/18 09/12/18 Cortisone Acetate [Cortone] 25 mg PO DAILY 09/12/18 09/12/18 Furosemide [Lasix] 40 mg PO DAILY 09/12/18 09/12/18 Potassium Chloride [Klor-Con 10] 10 meq PO DAILY 09/12/18 09/12/18 Previous Rx's Medication Instructions Recorded Metoprolol Succinate (ER) [Toprol 25 mg PO DAILY #0 09/18/18 XL] Prochlorperazine [Compazine] 10 mg PO Q6H PRN #50 tab 09/24/18 predniSONE 50 mg PO DAILY #4 tablet 09/24/18 Allergies Allergy/AdvReac Type Severity Reaction Status Date / Time codeine AdvReac Nausea & Verified 05/18/19 06:16 Vomiting Review of Systems ROS Statement: Those systems with pertinent positive or pertinent negative responses have been documented in the HPI. ROS Other: All systems not noted in ROS Statement are negative. Past Medical History Past Medical History: Coronary Artery Disease (CAD), Diabetes Mellitus, Hyperlipidemia, Osteoarthritis (OA), Thyroid Disorder Additional Past Medical History / Comment(s): ADRENAL INSUFFICIENCY, NIDDM, kidney stones, recurrent UTI History of Any Multi-Drug Resistant Organisms: None Reported Date of last positivie culture/infection: 07/09/18 MDRO Source:: ESBL URINE Past Surgical History: Back Surgery, Bariatric Surgery, Heart Catheterization With Stent Additional Past Surgical History / Comment(s): BACK SURG (decompression) X2. LAP BAND. Past Anesthesia/Blood Transfusion Reactions: No Reported Reaction Date of Last Stent Placement:: 2014 Past Psychological History: Anxiety Smoking Status: Light tobacco smoker Past Alcohol Use History: None Reported Past Drug Use History: None Reported - Past Family History Father Family Medical History: Diabetes Mellitus Additional Family Medical History / Comment(s): of a ruptured aorta Mother Family Medical History: Cancer, Diabetes Mellitus Additional Family Medical History / Comment(s): PPM, liver [place] General Exam Limitations: no limitations General appearance: alert, in no apparent distress Head exam: Present: atraumatic, normocephalic, normal inspection Eye exam: Present: normal appearance, PERRL, EOMI. Absent: scleral icterus, conjunctival injection, periorbital swelling ENT exam: Present: normal exam, mucous membranes moist Neck exam: Present: normal inspection. Absent: tenderness, meningismus, lymphadenopathy Respiratory exam: Present: normal lung sounds bilaterally. Absent: respiratory distress, wheezes, rales, rhonchi, stridor Cardiovascular Exam: Present: regular rate, normal rhythm, normal heart sounds. Absent: systolic murmur, diastolic murmur, rubs, gallop, clicks GI/Abdominal exam: Present: soft, tenderness (Minimal suprapubic tenderness), normal bowel sounds. Absent: distended, guarding, rebound, rigid Neurological exam: Present: alert Course Vital Signs 05/18/19 05/18/19 06:11 08:08 Temperature 97 F L Pulse Rate 78 70 Respiratory 18 18 Rate Blood Pressure 98/75 97/56 O2 Sat by Pulse 97 100 Oximetry Medical Decision Making - Medical Decision Making Vitals stable. Blood pressure 98/75. Patient states his blood pressure has been in this range lately since he was diagnosed with lymphoma late last year. Patient has a similar blood pressure from November 2018. Asymptomatic at this time. Martini catheter was placed. About 500 mL of urine was obtained. CBC CMP unremarkable. Urinalysis does not show any evidence of infection. Patient is much more comfortable at this time, no more suprapubic pain. Patient will follow-up with urology in the next few days. He will return here if any w orsening symptoms. Patient has had this prior but it was several years ago. I discussed this case with attending Dr. Mora who agrees with this assessment and treatment plan. - Lab Data Result diagrams: 05/18/19 06:40 05/18/19 06:40 Lab Results 05/18/19 05/18/19 05/18/19 Range/Units 06:34 06:40 06:40 WBC 4.7 (3.8-10.6) k/uL RBC 4.13 L (4.30-5.90) m/uL Hgb 12.4 L (13.0-17.5) gm/dL Hct 37.0 L (39.0-53.0) % MCV 89.7 (80.0-100.0) fL MCH 30.0 (25.0-35.0) pg MCHC 33.4 (31.0-37.0) g/dL RDW 13.6 (11.5-15.5) % Plt Count 197 (150-450) k/uL Neutrophils % (Manual) 39 % Lymphocytes % (Manual) 43 % Monocytes % (Manual) 13 % Eosinophils % (Manual) 3 % Basophils % (Manual) 2 % Neutrophils # (Manual) 1.83 (1.3-7.7) k/uL Lymphocytes # (Manual) 2.02 (1.0-4.8) k/uL Monocytes # (Manual) 0.61 (0-1.0) k/uL Eosinophils # (Manual) 0.14 (0-0.7) k/uL Basophils # (Manual) 0.09 (0-0.2) k/uL Nucleated RBCs 0 (0-0) /100 WBC Manual Slide Review Performed Sodium 140 (137-145) mmol/L Potassium 4.1 (3.5-5.1) mmol/L Chloride 106 (98-107) mmol/L Carbon Dioxide 26 (22-30) mmol/L Anion Gap 8 mmol/L BUN 22 H (9-20) mg/dL Creatinine 1.12 (0.66-1.25) mg/dL Est GFR (CKD-EPI)AfAm 80 (>60 ml/min/1.73 sqM) Est GFR (CKD-EPI)NonAf 69 (>60 ml/min/1.73 sqM) Glucose 113 H (74-99) mg/dL Calcium 9.2 (8.4-10.2) mg/dL Urine Color Yellow Urine Appearance Clear (Clear) Urine pH 5.0 (5.0-8.0) Ur Specific [facility] 1.015 (1.001-1.035) Urine Protein Negative (Negative) Urine Glucose (UA) Negative (Negative) Urine Ketones Negative (Negative) Urine Blood Small (Negative) Urine Nitrite Negative (Negative) Urine Bilirubin Negative (Negative) Urine Urobilinogen 2.0 (<2.0) mg/dL Ur Leukocyte Esterase Negative (Negative) Disposition Clinical Impression: Urinary retention Disposition: HOME SELF-CARE Condition: Good Instructions (If sedation given, give patient instructions): Martini Catheter Placement and Care (ED), Urinary Retention in Men (ED) Additional Instructions: Please follow up with urology for indwelling Martini catheter because of urinary retention. Please follow-up with primary care provider. Discuss low blood pressure with him. Return to the emergency department if you have any worsening symptoms including fevers. Is patient prescribed a controlled substance at d/c from ED?: No Referrals: Chano Ames MD [Primary Care Provider] - 1-2 days Dio Mcginnis MD [STAFF PHYSICIAN] - 1-2 days Time of Disposition: 08:12
[2019-05-18 06:46] LABS: Appearance,Urine Clear (Clear); Color,Urine Yellow; Glucose,Urine (UA) Negative (Negative); Protein,Urine Negative (Negative); Specific Gravity,Urine 1.015 (1.001-1.035)
[2019-05-18 06:47] LABS: Bilirubin,Urine Negative (Negative); Blood,Urine Small (Negative); Ketones,Urine Negative (Negative); Leukocyte Esterase,Urine Negative (Negative); Nitrite,Urine Negative (Negative)
[2019-05-18 07:05] LABS: Calcium 9.2 mg/dL (8.4-10.2); Potassium 4.1 mmol/L (3.5-5.1)
[2019-05-18 07:12] LABS: HGB 12.4 gm/dL (13.0-17.5); MCHC 33.4 g/dL (31.0-37.0); MCV 89.7 fL (80.0-100.0); Mean Platelet Volume 7.3; Platelet Count 197 k/uL (150-450); RBC 4.13 m/uL (4.30-5.90); RDW 13.6 % (11.5-15.5); WBC 4.7 k/uL (3.8-10.6)
[2019-05-18 07:56] LABS: Basophils # (M) 0.09 k/uL (0-0.2); Eosinophils # (M) 0.14 k/uL (0-0.7); Lymphocytes # (M) 2.02 k/uL (1.0-4.8); Monocytes # (M) 0.61 k/uL (0-1.0); Neutrophils # (M) 1.83 k/uL (1.3-7.7); Neutrophils % (M) 39 %; Nucleated Red Blood Cells 0 /100 WBC (0-0); Total Cells Counted 100
[2019-05-18 08:09] VITALS: BP 97/56; PULSE 70
== END 2019-05-18 08:31 | disposition home or self-care (01) ==
LOC: EC 06:09
DX: R33.9 Retention of urine, unspecified (principal); I25.10 Atherosclerotic heart disease of native coronary artery without angina pectoris; E11.9 Type 2 diabetes mellitus without complications; E78.5 Hyperlipidemia, unspecified; E07.9 Disorder of thyroid, unspecified; F17.200 Nicotine dependence, unspecified, uncomplicated; Z79.890 Hormone replacement therapy; Z79.84 Long term (current) use of oral hypoglycemic drugs; Z79.899 Other long term (current) drug therapy; Z88.5 Allergy status to narcotic agent; Z98.84 Bariatric surgery status; Z95.5 Presence of coronary angioplasty implant and graft
CPT/HCPCS: 36415; 51702; 80048; 81001; 85025; 99284

== ENCOUNTER 2019-05-18 16:09 | Emergency (ER) | payer MEDICARE ==
[2019-05-18 16:22] VITALS: BP 122/77; PULSE 90; RESP 18; TEMP 98
--- NOTE | 2019-05-18 17:24 | ED ---
Recheck HPI - General Chief Complaint: Recheck/Abnormal Lab/Rx Stated Complaint: Colostomy bag issues Time Seen by Provider: 05/18/19 16:54 Source: patient, RN notes reviewed, old records reviewed Mode of arrival: ambulatory Limitations: no limitations - History of Present Illness Initial Comments: 63-year-old male presents to emergency department for evaluation for concerns for unable to empty his Martini catheter. Patient reports that he had a Martini placed for urinary retention earlier today. Patient states he does not know how to open the cap to empty the Martini. He denies any abdominal pain at this time. He does report some minor urethral irritation. He reports that he plans to follow-up with urologist to have this removed. - Related Data Home Medications Medication Instructions Recorded Confirmed Famotidine [Pepcid] 20 mg PO BID 06/17/15 09/12/18 Levothyroxine Sodium 88 mcg PO DAILY 07/09/18 09/12/18 metFORMIN HCL 1,000 mg PO BID 07/09/18 09/12/18 Atorvastatin [Lipitor] 40 mg PO HS 09/12/18 09/12/18 Cortisone Acetate [Cortone] 25 mg PO DAILY 09/12/18 09/12/18 Furosemide [Lasix] 40 mg PO DAILY 09/12/18 09/12/18 Potassium Chloride [Klor-Con 10] 10 meq PO DAILY 09/12/18 09/12/18 Previous Rx's Medication Instructions Recorded Metoprolol Succinate (ER) [Toprol 25 mg PO DAILY #0 09/18/18 XL] Prochlorperazine [Compazine] 10 mg PO Q6H PRN #50 tab 09/24/18 predniSONE 50 mg PO DAILY #4 tablet 09/24/18 Allergies Allergy/AdvReac Type Severity Reaction Status Date / Time codeine AdvReac Nausea & Verified 05/18/19 16:22 Vomiting Review of Systems ROS Statement: Those systems with pertinent positive or pertinent negative responses have been documented in the HPI. ROS Other: All systems not noted in ROS Statement are negative. Past Medical History Past Medical History: Coronary Artery Disease (CAD), Diabetes Mellitus, Hyperlipidemia, Osteoarthritis (OA), Thyroid Disorder Additional Past Medical History / Comment(s): ADRENAL INSUFFICIENCY, NIDDM, kidney stones, recurrent UTI History of Any Multi-Drug Resistant Organisms: None Reported Date of last positivie culture/infection: 07/09/18 MDRO Source:: ESBL URINE Past Surgical History: Back Surgery, Bariatric Surgery, Heart Catheterization With Stent Additional Past Surgical History / Comment(s): BACK SURG (decompression) X2. LAP BAND. Past Anesthesia/Blood Transfusion Reactions: No Reported Reaction Date of Last Stent Placement:: 2014 Past Psychological History: Anxiety Smoking Status: Light tobacco smoker Past Alcohol Use History: None Reported Past Drug Use History: None Reported - Past Family History Father Family Medical History: Diabetes Mellitus Additional Family Medical History / Comment(s): of a ruptured aorta Mother Family Medical History: Cancer, Diabetes Mellitus Additional Family Medical History / Comment(s): PPM, liver [place] General Exam - General Exam Comments Initial Comments: 63-year-old male. Alert and oriented. No distress. Limitations: no limitations General appearance: alert, in no apparent distress Head exam: Present: atraumatic, normocephalic, normal inspection Eye exam: Present: normal appearance, PERRL, EOMI. Absent: scleral icterus, conjunctival injection, periorbital swelling ENT exam: Present: normal exam, mucous membranes moist Neck exam: Present: normal inspection. Absent: tenderness, meningismus, lymphadenopathy Respiratory exam: Present: normal lung sounds bilaterally. Absent: respiratory distress, wheezes, rales, rhonchi, stridor Cardiovascular Exam: Present: regular rate, normal rhythm, normal heart sounds. Absent: systolic murmur, diastolic murmur, rubs, gallop, clicks GI/Abdominal exam: Present: soft, normal bowel sounds. Absent: distended, tenderness, guarding, rebound, rigid Extremities exam: Present: normal inspection, full ROM, normal capillary refill. Absent: tenderness, pedal edema, joint swelling, calf tenderness Back exam: Present: normal inspection, other (Martini catheter in place on right leg. Patient has proximally 300 mL of urine in the catheter bag.) Neurological exam: Present: alert, oriented X3, CN II-XII intact Psychiatric exam: Present: normal affect, normal mood Skin exam: Present: warm, dry, intact, normal color. Absent: rash Course Vital Signs 05/18/19 16:16 Temperature 98.0 F Pulse Rate 90 Respiratory 18 Rate Blood Pressure 122/77 O2 Sat by Pulse 98 Oximetry Medical Decision Making - Medical Decision Making 63-year-old male presents for unable to open the Martini catheter that. Patient has evidence of 300 mL of dark urine with in his Martini cath bag. He has no abdominal pain. Patient simply did not know how to open the cap and flip open the clamp to drain the urine. Patient was educated on Martini catheter care.and now can successfully open clamp. Discussed the Patient needs to follow-up with urology to have the Martini cath removed. Disposition Clinical Impression: Martini catheter in place, Deficient knowledge of catheter care Disposition: HOME SELF-CARE Condition: Good Instructions (If sedation given, give patient instructions): Martini Catheter Placement and Care (ED) Additional Instructions: Patient advised to remove the green cap and flipped the Green switch open to 90 degrees to drain the Martini catheter. Clean the area with an alcohol swab before recapping the catheter. Patient advised to follow-up with urologist to have the Martini catheter removed. Is patient prescribed a controlled substance at d/c from ED?: No Referrals: Chano Ames MD [Primary Care Provider] - 1-2 days Time of Disposition: 17:22
== END 2019-05-18 17:40 | disposition home or self-care (01) ==
LOC: EC 16:09
DX: Z46.6 Encounter for fitting and adjustment of urinary device (principal); E07.9 Disorder of thyroid, unspecified; E78.5 Hyperlipidemia, unspecified; E11.9 Type 2 diabetes mellitus without complications; I25.10 Atherosclerotic heart disease of native coronary artery without angina pectoris; E27.40 Unspecified adrenocortical insufficiency; F17.200 Nicotine dependence, unspecified, uncomplicated; Z88.5 Allergy status to narcotic agent; Z79.51 Long term (current) use of inhaled steroids; Z79.84 Long term (current) use of oral hypoglycemic drugs; Z79.890 Hormone replacement therapy
CPT/HCPCS: 99283

== ENCOUNTER 2019-05-20 11:59 | Emergency (ER) | payer MEDICARE ==
[2019-05-20 12:18] VITALS: BP 96/67; PULSE 89; RESP 20; TEMP 97.5
--- NOTE | 2019-05-20 13:55 | ED ---
General Adult HPI - General Source: patient, RN notes reviewed Mode of arrival: ambulatory <Delio Espitia - Last Filed: 05/20/19 14:02> <Lang Olivo - Last Filed: 05/20/19 14:18> - General Chief complaint: Urogenital Stated complaint: needs catheter out Time Seen by Provider: 05/20/19 12:46 - History of Present Illness Initial comments: 63-year-old male with a comp dictated past medical history presents to the emergency department for penile meatus pain. Patient had an indwelling Martini catheter placed 2 days ago for urinary retention. At that time patient states he was able to urinate small amounts only while in the shower so was taking several showers and night to urinate. Patient presents today because he is having pain along the penile meatus. States it is tender and sore because of the catheter. Patient states he called urology ant they could see him tonight however he opted to come to the emergency department instead. Patient is insistent on taking out catheter.Patient has no other complaints at this time including shortness of breath, chest pain, abdominal pain, nausea or vomiting, headache, or visual changes. (Delio Espitia) - Related Data Home Medications Medication Instructions Recorded Confirmed Famotidine [Pepcid] 20 mg PO BID 06/17/15 09/12/18 Levothyroxine Sodium 88 mcg PO DAILY 07/09/18 09/12/18 metFORMIN HCL 1,000 mg PO BID 07/09/18 09/12/18 Atorvastatin [Lipitor] 40 mg PO HS 09/12/18 09/12/18 Cortisone Acetate [Cortone] 25 mg PO DAILY 09/12/18 09/12/18 Furosemide [Lasix] 40 mg PO DAILY 09/12/18 09/12/18 Potassium Chloride [Klor-Con 10] 10 meq PO DAILY 09/12/18 09/12/18 Previous Rx's Medication Instructions Recorded Metoprolol Succinate (ER) [Toprol 25 mg PO DAILY #0 09/18/18 XL] Prochlorperazine [Compazine] 10 mg PO Q6H PRN #50 tab 09/24/18 predniSONE 50 mg PO DAILY #4 tablet 09/24/18 Allergies Allergy/AdvReac Type Severity Reaction Status Date / Time codeine AdvReac Nausea & Verified 05/20/19 12:18 Vomiting Review of Systems ROS Other: All systems not noted in ROS Statement are negative. <Delio Espitia - Last Filed: 05/20/19 14:02> ROS Other: All systems not noted in ROS Statement are negative. <Lang Olivo - Last Filed: 05/20/19 14:18> ROS Statement: Those systems with pertinent positive or pertinent negative responses have been documented in the HPI. Past Medical History Past Medical History: Coronary Artery Disease (CAD), Diabetes Mellitus, Hyp erlipidemia, Osteoarthritis (OA), Thyroid Disorder Additional Past Medical History / Comment(s): ADRENAL INSUFFICIENCY, NIDDM, kidney stones, recurrent UTI History of Any Multi-Drug Resistant Organisms: None Reported Date of last positivie culture/infection: 07/09/18 MDRO Source:: ESBL URINE Past Surgical History: Back Surgery, Bariatric Surgery, Heart Catheterization With Stent Additional Past Surgical History / Comment(s): BACK SURG (decompression) X2. LAP BAND.carpel tunnel Past Anesthesia/Blood Transfusion Reactions: No Reported Reaction Date of Last Stent Placement:: 2014 Past Psychological History: Anxiety Smoking Status: Former smoker Past Alcohol Use History: None Reported Past Drug Use History: None Reported - Past Family History Father Family Medical History: Diabetes Mellitus Additional Family Medical History / Comment(s): of a ruptured aorta Mother Family Medical History: Cancer, Diabetes Mellitus Additional Family Medical History / Comment(s): PPM, liver CA <Delio Espitia P - Last Filed: 05/20/19 14:02> General Exam General appearance: alert, in no apparent distress Head exam: Present: atraumatic, normocephalic, normal inspection Eye exam: Present: normal appearance, PERRL, EOMI. Absent: scleral icterus, conjunctival injection, periorbital swelling ENT exam: Present: normal exam, mucous membranes moist Neck exam: Present: normal inspection, full ROM. Absent: tenderness, meningismus, lymphadenopathy Respiratory exam: Present: normal lung sounds bilaterally. Absent: respiratory distress, wheezes, rales, rhonchi, stridor Cardiovascular Exam: Present: regular rate, normal rhythm, normal heart sounds. Absent: systolic murmur, diastolic murmur, rubs, gallop, clicks GI/Abdominal exam: Present: soft, normal bowel sounds. Absent: distended, tenderness, guarding, rebound, rigid exam: Present: normal inspection, other (Penile meatus is intact. There is no signs of infection. There is no skin erosion. Salud Swanson RN present for exam). Absent: testicular tenderness, urethral discharge, scrotal swelling, vertical testicular lie, circumcision <Delio Espitia - Last Filed: 05/20/19 14:02> Course <Lang Olivo - Last Filed: 05/20/19 14:18> Vital Signs 05/20/19 12:12 Temperature 97.5 F L Pulse Rate 89 Respiratory 20 Rate Blood Pressure 96/67 O2 Sat by Pulse 97 Oximetry - Reevaluation(s) Reevaluation #1: 05/20/19 14:17 PA supervision: I proceeded [id number] evaluation the patient he has had a Martini catheter in for 3 days and does want to remove. We had a long discussion regarding the possibility of need to return for replacement of the catheter he's had no fevers chills nausea vomiting sweats. The catheter will be removed no evidence of any overt lesions to the penis. Catheter over remove it and do agree with the assessment and plan. 05/20/19 14:18 The patient was warned about the potential for difficulty urination and having have another Martini catheter placed. He is encouraged to follow-up with urology. (Lang Olivo) Medical Decision Making <Delio Espitia - Last Filed: 05/20/19 14:02> - Medical Decision Making Patient presents for Martini catheter removal. Patient is having discomfort because of the placement of the catheter. Catheter is draining normal colored urine at this time. This was initially placed 2 days ago for urinary retention. Patient had normal kidney function and labs at that time. Dr. Olivo also examined patient. He had a discussion with patient about removal of the catheter. Patient is insisting and catheter removal. We did agree to this however warned patient that it is possible that he will retain urine again. If patient is not able to urinate he is aware that he needs to come back to the emergency department for initiation of a Martini catheter. He also agrees to follow up with urology despite having catheter removed as this is likely going to be a chronic and ongoing issue. (Delio Espitia) Disposition Is patient prescribed a controlled substance at d/c from ED?: No Time of Disposition: :54 <Delio Espitia - Last Filed: 05/20/19 14:02> <Lang Olivo - Last Filed: 05/20/19 14:18> Clinical Impression: Martini catheter problem Disposition: HOME SELF-CARE Condition: Good Instructions (If sedation given, give patient instructions): Urinary Retention in Men (ED) Additional Instructions: Please follow up with urology in the next 1-2 days. If you have any worsening symptoms or unable to urinate need to return to the emergency department for initiation of Martini catheter. Referrals: Chano Ames MD [Primary Care Provider] - 1-2 days Dio Mcginnis MD [STAFF PHYSICIAN] - 1-2 days
== END 2019-05-20 14:17 | disposition home or self-care (01) ==
LOC: EC 11:59
DX: T83.098A Other mechanical complication of other urinary catheter, initial encounter (principal); R33.9 Retention of urine, unspecified; N48.89 Other specified disorders of penis; I25.10 Atherosclerotic heart disease of native coronary artery without angina pectoris; E11.9 Type 2 diabetes mellitus without complications; E78.5 Hyperlipidemia, unspecified; E07.9 Disorder of thyroid, unspecified; E27.40 Unspecified adrenocortical insufficiency; Z87.891 Personal history of nicotine dependence; Z88.5 Allergy status to narcotic agent; Z79.52 Long term (current) use of systemic steroids; Z79.84 Long term (current) use of oral hypoglycemic drugs; Z79.890 Hormone replacement therapy; Z79.899 Other long term (current) drug therapy; Z95.5 Presence of coronary angioplasty implant and graft
CPT/HCPCS: 99283

== ENCOUNTER 2019-05-21 07:40 | Emergency (ER) | payer MEDICARE ==
[2019-05-21 07:50] VITALS: TEMP 97.8
[2019-05-21 08:29] LABS: Partial Thromboplastin Time 24.7 sec (22.0-30.0); Prothrombin Time 10.6 sec (9.0-12.0)
[2019-05-21 08:32] LABS: Albumin 3.9 g/dL (3.5-5.0); Potassium 4.3 mmol/L (3.5-5.1); Total Bilirubin 1.3 mg/dL (0.2-1.3); Total Protein 6.3 g/dL (6.3-8.2)
--- NOTE | 2019-05-21 08:32 | ED ---
General Adult HPI - General Chief complaint: Urogenital Stated complaint: Urinary retention Time Seen by Provider: 05/21/19 07:52 Source: patient, RN notes reviewed Mode of arrival: EMS Limitations: no limitations - History of Present Illness Initial comments: Patient is a pleasant 63-year-old male presenting to the emergency Department with urinary retention. Patient was in the department recently and had Martini catheter placed. Patient then had it removed. Patient feels he needs it placed. Patient complains of urgency and feels full in the suprapubic region, similar to previous visit. Patient states he also recently has been treated for non-Hodgkin's lymphoma, last treatment was a month ago. Patient states over the last month he has been drinking a little bit more than normal. No confusion. No isolated area of weakness or general weakness. No speech or visual problems. - Related Data Home Medications Medication Instructions Recorded Confirmed Famotidine [Pepcid] 20 mg PO BID 06/17/15 05/21/19 Levothyroxine Sodium 88 mcg PO DAILY 07/09/18 05/21/19 metFORMIN HCL 1,000 mg PO BID 07/09/18 05/21/19 Cortisone Acetate [Cortone] 25 mg PO DAILY 09/12/18 05/21/19 Aspirin EC [Ecotrin Low Dose] 81 mg PO DAILY 05/21/19 05/21/19 Diazepam 10 mg PO HS PRN 05/21/19 05/21/19 Ergocalciferol [Vitamin D2] 50,000 unit PO FR 05/21/19 05/21/19 Ibuprofen [Motrin] 800 mg PO Q8H PRN 05/21/19 05/21/19 Magnesium Oxide 400 mg PO DAILY 05/21/19 05/21/19 Metoprolol Succinate (ER) [Toprol 25 mg PO BID 05/21/19 05/21/19 XL] glyBURIDE [Diabeta] 2.5 mg PO BID-W/MEALS 05/21/19 05/21/19 Previous Rx's Medication Instructions Recorded Prochlorperazine [Compazine] 10 mg PO Q6H PRN #50 tab 09/24/18 Cephalexin [Keflex] 500 mg PO TID #21 cap 05/21/19 Allergies Allergy/AdvReac Type Severity Reaction Status Date / Time codeine AdvReac Nausea & Verified 05/21/19 08:40 Vomiting Review of Systems ROS Statement: Those systems with pertinent positive or pertinent negative responses have been documented in the HPI. ROS Other: All systems not noted in ROS Statement are negative. Constitutional: Denies: fever Eyes: Denies: eye pain ENT: Denies: ear pain Respiratory: Denies: dyspnea Cardiovascular: Denies: chest pain Endocrine: Denies: fatigue Gastrointestinal: Denies: abdominal pain Genitourinary: Reports: as per HPI Musculoskeletal: Denies: back pain Skin: Denies: rash Neurological: Denies: headache, weakness, confusion Past Medical History Past Medical History: Coronary Artery Disease (CAD), Diabetes Mellitus, Hyperlipidemia, Osteoarthritis (OA), Thyroid Disorder Additional Past Medical History / Comment(s): ADRENAL INSUFFICIENCY, NIDDM, kidney stones, recurrent UTI History of Any Multi-Drug Resistant Organisms: None Reported Date of last positivie culture/infection: 07/09/18 MDRO Source:: ESBL URINE Past Surgical History: Back Surgery, Bariatric Surgery, Heart Catheterization With Stent Additional Past Surgical History / Comment(s): BACK SURG (decompression) X2. LAP BAND.carpel tunnel Past Anesthesia/Blood Transfusion Reactions: No Reported Reaction Date of Last Stent Placement:: 2014 Past Psychological History: Anxiety Smoking Status: Former smoker Past Alcohol Use History: None Reported Past Drug Use History: None Reported - Past Family History Father Family Medical History: Diabetes Mellitus Additional Family Medical History / Comment(s): of a ruptured aorta Mother Family Medical History: Cancer, Diabetes Mellitus Additional Family Medical History / Comment(s): PPM, liver CA General Exam Limitations: no limitations General appearance: alert, in no apparent distress Head exam: Present: normocephalic Eye exam: Present: normal appearance Neck exam: Present: normal inspection Respiratory exam: Present: normal lung sounds bilaterally Cardiovascular Exam: Present: regular rate, normal rhythm GI/Abdominal exam: Present: soft, other (Mild suprapubic distention and discomfort) Extremities exam: Present: normal inspection Neurological exam: Present: alert, CN II-XII intact. Absent: motor sensory deficit Expanded Neurological exam: Present: protecting the airway Speech: Present: fluid speech Motor strength exam: RUE: 5, LUE: 5, RLE: 5, LLE: 5 Eye Response: (4) open spontaneously Motor Response: (6) obeys commands Verbal Response: (5) oriented Psychiatric exam: Present: normal affect, normal mood Skin exam: Present: normal color Course Vital Signs 05/21/19 05/21/19 07:43 09:00 Temperature 97.8 F Pulse Rate 76 77 Respiratory 19 18 Rate Blood Pressure 118/63 108/74 O2 Sat by Pulse 99 98 Oximetry EKG Findings - EKG Comments: EKG Findings:: No sinus rhythm 76. [place] 162. QRS 84. QT 398. QTC 447. Left axis. Normal QRS. No acute ST change. Medical Decision Making - Medical Decision Making Patient reevaluated and resting comfortably in bed, symptom-free. Patient feels much better. Patient was able to get up and ambulate without any difficulty. Patient updated on results and plan. There is mild renal insufficiency which is likely related to her attention. Patient will need to follow-up again with Dr. Hess and is informed of this. Patient will be placed on antibiotics pending urine culture. - Lab Data Result diagrams: 05/21/19 07:50 05/21/19 07:50 Lab Results 05/21/19 05/21/19 05/21/19 Range/Units 07:50 07:50 07:50 WBC 6.6 (3.8-10.6) k/uL RBC 4.18 L (4.30-5.90) m/uL Hgb 12.4 L (13.0-17.5) gm/dL Hct 37.5 L (39.0-53.0) % MCV 89.5 (80.0-100.0) fL MCH 29.7 (25.0-35.0) pg MCHC 33.2 (31.0-37.0) g/dL RDW 13.7 (11.5-15.5) % Plt Count 203 (150-450) k/uL Neutrophils % 46 % Lymphocytes % 41 % Monocytes % 5 % Eosinophils % 3 % Basophils % 1 % Neutrophils # 3.1 (1.3-7.7) k/uL Lymphocytes # 2.8 (1.0-4.8) k/uL Monocytes # 0.3 (0-1.0) k/uL Eosinophils # 0.2 (0-0.7) k/uL Basophils # 0.0 (0-0.2) k/uL PT 10.6 (9.0-12.0) sec INR 1.0 (<1.2) APTT 24.7 (22.0-30.0) sec Sodium 139 (137-145) mmol/L Potassium 4.3 (3.5-5.1) mmol/L Chloride 105 (98-107) mmol/L Carbon Dioxide 22 (22-30) mmol/L Anion Gap 12 mmol/L BUN 22 H (9-20) mg/dL Creatinine 1.57 H (0.66-1.25) mg/dL Est GFR (CKD-EPI)AfAm 53 (>60 ml/min/1.73 sqM) Est GFR (CKD-EPI)NonAf 46 (>60 ml/min/1.73 sqM) Glucose 113 H (74-99) mg/dL Calcium 9.0 (8.4-10.2) mg/dL Total Bilirubin 1.3 (0.2-1.3) mg/dL AST 30 (17-59) U/L ALT 21 (4-49) U/L Alkaline Phosphatase 74 (38-126) U/L Total Protein 6.3 (6.3-8.2) g/dL Albumin 3.9 (3.5-5.0) g/dL Urine Color Urine Appearance (Clear) Urine pH (5.0-8.0) Ur Specific [place] (1.001-1.035) Urine Protein (Negative) Urine Glucose (UA) (Negative) Urine Ketones (Negative) Urine Blood (Negative) Urine Nitrite (Negative) Urine Bilirubin (Negative) Urine Urobilinogen (<2.0) mg/dL Ur Leukocyte Esterase (Negative) Urine RBC (0-5) /hpf Urine WBC (0-5) /hpf Urine WBC Clumps (None) /hpf Ur Squamous Epith Cells (0-4) /hpf Hyaline Casts (0-2) /lpf Urine Mucus (None) /hpf 05/21/19 Range/Units 09:22 WBC (3.8-10.6) k/uL RBC (4.30-5.90) m/uL Hgb (13.0-17.5) gm/dL Hct (39.0-53.0) % MCV (80.0-100.0) fL MCH (25.0-35.0) pg MCHC (31.0-37.0) g/dL RDW (11.5-15.5) % Plt Count (150-450) k/uL Neutrophils % % Lymphocytes % % Monocytes % % Eosinophils % % Basophils % % Neutrophils # (1.3-7.7) k/uL Lymphocytes # (1.0-4.8) k/uL Monocytes # (0-1.0) k/uL Eosinophils # (0-0.7) k/uL Basophils # (0-0.2) k/uL PT (9.0-12.0) sec INR (<1.2) APTT (22.0-30.0) sec Sodium (137-145) mmol/L Potassium (3.5-5.1) mmol/L Chloride (98-107) mmol/L Carbon Dioxide (22-30) mmol/L Anion Gap mmol/L BUN (9-20) mg/dL Creatinine (0.66-1.25) mg/dL Est GFR (CKD-EPI)AfAm (>60 ml/min/1.73 sqM) Est GFR (CKD-EPI)NonAf (>60 ml/min/1.73 sqM) Glucose (74-99) mg/dL Calcium (8.4-10.2) mg/dL Total Bilirubin (0.2-1.3) mg/dL AST (17-59) U/L ALT (4-49) U/L Alkaline Phosphatase (38-126) U/L Total Protein (6.3-8.2) g/dL Albumin (3.5-5.0) g/dL Urine Color Yellow Urine Appearance Cloudy (Clear) Urine pH 5.5 (5.0-8.0) Ur Specific [place] 1.016 (1.001-1.035) Urine Protein Trace H (Negative) Urine Glucose (UA) Negative (Negative) Urine Ketones Negative (Negative) Urine Blood Negative (Negative) Urine Nitrite Negative (Negative) Urine Bilirubin Negative (Negative) Urine Urobilinogen <2.0 (<2.0) mg/dL Ur Leukocyte Esterase Large H (Negative) Urine RBC 2 (0-5) /hpf Urine WBC 37 H (0-5) /hpf Urine WBC Clumps Few H (None) /hpf Ur Squamous Epith Cells 2 (0-4) /hpf Hyaline Casts 3 H (0-2) /lpf Urine Mucus Rare H (None) /hpf - Radiology Data Radiology results: report reviewed (Computed tomography scan of the brain shows atrophy and chronic small vessel disease without acute intercranial process.), image reviewed (Chest x-ray shows no acute process, improvement of adenopathy) Disposition Clinical Impression: Urinary retention Disposition: HOME SELF-CARE Condition: Stable Instructions (If sedation given, give patient instructions): Urinary Retention in Men (ED) Additional Instructions: Please follow-up with Dr. Mcginnis in the beginning of the week. Please also follow-up with primary care physician in the next couple days for recheck. Return for weakness or falling, fully catheter problems, fevers, worsening symptoms or other concerns. Prescription sent to [facility] [place] [facility] Prescriptions: Cephalexin [Keflex] 500 mg PO TID #21 cap Is patient prescribed a controlled substance at d/c from ED?: No Referrals: Chano Ames MD [Primary Care Provider] - 1-2 days Dio Mcginnis MD [STAFF PHYSICIAN] - 1-2 days Time of Disposition: 10:08
--- NOTE | 2019-05-21 08:34 | CT ---
EXAMINATION TYPE: CT brain wo con DATE OF EXAM: 05/21/2019 COMPARISON: 09/12/2018 HISTORY: weakness CT DLP: 995.[address] of the brain was performed. The ventricles, basal cisterns and sulci overlying the cerebral convexities demonstrate mild enlargem ent. Moderate bifrontal atrophy noted. There is no evidence for intracranial hemorrhage or sulcal effacement. There is decreased attenuation about the periventricular white matter and deep white matter of both c erebral hemispheres, compatible with chronic small vessel ischemia. Differential diagnosis does inclu de demyelination. No mass effects are seen.No midline shift. Osseous calvarium is intact. If symptoms persist consider MRI. IMPRESSION: 1. Age related atrophic and chronic small vessel ischemic change without acute intracranial process s een at this time.
--- NOTE | 2019-05-21 08:36 | XR ---
EXAMINATION TYPE: XR chest 2V DATE OF EXAM: 05/21/2019 COMPARISON: Prior chest x-ray 09/12/2018 HISTORY: Weakness, unable to urinate TECHNIQUE: Frontal and lateral views of the chest are obtained. FINDINGS: Right-sided Port-A-Cath remains in place, distal tip is overlying superior vena cava. There are overlying cardiac leads. Patient is post lap band which shows a stable orientation. Prominence i n the aorticopulmonary window has improved, aeration at the left lung base also has normalized. Ther e is no focal air space opacity, pleural effusion, or pneumothorax seen. The cardiac silhouette size is within normal limits. The osseous structures are intact. IMPRESSION: No acute cardiopulmonary process. Improvement in patient's lymphadenopathy.
[2019-05-21 08:39] LABS: Basophils % (A) 1 %; Eosinophils # (A) 0.2 k/uL (0-0.7); Eosinophils % (A) 3 %; HCT 37.5 % (39.0-53.0); HGB 12.4 gm/dL (13.0-17.5); Lymphocytes # (A) 2.8 k/uL (1.0-4.8); Lymphocytes % (A) 41 %; MCH 29.7 pg (25.0-35.0); MCHC 33.2 g/dL (31.0-37.0); MCV 89.5 fL (80.0-100.0); Mean Platelet Volume 7.4; Monocytes # (A) 0.3 k/uL (0-1.0); Monocytes % (A) 5 %; Neutrophils # (A) 3.1 k/uL (1.3-7.7); Neutrophils % (A) 46 %; Platelet Count 203 k/uL (150-450); RBC 4.18 m/uL (4.30-5.90); RDW 13.7 % (11.5-15.5); WBC 6.6 k/uL (3.8-10.6)
[2019-05-21 09:45] LABS: Appearance,Urine Cloudy (Clear); Bilirubin,Urine Negative (Negative); Blood,Urine Negative (Negative); Color,Urine Yellow; Glucose,Urine (UA) Negative (Negative); Hyaline Casts,Urine 3 /lpf (0-2); Ketones,Urine Negative (Negative); Leukocyte Esterase,Urine Large (Negative); Mucus,Urine Rare /hpf; Nitrite,Urine Negative (Negative); PH, Urine 5.5 (5.0-8.0); Protein,Urine Trace (Negative); RBC,Urine 2 /hpf (0-5); Specific Gravity,Urine 1.016 (1.001-1.035); Squamous Epithelial Cell,Urine 2 /hpf (0-4); Urobilinogen,Urine <2.0 mg/dL (<2.0); WBC,Urine 37 /hpf (0-5)
[2019-05-21 10:26] VITALS: BP 106/58; PULSE 79; RESP 16
== END 2019-05-21 10:42 | disposition home or self-care (01) ==
LOC: EC 07:40
DX: R33.9 Retention of urine, unspecified (principal); N28.9 Disorder of kidney and ureter, unspecified; R14.0 Abdominal distension (gaseous); R39.15 Urgency of urination; I25.10 Atherosclerotic heart disease of native coronary artery without angina pectoris; E11.9 Type 2 diabetes mellitus without complications; M19.90 Unspecified osteoarthritis, unspecified site; E07.9 Disorder of thyroid, unspecified; E27.40 Unspecified adrenocortical insufficiency; Z87.891 Personal history of nicotine dependence; Z88.5 Allergy status to narcotic agent; Z79.52 Long term (current) use of systemic steroids; Z79.82 Long term (current) use of aspirin; Z79.84 Long term (current) use of oral hypoglycemic drugs; Z79.890 Hormone replacement therapy; Z79.899 Other long term (current) drug therapy; Z85.72 Personal history of non-Hodgkin lymphomas; Z87.440 Personal history of urinary (tract) infections; Z95.5 Presence of coronary angioplasty implant and graft; Z98.84 Bariatric surgery status
CPT/HCPCS: 36415; 51702; 70450; 71046; 80053; 81001; 85025; 85610; 85730; 87077; 87086; 87186; 93005; 99285

== ENCOUNTER 2019-05-26 17:56 | Emergency (ER) | payer MEDICARE ==
[2019-05-26] MEDS ORDERED: LIDOCAINE URO-JET JELLY 2% 5 ML KIT URETHRAL ONE (18:19)
[2019-05-26 18:46] LABS: Appearance,Urine Clear (Clear); Bacteria,Urine Rare /hpf; Bilirubin,Urine Negative (Negative); Blood,Urine Small (Negative); Color,Urine Yellow; Glucose,Urine (UA) Negative (Negative); Hyaline Casts,Urine 1 /lpf (0-2); Ketones,Urine Negative (Negative); Leukocyte Esterase,Urine Negative (Negative); Mucus,Urine Rare /hpf; Nitrite,Urine Negative (Negative); Protein,Urine Trace (Negative); RBC,Urine 37 /hpf (0-5); Specific Gravity,Urine 1.017 (1.001-1.035); WBC,Urine 3 /hpf (0-5)
--- NOTE | 2019-05-26 19:09 | ED ---
Male Urogenital HPI - General Chief complaint: Urogenital Stated complaint: difficulty urinating Time Seen by Provider: 05/26/19 18:05 Source: patient Mode of arrival: wheelchair Limitations: no limitations - History of Present Illness Initial comments: Patient is a 63-year-old male presenting to the emergency Department with complaints of urinary retention since this morning. Patient states he had a Martini catheter in place by Dr. Rose however it was removed this morning. They discussed that if he was unable to urinate on his own to go to the ER for another catheter. Patient has been trying all day to urinate however has been very unsuccessful. He presents today with abdominal discomfort. He denies fever, chills. He has no other complaints at this time. Upon arrival to the ER his vital signs are stable. - Related Data Home Medications Medication Instructions Recorded Confirmed Famotidine [Pepcid] 20 mg PO BID 06/17/15 05/21/19 Levothyroxine Sodium 88 mcg PO DAILY 07/09/18 05/21/19 metFORMIN HCL 1,000 mg PO BID 07/09/18 05/21/19 Cortisone Acetate [Cortone] 25 mg PO DAILY 09/12/18 05/21/19 Aspirin EC [Ecotrin Low Dose] 81 mg PO DAILY 05/21/19 05/21/19 Diazepam 10 mg PO HS PRN 05/21/19 05/21/19 Ergocalciferol [Vitamin D2] 50,000 unit PO FR 05/21/19 05/21/19 Ibuprofen [Motrin] 800 mg PO Q8H PRN 05/21/19 05/21/19 Magnesium Oxide 400 mg PO DAILY 05/21/19 05/21/19 Metoprolol Succinate (ER) [Toprol 25 mg PO BID 05/21/19 05/21/19 XL] glyBURIDE [Diabeta] 2.5 mg PO BID-W/MEALS 05/21/19 05/21/19 Previous Rx's Medication Instructions Recorded Prochlorperazine [Compazine] 10 mg PO Q6H PRN #50 tab 09/24/18 Cephalexin [Keflex] 500 mg PO TID #21 cap 05/21/19 Allergies Allergy/AdvReac Type Severity Reaction Status Date / Time codeine AdvReac Nausea & Verified 05/26/19 18:02 Vomiting Review of Systems ROS Statement: Those systems with pertinent positive or pertinent negative responses have been documented in the HPI. ROS Other: All systems not noted in ROS Statement are negative. Past Medical History Past Medical History: Coronary Artery Disease (CAD), Diabetes Mellitus, Hyperlip idemia, Osteoarthritis (OA), Thyroid Disorder Additional Past Medical History / Comment(s): ADRENAL INSUFFICIENCY, NIDDM, kidney stones, recurrent UTI History of Any Multi-Drug Resistant Organisms: None Reported Date of last positivie culture/infection: 07/09/18 MDRO Source:: ESBL URINE Past Surgical History: Back Surgery, Bariatric Surgery, Heart Catheterization With Stent Additional Past Surgical History / Comment(s): BACK SURG (decompression) X2. LAP BAND.carpel tunnel Past Anesthesia/Blood Transfusion Reactions: No Reported Reaction Date of Last Stent Placement:: 2014 Past Psychological History: Anxiety Smoking Status: Former smoker Past Alcohol Use History: None Reported Past Drug Use History: None Reported - Past Family History Father Family Medical History: Diabetes Mellitus Additional Family Medical History / Comment(s): of a ruptured aorta Mother Family Medical History: Cancer, Diabetes Mellitus Additional Family Medical History / Comment(s): PPM, liver [place] General Exam - General Exam Comments Initial Comments: GENERAL: Well-appearing, well-nourished and in no acute distress. HEAD: Atraumatic, normocephalic. EYES: Pupils equal round and reactive to light, extraocular movements intact, sclera anicteric, conjunctiva are normal. ENT: Nares patent, oropharynx clear without exudates. Moist mucous membranes. NECK: Normal range of motion, supple without lymphadenopathy or JVD. LUNGS: Breath sounds clear to auscultation bilaterally and equal. No wheezes rales or rhonchi. HEART: Regular rate and rhythm without murmurs, rubs or gallops. ABDOMEN: Suprapubic tenderness on palpation. Soft, normoactive bowel sounds. No guarding, no rebound. No masses appreciated. : Normal external exam. Mild scab on the tip of the penis. No discharge, no signs of infection. EXTREMITIES: Normal range of motion, no pitting or edema. No clubbing or cyanosis. NEUROLOGICAL: Normal speech, normal gait. PSYCH: Normal mood, normal affect. SKIN: Warm, Dry, normal turgor, no rashes or lesions noted. Limitations: no limitations Course Vital Signs 05/26/19 17:58 Temperature 97.2 F L Pulse Rate 89 Respiratory 20 Rate Blood Pressure 90/69 O2 Sat by Pulse 99 Oximetry Medical Decision Making - Medical Decision Making Patient is 63-year-old male presenting with urinary retention. Dr. Tristian hunter removed his catheter this morning however patient has not been able to urinate on his own. Bladder scan revealed over 500 mL of fluid. Martini catheter was placed. Patient had immediate relief. UA shows no signs of infection. Patient stable for discharge at this time. He'll follow back up with Dr. Rose. He is in agreement with this plan of care. Return parameters were discussed with the patient he verbalizes understanding. Case discussed with Dr. Grewal. - Lab Data Lab Results 05/26/19 Range/Units 18:32 Urine Color Yellow Urine Appearance Clear (Clear) Urine pH 6.0 (5.0-8.0) Ur Specific [place] 1.017 (1.001-1.035) Urine Protein Trace H (Negative) Urine Glucose (UA) Negative (Negative) Urine Ketones Negative (Negative) Urine Blood Small H (Negative) Urine Nitrite Negative (Negative) Urine Bilirubin Negative (Negative) Urine Urobilinogen 4.0 (<2.0) mg/dL Ur Leukocyte Esterase Negative (Negative) Urine RBC 37 H (0-5) /hpf Urine WBC 3 (0-5) /hpf Urine Bacteria Rare H (None) /hpf Hyaline Casts 1 (0-2) /lpf Urine Mucus Rare H (None) /hpf Disposition Clinical Impression: Urinary retention Disposition: HOME SELF-CARE Condition: Stable Instructions (If sedation given, give patient instructions): Martini Catheter Placement and Care (ED) Additional Instructions: Please return to the Emergency Department if symptoms worsen or any other concerns. May use topical antibiotic on a scab. Follow up with urologist. Is patient prescribed a controlled substance at d/c from ED?: No Referrals: Chano Ames MD [Primary Care Provider] - 1-2 days Dillon Rose MD [STAFF PHYSICIAN] - 1-2 days
[2019-05-26 19:17] VITALS: BP 144/84; PULSE 77; RESP 16; TEMP 98
== END 2019-05-26 19:17 | disposition home or self-care (01) ==
LOC: EC 17:56
DX: R33.9 Retention of urine, unspecified (principal); E11.9 Type 2 diabetes mellitus without complications; I25.10 Atherosclerotic heart disease of native coronary artery without angina pectoris; M19.90 Unspecified osteoarthritis, unspecified site; E07.9 Disorder of thyroid, unspecified; Z79.890 Hormone replacement therapy; Z79.82 Long term (current) use of aspirin; Z79.899 Other long term (current) drug therapy; Z79.84 Long term (current) use of oral hypoglycemic drugs; Z88.5 Allergy status to narcotic agent; Z87.440 Personal history of urinary (tract) infections; Z95.5 Presence of coronary angioplasty implant and graft; Z87.891 Personal history of nicotine dependence; Z86.39 Personal history of other endocrine, nutritional and metabolic disease
CPT/HCPCS: 51702; 51798; 81001; 99284

== ENCOUNTER 2019-06-06 05:48 | Emergency (ER) | payer MEDICARE ==
[2019-06-06 05:58] VITALS: BP 100/65; PULSE 73; RESP 17; TEMP 97.2
[2019-06-06] MEDS ORDERED: LIDOCAINE 2% GEL 30 ML TUBE TOPICAL ONE (06:11)
--- NOTE | 2019-06-06 06:15 | ED ---
Male Urogenital HPI - General Chief complaint: Urogenital Stated complaint: Catheter Issue Time Seen by Provider: 06/06/19 05:55 Source: patient, RN notes reviewed Mode of arrival: ambulatory Limitations: no limitations - History of Present Illness Initial comments: This is a 63-year-old male presents to the emergency Department with chief complaint of Penile irritation, pain. Patient has had a Martini catheter and after his prostate resection by urology. Patient has appointment tomorrow at 8 AM. Patient states at this time the foot There is 3 removed. Patient is requesting pain medications. Patient specifically requests Dilaudid at this time. Patient states that the cough HAS BEEN DRINKING FINE NO CHANGES. DENIES ANY FEVERS CHILLS. - Related Data Home Medications Medication Instructions Recorded Confirmed Famotidine [Pepcid] 20 mg PO BID 06/17/15 05/21/19 Levothyroxine Sodium 88 mcg PO DAILY 07/09/18 05/21/19 metFORMIN HCL 1,000 mg PO BID 07/09/18 05/21/19 Cortisone Acetate [Cortone] 25 mg PO DAILY 09/12/18 05/21/19 Aspirin EC [Ecotrin Low Dose] 81 mg PO DAILY 05/21/19 05/21/19 Diazepam 10 mg PO HS PRN 05/21/19 05/21/19 Ergocalciferol [Vitamin D2] 50,000 unit PO FR 05/21/19 05/21/19 Ibuprofen [Motrin] 800 mg PO Q8H PRN 05/21/19 05/21/19 Magnesium Oxide 400 mg PO DAILY 05/21/19 05/21/19 Metoprolol Succinate (ER) [Toprol 25 mg PO BID 05/21/19 05/21/19 XL] glyBURIDE [Diabeta] 2.5 mg PO BID-W/MEALS 05/21/19 05/21/19 Previous Rx's Medication Instructions Recorded Prochlorperazine [Compazine] 10 mg PO Q6H PRN #50 tab 09/24/18 Cephalexin [Keflex] 500 mg PO TID #21 cap 05/21/19 Allergies Allergy/AdvReac Type Severity Reaction Status Date / Time codeine AdvReac Nausea & Verified 05/26/19 18:02 Vomiting Review of Systems ROS Statement: Those systems with pertinent positive or pertinent negative responses have been documented in the HPI. ROS Other: All systems not noted in ROS Statement are negative. Past Medical History Past Medical History: Coronary Artery Disease (CAD), Diabetes Mellitus, Hyperlipidemia, Osteoarthritis (OA), Thyroid Disorder Additional Past Medical History / Comment(s): ADRENAL INSUFFICIENCY, NIDDM, kidney stones, recurrent UTI History of Any Multi-Drug Resistant Organisms: None Reported Date of last positivie culture/infection: 07/09/18 MDRO Source:: ESBL URINE Past Surgical History: Back Surgery, Bariatric Surgery, Heart Catheterization With Stent Additional Past Surgical History / Comment(s): BACK SURG (decompression) X2. LAP BAND.carpel tunnel Past Anesthesia/Blood Transfusion Reactions: No Reported Reaction Date of Last Stent Placement:: 2014 Past Psychological History: Anxiety Smoking Status: Former smoker Past Alcohol Use History: None Reported Past Drug Use History: None Reported - Past Family History Father Family Medical History: Diabetes Mellitus Additional Family Medical History / Comment(s): of a ruptured aorta Mother Family Medical History: Cancer, Diabetes Mellitus Additional Family Medical History / Comment(s): PPM, liver [place] General Exam Limitations: no limitations General appearance: alert, in no apparent distress Head exam: Present: atraumatic, normocephalic, normal inspection Respiratory exam: Present: normal lung sounds bilaterally. Absent: respiratory distress, wheezes, rales, rhonchi, stridor Cardiovascular Exam: Present: regular rate, normal rhythm, normal heart sounds. Absent: systolic murmur, diastolic murmur, rubs, gallop, clicks GI/Abdominal exam: Present: soft, normal bowel sounds. Absent: distended, tenderness, guarding, rebound, rigid exam: Present: other (Martini catheter in place there was some mild erythema with opening. This was cleaned, no open sores.) Skin exam: Present: warm, dry, intact, normal color. Absent: rash Course Vital Signs 06/06/19 05:50 Temperature 97.2 F L Pulse Rate 73 Respiratory 17 Rate Blood Pressure 100/65 O2 Sat by Pulse 98 Oximetry Medical Decision Making - Medical Decision Making Patient presented for a refill discomfort. Patient initially requested full catheter removed. I did explain that there could be complications has had recent procedure in the Martini catheter need to be placed after could cause discomfort. Patient requests a Martini catheter to be left until his appointment tomorrow. Patient requests Dilaudid for his pain this time. Patient informed that this is not appropriate. Patient was given lidocaine for his discomfort. Patient will be discharged with follow-up. I did instruct him to thoroughly cleaned the area Disposition Clinical Impression: Martini catheter in place, Penile irritation Disposition: HOME SELF-CARE Condition: Stable Instructions (If sedation given, give patient instructions): Martini Catheter Placement and Care (ED) Additional Instructions: Please return to the Emergency Department if symptoms worsen or any other concerns. Is patient prescribed a controlled substance at d/c from ED?: No Referrals: Chano Ames MD [Primary Care Provider] - 1-2 days Time of Disposition: 06:15
[2019-06-06] MEDS ORDERED: traMADol 50 MG STARTER PACK 3 TAB BTL PO STA (06:32)
== END 2019-06-06 06:43 | disposition home or self-care (01) ==
LOC: EC 05:48
DX: N48.89 Other specified disorders of penis (principal); Z96.0 Presence of urogenital implants; I25.10 Atherosclerotic heart disease of native coronary artery without angina pectoris; E11.9 Type 2 diabetes mellitus without complications; E07.9 Disorder of thyroid, unspecified; F41.9 Anxiety disorder, unspecified; Z79.890 Hormone replacement therapy; Z79.84 Long term (current) use of oral hypoglycemic drugs; Z79.82 Long term (current) use of aspirin; Z79.899 Other long term (current) drug therapy; Z88.5 Allergy status to narcotic agent; Z87.891 Personal history of nicotine dependence; Z98.84 Bariatric surgery status; Z95.5 Presence of coronary angioplasty implant and graft
CPT/HCPCS: 99283

== ENCOUNTER → 2019-07-22 | Outpatient (CLI) | payer MEDICARE ==
--- NOTE | 2019-07-22 09:52 | XR ---
EXAMINATION TYPE: XR KUB DATE OF EXAM: 07/22/2019 9:45 AM CLINICAL HISTORY: Left-sided kidney stone. History of lymphoma. TECHNIQUE: Two supine KUB images of the abdomen are obtained. COMPARISON: CT May 12, 2019. PET CT February 06, 2019. Same day renal ultrasound. FINDINGS: Central left renal calculi are redemonstrated, roughly 5 stones measuring up to 9 mm in siz e are again seen. No definitive right-sided nephrolithiasis. Stable positioning of lap band with increased angle. Overall nonobstructive bowel gas pattern. Multil evel spurring and disc space narrowing throughout the thoracolumbar spine with slight dextroconvex sc oliosis centered at L2-L3 level redemonstrated. IMPRESSION: Persistent left sided nephrolithiasis not significantly changed from recent CT.
--- NOTE | 2019-07-22 10:41 | US ---
EXAMINATION TYPE: US kidneys/renal and bladder DATE OF EXAM: 07/22/2019 COMPARISON: CT May 12, 2019 CLINICAL HISTORY: N20.0 Calculus of kidney. Patient stated that he had not drink the water required for exam, however patient felt like his bladd er was very full and had to urinate following exam. EXAM MEASUREMENTS: Right Kidney: 10.1 x 4.5 x 4.4 cm Left Kidney: 9.5 x 4.6 x 4.5 cm Post Void Residual Volume: 35.7 mL Patient of large body habitus, limiting study. Right Kidney: No hydronephrosis or masses seen Left Kidney: cyst noted measuring 2.1 x 2.1 x 2.3cm, stones seen by x-ray not evident on ultrasound, this is probably due to body habitus and overlying bowel gas obscuring portions of kidney Bladder: not fully distended Bilateral Jets seen: no Normal Post Void Residual: yes There is no evidence for hydronephrosis at this point in time. The urinary bladder is poorly distende d. Bilateral ureteral jets are not seen. IMPRESSION: Suboptimal study, Left-sided stones on CT and same day x-ray less well seen on ultrasound , no hydronephrosis noted bilaterally.
== END | disposition home or self-care (01) ==
LOC: RADUSWWP 08:58
PROVIDERS: ATTEND Urology
DX: N20.0 Calculus of kidney (principal); Z88.5 Allergy status to narcotic agent
CPT/HCPCS: 74018; 76770

== ENCOUNTER 2019-08-25 15:32 | Inpatient (IN) | payer MEDICARE ==
[2019-08-25] MEDS ORDERED: SODIUM CHLORIDE 0.9% 1,000 ML IV STA (16:18)
--- NOTE | 2019-08-25 16:20 | ED ---
General Adult HPI - General Stated complaint: Weakness Time Seen by Provider: 08/25/19 15:58 - History of Present Illness Initial comments: Patient is 63-year-old male presenting to the emergency department with chief complaint of diarrhea. States this is an ongoing issue for the past 2 months. States the diarrhea is nonbloody in nature. States he cannot take it anymore as he continues to have diarrhea on daily basis. Patient states he decided to call the ambulance and be reevaluated in the emergency department. Patient is visibly jaundiced but states he doesn't recall being more yellow than usual. States he is not a drinker nor has a history of hepatobiliary disease. Does report recent TURP procedure site continues to have gross hematuria. He does report dysuria. Denies taking medication to alleviate the symptoms. Denies night sweats fevers or chills. Denies chest pain shortness of breath nausea vomiting. - Related Data Home Medications Medication Instructions Recorded Confirmed Famotidine [Pepcid] 20 mg PO BID 06/17/15 08/02/19 Levothyroxine Sodium 88 mcg PO DAILY 07/09/18 08/02/19 metFORMIN HCL 1,000 mg PO BID 07/09/18 08/02/19 Cortisone Acetate [Cortone] 25 mg PO DAILY 09/12/18 08/02/19 Aspirin EC [Ecotrin Low Dose] 81 mg PO DAILY 05/21/19 08/02/19 Diazepam 10 mg PO HS PRN 05/21/19 08/02/19 Ergocalciferol [Vitamin D2] 50,000 unit PO FR 05/21/19 08/02/19 Ibuprofen [Motrin] 800 mg PO Q8H PRN 05/21/19 08/02/19 Magnesium Oxide 400 mg PO DAILY 05/21/19 08/02/19 Metoprolol Succinate (ER) [Toprol 25 mg PO BID 05/21/19 08/02/19 XL] glyBURIDE [Diabeta] 2.5 mg PO BID-W/MEALS 05/21/19 08/02/19 Previous Rx's Medication Instructions Recorded Prochlorperazine [Compazine] 10 mg PO Q6H PRN #50 tab 09/24/18 Allergies Allergy/AdvReac Type Severity Reaction Status Date / Time codeine AdvReac Severe Nausea & Verified 08/02/19 07:33 Vomiting Review of Systems ROS Statement: Those systems with pertinent positive or pertinent negative responses have been documented in the HPI. ROS Other: All systems not noted in ROS Statement are negative. Past Medical History Past Medical History: Coronary Artery Disease (CAD), Diabetes Mellitus, Hyperlipidemia, Osteoarthritis (OA), Thyroid Disorder Additional Past Medical History / Comment(s): ADRENAL INSUFFICIENCY, NIDDM, kidney stones, recurrent UTI History of Any Multi-Drug Resistant Organisms: None Reported Date of last positivie culture/infection: 07/09/18 MDRO Source:: ESBL URINE Past Surgical History: Back Surgery, Bariatric Surgery, Heart Catheterization With Stent Additional Past Surgical History / Comment(s): BACK SURG (decompression) X2. LAP BAND.carpel tunnel Past Anesthesia/Blood Transfusion Reactions: No Reported Reaction Date of Last Stent Placement:: 2014 Smoking Status: Former smoker - Past Family History Father Family Medical History: Diabetes Mellitus Additional Family Medical History / Comment(s): of a ruptured aorta Mother Family Medical History: Cancer, Diabetes Mellitus Additional Family Medical History / Comment(s): PPM, liver CA General Exam Limitations: no limitations General appearance: alert, in no apparent distress, obese Head exam: Present: atraumatic, normocephalic, normal inspection Eye exam: Present: normal appearance, PERRL, EOMI, scleral icterus Pupils: Present: normal accommodation ENT exam: Present: normal exam, normal oropharynx, mucous membranes moist Neck exam: Present: normal inspection, full ROM Respiratory exam: Present: normal lung sounds bilaterally Cardiovascular Exam: Present: regular rate, normal rhythm, normal heart sounds GI/Abdominal exam: Present: soft, tenderness (Mild suprapubic tenderness. Mild to moderate right lower quadrant and right upper quadrant tenderness. Negative Espinal sign. Positive McBurney point tenderness.). Absent: distended, guarding, rebound Extremities exam: Present: normal inspection, full ROM Back exam: Present: normal inspection, full ROM Neurological exam: Present: alert, oriented X3 Psychiatric exam: Present: normal affect, normal mood Skin exam: Present: warm, dry, intact, normal color, other (Jaundice) Course Vital Signs 08/25/19 16:28 Temperature 98.0 F Pulse Rate 91 Respiratory 18 Rate Blood Pressure 106/72 O2 Sat by Pulse 100 Oximetry Medical Decision Making - Medical Decision Making Patient is 63-year-old male presenting to the emergency department with a chief complaint of diarrhea. Patient had developed 2 months of nonbloody diarrhea which was the reason for his recent trip to the ED. On exam patient is jaundiced but states he has not noticed any changes to his skin color. He does have scleral icterus as well. Patient is not alcoholic no reports any history of hepatic diseases. Patient has a recent TURP and was expecting gross hematuria. However, he does report dysuria. CBC is unremarkable. CMP shows elevated bilirubin of 15.4. Elevated AST and ALT level, 2000 and 1500, respectively. Elevated BUN and creatinine levels. CT of abdomen and pelvis is unremarkable. Right upper quadrant ultrasound pending. Hepatitis panel, heterophile, coags, type and screen pending. Patient given 1 g Rocephin and IV fluids. I spoke with from [facility] who would admit the patient for further medical management. I discussed the case with Dr. Mendoza who is agreeable. Gen. surgery consulted. GI consulted. - Lab Data Result diagrams: 08/25/19 16:45 08/25/19 16:45 Lab Results 08/25/19 08/25/19 08/25/19 Range/Units 16:45 16:45 16:45 WBC 6.5 (3.8-10.6) k/uL RBC 4.65 (4.30-5.90) m/uL Hgb 14.4 (13.0-17.5) gm/dL Hct 45.2 (39.0-53.0) % MCV 97.2 (80.0-100.0) fL MCH 31.0 (25.0-35.0) pg MCHC 31.9 (31.0-37.0) g/dL RDW 15.7 H (11.5-15.5) % Plt Count 171 (150-450) k/uL Neutrophils % 59 % Lymphocytes % 28 % Monocytes % 8 % Eosinophils % 3 % Basophils % 1 % Neutrophils # 3.8 (1.3-7.7) k/uL Lymphocytes # 1.8 (1.0-4.8) k/uL Monocytes # 0.5 (0-1.0) k/uL Eosinophils # 0.2 (0-0.7) k/uL Basophils # 0.1 (0-0.2) k/uL Hypochromasia Slight Sodium 139 (137-145) mmol/L Potassium 4.0 (3.5-5.1) mmol/L Chloride 108 H (98-107) mmol/L Carbon Dioxide 22 (22-30) mmol/L Anion Gap 9 mmol/L BUN 26 H (9-20) mg/dL Creatinine 1.30 H (0.66-1.25) mg/dL Est GFR (CKD-EPI)AfAm 66 (>60 ml/min/1.73 sqM) Est GFR (CKD-EPI)NonAf 57 (>60 ml/min/1.73 sqM) Glucose 129 H (74-99) mg/dL Calcium 9.1 (8.4-10.2) mg/dL Total Bilirubin 15.7 H* (0.2-1.3) mg/dL AST 2012 H (17-59) U/L ALT 1494 H (4-49) U/L Alkaline Phosphatase 145 H (38-126) U/L Ammonia (<30) umol/L Total Protein 6.0 L (6.3-8.2) g/dL Albumin 3.3 L (3.5-5.0) g/dL Amylase 52 (30-110) U/L Lipase 176 (23-300) U/L Urine Color Dark Brown Urine Appearance Turbid (Clear) Urine pH 6.0 (5.0-8.0) Ur Specific [place] 1.021 (1.001-1.035) Urine Protein 1+ H (Negative) Urine Glucose (UA) Negative (Negative) Urine Ketones Negative (Negative) Urine Blood Moderate H (Negative) Urine Nitrite Negative (Negative) Urine Bilirubin 3+ H (Negative) Urine Urobilinogen 8.0 (<2.0) mg/dL Ur Leukocyte Esterase Large H (Negative) Urine RBC >182 H (0-5) /hpf Urine WBC >182 H (0-5) /hpf Urine WBC Clumps Many H (None) /hpf Ur Squamous Epith Cells 1 (0-4) /hpf Urine Bacteria Occasional H (None) /hpf Urine Mucus Occasional H (None) /hpf 08/25/19 Range/Units 16:45 WBC (3.8-10.6) k/uL RBC (4.30-5.90) m/uL Hgb (13.0-17.5) gm/dL Hct (39.0-53.0) % MCV (80.0-100.0) fL MCH (25.0-35.0) pg MCHC (31.0-37.0) g/dL RDW (11.5-15.5) % Plt Count (150-450) k/uL Neutrophils % % Lymphocytes % % Monocytes % % Eosinophils % % Basophils % % Neutrophils # (1.3-7.7) k/uL Lymphocytes # (1.0-4.8) k/uL Monocytes # (0-1.0) k/uL Eosinophils # (0-0.7) k/uL Basophils # (0-0.2) k/uL Hypochromasia Sodium (137-145) mmol/L Potassium (3.5-5.1) mmol/L Chloride (98-107) mmol/L Carbon Dioxide (22-30) mmol/L Anion Gap mmol/L BUN (9-20) mg/dL Creatinine (0.66-1.25) mg/dL Est GFR (CKD-EPI)AfAm (>60 ml/min/1.73 sqM) Est GFR (CKD-EPI)NonAf (>60 ml/min/1.73 sqM) Glucose (74-99) mg/dL Calcium (8.4-10.2) mg/dL Total Bilirubin (0.2-1.3) mg/dL AST (17-59) U/L ALT (4-49) U/L Alkaline Phosphatase (38-126) U/L Ammonia 16 (<30) umol/L Total Protein (6.3-8.2) g/dL Albumin (3.5-5.0) g/dL Amylase (30-110) U/L Lipase (23-300) U/L Urine Color Urine Appearance (Clear) Urine pH (5.0-8.0) Ur Specific [place] (1.001-1.035) Urine Protein (Negative) Urine Glucose (UA) (Negative) Urine Ketones (Negative) Urine Blood (Negative) Urine Nitrite (Negative) Urine Bilirubin (Negative) Urine Urobilinogen (<2.0) mg/dL Ur Leukocyte Esterase (Negative) Urine RBC (0-5) /hpf Urine WBC (0-5) /hpf Urine WBC Clumps (None) /hpf Ur Squamous Epith Cells (0-4) /hpf Urine Bacteria (None) /hpf Urine Mucus (None) /hpf Disposition Clinical Impression: Diarrhea, Abdominal pain, Transaminitis, Hyperbilirubinemia, UTI (urinary tract infection), Gross hematuria, Jaundice Disposition: ADMITTED IP TO THIS HOSP Additional Instructions: Patient will be admitted Is patient prescribed a controlled substance at d/c from ED?: No Referrals: Chano Ames MD [Primary Care Provider] - 1-2 days Time of Disposition: 20:18
[2019-08-25 17:05] LABS: Appearance,Urine Turbid (Clear); Bacteria,Urine Occasional /hpf; Bilirubin,Urine 3+ (Negative); Blood,Urine Moderate (Negative); Color,Urine Dark Brown; Glucose,Urine (UA) Negative (Negative); Ketones,Urine Negative (Negative); Leukocyte Esterase,Urine Large (Negative); Mucus,Urine Occasional /hpf; Nitrite,Urine Negative (Negative); Protein,Urine 1+ (Negative); RBC,Urine >182 /hpf (0-5); Specific Gravity,Urine 1.021 (1.001-1.035); Squamous Epithelial Cell,Urine 1 /hpf (0-4); WBC,Urine >182 /hpf (0-5)
[2019-08-25 17:06] LABS: Basophils # (A) 0.1 k/uL (0-0.2); Basophils % (A) 1 %; Eosinophils # (A) 0.2 k/uL (0-0.7); Eosinophils % (A) 3 %; HCT 45.2 % (39.0-53.0); HGB 14.4 gm/dL (13.0-17.5); Hypochromasia Slight; Lymphocytes # (A) 1.8 k/uL (1.0-4.8); Lymphocytes % (A) 28 %; MCHC 31.9 g/dL (31.0-37.0); MCV 97.2 fL (80.0-100.0); Mean Platelet Volume 8.6; Monocytes # (A) 0.5 k/uL (0-1.0); Monocytes % (A) 8 %; Neutrophils # (A) 3.8 k/uL (1.3-7.7); Neutrophils % (A) 59 %; Platelet Count 171 k/uL (150-450); RBC 4.65 m/uL (4.30-5.90); RDW 15.7 % (11.5-15.5); WBC 6.5 k/uL (3.8-10.6)
[2019-08-25 17:18] LABS: Albumin 3.3 g/dL (3.5-5.0); Calcium 9.1 mg/dL (8.4-10.2)
[2019-08-25 18:00] LABS: Total Bilirubin 15.7 mg/dL (0.2-1.3)
--- NOTE | 2019-08-25 19:53 | CT ---
EXAMINATION TYPE: CT abdomen pelvis w con DATE OF EXAM: 08/25/2019 COMPARISON: CT May 12, 2019. PET CT February 06, 2019 HISTORY: RLQ pain, flank pain. History of lymphoma. CT DLP: 1485.6 mGycm, Automated Exposure Control for Dose Reduction was Utilized. CONTRAST: CT scan of the abdomen and pelvis is performed without oral but with IV Contrast, patient injected wi th 100 mL of Isovue 300. FINDINGS: LUNG BASES: No significant abnormality is appreciated. LIVER/GB: Visualized liver is hypodense relative to spleen suggesting diffuse fatty infiltration.. PANCREAS: No significant abnormality is seen. SPLEEN: No significant abnormality is seen. ADRENALS: No significant abnormality is seen. KIDNEYS: Multiple mid to lower pole left renal calculi redemonstrated with asymmetric fullness left r enal pelvis without hydroureter or obstructing left renal calculus seen. Partially exophytic simple a ppearing 2.2 cm cyst posteriorly upper to mid pole level left kidney. No intraluminal calculus and po kevon distended bladder. BOWEL: Suboptimal evaluation without enteric contrast. Lap band device just below diaphragm stable in position and angle with increased angle redemonstrated. No suspicious small or large bowel dilatatio n. PROSTATE/SEMINAL VESICLES: Normal in size with central TURP type defect. LYMPH NODES: No greater than 1cm abdominal or pelvic lymph nodes are appreciated. OSSEOUS STRUCTURES: Multilevel laminectomy defects with spinous process resection L3 and L4 levels. S light scoliotic curvature in the lumbar spine. Moderate multilevel disc space narrowing with moderate to severe multilevel anterior and lateral spurring. Compatible disc desiccation. Posterior spurring effaces anterior thecal sac L4-L5 level on sagittal and axial images. OTHER: No significant additional abnormality is seen. IMPRESSION: No suspicious new or acute finding is seen to account for patient's clinical symptoms.
[2019-08-25] MEDS ORDERED: NALOXONE 0.4 MG/ML 1 ML VIAL IV PRN (20:08)
[2019-08-25] MEDS ORDERED: ONDANSETRON 4 MG/2 ML VIAL IVP PRN (20:08)
[2019-08-25] MEDS ORDERED: ALPRAZolam 0.25 MG TAB PO PRN (20:08)
[2019-08-25] MEDS ORDERED: cefTRIAXone IN SWFI 1,000 MG/10 ML SYRINGE IVP STA (20:14)
[2019-08-25 20:29] LABS: INR 1.4 (<1.2); Partial Thromboplastin Time 24.3 sec (22.0-30.0)
[2019-08-25 21:04] LABS: Amphetamine Screen,Urine Not Detected (NotDetected); Barbiturate Screen,Urine Not Detected (NotDetected); Benzodiazepines Screen,Urine Detected (NotDetected); Cocaine Screen,Urine Not Detected (NotDetected); Methadone Screen, Urine Not Detected (NotDetected); Opiate Screen,Urine Not Detected (NotDetected); Oxycodone Screen, Urine Not Detected (NotDetected); Phencyclidine Screen,Urine Not Detected (NotDetected); Tricyclic Antidepressant,Urine Not Detected (NotDetected); Urn Cannabinoid Scrn Not Detected (NotDetected)
[2019-08-25 21:13] LABS: Acetaminophen <10.0 ug/mL; Alcohol <10 mg/dL
[2019-08-25 21:45] LABS: Hepatitis A Antibody IgM NEGATIVE
--- NOTE | 2019-08-25 22:48 | US ---
EXAMINATION TYPE: US abdomen limited DATE OF EXAM: 08/25/2019 COMPARISON: CT CLINICAL HISTORY: ruq pain, hyperbili, . RUQ pain per order. Diarrhea, jaundice. HTN, hyperlipidemia, diabetes mellitus, hx bariatric surgery. EXAM MEASUREMENTS: Liver Length: 14.3 cm Gallbladder Wall: 0.33 cm CBD: Not seen. Right Kidney: 10.0 x 5.0 x 4.7 cm *Limited study due to large patient body habitus and bowel gas. Pancreas: Limited due to overlying bowel gas. Liver: Measures 14.3 cm in length. Appears to be coarse. Gallbladder: Minimal internal echoes seen versus artifact. Measures 7.8 cm in length. Wall measures upper limits of normal. Evidence for sonographic Espinal's sign: No CBD: Obscured by overlying bowel gas. Right Kidney: No hydronephrosis or masses seen IMPRESSION: Borderline gallbladder wall thickening. No gallstones seen. No dilated ducts.
[2019-08-25] MEDS: SODIUM CHLORIDE 0.9% 1,000 ML IV SCH (23:42)
[2019-08-26] MEDS ORDERED: DIAZEPAM 5 MG TAB PO PRN (00:42)
--- NOTE | 2019-08-26 01:04 | P.HPIM ---
History of Present Illness H&P Date: 08/25/19 Chief Complaint: chronic diarrhea 63-year-old male with adrenal insufficiency, diabetes mellitus, CAD, hypothyroid, non-Hodgkin lymphoma Patient comes in due to 2 month history of chronic diarrhea and he decided that he wanted to be evaluated at this point. He reports since he had his TURP surgery done for the prostate he noticed explosive diarrhea with incontinence at least twice a week without having any regular bowel movements in between. He ssoill his clothes bed or chair that she sitting on. Denies any bleeding denies any melena denies any abdominal pain, nausea or vomiting. He denies any recent traveling or sick contacts. This has been associated with weight loss subjective. And decreased appetite. Upon evaluating the patient in the ED he was found to be deeply jaundiced with severely elevated transaminases and bilirubin patient is not aware of any liver issues in the past and he did not notice any jaundice. He denies any IV drug abuse, denies any alcohol use, denies any history of hepatitis or blood transfusion denies any pale stool. He did notice dark urine but thought is related to his TURP and bleeding. Patient continues to struggle to urinate since his TURP surgery. Again denies any abdominal pain or back pain. Otherwise patient denies any fevers or chills denies any chest pain or trouble breathing denies any coughing upper respiratory infection symptoms. Patient reports that he had a colonoscopy done about 4 years ago and was reported to him to be normal Patient has history of non-Hodgkin lymphoma was diagnosed about 6 months ago. adrenal insufficiency since childhood Patient is admitted for further evaluation with GI Review of Systems Pertinent positives as noted in HPI. All other systems were reviewed and are negative Past Medical History Past Medical History: Coronary Artery Disease (CAD), Diabetes Mellitus, Hyperlipidemia, Osteoarthritis (OA), Thyroid Disorder Additional Past Medical History / Comment(s): ADRENAL INSUFFICIENCY, NIDDM, kidney stones, recurrent UTI History of Any Multi-Drug Resistant Organisms: None Reported Date of last positivie culture/infection: 07/09/18 MDRO Source:: ESBL URINE Past Surgical History: Back Surgery, Bariatric Surgery, Heart Catheterization With Stent Additional Past Surgical History / Comment(s): BACK SURG (decompression) X2. LAP BAND.carpel tunnel Past Anesthesia/Blood Transfusion Reactions: No Reported Reaction Date of Last Stent Placement:: 2014 Smoking Status: Former smoker - Past Family History Father Family Medical History: Diabetes Mellitus Additional Family Medical History / Comment(s): of a ruptured aorta Mother Family Medical History: Cancer, Diabetes Mellitus Additional Family Medical History / Comment(s): PPM, liver CA Medications and Allergies Home Medications Medication Instructions Recorded Confirmed Type Famotidine [Pepcid] 20 mg PO BID 06/17/15 08/02/19 History Levothyroxine Sodium 88 mcg PO DAILY 07/09/18 08/02/19 History metFORMIN HCL 1,000 mg PO BID 07/09/18 08/02/19 History Cortisone Acetate [Cortone] 25 mg PO DAILY 09/12/18 08/02/19 History Prochlorperazine [Compazine] 10 mg PO Q6H PRN #50 tab 09/24/18 08/02/19 Rx Aspirin EC [Ecotrin Low Dose] 81 mg PO DAILY 05/21/19 08/02/19 History Diazepam 10 mg PO HS PRN 05/21/19 08/02/19 History Ergocalciferol [Vitamin D2] 50,000 unit PO FR 05/21/19 08/02/19 History Ibuprofen [Motrin] 800 mg PO Q8H PRN 05/21/19 08/02/19 History Magnesium Oxide 400 mg PO DAILY 05/21/19 08/02/19 History Metoprolol Succinate (ER) [Toprol 25 mg PO BID 05/21/19 08/02/19 History XL] glyBURIDE [Diabeta] 2.5 mg PO BID-W/MEALS 05/21/19 08/02/19 History Allergies Allergy/AdvReac Type Severity Reaction Status Date / Time codeine AdvReac Severe Nausea & Verified 08/02/19 07:33 Vomiting Physical Exam Vitals: Vital Signs Temp Pulse Resp BP Pulse Ox 08/25/19 16:28 98.0 F 91 18 106/72 100 Intake and Output 08/25/19 08/25/19 08/25/19 06:59 14:59 22:59 Other: Weight 95.254 kg Constitutional: No acute distress, conversant, pleasant Eyes: Deep scleral jaundice, moist conjunctiva, no lid-lag Pupils equal round reactive to light ENMT: NC/AT Oropharynx clear, no erythema, or exudates Neck: Supple, FROM, no masses, or JVD No carotid bruits No thyromegaly Lungs: Clear to auscultation Clear to percussion Normal respiratory effort, no accessory muscle use Cardiovascular: Heart regular in rate and rhythm, No murmurs, gallops, or rubs No peripheral edema Abdominal: Soft Nontender, no guarding, rebound or rigidity Abdomen moving with respiration Normoactive bowel sounds No hepatomegaly, No splenomegaly No palpable mass No abdominal wall hernia noted Skin: Normal temperature, tone, texture, turgor No induration No subcutaneous nodules No rash, lesions No ulcers Extremities: No digital cyanosis No clubbing Pedal pulses intact and symmetrical Radial pulses intact and symmetrical No calf tenderness Psychiatric: Alert and oriented to person, place and time Appropriate affect fair judgement Neuro Muscles Strength 5/5 in all 4 extremities Sensation to light touch grossly present throughout Cranial nerves II-XII grossly intact No focal sensory deficits Lymphatics: no palpable cervical or supraclavicular , or inguinal lymph nodes Results CBC & Chem 7: 08/25/19 16:45 08/25/19 16:45 Labs: Abnormal Lab Results - Last 24 Hours (Table) 08/25/19 08/25/19 08/25/19 Range/Units 16:45 16:45 16:45 RDW 15.7 H (11.5-15.5) % Chloride 108 H (98-107) mmol/L BUN 26 H (9-20) mg/dL Creatinine 1.30 H (0.66-1.25) mg/dL Glucose 129 H (74-99) mg/dL Total Bilirubin 15.7 H* (0.2-1.3) mg/dL AST 2012 H (17-59) U/L ALT 1494 H (4-49) U/L Alkaline Phosphatase 145 H (38-126) U/L Total Protein 6.0 L (6.3-8.2) g/dL Albumin 3.3 L (3.5-5.0) g/dL Urine Protein 1+ H (Negative) Urine Blood Moderate H (Negative) Urine Bilirubin 3+ H (Negative) Ur Leukocyte Esterase Large H (Negative) Urine RBC >182 H (0-5) /hpf Urine WBC >182 H (0-5) /hpf Urine WBC Clumps Many H (None) /hpf Urine Bacteria Occasional H (None) /hpf Urine Mucus Occasional H (None) /hpf Assessment and Plan Assessment: 63 year old male with NHL,recent hematuria post TURP, comes in due to chronic diarrhea of >2 months found to be in severe jaundice with elevated liver enz ymes. admitted for further evaluation with anticipated length of stay >2 midnights. severe jaundice , transaminitis denies drug overdose or tylenol or any pain killers denies toxic ingestion denies IVDA, or blood transfusion denies any abd pain denies liver disease in the past monitor liver enzymes avoid hepatotoxic meds GI consult check liver US check hepatitis check NAYAN, antimitochondrial and anti smooth muscle ab Acute kidney injury IVF hydration avoid nephrotoxic meds monitor urine output check US of the kidneys rule out obstructive hydro , patient with trouble urinating chronic diarrhea could be related to his most recent surgery with TURP GI consult chronic conditions Adrenal insufficiency DM BPH NHL hypothyroid CAD resume home meds CODE STATUS:full code DVT prophylaxis: hepairn sc tid Discussed with: Patient, ER, RN Anticipated length of stay > than [address]: home A total of 75 minutes was spent on the care of this complex patient more than 50% of the time was spent in counseling and care coordination.
[2019-08-26 02:01] LABS: Bilirubin, Conjugated 9.9 mg/dL (0.0-0.3); Bilirubin,Unconjugated 1.9 mg/dL (0.0-1.1)
[2019-08-26 02:06] LABS: Bilirubin, Delta 3.3 mg/dL (0.0-0.2)
[2019-08-26 02:24] LABS: Total Bilirubin 15.1 mg/dL (0.2-1.3)
[2019-08-26 04:58] LABS: Hepatitis B Core IgM Non-Reactive (Non-Reactive); Hepatitis C IgG Antibody Non-Reactive (Non-Reactive)
[2019-08-26] MEDS: METOPROLOL SUCCINATE (ER) 25 MG TAB.ER.24H PO SCH ×3 (06:15→20:50)
[2019-08-26] MEDS: LEVOTHYROXINE 88 MCG TAB PO SCH (07:04)
[2019-08-26 08:54] LABS: Glucose,Whole Blood 66 mg/dL (75-99)
[2019-08-26] MEDS ORDERED: CORTISONE ACETATE 25 MG PO SCH (09:00)
[2019-08-26] MEDS: HEPARIN SODIUM,PORCINE 5,000 UNIT/ML 1 ML VIAL SQ SCH ×2 (10:00→16:00)
[2019-08-26] MEDS: INSULIN ASPART (NovoLOG) 100 UNIT/ML VIAL SQ SCH ×4 (10:02→20:50)
[2019-08-26] MEDS: ASPIRIN 81 MG PO SCH (10:06)
[2019-08-26] MEDS: FAMOTIDINE 20 MG TAB PO SCH ×2 (10:14→20:50)
[2019-08-26] MEDS: SODIUM CHLORIDE 0.9% 1,000 ML IV SCH ×2 (13:22→20:52)
[2019-08-26 13:42] LABS: African American GFR (CKD) >90 (>60 ml/min/1.73 sqM); Albumin 2.7 g/dL (3.5-5.0); Alkaline Phosphatase 121 U/L (38-126); Anion Gap 6 mmol/L; Blood Urea Nitrogen 14 mg/dL (9-20); Calcium 8.7 mg/dL (8.4-10.2); Carbon Dioxide 23 mmol/L (22-30); Chloride 109 mmol/L (98-107); Glucose 68 mg/dL (74-99); Non-African American GFR(CKD) >90 (>60 ml/min/1.73 sqM); Potassium 3.4 mmol/L (3.5-5.1); Sodium 138 mmol/L (137-145); Total Protein 5.3 g/dL (6.3-8.2)
--- NOTE | 2019-08-26 14:34 | P.GSCN ---
<Elena Orr - Last Filed: 08/26/19 14:34> History of Present Illness Consult date: 08/26/19 Reason for Consult: Hyperbilirubinemia, transaminitis Requesting physician: Cristian Miller History of present illness: CHIEF COMPLAINT: Hyperbilirubinemia HISTORY OF PRESENT ILLNESS: 63-year-old male who presented to the emergency room with a chief complaint of diarrhea. Patient examined at the bedside with Dr. Huggins. Patient denies abdominal pain. Patient reports having diarrhea for months. He has not sought treatment for this before. She reports eneida-colored stools. He reports dark-colored urine. No history of alcohol abuse. PAST MEDICAL HISTORY: See list. PAST SURGICAL HISTORY: See list. MEDICATIONS: See list. ALLERGIES: See list. SOCIAL HISTORY: No illicit drug use. REVIEW OF SYSTEMS: CONSTITUTIONAL: Denies fever or chills. HEENT: Denies blurred vision, vision changes, or eye pain. Denies hemoptysis ENDOCRINE: Denies heat or cold intolerance. History of diabetes mellitus CARDIOVASCULAR: Denies chest pain or pressure. History of coronary artery disease with stent placement. History of hyperlipidemia RESPIRATORY: No shortness of breath. GASTROINTESTINAL: See HPI for pertinent findings NEURO: Denies history of seizures. PSYCH: No depression or suicidal ideation HEMATOLOGIC: Denies bleeding disorders. LYMPHATIC: The patient denies any lumps and bumps around the neck. GENITOURINARY: Denies any blood in urine or increased urinary frequency. MUSCULOSKELETAL: Denies myalgias. Denies joint swelling. Denies decreased range of motion beyond patients baseline. SKIN: Denies pruitis. Denies rash. PHYSICAL EXAM: VITAL SIGNS: Reviewed GENERAL: Well-developed in no acute distress. Jaundice HEENT: Bilateral sclera icterus. Extraocular movements grossly intact. Moist buccal mucosa. Head is atraumatic, normocephalic. Hears conversational speech. No nasal drainage. NECK: Supple without lymphadenopathy. CHEST: Non-labored respirations and equal bilateral excursions. CARDIOVASCULAR: Regular rate with regular rhythm. Palpable 2+ radial pulses. ABDOMEN: Soft. Nondistended. Nontender MUSCULOSKELETAL: No clubbing or cyanosis. NEUROLOGIC: No focal or lateralizing signs. Cranial nerves II through XII grossly intact. PSYCH: Appropriate affect. Alert and oriented to person, place and time. SKIN: Jaundice. Well perfused. Good skin turgor. LABORATORY DATA: WBC 6.5. Hemoglobin 14.4. Platelet count 171. Bilirubin 15.1. AST 2012. ALT 1494. IMAGING: Abdominal ultrasound: Borderline gallbladder wall thickening. No gallstones seen. No dilated ducts. ASSESSMENT: 1. Diarrhea x 3-4 months 2. Hyperbilirubinemia 3. Transaminitis PLAN: No surgical intervention recommended at this time Await GI evaluation Ok to start clear liquid diet from a surgical standpoint Nurse practitioner note has been reviewed by physician. Signing provider agrees with the documented findings, assessment, and plan of care. Past Medical History Past Medical History: Coronary Artery Disease (CAD), Diabetes Mellitus, Hyperlipidemia, Osteoarthritis (OA), Thyroid Disorder Additional Past Medical History / Comment(s): ADRENAL INSUFFICIENCY, NIDDM, kidney stones, recurrent UTI History of Any Multi-Drug Resistant Organisms: None Reported Year Discovered:: 07/09/18 MDRO Source:: ESBL URINE Past Surgical History: Back Surgery, Bariatric Surgery, Heart Catheterization With Stent Additional Past Surgical History / Comment(s): BACK SURG (decompression) X2. LAP BAND.carpel tunnel Past Anesthesia/Blood Transfusion Reactions: No Reported Reaction Date of Last Stent Placement:: 2014 Smoking Status: Former smoker - Past Family History Father Family Medical History: Diabetes Mellitus Additional Family Medical History / Comment(s): of a ruptured aorta Mother Family Medical History: Cancer, Diabetes Mellitus Additional Family Medical History / Comment(s): PPM, liver CA Medications and Allergies Home Medications Medication Instructions Recorded Confirmed Type Levothyroxine Sodium 88 mcg PO DAILY 07/09/18 08/26/19 History metFORMIN HCL 1,000 mg PO BID 07/09/18 08/26/19 History Cortisone Acetate [Cortone] 25 mg PO DAILY 09/12/18 08/26/19 History Diazepam 15 mg PO HS PRN 05/21/19 08/26/19 History Ibuprofen [Motrin] 800 mg PO Q8H PRN 05/21/19 08/26/19 History Metoprolol Succinate (ER) [Toprol 25 mg PO BID 05/21/19 08/26/19 History XL] glyBURIDE [Diabeta] 2.5 mg PO AC-BID 05/21/19 08/26/19 History Tamsulosin HCl [Flomax] 0.4 mg PO DAILY 08/26/19 08/26/19 History oxyCODONE HCL [Roxicodone] 30 mg PO QID 08/26/19 08/26/19 History Allergies Allergy/AdvReac Type Severity Reaction Status Date / Time codeine AdvReac Severe Nausea & Verified 08/26/19 18:47 Vomiting Surgical - Exam Vital Signs Temp Pulse Resp BP Pulse Ox 98.0 F 91 18 106/72 100 08/25/19 16:28 08/25/19 16:28 08/25/19 16:28 08/25/19 16:28 08/25/19 16:28 Results - Labs 08/25/19 16:45 08/25/19 16:45 Abnormal Lab Results - Last 24 Hours (Table) 08/25/19 08/25/19 08/25/19 Range/Units 16:45 16:45 16:45 RDW 15.7 H (11.5-15.5) % PT (9.0-12.0) sec INR (<1.2) Chloride 108 H (98-107) mmol/L BUN 26 H (9-20) mg/dL Creatinine 1.30 H (0.66-1.25) mg/dL Glucose 129 H (74-99) mg/dL POC Glucose (mg/dL) (75-99) mg/dL Total Bilirubin 15.7 H* (0.2-1.3) mg/dL Conjugated Bilirubin (0.0-0.3) mg/dL Unconjugated Bilirubin (0.0-1.1) mg/dL Delta Bilirubin (0.0-0.2) mg/dL AST 2012 H (17-59) U/L ALT 1494 H (4-49) U/L Alkaline Phosphatase 145 H (38-126) U/L Total Protein 6.0 L (6.3-8.2) g/dL Albumin 3.3 L (3.5-5.0) g/dL Urine Protein 1+ H (Negative) Urine Blood Moderate H (Negative) Urine Bilirubin 3+ H (Negative) Ur Leukocyte Esterase Large H (Negative) Urine RBC >182 H (0-5) /hpf Urine WBC >182 H (0-5) /hpf Urine WBC Clumps Many H (None) /hpf Urine Bacteria Occasional H (None) /hpf Urine Mucus Occasional H (None) /hpf U Benzodiazepines Scrn (NotDetected) 08/25/19 08/25/19 08/26/19 Range/Units 16:45 16:45 01:38 RDW (11.5-15.5) % PT 14.0 H (9.0-12.0) sec INR 1.4 H (<1.2) Chloride (98-107) mmol/L BUN (9-20) mg/dL Creatinine (0.66-1.25) mg/dL Glucose (74-99) mg/dL POC Glucose (mg/dL) (75-99) mg/dL Total Bilirubin 15.1 H* (0.2-1.3) mg/dL Conjugated Bilirubin 9.9 H (0.0-0.3) mg/dL Unconjugated Bilirubin 1.9 H (0.0-1.1) mg/dL Delta Bilirubin 3.3 H (0.0-0.2) mg/dL AST (17-59) U/L ALT (4-49) U/L Alkaline Phosphatase (38-126) U/L Total Protein (6.3-8.2) g/dL Albumin (3.5-5.0) g/dL Urine Protein (Negative) Urine Blood (Negative) Urine Bilirubin (Negative) Ur Leukocyte Esterase (Negative) Urine RBC (0-5) /hpf Urine WBC (0-5) /hpf Urine WBC Clumps (None) /hpf Urine Bacteria (None) /hpf Urine Mucus (None) /hpf U Benzodiazepines Scrn Detected H (NotDetected) 08/26/19 Range/Units 08:53 RDW (11.5-15.5) % PT (9.0-12.0) sec INR (<1.2) Chloride (98-107) mmol/L BUN (9-20) mg/dL Creatinine (0.66-1.25) mg/dL Glucose (74-99) mg/dL POC Glucose (mg/dL) 66 L (75-99) mg/dL Total Bilirubin (0.2-1.3) mg/dL Conjugated Bilirubin (0.0-0.3) mg/dL Unconjugated Bilirubin (0.0-1.1) mg/dL Delta Bilirubin (0.0-0.2) mg/dL AST (17-59) U/L ALT (4-49) U/L Alkaline Phosphatase (38-126) U/L Total Protein (6.3-8.2) g/dL Albumin (3.5-5.0) g/dL Urine Protein (Negative) Urine Blood (Negative) Urine Bilirubin (Negative) Ur Leukocyte Esterase (Negative) Urine RBC (0-5) /hpf Urine WBC (0-5) /hpf Urine WBC Clumps (None) /hpf Urine Bacteria (None) /hpf Urine Mucus (None) /hpf U Benzodiazepines Scrn (NotDetected) Microbiology - Last 24 Hours (Table) 08/25/19 16:45 Urine Culture - Preliminary Urine,Voided Diabetes panel 08/25/19 Range/Units 16:45 Sodium 139 (137-145) mmol/L Potassium 4.0 (3.5-5.1) mmol/L Chloride 108 H (98-107) mmol/L Carbon Dioxide 22 (22-30) mmol/L BUN 26 H (9-20) mg/dL Creatinine 1.30 H (0.66-1.25) mg/dL Glucose 129 H (74-99) mg/dL Calcium 9.1 (8.4-10.2) mg/dL AST 2012 H (17-59) U/L ALT 1494 H (4-49) U/L Alkaline Phosphatase 145 H (38-126) U/L Total Protein 6.0 L (6.3-8.2) g/dL Albumin 3.3 L (3.5-5.0) g/dL Calcium panel 08/25/19 Range/Units 16:45 Calcium 9.1 (8.4-10.2) mg/dL Albumin 3.3 L (3.5-5.0) g/dL Pituitary panel 08/25/19 Range/Units 16:45 Sodium 139 (137-145) mmol/L Potassium 4.0 (3.5-5.1) mmol/L Chloride 108 H (98-107) mmol/L Carbon Dioxide 22 (22-30) mmol/L BUN 26 H (9-20) mg/dL Creatinine 1.30 H (0.66-1.25) mg/dL Glucose 129 H (74-99) mg/dL Calcium 9.1 (8.4-10.2) mg/dL Adrenal panel 08/25/19 08/26/19 Range/Units 16:45 01:38 Sodium 139 (137-145) mmol/L Potassium 4.0 (3.5-5.1) mmol/L Chloride 108 H (98-107) mmol/L Carbon Dioxide 22 (22-30) mmol/L BUN 26 H (9-20) mg/dL Creatinine 1.30 H (0.66-1.25) mg/dL Glucose 129 H (74-99) mg/dL Calcium 9.1 (8.4-10.2) mg/dL Total Bilirubin 15.7 H* 15.1 H* (0.2-1.3) mg/dL AST 2012 H (17-59) U/L ALT 1494 H (4-49) U/L Alkaline Phosphatase 145 H (38-126) U/L Total Protein 6.0 L (6.3-8.2) g/dL Albumin 3.3 L (3.5-5.0) g/dL <Chasity Huggins - Last Filed: 08/28/19 12:11> History of Present Illness History of present illness: Patient seen and evaluated with nurse practitioner with additional history and information below HISTORY OF PRESENT ILLNESS: The patient is a 63 year old male who presented to the hospital with diarrhea. He also presented with jaye jaundice. He reports at least over 1 to 2 month history of chronic diarrhea. Since admission, abdominal pain is resolved. He also reports change in the color of stools eneida- colored. Also reports dark colored urine. No reports of fevers or chills. He does have personal history of bariatric surgery such as adjustable gastric lap band. He also reports having chemotherapy in the last several months. He states the symptoms started following his last chemotherapy. He has history of lymphoma. General surgery is consulted secondary to hyperbilirubinemia with initial total bilirubin of 15.7 and elevated liver enzymes. PAST MEDICAL HISTORY: See list. PAST SURGICAL HISTORY: See list. MEDICATIONS: See list. ALLERGIES: See list. SOCIAL HISTORY: See list. FAMILY HISTORY: See list. REVIEW OF ORGAN SYSTEMS: CONSTITUTIONAL: No fevers or chills. EYES: Denies any trouble with vision. No glasses. HEENT: No difficulties with hearing. No nosebleeds. No difficulty swallowing. RESPIRATORY: Denies pneumonia. Denies any troubles with breathing or dyspnea on exertion. CARDIOVASCULAR: Denies any chest pain, palpitations, or recent heart attacks. GASTROINTESTINAL: Has change in bowel habits and gas bloat. GENITOURINARY: History of TURP including hematuria. NEUROLOGICAL: Denies any numbness or tingling along the distal extremities. No seizure disorders or headaches. MUSCULOSKELETAL: Has back pain, stiffness or joint arthritis. SKIN: No current skin cancer. No rash. PSYCHIATRIC: Denies current depression or suicidal thoughts. ENDOCRINE: Has thyroid disorders. Has blood sugar glucose intolerance. Has adrenal insufficiency. HEME/LYMPHATIC: History of lymphoma status post chemotherapy. ALLERGY/IMMUNOLOGY: No immune deficiencies. PHYSICAL EXAM: VITALS: Reviewed CONSTITUTIONAL: Well developed and in no acute distress. EYES: Conjuctivae with jaye sclera icterus. Pupils are equally round and reactive to light. Extraocular movements grossly intact. HEAD, EARS, NOSE, THROAT: Moist buccal mucosa. Head is atraumatic, normocephalic. Hears conversational speech. No nasal drainage. NECK: Supple. No JV distention. No thyroidomegaly. RESPIRATORY: Non-labored respirations and equal bilateral excursions. No gross wheezes. CARDIOVASCULAR: Regular rate and rhythm. Extremities without moderate edema. Palpable 2+ radial pulses. ABDOMEN: Soft. Non-tender. Nondistended. MUSCULOSKELETAL: Nail and fingers with good capillary refill. SKIN: Warm and well perfused with good skin turgor. Jaundiced. NEUROLOGIC: Cranial nerves II through XII grossly intact. No focal or lateralizing signs. PSYCH: Has mild confusion. Alert and oriented to self and place. Poor orientation to time. CLINCAL LABS: Reviewed. On presentation, WBC normal 6.5, PT elevated at 14.0, INR elevated at 1.4, creatinine elevated 1.30, total bilirubin elevated 15.7, AST 2012 elevated, ALT elevated 1494, alkaline phosphatase elevated 145, moderate blood in urine IMAGING: Independently reviewed of the CT and abdomen and pelvis demonstrating mildly dilated gallbladder. Presence of adjustable gastric band in appropriate position. Left renal cyst, simple. Redundant splenic and hepatic flexure of the colon. No dilated biliary tree. Ultrasound of the gallbladder independent perfused without features of gallstones. No dilated common bile duct identified. RADIOLOGY: Report reviewed of the CT of the abdomen pelvis demonstrating multiple kidney stones along the left ureter. Report of the ultrasound of the gallbladder demonstrates coarse liver. No evidence of gallstones. Mildly thickened gallbladder wall. RECORDS: previous old records reviewed confirming previous treatment for lymphoma ASSESSMENT: 1. Jaundice 2. Elevated liver enzymes 3. Past history of lymphoma PLAN: 1. At this time, will need further workup for jaye jaundice. 2. Hepatitis panel pending. 3. Agree with start clear liquid diet. 4. May need additional imaging such as MRCP Thank you for this kind consultation. Surgical - Exam Vital Signs Temp Pulse Resp BP Pulse Ox 98.0 F 91 18 106/72 100 08/25/19 16:28 08/25/19 16:28 08/25/19 16:28 08/25/19 16:28 08/25/19 16:28 Results - Labs 08/28/19 08:12 08/28/19 08:12 Abnormal Lab Results - Last 24 Hours (Table) 08/25/19 08/27/19 08/27/19 Range/Units 20:40 16:50 20:18 RBC (4.30-5.90) m/uL Hgb (13.0-17.5) gm/dL Hct (39.0-53.0) % RDW (11.5-15.5) % PT (9.0-12.0) sec INR (<1.2) Chloride (98-107) mmol/L Glucose (74-99) mg/dL POC Glucose (mg/dL) 238 H 158 H (75-99) mg/dL Total Bilirubin (0.2-1.3) mg/dL AST (17-59) U/L ALT (4-49) U/L Total Protein (6.3-8.2) g/dL Albumin (3.5-5.0) g/dL Hep Bs Antigen Reactive H (Non-Reactive) 08/28/19 08/28/19 08/28/19 Range/Units 06:51 08:12 08:12 RBC (4.30-5.90) m/uL Hgb (13.0-17.5) gm/dL Hct (39.0-53.0) % RDW (11.5-15.5) % PT 15.1 H (9.0-12.0) sec INR 1.5 H (<1.2) Chloride 113 H (98-107) mmol/L Glucose 127 H (74-99) mg/dL POC Glucose (mg/dL) 105 H (75-99) mg/dL Total Bilirubin 16.5 H* (0.2-1.3) mg/dL AST 1516 H (17-59) U/L ALT 1106 H (4-49) U/L Total Protein 4.9 L (6.3-8.2) g/dL Albumin 2.5 L (3.5-5.0) g/dL Hep Bs Antigen (Non-Reactive) 08/28/19 08/28/19 Range/Units 08:12 11:06 RBC 3.82 L (4.30-5.90) m/uL Hgb 11.6 L (13.0-17.5) gm/dL Hct 36.8 L (39.0-53.0) % RDW 16.1 H (11.5-15.5) % PT (9.0-12.0) sec INR (<1.2) Chloride (98-107) mmol/L Glucose (74-99) mg/dL POC Glucose (mg/dL) 134 H (75-99) mg/dL Total Bilirubin (0.2-1.3) mg/dL AST (17-59) U/L ALT (4-49) U/L Total Protein (6.3-8.2) g/dL Albumin (3.5-5.0) g/dL Hep Bs Antigen (Non-Reactive) Microbiology - Last 24 Hours (Table) 08/25/19 16:45 Urine Culture - Final Urine,Voided Pseudomonas aeruginosa Diabetes panel 08/28/19 Range/Units 08:12 Sodium 141 (137-145) mmol/L Potassium 3.7 (3.5-5.1) mmol/L Chloride 113 H (98-107) mmol/L Carbon Dioxide 22 (22-30) mmol/L BUN 12 (9-20) mg/dL Creatinine 0.79 (0.66-1.25) mg/dL Glucose 127 H (74-99) mg/dL Calcium 8.4 (8.4-10.2) mg/dL AST 1516 H (17-59) U/L ALT 1106 H (4-49) U/L Alkaline Phosphatase 105 (38-126) U/L Total Protein 4.9 L (6.3-8.2) g/dL Albumin 2.5 L (3.5-5.0) g/dL Calcium panel 08/28/19 Range/Units 08:12 Calcium 8.4 (8.4-10.2) mg/dL Albumin 2.5 L (3.5-5.0) g/dL Pituitary panel 08/28/19 Range/Units 08:12 Sodium 141 (137-145) mmol/L Potassium 3.7 (3.5-5.1) mmol/L Chloride 113 H (98-107) mmol/L Carbon Dioxide 22 (22-30) mmol/L BUN 12 (9-20) mg/dL Creatinine 0.79 (0.66-1.25) mg/dL Glucose 127 H (74-99) mg/dL Calcium 8.4 (8.4-10.2) mg/dL Adrenal panel 08/28/19 Range/Units 08:12 Sodium 141 (137-145) mmol/L Potassium 3.7 (3.5-5.1) mmol/L Chloride 113 H (98-107) mmol/L Carbon Dioxide 22 (22-30) mmol/L BUN 12 (9-20) mg/dL Creatinine 0.79 (0.66-1.25) mg/dL Glucose 127 H (74-99) mg/dL Calcium 8.4 (8.4-10.2) mg/dL Total Bilirubin 16.5 H* (0.2-1.3) mg/dL AST 1516 H (17-59) U/L ALT 1106 H (4-49) U/L Alkaline Phosphatase 105 (38-126) U/L Total Protein 4.9 L (6.3-8.2) g/dL Albumin 2.5 L (3.5-5.0) g/dL Assessment and Plan (1) History of lymphoma Current Visit: Yes Status: Acute Code(s): Z85.79 - PRSNL HX OF MALIG NEOPLM OF LYMPHOID, HEMATPOETC & REL TISS SNOMED Code(s): 253025923 (2) Gastric banding status Current Visit: Yes Status: Acute Code(s): Z98.84 - BARIATRIC SURGERY STATUS SNOMED Code(s): 264097457 (3) Diarrhea Current Visit: Yes Status: Acute Code(s): R19.7 - DIARRHEA, UNSPECIFIED SNOMED Code(s): 77081588 (4) Hyperbilirubinemia Current Visit: Yes Status: Acute Code(s): E80.6 - OTHER DISORDERS OF BILIRUBIN METABOLISM SNOMED Code(s): 45047955 (5) Jaundice Current Visit: Yes Status: Acute Code(s): R17 - UNSPECIFIED JAUNDICE SNOMED Code(s): 73583373 (6) Transaminitis Current Visit: Yes Status: Acute Code(s): R74.0 - NONSPEC ELEV OF LEVELS OF TRANSAMNS & LACTIC ACID DEHYDRGNSE SNOMED Code(s): 363764668 (7) Altered mental status Current Visit: No Status: Acute Code(s): R41.82 - ALTERED MENTAL STATUS, UNSPECIFIED SNOMED Code(s): 702063333
[2019-08-26 14:50] LABS: ALT 1320 U/L (4-49); AST 1898 U/L (17-59)
[2019-08-26 16:17] LABS: Glucose,Whole Blood 85 mg/dL (75-99)
[2019-08-26 20:15] LABS: Glucose,Whole Blood 186 mg/dL (75-99)
--- NOTE | 2019-08-26 21:00 | CONS ---
CONSULTATION DATE OF DICTATION: 08/26/2019 REASON FOR CONSULTATION: Elevated LFTs and jaundice. HISTORY OF PRESENT ILLNESS: This patient is a 63-year-old pleasant white male with a known history of alcohol use, history of diabetes mellitus, hypertension, hypothyroidism and non-Hodgkin's lymphoma in the past. He was admitted after he came to the emergency room complaining of diarrhea for the last 2 months' duration. He has been having about one or two loose watery bowel movements daily. In the emergency room he was noted to have severe jaundice with elevated serum transaminases and hence we are consulted in regards to this issue. The patient denies any prior history of chronic liver disease. He denies any jaundice or hepatitis in the past. On reviewing his labs, in June of 2019 his serum transaminases were within normal limits. When he came into the emergency room yesterday, T-bilirubin was 15.1. AST and ALT were 2012 and 1494 with alkaline phosphatase of 145. Repeat labs today: T-bilirubin 16.1, AST was 1898 and ALT is 1320, alkaline phosphatase 121. Hepatitis serologies for A, B and C were all negative. The patient denies any high-risk behavior. No recent blood transfusions. On further questioning, the patient denies taking any new medications recently. He does recall taking some antibiotics 3 or 4 weeks ago which were given by Dr. Rose, but does not recall the name. He does not recall the duration of treatment. He denies any fever, chills, night sweats. He denies any recent weight loss. No history of chronic liver disease in the past. PAST MEDICAL HISTORY: His past medical history is significant for diabetes mellitus, hypertension, hypothyroidism, history of non-Hodgkin's lymphoma. PAST SURGICAL HISTORY: Cardiac catheterization, bariatric surgery, back surgery, laparoscopic band surgery, carpal tunnel surgery. MEDICATIONS AT HOME: Medications at home include aspirin, cortisone, diazepam, vitamin D2, Pepcid, Motrin, levothyroxine, Nexium, magnesium oxide, metoprolol, Compazine, Diabeta and metformin. ALLERGIES: CODEINE. SOCIAL HISTORY: No smoking. No alcohol use. FAMILY HISTORY: Mother has liver cancer and diabetes mellitus. Father has diabetes mellitus. REVIEW OF SYSTEMS: CARDIOPULMONARY: No chest pain or shortness of breath. GENITOURINARY: No dysuria or hematuria. MUSCULOSKELETAL: Unremarkable. SKIN: Unremarkable. ENDOCRINE: Unremarkable. PSYCHIATRIC: Unremarkable. NEUROLOGY: Unremarkable. ENT/VISION: Unremarkable. CONSTITUTIONAL: No recent weight loss. No fever, chills, night sweats. PHYSICAL EXAMINATION: On physical examination, patient appears comfortable. No apparent distress. Vital signs are stable. Blood pressure is 85/51, pulse rate 82, temperature 97.9. HEENT examination unremarkable. Conjunctivae pink. Sclerae deeply icteric. Oral cavity no lesions. NECK: No JVD or lymph node enlargement. CHEST: Clear to auscultation. HEART: Regular rate and rhythm. ABDOMEN: Soft. Liver and spleen were not palpable. Bowel sounds are positive. No organomegaly. EXTREMITIES: No pedal edema. SKIN: No rashes. NEUROLOGIC: Alert and oriented x3. No focal deficits. LABS: Labs done at the time of admission to the hospital showed WBC 6.5, hemoglobin 14.4, platelets normal. MCV is normal. INR 1.4. AST 2012, ALT 1494, alkaline phosphatase 145, T-bilirubin 15.7. Today AST 1898, ALT 1320, T-bilirubin 16.1, alkaline phosphatase 121. Albumin 2.7. INR 1.4. CT of the abdomen done yesterday showed liver was hypodense, consistent with diffuse fatty infiltration. Gallbladder was normal. No gallstones noted. No biliary ductal dilation seen. He subsequently had ultrasound of the abdomen done that showed borderline gallbladder wall thickening; no gallstones or dilated ducts. IMPRESSION: 1. Elevated bilirubin and elevated serum transaminases which appear to be new onset. Labs from June of 2019 showed normal serum transaminases. Most likely we are dealing with medication-induced hepatitis, but of course other causes of hepatitis, especially viral etiologies, cannot be excluded. He did have hepatitis serologies for A, B and C, which were all negative. He does not have any high-risk behavior. As mentioned earlier, he took some medications in the last 6 weeks, names of which he cannot remember. He thinks they were antibiotics that were given by his urologist, and hence at this time possibility of medication-induced hepatitis is high on the differential diagnosis. The patient was receiving cholesterol-lowering medication in the past, but it appears that he was not taking that in the last one month. 2. Chronic diarrhea for the last 2 months' duration. The patient has been having 1-2 loose bowel movements daily. 3. History of non-Hodgkin's lymphoma in the past, for which he underwent chemotherapy, in remission. 4. Longstanding history of diabetes mellitus, hypertension and hyperlipidemia. RECOMMENDATIONS: 1. Will call his PCP to obtain medication history from the last 6 weeks. 2. Will monitor LFTs closely. 3. Obtain hepatitis viral serologies for CMV and EBV at this time. 4. Will also initiate workup for autoimmune hepatitis and obtain serologies for NAYAN, SMA and serum protein electrophoresis. 5. Will watch him closely. 6. Consider liver biopsy if no etiology can be identified on serological testing. Will follow with you closely. Thank you for this consultation. MMODL / IJN: [id number] /
--- NOTE | 2019-08-26 23:01 | P.PN ---
Progress Note - Text Progress Note Date: 08/26/19 Presenting complaint: Diarrhea Interval history: Patient admitted with episodes of significant diarrhea 2 or 3 times a week. Patient's urologist Dr. Dillon Velasquez called me this afternoon stating that patient has been incontinent of urine's since his TURP. And has had 2 rounds of treatment for Pseudomonas UTI. Has not been able to clear his. Patient is due to follow-up with Dr. Maldonado. Patient now presents significantly jaundiced. Review of systems: Was done for constitutional, cardiovascular, GI, pulmonary. relevant finding as above Active Medications Alprazolam (Xanax) 0.25 mg PO Q6HR PRN PRN Reason: Anxiety Aspirin (Aspirin) 81 mg PO DAILY [facility] Last Admin: 08/26/19 10:06 Dose: 81 mg Documented by: Enoxaparin Sodium (Lovenox) 40 mg SQ DAILY [facility] Famotidine (Pepcid) 20 mg PO BID [facility] Last Admin: 08/26/19 20:50 Dose: 20 mg Documented by: Hydrocortisone (Cortef) 20 mg PO DAILY [facility] Sodium Chloride (Saline 0.9%) 1,000 mls @ 75 mls/hr IV .[id number] [facility] Last Admin: 08/26/19 20:52 Dose: Not Given Documented by: Ceftriaxone Sodium 1 gm/ (Sodium Chloride) 50 mls @ 100 mls/hr IVPB Q24HR [facility] Last Admin: 08/26/19 13:21 Dose: 100 mls/hr Documented by: Insulin Aspart (Novolog) 0 unit SQ ACHS [facility]; Protocol Last Admin: 08/26/19 20:50 Dose: 2 unit Documented by: Levothyroxine Sodium (Synthroid) 88 mcg PO DAILY@0630 [facility] Last Admin: 08/26/19 07:04 Dose: 88 mcg Documented by: Metoprolol Succinate (Toprol Xl) 25 mg PO BID [facility] Last Admin: 08/26/19 20:50 Dose: 25 mg Documented by: Naloxone HCl (Narcan) 0.2 mg IV Q2M PRN PRN Reason: Opioid Reversal Ondansetron HCl (Zofran) 4 mg IVP Q8HR PRN PRN Reason: Nausea And Vomiting On examination: VITAL SIGNS: 97.9, 82, 18, 115/73, 99% on room air, GENERAL APPEARANCE: BMI 32.1, laying in bed, not in distress, jaundiced. HEENT: Normal external appearance of nose and ear. Oral cavity normal EYES: Pupils equal. Conjunctiva yellow NECK: JVD not raised. Mass not palpable. RESPIRATORY: Respiratory effort normal. Lungs clear to auscultation. CARDIOVASCULAR: First and second sounds normal. No edema. ABDOMEN: Soft. Liver and spleen not palpable. No tenderness. No mass palpable. PSYCHIATRY: Alert and oriented x3. Mood and affect normal. Investigations: Potassium 3.4 glucose 68 AST-1898 ALT 1320 albumin 2.7 total bilirubin 16.1 UA positive for leukoesterase, WBC Assessment: -Acute hepatitis with hyperbilirubinemia, present time cause unknown -Recurrent UTI which is being treated for Pseudomonas as an outpatient twice per his urologist Dr. Velasquez -Essential hypertension -Hypothyroid -Coronary artery disease with stent -Diabetes mellitus type 2 -Chronic renal insufficiency -Chronic gait dysfunction uses a walker -Diffuse large B-cell lymphoma non-Hodgkin's type -History of gastric banding Plan: Patient be started clear liquids. On IV ceftriaxone. Urine cultures pending. Consultations made to Dr. Maldonado. Input from GI elevated. We'll also get a consultation from hematology to see if this is a side effect of any medication the patient is received. Discussed with patient.
[2019-08-27 00:21] LABS: % Iron Saturation 33.06 (15.00-50.00)
[2019-08-27 00:43] LABS: Ferritin 1210.8 ng/mL (22.0-322.0)
[2019-08-27 07:09] LABS: Glucose,Whole Blood 125 mg/dL (75-99)
[2019-08-27 07:17] LABS: Total Bilirubin 16.1 mg/dL (0.2-1.3)
[2019-08-27] MEDS: INSULIN ASPART (NovoLOG) 100 UNIT/ML VIAL SQ SCH ×4 (07:34→20:36)
[2019-08-27] MEDS: METOPROLOL SUCCINATE (ER) 25 MG TAB.ER.24H PO SCH ×2 (07:36→20:36)
[2019-08-27] MEDS: ENOXAPARIN 40 MG/0.4 ML SYRINGE SQ SCH (07:37)
[2019-08-27] MEDS: FAMOTIDINE 20 MG TAB PO SCH ×2 (07:37→20:36)
[2019-08-27] MEDS: LEVOTHYROXINE 88 MCG TAB PO SCH (07:37)
[2019-08-27] MEDS: ASPIRIN 81 MG PO SCH (07:37)
[2019-08-27] MEDS: HYDROCORTISONE 20 MG TAB PO SCH (07:37)
[2019-08-27] MEDS: SODIUM CHLORIDE 0.9% 1,000 ML IV SCH (11:18)
--- NOTE | 2019-08-27 11:22 | P.PN ---
<Elena Orr - Last Filed: 08/27/19 11:18> Subjective Progress Note Date: 08/27/19 CHIEF COMPLAINT: Hyperbilirubinemia HISTORY OF PRESENT ILLNESS: Patient examined this morning the bedside with Dr. Huggins. Patient states he is feeling well today. He denies abdominal pain. He reports improvement in his diarrhea since yesterday. Vital signs stable. He is afebrile. PHYSICAL EXAM: VITAL SIGNS: Reviewed GENERAL: Well-developed in no acute distress. Jaundice HEENT: Bilateral sclera icterus. Extraocular movements grossly intact. Moist buccal mucosa. Head is atraumatic, normocephalic. Hears conversational speech. No nasal drainage. NECK: Supple without lymphadenopathy. CHEST: Non-labored respirations and equal bilateral excursions. CARDIOVASCULAR: Regular rate with regular rhythm. Palpable 2+ radial pulses. ABDOMEN: Soft. Nondistended. Nontender MUSCULOSKELETAL: No clubbing or cyanosis. NEUROLOGIC: No focal or lateralizing signs. Cranial nerves II through XII grossly intact. PSYCH: Appropriate affect. Alert and oriented to person, place and time. SKIN: Jaundice. Well perfused. Good skin turgor. ASSESSMENT: 1. Diarrhea x 3-4 months 2. Hyperbilirubinemia 3. Transaminitis PLAN: Continue workup per GI service. Patient scheduled for MRCP Continue diet as tolerated No surgical intervention recommended at this time Nurse practitioner note has been reviewed by physician. Signing provider agrees with the documented findings, assessment, and plan of care. Objective - Vital Signs Vital signs: Vital Signs Temp 98.2 F 08/27/19 07:00 Pulse 72 08/27/19 07:00 Resp 14 08/27/19 07:00 BP 104/66 08/27/19 07:00 Pulse Ox 97 08/27/19 07:00 Intake & Output 08/26/19 08/27/19 08/27/19 18:59 06:59 18:59 Intake Total 800 Output Total 450 Balance 350 Intake: Amount of Fluid Infused ( 800 ml) Output: Urine 450 Other: Voiding Method Toilet Toilet Toilet Urinal Urinal Urinal Diaper Diaper Diaper Incontinent Incontinent Incontinent # Voids 2 1 3 - Labs CBC & Chem 7: 08/25/19 16:45 08/26/19 13:11 Labs: Abnormal Lab Results - Last 24 Hours (Table) 08/26/19 08/26/19 08/26/19 Range/Units 13:11 15:44 20:13 Potassium 3.4 L (3.5-5.1) mmol/L Chloride 109 H (98-107) mmol/L Glucose 68 L (74-99) mg/dL POC Glucose (mg/dL) 186 H (75-99) mg/dL Ferritin 1210.8 H (22.0-322.0) ng/mL Total Bilirubin 16.1 H* (0.2-1.3) mg/dL AST 1898 H (17-59) U/L ALT 1320 H (4-49) U/L Total Protein 5.3 L (6.3-8.2) g/dL Albumin 2.7 L (3.5-5.0) g/dL 08/27/19 Range/Units 06:56 Potassium (3.5-5.1) mmol/L Chloride (98-107) mmol/L Glucose (74-99) mg/dL POC Glucose (mg/dL) 125 H (75-99) mg/dL Ferritin (22.0-322.0) ng/mL Total Bilirubin (0.2-1.3) mg/dL AST (17-59) U/L ALT (4-49) U/L Total Protein (6.3-8.2) g/dL Albumin (3.5-5.0) g/dL Microbiology - Last 24 Hours (Table) 08/25/19 16:45 Urine Culture - Preliminary Urine,Voided Gram Neg Bacilli <Chasity Huggins - Last Filed: 08/28/19 12:19> Subjective Patient seen and evaluated with nurse practitioner. Agree with above. HISTORY OF PRESENT ILLNESS: The patient is a 63 year old male who presented to the hospital with diarrhea and initial total bilirubin of 15.7 and elevated liver enzymes. He denies any abdominal pain even during admission. He is tolerating liquid diet. He still frankly jaundiced. PHYSICAL EXAM: VITALS: Reviewed CONSTITUTIONAL: Well developed and in no acute distress. EYES: Conjuctivae with jaye sclera icterus. Pupils are equally round and reactive to light. Extraocular movements grossly intact. HEAD, EARS, NOSE, THROAT: Moist buccal mucosa. Head is atraumatic, normocephalic. Hears conversational speech. No nasal drainage. NECK: Supple. No JV distention. No thyroidomegaly. RESPIRATORY: Non-labored respirations and equal bilateral excursions. No gross wheezes. CARDIOVASCULAR: Regular rate and rhythm. Extremities without moderate edema. Palpable 2+ radial pulses. ABDOMEN: Soft. Non-tender. Nondistended. MUSCULOSKELETAL: No clubbing, cyanosis or edema SKIN: Warm and well perfused with good skin turgor. Jaundiced. NEUROLOGIC: Cranial nerves II through XII grossly intact. No focal or lateralizing signs. PSYCH: Alert and oriented to self and place. CLINCAL LABS: Reviewed. On presentation, WBC normal 6.5, PT elevated at 14.0, INR elevated at 1.4, creatinine elevated 1.30, total bilirubin elevated 15.7, AST 2012 elevated, ALT elevated 1494, alkaline phosphatase elevated 145, moderate blood in urine LABS current: total bilirubin elevated 16.1, AST 1898 elevated, ALT elevated 1320, alkaline phosphatase elevated 121 Hepatitis B antigen positive. Coronavirus negative. Urine drug screen positive for benzodiazepines. ASSESSMENT: 1. Jaundice 2. Elevated liver enzymes 3. Past history of lymphoma PLAN: 1. Agree with MRCP. 2. Diet as tolerated 3. No indication for cholecystectomy at this time Objective - Vital Signs Vital signs: Vital Signs Temp 98.6 F 08/28/19 07:00 Pulse 64 08/28/19 07:00 Resp 16 08/28/19 08:00 BP 93/60 08/28/19 08:56 Pulse Ox 97 08/28/19 07:00 Intake & Output 08/27/19 08/28/19 08/28/19 18:59 06:59 18:59 Intake Total 50 550 Balance 50 550 Intake: Intake, IV Titration 50 550 Amount Cefepime 1 gm In Sodium 50 Chloride 0.9% 50 ml @ 100 mls/hr IVPB Q12H [facility] Rx# :[id number] Cefepime 2 gm In Sodium 100 Chloride 0.9% 100 ml @ 200 mls/hr IVPB Q12H [facility] Rx#:[id number] Sodium Chloride 0.9% 1, 450 000 ml @ 75 mls/hr IV . [id number] [facility] Rx#:[id number] Other: Voiding Method Toilet Toilet Urinal Urinal Diaper Diaper Incontinent Incontinent # Voids 3 3 - Labs CBC & Chem 7: 08/28/19 08:12 08/28/19 08:12 Labs: Abnormal Lab Results - Last 24 Hours (Table) 08/25/19 08/27/19 08/27/19 Range/Units 20:40 16:50 20:18 RBC (4.30-5.90) m/uL Hgb (13.0-17.5) gm/dL Hct (39.0-53.0) % RDW (11.5-15.5) % PT (9.0-12.0) sec INR (<1.2) Chloride (98-107) mmol/L Glucose (74-99) mg/dL POC Glucose (mg/dL) 238 H 158 H (75-99) mg/dL Total Bilirubin (0.2-1.3) mg/dL AST (17-59) U/L ALT (4-49) U/L Total Protein (6.3-8.2) g/dL Albumin (3.5-5.0) g/dL Hep Bs Antigen Reactive H (Non-Reactive) 08/28/19 08/28/19 08/28/19 Range/Units 06:51 08:12 08:12 RBC (4.30-5.90) m/uL Hgb (13.0-17.5) gm/dL Hct (39.0-53.0) % RDW (11.5-15.5) % PT 15.1 H (9.0-12.0) sec INR 1.5 H (<1.2) Chloride 113 H (98-107) mmol/L Glucose 127 H (74-99) mg/dL POC Glucose (mg/dL) 105 H (75-99) mg/dL Total Bilirubin 16.5 H* (0.2-1.3) mg/dL AST 1516 H (17-59) U/L ALT 1106 H (4-49) U/L Total Protein 4.9 L (6.3-8.2) g/dL Albumin 2.5 L (3.5-5.0) g/dL Hep Bs Antigen (Non-Reactive) 08/28/19 08/28/19 Range/Units 08:12 11:06 RBC 3.82 L (4.30-5.90) m/uL Hgb 11.6 L (13.0-17.5) gm/dL Hct 36.8 L (39.0-53.0) % RDW 16.1 H (11.5-15.5) % PT (9.0-12.0) sec INR (<1.2) Chloride (98-107) mmol/L Glucose (74-99) mg/dL POC Glucose (mg/dL) 134 H (75-99) mg/dL Total Bilirubin (0.2-1.3) mg/dL AST (17-59) U/L ALT (4-49) U/L Total Protein (6.3-8.2) g/dL Albumin (3.5-5.0) g/dL Hep Bs Antigen (Non-Reactive) Microbiology - Last 24 Hours (Table) 08/25/19 16:45 Urine Culture - Final Urine,Voided Pseudomonas aeruginosa Assessment and Plan (1) History of lymphoma Current Visit: Yes Status: Acute Code(s): Z85.79 - PRSNL HX OF [facility] NEOPLM OF LYMPHOID, HEMATPOETC & REL TISS SNOMED Code(s): 587169763 (2) Gastric banding status Current Visit: Yes Status: Acute Code(s): Z98.84 - BARIATRIC SURGERY STATUS SNOMED Code(s): 495158296 (3) Diarrhea Current Visit: Yes Status: Acute Code(s): R19.7 - DIARRHEA, UNSPECIFIED SNOMED Code(s): 17945331 (4) Hyperbilirubinemia Current Visit: Yes Status: Acute Code(s): E80.6 - OTHER DISORDERS OF BILIRUBIN METABOLISM SNOMED Code(s): 88507824 (5) Jaundice Current Visit: Yes Status: Acute Code(s): R17 - UNSPECIFIED JAUNDICE SNOMED Code(s): 82603508 (6) Transaminitis Current Visit: Yes Status: Acute Code(s): R74.0 - NONSPEC ELEV OF LEVELS OF TRANSAMNS & LACTIC ACID DEHYDRGNSE SNOMED Code(s): 982475783 (7) Altered mental status Current Visit: No Status: Acute Code(s): R41.82 - ALTERED MENTAL STATUS, UNSPECIFIED SNOMED Code(s): 590634382
[2019-08-27 11:30] LABS: Ceruloplasmin 24.3 mg/dL (20.0-60.0)
[2019-08-27 11:34] LABS: Glucose,Whole Blood 134 mg/dL (75-99)
--- NOTE | 2019-08-27 14:02 | P.CONS ---
History of Present Illness - Reason for Consult Consult date: 08/27/19 Hyper hyperbilirubinemia and transaminitis. History of NHL - History of Present Illness The patient is a 62-year-old white male, well known to our service. He has a fairly completed past medical history. He had initially presented with enlarged lymph nodes in the b/l neck area in 09/15. He had a left scalene node biopsied revealing an atypical T cell proliferation. He was referred to Dr Philip. However T cell receptor gene rearrangement was negative for any malignant population, and thus the referral was cancelled. The pt continued to have enlarged nodes in the neck area. He had also developed the same in b/l inguinal regions since at least early 2018. However he remained asymptomatic He was admitted with weakness and fever, due to UTI and sepsis to [facility] in 08/16. He recovered well with treatment. CT CAP showed extensive adenopathy in the b/l cervical, SC, mediastinal, axillary, retroperitoneal and inguinal nodes. He was therefore seen in consult on 08/20/18, and repeat biopsy recommended. He had right inguinal lymph node biopsy on 08/25/18 revealing diffuse large B-cell lymphoma, BCL-2 positive but BCL 6 negative. He was admitted again in the first week of 09/16, with progressive weakness. There was concern for recurrent UTI though the symptoms could also have been due to lymphoma. 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 He ultimately started treatment with R-CHOP in 09/16 and completed 6 cycles in 01/16. Post treatment PET scan showed complete response. He had a follow-up in the office last in 05/[address] scans again showing no evidence of recurrence. He was admitted this time with complains of chronic diarrhea ongoing for about 2 months, with loose stool ranging from 2-3 per day. Aberrantly this has become more frequent and has been associated with some progressive weakness. He also noted eneida colored stools and dark urine. On evaluation he was found to have markedly elevated liver enzymes including bilirubin of 16.8. He was therefore admitted for further management. CT of the abdomen and pelvis did not show any obvious liver lesions, or biliary obstruction. There was diffuse parenchymal abnormality such as would be seen with hepatic steatosis. Coronavirus, CMV and hepatitis serologies were negative. Labs in the office in 02/16 had shown normal liver enzymes. Consult was therefore placed for further evaluation and recommendations Interestingly the patient states that his childhood he had an episode of marked jaundice, which resolved with cortisone (? autoimmune) Review of Systems Constitutional: Reports fatigue, Reports weight loss Eyes: denies blurred vision, denies pain Ears: deny: decreased hearing, ear discharge, earache, tinnitus Ears, nose, mouth and throat: Denies headache, Denies sore throat Cardiovascular: Reports decreased exercise tolerance Respiratory: Denies cough Gastrointestinal: Reports as per HPI, Reports diarrhea, Reports loss of appetite Genitourinary: Reports as per HPI Musculoskeletal: Denies myalgias Integumentary: Reports color changes (Jaundice) Neurological: Reports weakness Psychiatric: Denies anxiety, Denies depression Endocrine: Reports fatigue, Reports weight change Hematologic/Lymphatic: Reports as per HPI Past Medical History Past Medical History: Coronary Artery Disease (CAD), Diabetes Mellitus, Hyperlipidemia, Osteoarthritis (OA), Thyroid Disorder Additional Past Medical History / Comment(s): ADRENAL INSUFFICIENCY, NIDDM, kidney stones, recurrent UTI History of Any Multi-Drug Resistant Organisms: None Reported Year Discovered:: 07/09/18 MDRO Source:: ESBL URINE Past Surgical History: Back Surgery, Bariatric Surgery, Heart Catheterization With Stent Additional Past Surgical History / Comment(s): BACK SURG (decompression) X2. LAP BAND.carpel tunnel Past Anesthesia/Blood Transfusion Reactions: No Reported Reaction Date of Last Stent Placement:: 2014 Smoking Status: Former smoker - Past Family History Father Family Medical History: Diabetes Mellitus Additional Family Medical History / Comment(s): of a ruptured aorta Mother Family Medical History: Cancer, Diabetes Mellitus Additional Family Medical History / Comment(s): PPM, liver CA Medications and Allergies Home Medications Medication Instructions Recorded Confirmed Type Levothyroxine Sodium 88 mcg PO DAILY 07/09/18 08/26/19 History metFORMIN HCL 1,000 mg PO BID 07/09/18 08/26/19 History Cortisone Acetate [Cortone] 25 mg PO DAILY 09/12/18 08/26/19 History Diazepam 15 mg PO HS PRN 05/21/19 08/26/19 History Ibuprofen [Motrin] 800 mg PO Q8H PRN 05/21/19 08/26/19 History Metoprolol Succinate (ER) [Toprol 25 mg PO BID 05/21/19 08/26/19 History XL] glyBURIDE [Diabeta] 2.5 mg PO AC-BID 05/21/19 08/26/19 History Tamsulosin HCl [Flomax] 0.4 mg PO DAILY 08/26/19 08/26/19 History oxyCODONE HCL [Roxicodone] 30 mg PO QID 08/26/19 08/26/19 History Allergies Allergy/AdvReac Type Severity Reaction Status Date / Time codeine AdvReac Severe Nausea & Verified 08/26/19 18:47 Vomiting Physical Exam Vitals: Vital Signs Temp Pulse Pulse Resp BP BP Pulse Ox 08/27/19 07:00 98.2 F 72 14 104/66 97 08/27/19 03:00 98.2 F 87 99/63 97 08/26/19 19:39 98.6 F 81 16 115/73 99 08/26/19 15:00 97.9 F 82 18 85/51 94 L 08/26/19 12:39 98.4 F 96 18 115/74 99 Intake and Output 08/26/19 08/27/19 08/27/19 22:59 06:59 14:59 Other: Voiding Method Toilet Toilet Urinal Urinal Diaper Diaper Incontinent Incontinent # Voids 3 1 3 - Constitutional General appearance: no acute distress - EENT Eyes: EOMI, PERRLA, scleral icterus ENT: hearing grossly normal, normal oropharynx - Neck Neck: no lymphadenopathy - Respiratory Respiratory: bilateral: CTA - Cardiovascular Rhythm: regular Heart sounds: normal: S1, S2 - Gastrointestinal General gastrointestinal: normal bowel sounds, soft - Integumentary Integumentary: jaundiced - Neurologic Neurologic: CNII-XII intact - Musculoskeletal Musculoskeletal: generalized weakness, strength equal bilaterally - Psychiatric Psychiatric: A&O x's 3, appropriate affect Results CBC & Chem 7: 08/25/19 16:45 08/26/19 13:11 Labs: Abnormal Lab Results - Last 24 Hours (Table) 08/26/19 08/26/19 08/26/19 Range/Units 13:11 15:44 20:13 Potassium 3.4 L (3.5-5.1) mmol/L Chloride 109 H (98-107) mmol/L Glucose 68 L (74-99) mg/dL POC Glucose (mg/dL) 186 H (75-99) mg/dL Ferritin 1210.8 H (22.0-322.0) ng/mL Total Bilirubin 16.1 H* (0.2-1.3) mg/dL AST 1898 H (17-59) U/L ALT 1320 H (4-49) U/L Total Protein 5.3 L (6.3-8.2) g/dL Albumin 2.7 L (3.5-5.0) g/dL 08/27/19 08/27/19 Range/Units 06:56 11:30 Potassium (3.5-5.1) mmol/L Chloride (98-107) mmol/L Glucose (74-99) mg/dL POC Glucose (mg/dL) 125 H 134 H (75-99) mg/dL Ferritin (22.0-322.0) ng/mL Total Bilirubin (0.2-1.3) mg/dL AST (17-59) U/L ALT (4-49) U/L Total Protein (6.3-8.2) g/dL Albumin (3.5-5.0) g/dL Microbiology - Last 24 Hours (Table) 08/25/19 16:45 Urine Culture - Preliminary Urine,Voided Gram Neg Bacilli CT scan - abdomen: report reviewed CT scan - pelvis: report reviewed US - abdomen: report reviewed Assessment and Plan (1) Hyperbilirubinemia Narrative/Plan: The patient is presenting with marked hyperbilirubinemia, with a predominance of conjugated bilirubin. CT scans did not show any focal lesions in the liver. Ultrasound was negative for any obvious biliary obstruction. The hepatic parenchyma appears to be diffusely abnormal, which can occur with hepatic steatosis, especially given his prior history of chemotherapy exposure and heavy alcohol use. However a new diffuse process such as lymphoma involvement or inflammation are major considerations in the differential, given his new presentation. MRCP has been ordered with results pending. If this is also on revealing, the patient will need to proceed with a liver biopsy. - Lab workup so far is negative, with serologies for autoimmune hepatitis pending. That is also in the differential, given the patient's history of immune-related malignancy, as well as possible autoimmune hepatitis in childhood. - Plan discussed with patient Current Visit: Yes Status: Acute Code(s): E80.6 - OTHER DISORDERS OF BILIRUBIN METABOLISM SNOMED Code(s): 61349382 (2) Transaminitis Narrative/Plan: See above Current Visit: Yes Status: Acute Code(s): R74.0 - NONSPEC ELEV OF LEVELS OF TRANSAMNS & LACTIC ACID DEHYDRGNSE SNOMED Code(s): 200578693 (3) Large B-cell lymphoma Narrative/Plan: Diagnostic and therapeutic circumstances as described. So far CT of the abdomen and pelvis did not reveal any evidence of lymphoma recurrence. Await results of MRCP. CBC is within normal limits. Current Visit: No Status: Acute Priority: High Code(s): C85.10 - UNSPECIFIED B-CELL LYMPHOMA, UNSPECIFIED SITE SNOMED Code(s): 543490329
[2019-08-27 14:27] LABS: Hepatitis B Surface Antigen Reactive (Non-Reactive)
--- NOTE | 2019-08-27 15:20 | MR ---
EXAMINATION TYPE: MR MRCP DATE OF EXAM: 08/27/2019 COMPARISON: Correlation ultrasound and CT 08/25/2019 HISTORY: 63-year-old male Transaminitis, hyperbilirubinemia Technique: Multiplanar, multisequence images of the abdomen were acquired. Highly T2 weighted images of the pancreaticobiliary system were obtained for MRCP. 3-D reconstructions generated on a dedicated independent workstation. FINDINGS: Liver normal size at 14.7 cm. Trace perihepatic ascites. No focal lesions by noncontrast MRI. Bile duct is normal caliber at 5 mm. No intrahepatic biliary ductal dilatation. No suspicious filling defect is identified within the bile duct. There is gallbladder wall thickening up to 7 mm. However, there is no gallbladder hydrops. Some micro cystic changes present at the fundus of the gallbladder and can be seen in the setting of adenomyomat osis. No internal filling defects to suggest gallstones. 2.5 cm cyst posterior left kidney. Known left-sided nephrolithiasis not well demonstrated on MRI. Right kidney, spleen, adrenal glands, and pancreas show no gross body. Lap band device is present. No upper abdominal lymphadenopathy or gross bowel abnormality. IMPRESSION: 1. No biliary ductal dilatation or suspicious filling defect in the bile duct to suggest choledocholi thiasis. 2. Gallbladder wall thickening. This is a nonspecific finding and can be seen with fluid overload sta driss and with adjacent inflammation. Given trace perihepatic ascites and reported transaminitis, consi cesar hepatitis.
[2019-08-27 16:54] LABS: Glucose,Whole Blood 238 mg/dL (75-99)
[2019-08-27 20:20] LABS: Glucose,Whole Blood 158 mg/dL (75-99)
--- NOTE | 2019-08-27 22:45 | P.PN ---
Progress Note - Text Progress Note Date: 08/27/19 Presenting complaint: Diarrhea Interval history: History of diffuse large B-cell lymphoma non-Hodgkin's type status post treatment-successfully 2019. Was followed by Dr. Gama Patient admitted with episodes of significant diarrhea 2 or 3 times a week. Patient's urologist Dr. Dillon Velasquez called me this afternoon stating that patient has been incontinent of urine's since his TURP. And has had 2 rounds of treatment for Pseudomonas UTI. Has not been able to clear his. Patient is due to follow-up with Dr. Maldonado. Patient now presents significantly jaundiced. Now admitted with severe diarrhea and severe jaundice. Latter felt to be possibly drug induced. Today-laying in bed, tolerating a diet. Blood work has been sent off by GI. Review of systems: Was done for constitutional, cardiovascular, GI, pulmonary. relevant finding as above Active Medications Alprazolam (Xanax) 0.25 mg PO Q6HR PRN PRN Reason: Anxiety Aspirin (Aspirin) 81 mg PO DAILY [facility] Last Admin: 08/27/19 07:37 Dose: Not Given Documented by: Enoxaparin Sodium (Lovenox) 40 mg SQ DAILY [facility] Last Admin: 08/27/19 07:37 Dose: Not Given Documented by: Famotidine (Pepcid) 20 mg PO BID [facility] Last Admin: 08/27/19 20:36 Dose: 20 mg Documented by: Hydrocortisone (Cortef) 20 mg PO DAILY [facility] Last Admin: 08/27/19 07:37 Dose: 20 mg Documented by: Sodium Chloride (Saline 0.9%) 1,000 mls @ 75 mls/hr IV .[id number] [facility] Last Admin: 08/27/19 11:18 Dose: 75 mls/hr Documented by: Ceftriaxone Sodium 1 gm/ (Sodium Chloride) 50 mls @ 100 mls/hr IVPB Q24HR [facility] Last Admin: 08/27/19 07:37 Dose: 100 mls/hr Documented by: Insulin Aspart (Novolog) 0 unit SQ ACHS [facility]; Protocol Last Admin: 08/27/19 20:36 Dose: 1 unit Documented by: Levothyroxine Sodium (Synthroid) 88 mcg PO DAILY@0630 [facility] Last Admin: 08/27/19 07:37 Dose: 88 mcg Documented by: Metoprolol Succinate (Toprol Xl) 25 mg PO BID [facility] Last Admin: 08/27/19 20:36 Dose: 25 mg Documented by: Naloxone HCl (Narcan) 0.2 mg IV Q2M PRN PRN Reason: Opioid Reversal Ondansetron HCl (Zofran) 4 mg IVP Q8HR PRN PRN Reason: Nausea And Vomiting On examination: VITAL SIGNS: 97.9, 77, 18, 101/67, 97% on room air GENERAL APPEARANCE: BMI 32.1, laying in bed, comfortable, jaundiced. HEENT: Normal external appearance of nose and ear. Oral cavity normal EYES: Pupils equal. Conjunctiva yellow NECK: JVD not raised. Mass not palpable. RESPIRATORY: Respiratory effort normal. Lungs clear to auscultation. CARDIOVASCULAR: First and second sounds normal. No edema. ABDOMEN: Soft. Liver and spleen not palpable. No tenderness. No mass palpable. PSYCHIATRY: Alert and oriented x3. Mood and affect normal. Investigations: Potassium 3.4 glucose 68 AST-1898 ALT 1320 albumin 2.7 total bilirubin 16.1 UA positive for leukoesterase, WBC Alpha-1 antitrypsin 135, ceruloplasmin 224, and a screen negative CMV IgM antibody-nonreactive Cholangiopancreatography MRI-no specific Assessment: -Acute hepatitis with hyperbilirubinemia, possibly drug induced could be from the antibiotic treatment he recently received for his UTI -Recurrent UTI which is being treated for Pseudomonas as an outpatient, failed twice per his urologist Dr. Velasquez -Essential hypertension -Hypothyroid -Coronary artery disease with stent -Diabetes mellitus type 2 -Chronic renal insufficiency -Chronic gait dysfunction uses a walker -Diffuse large B-cell lymphoma non-Hodgkin's type-good response to treatment in 2019 in remission -History of gastric banding Plan: Workup in place as per GI. Stop ceftriaxone and start IV cefepime. Repeat labs in the morning.
[2019-08-27] MEDS: CEFEPIME 1 GM in SODIUM CHLORIDE 0.9% 50 ML IVPB SCH (23:16)
--- NOTE | 2019-08-28 01:08 | P.CONS ---
History of Present Illness - Reason for Consult Consult date: 08/27/19 recurrent pseudomonas UTI Requesting physician: Prem Yadav - Chief Complaint diarrhea and yellow discoloration to eyes x few days - History of Present Illness Patient is a 63-year-old male presenting to the ER at [facility] on 08/25/2019 with chief complaints of diarrhea that apparently has been going on for almost 2 months patient had described diarrhea to be nonbloody he did have multiple episodes on a daily basis some lower abdominal pain more with a leaking 3-4 abdomen radiation patient complaining of visible jaundice patient also have recent transurethral resection of the prostate the patient still has some problem with hematuria and apparently he did have a urine culture culture positive for Pseudomonas aeruginosa since May 2019 with a positive UA infectious was consulted for further management by therapy and concern for patient to be positive Pseudomonas related infection patient on presentation to the hospital has been afebrile did have a normal white count though his urine has been positive patient was evaluated bilirubin of 15.1 as well as elevated liver enzymes acute hepatitis panel has been negative as well as CMV antibodies the patient is currently being monitored by GI and surgical services patient did have MRCP completed today he did not show any biliary duct dilatation or filling defect gallbladder wall thickening could be seen in the fluid overload status and a CT of abdominal pelvis no suspicious or acute finding did not show any evidence of for abscess in the prostate bed. Review of Systems Positive point has been mentioned in HPI rest of the systems are negative Past Medical History Past Medical History: Coronary Artery Disease (CAD), Diabetes Mellitus, Hyperlipidemia, Osteoarthritis (OA), Thyroid Disorder Additional Past Medical History / Comment(s): ADRENAL INSUFFICIENCY, NIDDM, kidney stones, recurrent UTI History of Any Multi-Drug Resistant Organisms: None Reported Year Discovered:: 07/09/18 MDRO Source:: ESBL URINE Past Surgical History: Back Surgery, Bariatric Surgery, Heart Catheterization W ith Stent Additional Past Surgical History / Comment(s): BACK SURG (decompression) X2. LAP BAND.carpel tunnel Past Anesthesia/Blood Transfusion Reactions: No Reported Reaction Date of Last Stent Placement:: 2014 Smoking Status: Former smoker - Past Family History Father Family Medical History: Diabetes Mellitus Additional Family Medical History / Comment(s): of a ruptured aorta Mother Family Medical History: Cancer, Diabetes Mellitus Additional Family Medical History / Comment(s): PPM, liver CA Medications and Allergies Home Medications Medication Instructions Recorded Confirmed Type Levothyroxine Sodium 88 mcg PO DAILY 07/09/18 08/26/19 History metFORMIN HCL 1,000 mg PO BID 07/09/18 08/26/19 History Cortisone Acetate [Cortone] 25 mg PO DAILY 09/12/18 08/26/19 History Diazepam 15 mg PO HS PRN 05/21/19 08/26/19 History Ibuprofen [Motrin] 800 mg PO Q8H PRN 05/21/19 08/26/19 History Metoprolol Succinate (ER) [Toprol 25 mg PO BID 05/21/19 08/26/19 History XL] glyBURIDE [Diabeta] 2.5 mg PO AC-BID 05/21/19 08/26/19 History Tamsulosin HCl [Flomax] 0.4 mg PO DAILY 08/26/19 08/26/19 History oxyCODONE HCL [Roxicodone] 30 mg PO QID 08/26/19 08/26/19 History Allergies Allergy/AdvReac Type Severity Reaction Status Date / Time codeine AdvReac Severe Nausea & Verified 08/26/19 18:47 Vomiting Physical Exam Vitals: Vital Signs Temp Pulse Pulse Resp BP BP Pulse Ox 08/27/19 07:00 98.2 F 72 14 104/66 97 08/27/19 03:00 98.2 F 87 99/63 97 08/26/19 19:39 98.6 F 81 16 115/73 99 08/26/19 15:00 97.9 F 82 18 85/51 94 L 08/26/19 12:39 98.4 F 96 18 115/74 99 Intake and Output 08/26/19 08/27/19 08/27/19 22:59 06:59 14:59 Other: Voiding Method Toilet Toilet Urinal Urinal Diaper Diaper Incontinent Incontinent # Voids 3 1 3 GENERAL DESCRIPTION: Elderly male lying in bed, no distress. No tachypnea or accessory muscle of respiration use. HEENT: scleral icterus +. Oral mucous membrane is dry. NECK: Trachea central, no thyromegaly. LUNGS: Unlabored breathing. Clear to auscultation anteriorly. No wheeze or crackle. HEART: S1, S2, regular rate and rhythm. ABDOMEN: Soft, no tenderness , guarding or rigidity EXTREMITIES: No edema of feet. SKIN: No rash, no masses palpable. NEUROLOGICAL: The patient is awake, alert, oriented x3, mood and affect normal. Results CBC & Chem 7: 08/25/19 16:45 08/26/19 13:11 Labs: Abnormal Lab Results - Last 24 Hours (Table) 08/26/19 08/26/19 08/26/19 Range/Units 13:11 15:44 20:13 Potassium 3.4 L (3.5-5.1) mmol/L Chloride 109 H (98-107) mmol/L Glucose 68 L (74-99) mg/dL POC Glucose (mg/dL) 186 H (75-99) mg/dL Ferritin 1210.8 H (22.0-322.0) ng/mL Total Bilirubin 16.1 H* (0.2-1.3) mg/dL AST 1898 H (17-59) U/L ALT 1320 H (4-49) U/L Total Protein 5.3 L (6.3-8.2) g/dL Albumin 2.7 L (3.5-5.0) g/dL 08/27/19 Range/Units 06:56 Potassium (3.5-5.1) mmol/L Chloride (98-107) mmol/L Glucose (74-99) mg/dL POC Glucose (mg/dL) 125 H (75-99) mg/dL Ferritin (22.0-322.0) ng/mL Total Bilirubin (0.2-1.3) mg/dL AST (17-59) U/L ALT (4-49) U/L Total Protein (6.3-8.2) g/dL Albumin (3.5-5.0) g/dL Microbiology - Last 24 Hours (Table) 08/25/19 16:45 Urine Culture - Preliminary Urine,Voided Gram Neg Bacilli Assessment and Plan Assessment: -patient with recurrent Pseudomonas aeruginosa positive urine culture over the last 3 months in this patient who did have a history of TURP and the patient has a problem with hematuria post surgery however the patient currently no fever or elevated white count but he did have a positive UA and CT abdominal pelvis demonstrated evidence of prostate bed abscess (1) Urinary tract infection Current Visit: Yes Status: Acute Code(s): N39.0 - URINARY TRACT INFECTION, SITE NOT SPECIFIED SNOMED Code(s): 07804386 Plan: 1-cefepime dose to be adjusted up to 2 g every 12 hours 2-May consider outpatient IV antibiotic therapy to help clear of this infection as he does have an oral option available We will follow on clinical condition and cultures to further adjust medication if needed Thank you for this consultation we will follow the patient along with you Time with Patient: Greater than 30
[2019-08-28] MEDS: SODIUM CHLORIDE 0.9% 1,000 ML IV SCH (03:13)
[2019-08-28] MEDS: LEVOTHYROXINE 88 MCG TAB PO SCH (05:47)
[2019-08-28 06:52] LABS: Glucose,Whole Blood 105 mg/dL (75-99)
[2019-08-28] MEDS: INSULIN ASPART (NovoLOG) 100 UNIT/ML VIAL SQ SCH ×4 (07:36→20:40)
[2019-08-28] MEDS: ASPIRIN 81 MG PO SCH (08:16)
[2019-08-28] MEDS: FAMOTIDINE 20 MG TAB PO SCH ×2 (08:16→20:40)
[2019-08-28] MEDS: HYDROCORTISONE 20 MG TAB PO SCH (08:16)
[2019-08-28] MEDS: ENOXAPARIN 40 MG/0.4 ML SYRINGE SQ SCH (08:17)
[2019-08-28] MEDS: CEFEPIME 2 GM in SODIUM CHLORIDE 0.9% 100 ML IVPB SCH ×2 (08:53→21:05)
[2019-08-28] MEDS: METOPROLOL SUCCINATE (ER) 25 MG TAB.ER.24H PO SCH ×2 (08:59→20:40)
[2019-08-28] MEDS ORDERED: CEFEPIME 2 GM in SODIUM CHLORIDE 0.9% 50 ML IVPB SCH (09:00)
[2019-08-28 09:06] LABS: Anisocytosis Slight; HCT 36.8 % (39.0-53.0); HGB 11.6 gm/dL (13.0-17.5); Hypochromasia Slight; MCH 30.4 pg (25.0-35.0); MCHC 31.6 g/dL (31.0-37.0); MCV 96.2 fL (80.0-100.0); Mean Platelet Volume 8.4; Platelet Count 150 k/uL (150-450); RBC 3.82 m/uL (4.30-5.90); RDW 16.1 % (11.5-15.5); WBC 3.9 k/uL (3.8-10.6)
--- NOTE | 2019-08-28 09:06 | P.PN ---
Subjective Progress Note Date: 08/27/19 Principal diagnosis: Elevated liver enzymes, chronic diarrhea, history of non-Hodgkin's lymphoma Patient is seen lying in bed tolerating diet. No nausea or vomiting. No abdominal pain reported. No confusion or somnolence reported. Objective - Vital Signs Vital signs: Vital Signs Temp 98.2 F 08/27/19 07:00 Pulse 72 08/27/19 07:00 Resp 14 08/27/19 07:00 BP 104/66 08/27/19 07:00 Pulse Ox 97 08/27/19 07:00 Intake & Output 08/26/19 08/27/19 08/27/19 18:59 06:59 18:59 Intake Total 800 Output Total 450 Balance 350 Intake: Amount of Fluid Infused ( 800 ml) Output: Urine 450 Other: Voiding Method Toilet Toilet Toilet Urinal Urinal Urinal Diaper Diaper Diaper Incontinent Incontinent Incontinent # Voids 2 1 3 - Exam On physical examination, patient appears comfortable in no apparent distress. HEAD: Normocephalic, atraumatic. EYES: Scleral icterus. No conjunctival injection. MOUTH: No lesions, tongue midline. NECK: Trachea midline, no gross abnormalities. ABDOMEN: Soft, obese. Bowel sounds are positive. No organomegaly. No guarding or rigidity. EXTREMITIES: No pedal edema. SKIN: No rashes, jaundice. NEUROLOGIC: Alert and oriented. No focal deficits. - Labs CBC & Chem 7: 08/25/19 16:45 08/26/19 13:11 Labs: Abnormal Lab Results - Last 24 Hours (Table) 08/26/19 08/26/19 08/26/19 Range/Units 13:11 15:44 20:13 Potassium 3.4 L (3.5-5.1) mmol/L Chloride 109 H (98-107) mmol/L Glucose 68 L (74-99) mg/dL POC Glucose (mg/dL) 186 H (75-99) mg/dL Ferritin 1210.8 H (22.0-322.0) ng/mL Total Bilirubin 16.1 H* (0.2-1.3) mg/dL AST 1898 H (17-59) U/L ALT 1320 H (4-49) U/L Total Protein 5.3 L (6.3-8.2) g/dL Albumin 2.7 L (3.5-5.0) g/dL 08/27/19 08/27/19 Range/Units 06:56 11:30 Potassium (3.5-5.1) mmol/L Chloride (98-107) mmol/L Glucose (74-99) mg/dL POC Glucose (mg/dL) 125 H 134 H (75-99) mg/dL Ferritin (22.0-322.0) ng/mL Total Bilirubin (0.2-1.3) mg/dL AST (17-59) U/L ALT (4-49) U/L Total Protein (6.3-8.2) g/dL Albumin (3.5-5.0) g/dL Microbiology - Last 24 Hours (Table) 08/25/19 16:45 Urine Culture - Preliminary Urine,Voided Gram Neg Bacilli Assessment and Plan (1) Transaminitis Narrative/Plan: 63-year-old male presenting with complaints of diarrhea found to have markedly elevated liver enzymes in both a cholestatic and hepatocellular pattern which ap pear to be new in onset with normal liver enzymes recorded in 06/2019. Suspicion is for a medication-induced hepatitis with other etiologies found to be negative to date in serologic workup. Denies any high risk behavior but does report taking medication in approximately 6 weeks ago for a urinary tract infection. Current Visit: Yes Status: Acute Code(s): R74.0 - NONSPEC ELEV OF LEVELS OF TRANSAMNS & LACTIC ACID DEHYDRGNSE SNOMED Code(s): 734952675 (2) Diarrhea Current Visit: Yes Status: Acute Code(s): R19.7 - DIARRHEA, UNSPECIFIED SNOMED Code(s): 91294358 (3) Hyperbilirubinemia Current Visit: Yes Status: Acute Code(s): E80.6 - OTHER DISORDERS OF BILIRUBIN METABOLISM SNOMED Code(s): 71838583 (4) Jaundice Current Visit: Yes Status: Acute Code(s): R17 - UNSPECIFIED JAUNDICE SNOMED Code(s): 35114974 Plan: Supportive care Okay for diet Continue to monitor CBC, BMP, LFTs, INR Acute viral serologies including hepatitis and CMV negative today, ABG pending Intrinsic liver serologies negative today MRCP performed with no evidence of obstruction or hepatobiliary disease Consider liver biopsy if no etiology is found in liver enzymes remain elevated Thank you for allowing us to participate in the care of the patient we will continue to follow
[2019-08-28 09:08] LABS: African American GFR (CKD) >90 (>60 ml/min/1.73 sqM); Albumin 2.5 g/dL (3.5-5.0); Alkaline Phosphatase 105 U/L (38-126); Anion Gap 6 mmol/L; Blood Urea Nitrogen 12 mg/dL (9-20); Calcium 8.4 mg/dL (8.4-10.2); Carbon Dioxide 22 mmol/L (22-30); Chloride 113 mmol/L (98-107); Glucose 127 mg/dL (74-99); Non-African American GFR(CKD) >90 (>60 ml/min/1.73 sqM); Potassium 3.7 mmol/L (3.5-5.1); Sodium 141 mmol/L (137-145); Total Protein 4.9 g/dL (6.3-8.2)
[2019-08-28 09:22] LABS: INR 1.5 (<1.2); Prothrombin Time 15.1 sec (9.0-12.0)
[2019-08-28 09:44] LABS: ALT 1106 U/L (4-49); Total Bilirubin 16.5 mg/dL (0.2-1.3)
[2019-08-28 09:46] LABS: AST 1516 U/L (17-59)
[2019-08-28 11:07] LABS: Glucose,Whole Blood 134 mg/dL (75-99)
--- NOTE | 2019-08-28 11:25 | P.PN ---
Subjective Progress Note Date: 08/28/19 Principal diagnosis: Hepatitis Patient denies abdominal pain. Bilirubin remains elevated. MRI results noted. Objective - Vital Signs Vital signs: Vital Signs Temp 98.6 F 08/28/19 07:00 Pulse 64 08/28/19 07:00 Resp 16 08/28/19 08:00 BP 93/60 08/28/19 08:56 Pulse Ox 97 08/28/19 07:00 Intake & Output 08/27/19 08/28/19 08/28/19 18:59 06:59 18:59 Intake Total 50 Balance 50 Intake: Intake, IV Titration 50 Amount Cefepime 1 gm In Sodium 50 Chloride 0.9% 50 ml @ 100 mls/hr IVPB Q12H [facility] Rx# :[id number] Other: Voiding Method Toilet Toilet Urinal Urinal Diaper Diaper Incontinent Incontinent # Voids 3 3 - Exam Abdomen: Soft, nontender, nondistended - Labs CBC & Chem 7: 08/28/19 08:12 08/28/19 08:12 Labs: Abnormal Lab Results - Last 24 Hours (Table) 08/25/19 08/27/19 08/27/19 Range/Units 20:40 11:30 16:50 RBC (4.30-5.90) m/uL Hgb (13.0-17.5) gm/dL Hct (39.0-53.0) % RDW (11.5-15.5) % PT (9.0-12.0) sec INR (<1.2) Chloride (98-107) mmol/L Glucose (74-99) mg/dL POC Glucose (mg/dL) 134 H 238 H (75-99) mg/dL Total Bilirubin (0.2-1.3) mg/dL AST (17-59) U/L ALT (4-49) U/L Total Protein (6.3-8.2) g/dL Albumin (3.5-5.0) g/dL Hep Bs Antigen Reactive H (Non-Reactive) 08/27/19 08/28/19 08/28/19 Range/Units 20:18 06:51 08:12 RBC (4.30-5.90) m/uL Hgb (13.0-17.5) gm/dL Hct (39.0-53.0) % RDW (11.5-15.5) % PT 15.1 H (9.0-12.0) sec INR 1.5 H (<1.2) Chloride (98-107) mmol/L Glucose (74-99) mg/dL POC Glucose (mg/dL) 158 H 105 H (75-99) mg/dL Total Bilirubin (0.2-1.3) mg/dL AST (17-59) U/L ALT (4-49) U/L Total Protein (6.3-8.2) g/dL Albumin (3.5-5.0) g/dL Hep Bs Antigen (Non-Reactive) 08/28/19 08/28/19 08/28/19 Range/Units 08:12 08:12 11:06 RBC 3.82 L (4.30-5.90) m/uL Hgb 11.6 L (13.0-17.5) gm/dL Hct 36.8 L (39.0-53.0) % RDW 16.1 H (11.5-15.5) % PT (9.0-12.0) sec INR (<1.2) Chloride 113 H (98-107) mmol/L Glucose 127 H (74-99) mg/dL POC Glucose (mg/dL) 134 H (75-99) mg/dL Total Bilirubin 16.5 H* (0.2-1.3) mg/dL AST 1516 H (17-59) U/L ALT 1106 H (4-49) U/L Total Protein 4.9 L (6.3-8.2) g/dL Albumin 2.5 L (3.5-5.0) g/dL Hep Bs Antigen (Non-Reactive) Microbiology - Last 24 Hours (Table) 08/25/19 16:45 Urine Culture - Final Urine,Voided Pseudomonas aeruginosa Assessment and Plan (1) Hyperbilirubinemia Narrative/Plan: Patient's lab results noted. Liver enzymes remain elevated. Continue workup of the patient's hepatocellular disease. Current Visit: Yes Status: Acute Code(s): E80.6 - OTHER DISORDERS OF BILIRUBIN METABOLISM SNOMED Code(s): 49477251
[2019-08-28] MEDS: HYDROCORTISONE SUCCINATE 100 MG/2 ML VIAL IV SCH ×3 (13:35→23:20)
[2019-08-28 16:31] LABS: Glucose,Whole Blood 188 mg/dL (75-99)
[2019-08-28 18:48] LABS: Hemoglobin A1C 6.3 % (4.0-6.0)
[2019-08-28 20:36] LABS: Glucose,Whole Blood 220 mg/dL (75-99)
[2019-08-28] MEDS: CEFEPIME 1 GM in SODIUM CHLORIDE 0.9% 50 ML IVPB SCH (20:41)
--- NOTE | 2019-08-28 23:12 | P.PN ---
Progress Note - Text Progress Note Date: 08/28/19 Presenting complaint: Diarrhea Interval history: History of diffuse large B-cell lymphoma non-Hodgkin's type status post treatment-successfully 2019. Was followed by Dr. Gama Patient admitted with episodes of significant diarrhea 2 or 3 times a week. Patient's urologist Dr. Dillon Velasquez called me this afternoon stating that patient has been incontinent of urine's since his TURP. And has had 2 rounds of treatment for Pseudomonas UTI. Has not been able to clear his. Patient is due to follow-up with Dr. Maldonado. Patient now presents significantly jaundiced. Now admitted with severe diarrhea and severe jaundice. Latter felt to be possibly drug induced. Today-laying bed. Comfortable. Starting a diet. Today states that his diarrhea has not been a problem in fact is constipated. Requesting a laxative. No abdominal pain.. Review of systems: Was done for constitutional, cardiovascular, GI, pulmonary. relevant finding as above Active Medications Alprazolam (Xanax) 0.25 mg PO Q6HR PRN PRN Reason: Anxiety Enoxaparin Sodium (Lovenox) 40 mg SQ DAILY [facility] Last Admin: 08/28/19 08:17 Dose: 40 mg Documented by: Famotidine (Pepcid) 20 mg PO BID [facility] Last Admin: 08/28/19 20:40 Dose: 20 mg Documented by: Hydrocortisone Sodium Succinate (Solu-Cortef) 25 mg IV Q8HR [facility] Last Admin: 08/28/19 14:38 Dose: Not Given Documented by: Cefepime HCl 2 gm/ Sodium (Chloride) 100 mls @ 200 mls/hr IVPB Q12H [facility] Last Admin: 08/28/19 21:05 Dose: Not Given Documented by: Insulin Aspart (Novolog) 0 unit SQ ACHS [facility]; Protocol Last Admin: 08/28/19 20:40 Dose: 3 unit Documented by: Levothyroxine Sodium (Synthroid) 88 mcg PO DAILY@0630 [facility] Last Admin: 08/28/19 05:47 Dose: 88 mcg Documented by: Metoprolol Succinate (Toprol Xl) 25 mg PO BID [facility] Last Admin: 08/28/19 20:40 Dose: 25 mg Documented by: Naloxone HCl (Narcan) 0.2 mg IV Q2M PRN PRN Reason: Opioid Reversal Ondansetron HCl (Zofran) 4 mg IVP Q8HR PRN PRN Reason: Nausea And Vomiting On examination: VITAL SIGNS: 97.9, 70, 16, and 92/59, 98% on room air GENERAL APPEARANCE:, laying in bed, comfortable, jaundiced. HEENT: Normal external appearance of nose and ear. Oral cavity normal EYES: Pupils equal. Conjunctiva yellow NECK: JVD not raised. Mass not palpable. RESPIRATORY: Respiratory effort normal. Lungs clear to auscultation. CARDIOVASCULAR: First and second sounds normal. No edema. ABDOMEN: Soft. Liver and spleen not palpable. No tenderness. No mass palpable. PSYCHIATRY: Alert and oriented x3. Mood and affect normal. Investigations: white count 3.9 hemoglobin 11.6 potassium 3.7 creatinine 0.79 total bilirubin 16.5 AST 1516, ALT 1106 Previous testing Potassium 3.4 glucose 68 AST-1898 ALT 1320 albumin 2.7 total bilirubin 16.1 UA positive for leukoesterase, WBC Alpha-1 antitrypsin 135, ceruloplasmin 224, and a screen negative CMV IgM antibody-nonreactive Cholangiopancreatography MRI-no specific Assessment: -Acute hepatitis with hyperbilirubinemia, possibly drug induced could be from the antibiotic treatment he recently received for his UTI -Recurrent UTI which is being treated for Pseudomonas as an outpatient, failed twice per his urologist Dr. Velasquez -Essential hypertension -Hypothyroid -Coronary artery disease with stent -Diabetes mellitus type 2 -Chronic renal insufficiency -Chronic gait dysfunction uses a walker -Diffuse large B-cell lymphoma non-Hodgkin's type-good response to treatment in 2019 in remission -History of gastric banding Plan: discussed with the patient. Repeat LFTs in the morning.visit to IV cefepime. Given that the blood pressures running on the lower side we'll give stress dose of IV hydrocortisone 25 mg every 8
--- NOTE | 2019-08-29 00:43 | PN ---
PROGRESS NOTE DATE OF SERVICE: 08/28/2019 REASON FOR FOLLOW UP: Recurrent Pseudomonas urinary tract infection. INTERVAL HISTORY: The patient is currently afebrile, has been breathing comfortably. The patient denies having any chest pain. No shortness of breath or cough. No abdominal pain. Still complaining of some hematuria but no difficult urination. PHYSICAL EXAMINATION: Blood pressure is 107/62 with a pulse of 72, temperature 98.4. He is 97% on room air. General description is an elderly male lying in bed in no distress. Respiratory system: Unlabored breathing, clear to auscultation anteriorly. Heart S1, S2. Regular rate and rhythm. Abdomen soft, no tenderness. LABS: Hemoglobin 11.7, white count 3.9, BUN of 12, creatinine 0.79. DIAGNOSTIC IMPRESSION AND PLAN: Patient with recurrent Pseudomonas infection with a history of prostatectomy for prostate cancer. The patient is currently on cefepime 2 grams q.12 hours. Will need a med line for outpatient IV antibiotics. Continue supportive care. MMODL / IJN: [id number] /
--- NOTE | 2019-08-29 00:51 | P.PN ---
Subjective Progress Note Date: 08/28/19 Principal diagnosis: Elevated liver enzymes, chronic diarrhea, history of non-Hodgkin's lymphoma Patient is seen lying in bed tolerating diet. No nausea or vomiting. No abdominal pain reported. He is reporting some constipation today. Objective - Vital Signs Vital signs: Vital Signs Temp 98.6 F 08/28/19 07:00 Pulse 64 08/28/19 07:00 Resp 16 08/28/19 08:00 BP 93/60 08/28/19 08:56 Pulse Ox 97 08/28/19 07:00 Intake & Output 08/27/19 08/28/19 08/28/19 18:59 06:59 18:59 Intake Total 50 750 Balance 50 750 Intake: Intake, IV Titration 50 550 Amount Cefepime 1 gm In Sodium 50 Chloride 0.9% 50 ml @ 100 mls/hr IVPB Q12H [facility] Rx# :[id number] Cefepime 2 gm In Sodium 100 Chloride 0.9% 100 ml @ 200 mls/hr IVPB Q12H [facility] Rx#:[id number] Sodium Chloride 0.9% 1, 450 000 ml @ 75 mls/hr IV . [id number] [facility] Rx#:[id number] Oral 200 Other: Voiding Method Toilet Toilet Urinal Urinal Diaper Diaper Incontinent Incontinent # Voids 3 3 - Exam On physical examination, patient appears comfortable in no apparent distress. HEAD: Normocephalic, atraumatic. EYES: Scleral icterus. No conjunctival injection. MOUTH: No lesions, tongue midline. NECK: Trachea midline, no gross abnormalities. ABDOMEN: Soft, obese. Bowel sounds are positive. No organomegaly. No guarding or rigidity. EXTREMITIES: No pedal edema. SKIN: No rashes, jaundice. NEUROLOGIC: Alert and oriented. No focal deficits. - Labs CBC & Chem 7: 08/28/19 08:12 08/28/19 08:12 Labs: Abnormal Lab Results - Last 24 Hours (Table) 08/27/19 08/27/19 08/28/19 Range/Units 16:50 20:18 06:51 RBC (4.30-5.90) m/uL Hgb (13.0-17.5) gm/dL Hct (39.0-53.0) % RDW (11.5-15.5) % PT (9.0-12.0) sec INR (<1.2) Chloride (98-107) mmol/L Glucose (74-99) mg/dL POC Glucose (mg/dL) 238 H 158 H 105 H (75-99) mg/dL Total Bilirubin (0.2-1.3) mg/dL AST (17-59) U/L ALT (4-49) U/L Total Protein (6.3-8.2) g/dL Albumin (3.5-5.0) g/dL 08/28/19 08/28/19 08/28/19 Range/Units 08:12 08:12 08:12 RBC 3.82 L (4.30-5.90) m/uL Hgb 11.6 L (13.0-17.5) gm/dL Hct 36.8 L (39.0-53.0) % RDW 16.1 H (11.5-15.5) % PT 15.1 H (9.0-12.0) sec INR 1.5 H (<1.2) Chloride 113 H (98-107) mmol/L Glucose 127 H (74-99) mg/dL POC Glucose (mg/dL) (75-99) mg/dL Total Bilirubin 16.5 H* (0.2-1.3) mg/dL AST 1516 H (17-59) U/L ALT 1106 H (4-49) U/L Total Protein 4.9 L (6.3-8.2) g/dL Albumin 2.5 L (3.5-5.0) g/dL 08/28/19 Range/Units 11:06 RBC (4.30-5.90) m/uL Hgb (13.0-17.5) gm/dL Hct (39.0-53.0) % RDW (11.5-15.5) % PT (9.0-12.0) sec INR (<1.2) Chloride (98-107) mmol/L Glucose (74-99) mg/dL POC Glucose (mg/dL) 134 H (75-99) mg/dL Total Bilirubin (0.2-1.3) mg/dL AST (17-59) U/L ALT (4-49) U/L Total Protein (6.3-8.2) g/dL Albumin (3.5-5.0) g/dL Microbiology - Last 24 Hours (Table) 08/25/19 16:45 Urine Culture - Final Urine,Voided Pseudomonas aeruginosa Assessment and Plan (1) Transaminitis Narrative/Plan: 63-year-old male presenting with complaints of diarrhea found to have markedly elevated liver enzymes in both a cholestatic and hepatocellular pattern which appear to be new in onset with normal liver enzymes recorded in 06/2019. Suspicion is for a medication-induced hepatitis with other etiologies found to be negative to date in serologic workup. Denies any high risk behavior but does report taking medication in approximately 6 weeks ago for a urinary tract infection. Current Visit: Yes Status: Acute Code(s): R74.0 - NONSPEC ELEV OF LEVELS OF TRANSAMNS & LACTIC ACID DEHYDRGNSE SNOMED Code(s): 194011368 (2) Diarrhea Current Visit: Yes Status: Acute Code(s): R19.7 - DIARRHEA, UNSPECIFIED SNOMED Code(s): 56020398 (3) Hyperbilirubinemia Current Visit: Yes Status: Acute Code(s): E80.6 - OTHER DISORDERS OF BILIRUBIN METABOLISM SNOMED Code(s): 10967808 (4) Jaundice Current Visit: Yes Status: Acute Code(s): R17 - UNSPECIFIED JAUNDICE SNOMED Code(s): 67156434 Plan: Supportive care Okay for diet Continue to monitor CBC, BMP, LFTs, INR Acute viral serologies including hepatitis and CMV negative today, ABG pending Intrinsic liver serologies negative to date Hold aspirin for possible liver guided biopsy MRCP performed with no evidence of obstruction or hepatobiliary disease Consider liver biopsy if no etiology is found in liver enzymes remain elevated Thank you for allowing us to participate in the care of the patient we will continue to follow
[2019-08-29] MEDS: LEVOTHYROXINE 88 MCG TAB PO SCH ×2 (05:41→05:42)
[2019-08-29] MEDS ORDERED: HALOPERIDOL LACTATE 5 MG/ML 1 ML VIAL IM STA (06:07)
[2019-08-29 07:23] LABS: Glucose,Whole Blood 163 mg/dL (75-99)
[2019-08-29] MEDS: CEFEPIME 2 GM in SODIUM CHLORIDE 0.9% 100 ML IVPB SCH ×2 (08:42→20:02)
[2019-08-29] MEDS: ENOXAPARIN 40 MG/0.4 ML SYRINGE SQ SCH (08:42)
[2019-08-29] MEDS: glipiZIDE 5 MG TAB PO SCH ×2 (08:42→17:50)
[2019-08-29] MEDS: HYDROCORTISONE SUCCINATE 100 MG/2 ML VIAL IV SCH ×2 (08:42→16:07)
[2019-08-29] MEDS: INSULIN ASPART (NovoLOG) 100 UNIT/ML VIAL SQ SCH ×4 (08:42→20:01)
[2019-08-29] MEDS: FAMOTIDINE 20 MG TAB PO SCH ×2 (08:43→20:02)
[2019-08-29] MEDS: metFORMIN 500 MG TAB PO SCH ×2 (08:43→20:02)
[2019-08-29] MEDS: TAMSULOSIN 0.4 MG CAP.ER.24H PO SCH (08:43)
[2019-08-29] MEDS: METOPROLOL SUCCINATE (ER) 25 MG TAB.ER.24H PO SCH ×2 (08:43→19:50)
[2019-08-29 11:31] LABS: Glucose,Whole Blood 142 mg/dL (75-99)
[2019-08-29] MEDS ORDERED: PHYTONADIONE 10 MG in SODIUM CHLORIDE 0.9% 50 ML IVPB STA (11:37)
[2019-08-29 11:42] LABS: African American GFR (CKD) >90 (>60 ml/min/1.73 sqM); Albumin 2.6 g/dL (3.5-5.0); Alkaline Phosphatase 103 U/L (38-126); Anion Gap 8 mmol/L; Blood Urea Nitrogen 17 mg/dL (9-20); Calcium 8.3 mg/dL (8.4-10.2); Carbon Dioxide 20 mmol/L (22-30); Chloride 112 mmol/L (98-107); Glucose 161 mg/dL (74-99); Non-African American GFR(CKD) >90 (>60 ml/min/1.73 sqM); Potassium 3.8 mmol/L (3.5-5.1); Sodium 140 mmol/L (137-145); Total Protein 5.2 g/dL (6.3-8.2)
[2019-08-29 11:50] LABS: Total Bilirubin 19.5 mg/dL (0.2-1.3)
[2019-08-29 11:51] LABS: ALT 905 U/L (4-49); AST 999 U/L (17-59)
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
--- NOTE | 2019-08-29 14:18 | P.PN ---
Subjective Progress Note Date: 08/29/19 Principal diagnosis: Hepatitis Patient confused and belligerent today. Denies pain. No nausea or vomiting. Would like to go home. Bilirubin has increased to 19.5. Objective - Vital Signs Vital signs: Vital Signs Temp 97.9 F 08/29/19 11:32 Pulse 72 08/29/19 11:32 Resp 16 08/29/19 11:32 BP 105/64 08/29/19 11:32 Pulse Ox 98 08/29/19 11:32 Intake & Output 08/28/19 08/29/19 08/29/19 18:59 06:59 18:59 Intake Total 750 50 Balance 750 50 Intake: Intake, IV Titration 550 Amount Cefepime 2 gm In Sodium 100 Chloride 0.9% 100 ml @ 200 mls/hr IVPB Q12H [facility] Rx#:[id number] Sodium Chloride 0.9% 1, 450 000 ml @ 75 mls/hr IV . [id number] [facility] Rx#:[id number] Oral 200 50 Other: Voiding Method Toilet Toilet Urinal Urinal Diaper Diaper Incontinent Incontinent # Voids 2 - Exam Abdomen: Soft, nontender, nondistended - Labs CBC & Chem 7: 08/28/19 08:12 08/29/19 11:00 Labs: Abnormal Lab Results - Last 24 Hours (Table) 08/28/19 08/28/19 08/28/19 Range/Units 08:12 16:30 20:31 Chloride (98-107) mmol/L Carbon Dioxide (22-30) mmol/L Glucose (74-99) mg/dL POC Glucose (mg/dL) 188 H 220 H (75-99) mg/dL Hemoglobin A1c 6.3 H (4.0-6.0) % Calcium (8.4-10.2) mg/dL Total Bilirubin (0.2-1.3) mg/dL AST (17-59) U/L ALT (4-49) U/L Total Protein (6.3-8.2) g/dL Albumin (3.5-5.0) g/dL 08/29/19 08/29/19 08/29/19 Range/Units 07:15 11:00 11:27 Chloride 112 H (98-107) mmol/L Carbon Dioxide 20 L (22-30) mmol/L Glucose 161 H (74-99) mg/dL POC Glucose (mg/dL) 163 H 142 H (75-99) mg/dL Hemoglobin A1c (4.0-6.0) % Calcium 8.3 L (8.4-10.2) mg/dL Total Bilirubin 19.5 H* (0.2-1.3) mg/dL AST 999 H (17-59) U/L ALT 905 H (4-49) U/L Total Protein 5.2 L (6.3-8.2) g/dL Albumin 2.6 L (3.5-5.0) g/dL Assessment and Plan (1) Hyperbilirubinemia Narrative/Plan: Agree with psychiatric evaluation however hepatic encephalopathy appears to be the source of the patient's confusion. Continue diet. No surgical intervention planned at this time. GI following. Current Visit: Yes Status: Acute Code(s): E80.6 - OTHER DISORDERS OF BILIRUBIN METABOLISM SNOMED Code(s): 70882628
[2019-08-29 17:05] LABS: Glucose,Whole Blood 189 mg/dL (75-99)
[2019-08-29] MEDS ORDERED: IBUPROFEN 800 MG TAB PO PRN (18:29)
[2019-08-29 19:52] LABS: Glucose,Whole Blood 337 mg/dL (75-99)
--- NOTE | 2019-08-29 21:19 | P.PN ---
Progress Note - Text Progress Note Date: 08/29/19 Presenting complaint: Diarrhea Interval history: History of diffuse large B-cell lymphoma non-Hodgkin's type status post treatment-successfully 2019. Was followed by Dr. Gama Patient admitted with episodes of significant diarrhea 2 or 3 times a week. Patient's urologist Dr. Dillon Velasquez called me this afternoon stating that patient has been incontinent of urine's since his TURP. And has had 2 rounds of treatment for Pseudomonas UTI. Has not been able to clear his. Patient is due to follow-up with Dr. Maldonado. Patient now presents significantly jaundiced. Now admitted with severe diarrhea and severe jaundice. Latter felt to be possibly drug induced. Also Pseudomonas UTI--outpatient treatment Today-early this morning got very agitated, threatening staff. Given 5 mg of Haldol IM. Patient settled down. Tolerating a diet. More so over this afternoon. Psychiatry was consulted. [place] it was delirium Review of systems: Was done for constitutional, cardiovascular, GI, pulmonary. relevant finding as above Active Medications Alprazolam (Xanax) 0.25 mg PO Q6HR PRN PRN Reason: Anxiety Enoxaparin Sodium (Lovenox) 40 mg SQ DAILY [facility] Last Admin: 08/29/19 08:42 Dose: Not Given Documented by: Famotidine (Pepcid) 20 mg PO BID [facility] Last Admin: 08/29/19 20:02 Dose: 20 mg Documented by: Glipizide (Glucotrol) 5 mg PO AC-BID [facility] Last Admin: 08/29/19 17:50 Dose: 5 mg Documented by: Hydrocortisone Sodium Succinate (Solu-Cortef) 25 mg IV Q8HR [facility] Last Admin: 08/29/19 16:07 Dose: 25 mg Documented by: Cefepime HCl 2 gm/ Sodium (Chloride) 100 mls @ 200 mls/hr IVPB Q12H [facility] Last Admin: 08/29/19 20:02 Dose: 200 mls/hr Documented by: Ibuprofen (Motrin) 800 mg PO Q8H PRN PRN Reason: Pain Insulin Aspart (Novolog) 0 unit SQ ACHS [facility]; Protocol Last Admin: 08/29/19 20:01 Dose: 6 unit Documented by: Levothyroxine Sodium (Synthroid) 88 mcg PO DAILY@0630 [facility] Last Admin: 08/29/19 05:42 Dose: Not Given Documented by: Metformin HCl (Glucophage) 1,000 mg PO BID [facility] Last Admin: 08/29/19 20:02 Dose: 1,000 mg Documented by: Metoprolol Succinate (Toprol Xl) 25 mg PO BID [facility] Last Admin: 08/29/19 19:50 Dose: Not Given Documented by: Naloxone HCl (Narcan) 0.2 mg IV Q2M PRN PRN Reason: Opioid Reversal Ondansetron HCl (Zofran) 4 mg IVP Q8HR PRN PRN Reason: Nausea And Vomiting Tamsulosin HCl (Flomax) 0.4 mg PO DAILY [facility] Last Admin: 08/29/19 08:43 Dose: Not Given Documented by: On examination: VITAL SIGNS: 97.6, 67, 18, 100-63, 99% room air GENERAL APPEARANCE:, Laying, more comfortable, jaundiced HEENT: Normal external appearance of nose and ear. Oral cavity normal EYES: Pupils equal. Conjunctiva yellow NECK: JVD not raised. Mass not palpable. RESPIRATORY: Respiratory effort normal. Lungs clear to auscultation. CARDIOVASCULAR: First and second sounds normal. No edema. ABDOMEN: Soft. Liver and spleen not palpable. No tenderness. No mass palpable. PSYCHIATRY: Alert and oriented x3. Mood and affect but anxious Investigations: Potassium 3.8 crit 0.75 total bilirubin 19.5 AST 999 ALT 905 albumin 2.6 Previous testing Potassium 3.4 glucose 68 AST-1898 ALT 1320 albumin 2.7 total bilirubin 16.1 UA positive for leukoesterase, WBC Alpha-1 antitrypsin 135, ceruloplasmin 224, and a screen negative CMV IgM antibody-nonreactive Cholangiopancreatography MRI-no specific Assessment: -Acute hepatitis with hyperbilirubinemia, possibly drug induced could be from the antibiotic treatment he recently received for his UTI -Recurrent UTI which is being treated for Pseudomonas as an outpatient, failed twice per his urologist Dr. Velasquez -Essential hypertension -Hypothyroid -Coronary artery disease with stent -Diabetes mellitus type 2 -Chronic renal insufficiency -Chronic gait dysfunction uses a walker -Diffuse large B-cell lymphoma non-Hodgkin's type-good response to treatment in 2019 in remission -History of gastric banding -Acute delirium this morning. Could be from underlying infection. Diagnosis Plan: Patient received IM Haldol 5 mg this morning. Breathing better this afternoon. ASCUS with Dr. Felix from psychiatry. Hold of any medications right now. LFTs are coming down. Discussed with Dr. Maldonado from ID. Patient will be getting a midline. We watched for another 24 hours to decide about discharge planning. Repeat labs in the morning.
[2019-08-29] MEDS: predniSONE 20 MG TAB PO SCH (21:37)
--- NOTE | 2019-08-29 22:49 | P.PN ---
Subjective Progress Note Date: 08/29/19 Principal diagnosis: Elevated liver enzymes, chronic diarrhea, history of non-Hodgkin's lymphoma Patient is seen lying in bed tolerating diet. No nausea or vomiting. No abdominal pain reported. He was somewhat agitated this morning but less so this afternoon when seen. Objective - Vital Signs Vital signs: Vital Signs Temp 97.9 F 08/29/19 11:32 Pulse 72 08/29/19 11:32 Resp 16 08/29/19 11:32 BP 105/64 08/29/19 11:32 Pulse Ox 98 08/29/19 11:32 Intake & Output 08/28/19 08/29/19 08/29/19 18:59 06:59 18:59 Intake Total 750 50 Balance 750 50 Intake: Intake, IV Titration 550 Amount Cefepime 2 gm In Sodium 100 Chloride 0.9% 100 ml @ 200 mls/hr IVPB Q12H [facility] Rx#:[id number] Sodium Chloride 0.9% 1, 450 000 ml @ 75 mls/hr IV . [id number] [facility] Rx#:[id number] Oral 200 50 Other: Voiding Method Toilet Toilet Urinal Urinal Diaper Diaper Incontinent Incontinent # Voids 2 - Exam On physical examination, patient appears comfortable in no apparent distress. HEAD: Normocephalic, atraumatic. EYES: Scleral icterus. No conjunctival injection. MOUTH: No lesions, tongue midline. NECK: Trachea midline, no gross abnormalities. ABDOMEN: Soft, obese. Bowel sounds are positive. No organomegaly. No guarding or rigidity. EXTREMITIES: No pedal edema. SKIN: No rashes, jaundice. NEUROLOGIC: Alert and oriented. No focal deficits. - Labs CBC & Chem 7: 08/28/19 08:12 08/29/19 11:00 Labs: Abnormal Lab Results - Last 24 Hours (Table) 08/28/19 08/28/19 08/28/19 Range/Units 08:12 16:30 20:31 POC Glucose (mg/dL) 188 H 220 H (75-99) mg/dL Hemoglobin A1c 6.3 H (4.0-6.0) % 08/29/19 08/29/19 Range/Units 07:15 11:27 POC Glucose (mg/dL) 163 H 142 H (75-99) mg/dL Hemoglobin A1c (4.0-6.0) % Assessment and Plan (1) Transaminitis Narrative/Plan: 63-year-old male presenting with complaints of diarrhea found to have markedly elevated liver enzymes in both a cholestatic and hepatocellular pattern which appear to be new in onset with normal liver enzymes recorded in 06/2019. Suspic ion is for a medication-induced hepatitis with other etiologies found to be negative to date in serologic workup. Denies any high risk behavior but does report taking medication in approximately 6 weeks ago for a urinary tract infection. Liver enzymes trending down except for bilirubin which is slightly elevated today but can lag behind other liver enzymes. Hepatitis B surface antigen positive I'll other testing negative have ordered a viral load and E antigen Current Visit: Yes Status: Acute Code(s): R74.0 - NONSPEC ELEV OF LEVELS OF TRANSAMNS & LACTIC ACID DEHYDRGNSE SNOMED Code(s): 327924592 (2) Diarrhea Current Visit: Yes Status: Acute Code(s): R19.7 - DIARRHEA, UNSPECIFIED SNOMED Code(s): 41196912 (3) Hyperbilirubinemia Current Visit: Yes Status: Acute Code(s): E80.6 - OTHER DISORDERS OF BILIRUBIN METABOLISM SNOMED Code(s): 13394089 (4) Jaundice Current Visit: Yes Status: Acute Code(s): R17 - UNSPECIFIED JAUNDICE SNOMED Code(s): 96847040 Plan: Supportive care Okay for diet Continue to monitor CBC, BMP, LFTs, INR Acute viral serologies including hepatitis and CMV negative Hepatitis B E antigen and viral load overall her as surface antigen was positive, however surface antibody and core antibody negative indicating that this may be a false positive Intrinsic liver serologies negative to date Hold aspirin for possible liver guided biopsy MRCP performed with no evidence of obstruction or hepatobiliary disease Consider liver biopsy if no etiology is found in liver enzymes remain elevated, currently trending down Thank you for allowing us to participate in the care of the patient we will continue to follow
--- NOTE | 2019-08-30 02:18 | PN ---
PROGRESS NOTE DATE OF SERVICE: 08/29/2019 REASON FOR FOLLOWUP: Pseudomonas urinary tract infection recurrent. INTERVAL HISTORY: The patient is currently afebrile. The patient is breathing comfortably. The patient denies having any chest pain or cough. No abdominal pain or diarrhea. PHYSICAL EXAMINATION: Blood pressure is 96/60 with a pulse of 69, temperature 98.4. He is 99% on room air. General description is an elderly male lying in bed in no distress. RESPIRATORY SYSTEM: Unlabored breathing, clear to auscultation anteriorly. HEART: S1, S2. Regular rate and rhythm. ABDOMEN: Soft, no tenderness. LABS: BUN of 17, creatinine 0.75. Liver enzymes have improved. DIAGNOSTIC IMPRESSION AND PLAN: Patient with recurrent Pseudomonas aeruginosa urinary tract infection in this patient who is status post surgery for his prostate cancer. Patient is currently covered with cefepime 2 grams q.12 hours to continue to finish at least a 2-week course of therapy and monitor his clinical course closely. MMODL / IJN: [id number] /
[2019-08-30 03:48] LABS: EBV - VCA IgM <10.0 U/mL (<36.0)
[2019-08-30] MEDS: LEVOTHYROXINE 88 MCG TAB PO SCH (06:01)
[2019-08-30 07:16] LABS: Glucose,Whole Blood 137 mg/dL (75-99)
[2019-08-30 07:20] LABS: Anisocytosis Slight; Basophils % (A) 0 %; Eosinophils % (A) 0 %; HCT 34.1 % (39.0-53.0); Hypochromasia Slight; Lymphocytes # (A) 0.8 k/uL (1.0-4.8); Lymphocytes % (A) 19 %; MCH 30.7 pg (25.0-35.0); MCHC 32.1 g/dL (31.0-37.0); MCV 95.5 fL (80.0-100.0); Mean Platelet Volume 8.9; Monocytes # (A) 0.2 k/uL (0-1.0); Monocytes % (A) 6 %; Neutrophils % (A) 74 %; Platelet Count 150 k/uL (150-450); RBC 3.57 m/uL (4.30-5.90); RDW 16.6 % (11.5-15.5); WBC 4.1 k/uL (3.8-10.6)
[2019-08-30 07:33] LABS: ALT 703 U/L (4-49); AST 657 U/L (17-59); African American GFR (CKD) >90 (>60 ml/min/1.73 sqM); Albumin 2.2 g/dL (3.5-5.0); Alkaline Phosphatase 85 U/L (38-126); Anion Gap 8 mmol/L; Blood Urea Nitrogen 18 mg/dL (9-20); Calcium 7.8 mg/dL (8.4-10.2); Carbon Dioxide 16 mmol/L (22-30); Chloride 117 mmol/L (98-107); Glucose 145 mg/dL (74-99); Non-African American GFR(CKD) >90 (>60 ml/min/1.73 sqM); Potassium 3.6 mmol/L (3.5-5.1); Sodium 141 mmol/L (137-145); Total Protein 4.6 g/dL (6.3-8.2)
[2019-08-30 07:37] LABS: Total Bilirubin 16.8 mg/dL (0.2-1.3)
[2019-08-30] MEDS: INSULIN ASPART (NovoLOG) 100 UNIT/ML VIAL SQ SCH ×4 (09:24→21:14)
[2019-08-30] MEDS: metFORMIN 500 MG TAB PO SCH ×2 (09:25→21:14)
[2019-08-30] MEDS: ENOXAPARIN 40 MG/0.4 ML SYRINGE SQ SCH (09:25)
[2019-08-30] MEDS: CEFEPIME 2 GM in SODIUM CHLORIDE 0.9% 100 ML IVPB SCH ×2 (09:25→21:13)
[2019-08-30] MEDS: FAMOTIDINE 20 MG TAB PO SCH ×2 (09:25→21:14)
[2019-08-30] MEDS: TAMSULOSIN 0.4 MG CAP.ER.24H PO SCH (09:25)
[2019-08-30] MEDS: glipiZIDE 5 MG TAB PO SCH ×2 (09:26→17:46)
[2019-08-30] MEDS: predniSONE 20 MG TAB PO SCH (09:26)
[2019-08-30] MEDS: METOPROLOL SUCCINATE (ER) 25 MG TAB.ER.24H PO SCH ×2 (09:27→21:13)
--- NOTE | 2019-08-30 10:13 | P.PN ---
<Elena Orr - Last Filed: 08/30/19 10:08> Subjective Progress Note Date: 08/30/19 CHIEF COMPLAINT: Hyperbilirubinemia HISTORY OF PRESENT ILLNESS: Patient examined this morning the bedside. He is sitting in the chair. He is tolerating diet. Denies nausea or vomiting. Denies diarrhea. He is wanting to go home. Bilirubin 16.8. AST 657. ALT 703. PHYSICAL EXAM: VITAL SIGNS: Reviewed GENERAL: Well-developed in no acute distress. Jaundice HEENT: Bilateral sclera icterus. Extraocular movements grossly intact. Moist buccal mucosa. Head is atraumatic, normocephalic. Hears conversational speech. No nasal drainage. NECK: Supple without lymphadenopathy. CHEST: Non-labored respirations and equal bilateral excursions. CARDIOVASCULAR: Regular rate with regular rhythm. Palpable 2+ radial pulses. ABDOMEN: Soft. Nondistended. Nontender MUSCULOSKELETAL: No clubbing or cyanosis. NEUROLOGIC: No focal or lateralizing signs. Cranial nerves II through XII grossly intact. PSYCH: Appropriate affect. Alert and oriented to person, place and time. SKIN: Jaundice. Well perfused. Good skin turgor. ASSESSMENT: 1. Diarrhea x 3-4 months 2. Hyperbilirubinemia 3. Transaminitis PLAN: Continue workup per GI service. Possible liver bx per GI service. Continue diet as tolerated No surgical intervention recommended at this time Nurse practitioner note has been reviewed by physician. Signing provider agrees with the documented findings, assessment, and plan of care. Objective - Vital Signs Vital signs: Vital Signs Temp 98.2 F 08/30/19 07:00 Pulse 72 08/30/19 07:36 Resp 19 08/30/19 07:36 BP 99/62 08/30/19 07:00 Pulse Ox 96 08/30/19 07:00 Intake & Output 08/29/19 08/30/19 08/30/19 18:59 06:59 18:59 Output Total 250 Balance -250 Output: Urine 250 Other: Voiding Method Toilet Toilet Urinal Urinal Diaper Diaper Incontinent Incontinent # Voids 1 1 1 - Labs CBC & Chem 7: 08/30/19 06:52 08/30/19 06:52 Labs: Abnormal Lab Results - Last 24 Hours (Table) 08/29/19 08/29/19 08/29/19 Range/Units 11:00 11:27 17:02 RBC (4.30-5.90) m/uL Hgb (13.0-17.5) gm/dL Hct (39.0-53.0) % RDW (11.5-15.5) % Lymphocytes # (1.0-4.8) k/uL Chloride 112 H (98-107) mmol/L Carbon Dioxide 20 L (22-30) mmol/L Creatinine (0.66-1.25) mg/dL Glucose 161 H (74-99) mg/dL POC Glucose (mg/dL) 142 H 189 H (75-99) mg/dL Calcium 8.3 L (8.4-10.2) mg/dL Total Bilirubin 19.5 H* (0.2-1.3) mg/dL AST 999 H (17-59) U/L ALT 905 H (4-49) U/L Total Protein 5.2 L (6.3-8.2) g/dL Albumin 2.6 L (3.5-5.0) g/dL 08/29/19 08/30/19 08/30/19 Range/Units 19:51 06:52 06:52 RBC 3.57 L (4.30-5.90) m/uL Hgb 11.0 L (13.0-17.5) gm/dL Hct 34.1 L (39.0-53.0) % RDW 16.6 H (11.5-15.5) % Lymphocytes # 0.8 L (1.0-4.8) k/uL Chloride 117 H (98-107) mmol/L Carbon Dioxide 16 L (22-30) mmol/L Creatinine 0.65 L (0.66-1.25) mg/dL Glucose 145 H (74-99) mg/dL POC Glucose (mg/dL) 337 H (75-99) mg/dL Calcium 7.8 L (8.4-10.2) mg/dL Total Bilirubin 16.8 H* (0.2-1.3) mg/dL AST 657 H (17-59) U/L ALT 703 H (4-49) U/L Total Protein 4.6 L (6.3-8.2) g/dL Albumin 2.2 L (3.5-5.0) g/dL 08/30/19 Range/Units 07:13 RBC (4.30-5.90) m/uL Hgb (13.0-17.5) gm/dL Hct (39.0-53.0) % RDW (11.5-15.5) % Lymphocytes # (1.0-4.8) k/uL Chloride (98-107) mmol/L Carbon Dioxide (22-30) mmol/L Creatinine (0.66-1.25) mg/dL Glucose (74-99) mg/dL POC Glucose (mg/dL) 137 H (75-99) mg/dL Calcium (8.4-10.2) mg/dL Total Bilirubin (0.2-1.3) mg/dL AST (17-59) U/L ALT (4-49) U/L Total Protein (6.3-8.2) g/dL Albumin (3.5-5.0) g/dL <Chasity Huggins N - Last Filed: 08/30/19 15:20> Subjective Patient seen and evaluated with nurse practitioner. Agree with above. Otherwise, no reports of abdominal pain. Liver enzymes have improved since admission. Total bilirubin remains elevated. Agree with need of liver biopsy. Management per GI service. Please reconsult if needed. Objective - Vital Signs Vital signs: Vital Signs Temp 98.1 F 08/30/19 14:57 Pulse 89 08/30/19 14:57 Resp 17 08/30/19 14:57 BP 94/59 08/30/19 14:57 Pulse Ox 99 08/30/19 14:57 Intake & Output 08/29/19 08/30/19 08/30/19 18:59 06:59 18:59 Intake Total 500 Output Total 250 Balance 250 Intake: Intake, IV Titration 100 Amount Cefepime 2 gm In Sodium 100 Chloride 0.9% 100 ml @ 200 mls/hr IVPB Q12H [facility] Rx#:[id number] Oral 400 Output: Urine 250 Other: Voiding Method Toilet Toilet Urinal Urinal Diaper Diaper Incontinent Incontinent # Voids 1 1 3 - Labs CBC & Chem 7: 08/30/19 06:52 08/30/19 06:52 Labs: Abnormal Lab Results - Last 24 Hours (Table) 08/29/19 08/29/19 08/30/19 Range/Units 17:02 19:51 06:52 RBC (4.30-5.90) m/uL Hgb (13.0-17.5) gm/dL Hct (39.0-53.0) % RDW (11.5-15.5) % Lymphocytes # (1.0-4.8) k/uL Chloride 117 H (98-107) mmol/L Carbon Dioxide 16 L (22-30) mmol/L Creatinine 0.65 L (0.66-1.25) mg/dL Glucose 145 H (74-99) mg/dL POC Glucose (mg/dL) 189 H 337 H (75-99) mg/dL Calcium 7.8 L (8.4-10.2) mg/dL Total Bilirubin 16.8 H* (0.2-1.3) mg/dL AST 657 H (17-59) U/L ALT 703 H (4-49) U/L Total Protein 4.6 L (6.3-8.2) g/dL Albumin 2.2 L (3.5-5.0) g/dL 08/30/19 08/30/19 08/30/19 Range/Units 06:52 07:13 11:18 RBC 3.57 L (4.30-5.90) m/uL Hgb 11.0 L (13.0-17.5) gm/dL Hct 34.1 L (39.0-53.0) % RDW 16.6 H (11.5-15.5) % Lymphocytes # 0.8 L (1.0-4.8) k/uL Chloride (98-107) mmol/L Carbon Dioxide (22-30) mmol/L Creatinine (0.66-1.25) mg/dL Glucose (74-99) mg/dL POC Glucose (mg/dL) 137 H 235 H (75-99) mg/dL Calcium (8.4-10.2) mg/dL Total Bilirubin (0.2-1.3) mg/dL AST (17-59) U/L ALT (4-49) U/L Total Protein (6.3-8.2) g/dL Albumin (3.5-5.0) g/dL Assessment and Plan (1) History of lymphoma Current Visit: Yes Status: Acute Code(s): Z85.79 - PRSNL HX OF MALIG NEOPLM OF LYMPHOID, HEMATPOETC & REL TISS SNOMED Code(s): 799052115 (2) Gastric banding status Current Visit: Yes Status: Acute Code(s): Z98.84 - BARIATRIC SURGERY STATUS SNOMED Code(s): 953479508 (3) Diarrhea Current Visit: Yes Status: Acute Code(s): R19.7 - DIARRHEA, UNSPECIFIED SNOMED Code(s): 50345887 (4) Hyperbilirubinemia Current Visit: Yes Status: Acute Priority: High Code(s): E80.6 - OTHER DISORDERS OF BILIRUBIN METABOLISM SNOMED Code(s): 85768195 (5) Jaundice Current Visit: Yes Status: Acute Priority: High Code(s): R17 - UNSPECIFIED JAUNDICE SNOMED Code(s): 03322399 (6) Transaminitis Current Visit: Yes Status: Acute Priority: High Code(s): R74.0 - NONSPEC ELEV OF LEVELS OF TRANSAMNS & LACTIC ACID DEHYDRGNSE SNOMED Code(s): 465633048 (7) Altered mental status Current Visit: No Status: Acute Code(s): R41.82 - ALTERED MENTAL STATUS, UNSPECIFIED SNOMED Code(s): 994967220
[2019-08-30 12:36] LABS: Glucose,Whole Blood 235 mg/dL (75-99)
--- NOTE | 2019-08-30 14:10 | PN ---
PROGRESS NOTE DATE OF SERVICE: 08/30/2019. REASON FOR FOLLOWUP: Recurrent Pseudomonas urinary tract infection. INTERVAL HISTORY: The patient is currently afebrile, has been breathing comfortably. Denies having any chest pain. No shortness of breath or cough. No nausea, no abdominal pain and his urinary symptom has improved. Urine is clearing out. PHYSICAL EXAMINATION: Blood pressure 99/62 with a pulse of 72, temperature 98.2. He is 96%on room air. General description is an elderly male, lying in bed in no distress. RESPIRATORY SYSTEM: Unlabored breathing, clear to auscultation anteriorly. HEART: S1, S2. Regular rate and rhythm. ABDOMEN: Soft, no tenderness. LABS: Hemoglobin 11.1, white count 4.1, creatinine 0.65. Hemoglobin 16.8. DIAGNOSTIC IMPRESSION AND PLAN: Patient with recurrent Pseudomonas UTI infection has been treated in the past with Rocephin and Fortaz 2 g q.12h. May have been an overdose on normal kidney function. He is clinically responding cefepime 2 g per 12. He will get midline and continue cefepime for 2 more weeks and close outpatient followup. MMODL / IJN: [id number] /
[2019-08-30 15:04] LABS: Smooth Muscle Antibody 10 UNITS (<20)
--- NOTE | 2019-08-30 15:09 | P.PN ---
Subjective Progress Note Date: 08/30/19 Principal diagnosis: transaminitis, hyperbilirubinemia. Patient has a history of non-Hodgkin's lymphoma, status post treatment In follow-up today patient seems to be a little more clear in his thinking compared to some of the notes that I read, his bilirubin is down just slightly as are his LFTs. The hepatitis B surface antigen was positive, he is status post MRCP, UA was positive for Pseudomonas. He is being followed by Infectious Disease as well as Gastroenterology. Did reorient patient and review his hospital course with him. Objective - Vital Signs Vital signs: Vital Signs Temp 98.1 F 08/30/19 14:57 Pulse 89 08/30/19 14:57 Resp 17 08/30/19 14:57 BP 94/59 08/30/19 14:57 Pulse Ox 99 08/30/19 14:57 Intake & Output 08/29/19 08/30/19 08/30/19 18:59 06:59 18:59 Intake Total 500 Output Total 250 Balance 250 Intake: Intake, IV Titration 100 Amount Cefepime 2 gm In Sodium 100 Chloride 0.9% 100 ml @ 200 mls/hr IVPB Q12H [facility] Rx#:[id number] Oral 400 Output: Urine 250 Other: Voiding Method Toilet Toilet Urinal Urinal Diaper Diaper Incontinent Incontinent # Voids 1 1 3 - Constitutional General appearance: Present: average body habitus, cooperative, no acute distress - EENT Eyes: Present: EOMI, scleral icterus ENT: Present: hearing grossly normal - Respiratory Respiratory: bilateral: CTA - Cardiovascular Heart sounds: normal: S1, S2 - Peripheral edema leg Peripheral Edema: bilateral: None - Gastrointestinal General gastrointestinal: Present: normal bowel sounds, soft - Integumentary Integumentary: Present: jaundiced - Neurologic Neurologic: Present: CNII-XII intact - Musculoskeletal Musculoskeletal: Present: generalized weakness, strength equal bilaterally - Psychiatric Psychiatric Comment(s): tearful, mildly irritable, required some subtle reorientation Psychiatric: Present: A&O x's 3 - Labs CBC & Chem 7: 08/30/19 06:52 08/30/19 06:52 Labs: Abnormal Lab Results - Last 24 Hours (Table) 08/29/19 08/29/19 08/30/19 Range/Units 17:02 19:51 06:52 RBC (4.30-5.90) m/uL Hgb (13.0-17.5) gm/dL Hct (39.0-53.0) % RDW (11.5-15.5) % Lymphocytes # (1.0-4.8) k/uL Chloride 117 H (98-107) mmol/L Carbon Dioxide 16 L (22-30) mmol/L Creatinine 0.65 L (0.66-1.25) mg/dL Glucose 145 H (74-99) mg/dL POC Glucose (mg/dL) 189 H 337 H (75-99) mg/dL Calcium 7.8 L (8.4-10.2) mg/dL Total Bilirubin 16.8 H* (0.2-1.3) mg/dL AST 657 H (17-59) U/L ALT 703 H (4-49) U/L Total Protein 4.6 L (6.3-8.2) g/dL Albumin 2.2 L (3.5-5.0) g/dL 08/30/19 08/30/19 08/30/19 Range/Units 06:52 07:13 11:18 RBC 3.57 L (4.30-5.90) m/uL Hgb 11.0 L (13.0-17.5) gm/dL Hct 34.1 L (39.0-53.0) % RDW 16.6 H (11.5-15.5) % Lymphocytes # 0.8 L (1.0-4.8) k/uL Chloride (98-107) mmol/L Carbon Dioxide (22-30) mmol/L Creatinine (0.66-1.25) mg/dL Glucose (74-99) mg/dL POC Glucose (mg/dL) 137 H 235 H (75-99) mg/dL Calcium (8.4-10.2) mg/dL Total Bilirubin (0.2-1.3) mg/dL AST (17-59) U/L ALT (4-49) U/L Total Protein (6.3-8.2) g/dL Albumin (3.5-5.0) g/dL Assessment and Plan (1) NHL (nodular histiocytic lymphoma) Narrative/Plan: Patient is currently on monitoring. Last scan 05/20, no evidence of disease. Current Visit: No Status: Chronic Priority: Low Code(s): C82.90 - FOLLICULAR LYMPHOMA, UNSPECIFIED, UNSPECIFIED SITE SNOMED Code(s): 262048656 (2) Hyperbilirubinemia Current Visit: Yes Status: Acute Priority: High Code(s): E80.6 - OTHER DISORDERS OF BILIRUBIN METABOLISM SNOMED Code(s): 62297630 (3) Jaundice Current Visit: Yes Status: Acute Priority: High Code(s): R17 - UNSPECIFIED JAUNDICE SNOMED Code(s): 77119216 (4) Transaminitis Current Visit: Yes Status: Acute Priority: High Code(s): R74.0 - NONSPEC ELEV OF LEVELS OF TRANSAMNS & LACTIC ACID DEHYDRGNSE SNOMED Code(s): 845660644 (5) Urinary tract infection Narrative/Plan: Infectious Disease following, antibiotic recommendations are noted Current Visit: Yes Status: Acute Priority: High Code(s): N39.0 - URINARY TRACT INFECTION, SITE NOT SPECIFIED SNOMED Code(s): 31024181 Plan: Patient is being followed by Gastroenterology as well as Surgery. Status post ERCP.
[2019-08-30 16:32] LABS: Glucose,Whole Blood 137 mg/dL (75-99)
--- NOTE | 2019-08-30 19:39 | P.PN ---
Progress Note - Text Progress Note Date: 08/30/19 Presenting complaint: Jaundiced Interval history: History of diffuse large B-cell lymphoma non-Hodgkin's type status post treatment-successfully 2019. Was followed by Dr. Gama Patient admitted with episodes of significant diarrhea 2 or 3 times a week. Patient's urologist Dr. Dillon Velasquez called me this afternoon stating that patient has been incontinent of urine's since his TURP. And has had 2 rounds of treatment for Pseudomonas UTI. Has not been able to clear his. Patient is due to follow-up with Dr. Maldonado. Patient now presents significantly jaundiced. Now admitted with severe diarrhea and severe jaundice. Latter felt to be possibly drug induced. Also Pseudomonas UTI--outpatient treatment Today-laying in bed. Comfortable. Did tolerate his diet. Anxious to go. Did get discharged. Had a bowel movement.-Pale Review of systems: Was done for constitutional, cardiovascular, GI, pulmonary. relevant finding as above Active Medications Alprazolam (Xanax) 0.25 mg PO Q6HR PRN PRN Reason: Anxiety Enoxaparin Sodium (Lovenox) 40 mg SQ DAILY [facility] Last Admin: 08/30/19 09:25 Dose: 40 mg Documented by: Famotidine (Pepcid) 20 mg PO BID [facility] Last Admin: 08/30/19 09:25 Dose: 20 mg Documented by: Glipizide (Glucotrol) 5 mg PO AC-BID [facility] Last Admin: 08/30/19 17:46 Dose: 5 mg Documented by: Cefepime HCl 2 gm/ Sodium (Chloride) 100 mls @ 200 mls/hr IVPB Q12H [facility] Last Admin: 08/30/19 09:25 Dose: 200 mls/hr Documented by: Ibuprofen (Motrin) 800 mg PO Q8H PRN PRN Reason: Pain Insulin Aspart (Novolog) 0 unit SQ ACHS [facility]; Protocol Last Admin: 08/30/19 17:46 Dose: Not Given Documented by: Levothyroxine Sodium (Synthroid) 88 mcg PO DAILY@0630 [facility] Last Admin: 08/30/19 06:01 Dose: 88 mcg Documented by: Metformin HCl (Glucophage) 1,000 mg PO BID [facility] Last Admin: 08/30/19 09:25 Dose: 1,000 mg Documented by: Metoprolol Succinate (Toprol Xl) 25 mg PO BID [facility] Last Admin: 08/30/19 09:27 Dose: Not Given Documented by: Naloxone HCl (Narcan) 0.2 mg IV Q2M PRN PRN Reason: Opioid Reversal Ondansetron HCl (Zofran) 4 mg IVP Q8HR PRN PRN Reason: Nausea And Vomiting Prednisone () 40 mg PO DAILY [facility] Last Admin: 08/30/19 09:26 Dose: 40 mg Documented by: Tamsulosin HCl (Flomax) 0.4 mg PO DAILY [facility] Last Admin: 08/30/19 09:25 Dose: 0.4 mg Documented by: On examination: VITAL SIGNS: 9 98.1, 89, 17, 94/59, 99% on room air GENERAL APPEARANCE:, Laying, more comfortable, jaundiced HEENT: Normal external appearance of nose and ear. Oral cavity normal EYES: Pupils equal. Conjunctiva yellow NECK: JVD not raised. Mass not palpable. RESPIRATORY: Respiratory effort normal. Lungs clear to auscultation. CARDIOVASCULAR: First and second sounds normal. No edema. ABDOMEN: Soft. Liver and spleen not palpable. No tenderness. No mass palpable. PSYCHIATRY: Alert and oriented x3. Mood and affect but anxious Investigations: White count 4.1 hemoglobin 11 platelets 150 potassium 3.6 creatinine 0.65 Total bilirubin 16.8 AST 657 ALT 703 albumin 2.2 Previous testing Potassium 3.4 glucose 68 AST-1898 ALT 1320 albumin 2.7 total bilirubin 16.1 UA positive for leukoesterase, WBC Alpha-1 antitrypsin 135, ceruloplasmin 224, and a screen negative CMV IgM antibody-nonreactive Cholangiopancreatography MRI-no specific Assessment: -Acute hepatitis with hyperbilirubinemia, possibly drug induced could be from the antibiotic treatment he recently received for his UTI-improving -Recurrent UTI which is being treated for Pseudomonas as an outpatient, failed twice per his urologist Dr. Velasquez -Essential hypertension -Hypothyroid -Coronary artery disease with stent -Diabetes mellitus type 2 -Chronic renal insufficiency -Chronic gait dysfunction uses a walker -Diffuse large B-cell lymphoma non-Hodgkin's type-good response to treatment in 2019 in remission -History of gastric banding -Acute delirium-better Plan: Patient is getting a midline. Will be getting discharged IV antibiotics. Awaiting ECF placement. Other medical treatment plan to continue. Discussed with the patient.
[2019-08-30 20:45] LABS: Glucose,Whole Blood 203 mg/dL (75-99)
[2019-08-30] MEDS: SODIUM BICARBONATE TAB 650 MG TAB PO SCH (21:15)
--- NOTE | 2019-08-31 05:55 | P.PN ---
Subjective Progress Note Date: 08/30/19 Principal diagnosis: Elevated liver enzymes, chronic diarrhea, history of non-Hodgkin's lymphoma Patient is seen lying in bed tolerating diet. No nausea or vomiting. No abdominal pain reported. Objective - Vital Signs Vital signs: Vital Signs Temp 98.1 F 08/30/19 14:57 Pulse 89 08/30/19 14:57 Resp 17 08/30/19 14:57 BP 94/59 08/30/19 14:57 Pulse Ox 99 08/30/19 14:57 Intake & Output 08/29/19 08/30/19 08/30/19 18:59 06:59 18:59 Intake Total 500 Output Total 250 Balance 250 Intake: Intake, IV Titration 100 Amount Cefepime 2 gm In Sodium 100 Chloride 0.9% 100 ml @ 200 mls/hr IVPB Q12H [facility] Rx#:[id number] Oral 400 Output: Urine 250 Other: Voiding Method Toilet Toilet Urinal Urinal Diaper Diaper Incontinent Incontinent # Voids 1 1 3 - Exam On physical examination, patient appears comfortable in no apparent distress. HEAD: Normocephalic, atraumatic. EYES: Scleral icterus. No conjunctival injection. MOUTH: No lesions, tongue midline. NECK: Trachea midline, no gross abnormalities. ABDOMEN: Soft, obese. Bowel sounds are positive. No organomegaly. No guarding or rigidity. EXTREMITIES: No pedal edema. SKIN: No rashes, jaundice. NEUROLOGIC: Alert and oriented. No focal deficits. - Labs CBC & Chem 7: 08/30/19 06:52 08/30/19 06:52 Labs: Abnormal Lab Results - Last 24 Hours (Table) 08/29/19 08/29/19 08/30/19 Range/Units 17:02 19:51 06:52 RBC (4.30-5.90) m/uL Hgb (13.0-17.5) gm/dL Hct (39.0-53.0) % RDW (11.5-15.5) % Lymphocytes # (1.0-4.8) k/uL Chloride 117 H (98-107) mmol/L Carbon Dioxide 16 L (22-30) mmol/L Creatinine 0.65 L (0.66-1.25) mg/dL Glucose 145 H (74-99) mg/dL POC Glucose (mg/dL) 189 H 337 H (75-99) mg/dL Calcium 7.8 L (8.4-10.2) mg/dL Total Bilirubin 16.8 H* (0.2-1.3) mg/dL AST 657 H (17-59) U/L ALT 703 H (4-49) U/L Total Protein 4.6 L (6.3-8.2) g/dL Albumin 2.2 L (3.5-5.0) g/dL 08/30/19 08/30/19 08/30/19 Range/Units 06:52 07:13 11:18 RBC 3.57 L (4.30-5.90) m/uL Hgb 11.0 L (13.0-17.5) gm/dL Hct 34.1 L (39.0-53.0) % RDW 16.6 H (11.5-15.5) % Lymphocytes # 0.8 L (1.0-4.8) k/uL Chloride (98-107) mmol/L Carbon Dioxide (22-30) mmol/L Creatinine (0.66-1.25) mg/dL Glucose (74-99) mg/dL POC Glucose (mg/dL) 137 H 235 H (75-99) mg/dL Calcium (8.4-10.2) mg/dL Total Bilirubin (0.2-1.3) mg/dL AST (17-59) U/L ALT (4-49) U/L Total Protein (6.3-8.2) g/dL Albumin (3.5-5.0) g/dL Assessment and Plan (1) Transaminitis Narrative/Plan: 63-year-old male presenting with complaints of diarrhea found to have markedly elevated liver enzymes in both a cholestatic and hepatocellular pattern which appear to be new in onset with normal liver enzymes recorded in 06/2019. Suspicion is for a medication-induced hepatitis with other etiologies found to be negative to date in serologic workup. Denies any high risk behavior but does report taking medication in approximately 6 weeks ago for a urinary tract infection. Liver enzymes trending down including bilirubin today. Hepatitis B surface antigen positive with other testing negative have ordered a viral load and E antigen Current Visit: Yes Status: Acute Priority: High Code(s): R74.0 - NONSPEC ELEV OF LEVELS OF TRANSAMNS & LACTIC ACID DEHYDRGNSE SNOMED Code(s): 341883383 (2) Diarrhea Current Visit: Yes Status: Acute Code(s): R19.7 - DIARRHEA, UNSPECIFIED SNOMED Code(s): 08004264 (3) Hyperbilirubinemia Current Visit: Yes Status: Acute Priority: High Code(s): E80.6 - OTHER DISORDERS OF BILIRUBIN METABOLISM SNOMED Code(s): 64099974 (4) Jaundice Current Visit: Yes Status: Acute Priority: High Code(s): R17 - UNSPECIFIED JAUNDICE SNOMED Code(s): 33617192 Plan: Supportive care Okay for diet Continue to monitor CBC, BMP, LFTs, INR Acute viral serologies including hepatitis and CMV negative Hepatitis B E antigen and viral load overall her as surface antigen was positive, however surface antibody and core antibody negative indicating that this may be a false positive Intrinsic liver serologies negative to date Hold aspirin for possible liver guided biopsy MRCP performed with no evidence of obstruction or hepatobiliary disease Consider liver biopsy if no etiology is found in liver enzymes remain elevated, currently trending down Thank you for allowing us to participate in the care of the patient we will continue to follow
[2019-08-31] MEDS: LEVOTHYROXINE 88 MCG TAB PO SCH (06:06)
[2019-08-31 07:33] LABS: Glucose,Whole Blood 154 mg/dL (75-99)
[2019-08-31] MEDS: METOPROLOL SUCCINATE (ER) 25 MG TAB.ER.24H PO SCH (08:07)
[2019-08-31] MEDS: metFORMIN 500 MG TAB PO SCH (08:07)
[2019-08-31] MEDS: SODIUM BICARBONATE TAB 650 MG TAB PO SCH (08:07)
[2019-08-31] MEDS: predniSONE 20 MG TAB PO SCH (08:07)
[2019-08-31] MEDS: FAMOTIDINE 20 MG TAB PO SCH (08:07)
[2019-08-31] MEDS: TAMSULOSIN 0.4 MG CAP.ER.24H PO SCH (08:07)
[2019-08-31] MEDS: glipiZIDE 5 MG TAB PO SCH (08:07)
[2019-08-31] MEDS: ENOXAPARIN 40 MG/0.4 ML SYRINGE SQ SCH (08:08)
[2019-08-31] MEDS: CEFEPIME 2 GM in SODIUM CHLORIDE 0.9% 100 ML IVPB SCH (08:08)
[2019-08-31] MEDS: INSULIN ASPART (NovoLOG) 100 UNIT/ML VIAL SQ SCH ×2 (08:15→12:57)
[2019-08-31 08:26] VITALS: PULSE 71
--- NOTE | 2019-08-31 09:38 | P.CON ---
Consult Note - . Consult date: 08/31/19 Assessment/Plan:: Clinical Problems: Delirium due to another medical condition Interim history: The medical record and interviewed the patient. He is a 63-year-old male admitted to the [facility] on 08/25/2019 for evaluation of chronic diarrhea, elevated bilirubin, jaundice and elevated transaminases. The hospitalist consult to psychiatry on 08/29/2019 because the patient developed a marked change in his behavior where he became agitated, aggressive and threatening. According to the nurses 08/29/2019 nursing called to report because he is threatening staff. he apparently made a statement that he "wants to get a gun and kill us." He also made a statement that "he was going to get a gun and blow my head off." Dr. Felix evaluated him on 08/29/2019. He was irritable and partially disoriented (is not oriented to date, month but knew the year). Dr. Felix impression was that he developed a delirium as results of his medical conditions and recommended Haldol 5 mg IV when necessary for agitation or aggression. According to him ER he received 1 dose of Haldol. His only concern this morning was discharge. He alleged she is waiting to meet with a doctor so that he could go home. He was unable to explain the changes in behavior and appeared not to be fully aware of his marked agitation, anger, hostility and aggressiveness. He talked about his concerns for his daughter and the loss of his who apparently had a chronic and severe mental illness. He denied feeling depressed or having thoughts of or suicide. He denied homicidal ideation. He denies feeling persistently anxious. He denied experiencing auditory, visual or olfactory hallucinations, ideas reference, thought insertion, thought broadcasting etc. Mental status exam: He presented as a moderately obese 63-year-old [place] male with male pattern balding. He made eye contact and attended to the interview. He showed no abnormality of psychomotor activity. He showed no abnormal involuntary movements. Her speech was spontaneous, digressive and superficial. His affect was stable and appropriate. He did not expressed depressive cognitions such as hopelessness, helplessness or worthlessness. He did not express ideas reference, paranoid ideation or delusions. His thinking was concrete but his associations were logical and goal directed. He denied appear to responding to internal stimuli. We completed the [employer] Memory and Concentration test. His total weighted error score was 13; total weighted error score greater than 10 is consistent with cognitive impairment. He knew the year but not the month. He was able to register memory phrase "Chandan Ballard, [address] [place] [id number]". He was able to count backwards from - but was unable to name the months of the year backwards from February. He recalled 2 elements of memory phrase "Chandan Ballard". Assessment: He developed delirium when his bilirubin increased from the admission level of 15.7-19.5. The delirium appears to have resolved after the bilirubin decreased back to 16.8. However, he continued to show cognitive impairments with some disorientation and short-term memory impairment. There is no indication for transfer to the psychiatric unit. There is no indication for referral for outpatient mental health services. She should continue with outpatient treatment of his chronic medical conditions. Plan: Psychiatry will sign off the case. Thank you for this consult.
[2019-08-31 11:37] LABS: Glucose,Whole Blood 194 mg/dL (75-99)
[2019-08-31 13:18] LABS: ALT 543 U/L (4-49); AST 297 U/L (17-59); African American GFR (CKD) >90 (>60 ml/min/1.73 sqM); Albumin 2.3 g/dL (3.5-5.0); Alkaline Phosphatase 88 U/L (38-126); Anion Gap 10 mmol/L; Blood Urea Nitrogen 20 mg/dL (9-20); Carbon Dioxide 19 mmol/L (22-30); Chloride 111 mmol/L (98-107); Glucose 215 mg/dL (74-99); Non-African American GFR(CKD) >90 (>60 ml/min/1.73 sqM); Potassium 3.9 mmol/L (3.5-5.1); Sodium 140 mmol/L (137-145); Total Protein 4.7 g/dL (6.3-8.2)
--- NOTE | 2019-08-31 13:34 | P.PN ---
Subjective Progress Note Date: 08/31/19 Principal diagnosis: transaminitis, hyperbilirubinemia. Patient has a history of non-Hodgkin's lymphoma, status post treatment In follow-up today cognitively patient continues to improve. 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 He is linda mbering more. Objective - Vital Signs Vital signs: Vital Signs Temp 97.9 F 08/31/19 07:00 Pulse 71 08/31/19 08:00 Resp 17 08/31/19 08:00 BP 103/68 08/31/19 07:00 Pulse Ox 99 08/31/19 07:00 Intake & Output 08/30/19 08/31/19 08/31/19 18:59 06:59 18:59 Intake Total 1040 100 Output Total 500 350 Balance 540 -250 Intake: Intake, IV Titration 100 100 Amount Cefepime 2 gm In Sodium 100 100 Chloride 0.9% 100 ml @ 200 mls/hr IVPB Q12H LASHANDA Rx#:[id number] Oral 940 Output: Urine 500 350 Other: Voiding Method Toilet Toilet Toilet Urinal Urinal Urinal Diaper Incontinent # Voids 2 2 - Constitutional General appearance: Present: cooperative, no acute distress, obese - EENT Eyes: Present: EOMI, scleral icterus ENT: Present: hearing grossly normal - Respiratory Respiratory: bilateral: CTA - Cardiovascular Heart sounds: normal: S1, S2 - Peripheral edema leg Peripheral Edema: bilateral: None - Gastrointestinal General gastrointestinal: Present: normal bowel sounds, soft - Integumentary Integumentary: Present: jaundiced - Neurologic Neurologic: Present: CNII-XII intact - Musculoskeletal Musculoskeletal: Present: generalized weakness - Psychiatric Psychiatric: Present: A&O x's 3, appropriate affect, intact judgment & insight (improving) - Allied health notes Allied health notes reviewed: nursing - Labs CBC & Chem 7: 08/30/19 06:52 08/31/19 12:19 Labs: Abnormal Lab Results - Last 24 Hours (Table) 08/30/19 08/30/19 08/31/19 Range/Units 16:31 20:44 07:32 POC Glucose (mg/dL) 137 H 203 H 154 H (75-99) mg/dL 08/31/19 Range/Units 11:37 POC Glucose (mg/dL) 194 H (75-99) mg/dL Assessment and Plan (1) NHL (nodular histiocytic lymphoma) Narrative/Plan: Patient is currently on monitoring. Last scan 05/20, no evidence of disease. F/U Dr. Tamera shin, appt in [place] Current Visit: No Status: Chronic Priority: Low Code(s): C82.90 - FOLLICULAR LYMPHOMA, UNSPECIFIED, UNSPECIFIED SITE SNOMED Code(s): 590595019 (2) Hyperbilirubinemia Current Visit: Yes Status: Acute Priority: High Code(s): E80.6 - OTHER DISORDERS OF BILIRUBIN METABOLISM SNOMED Code(s): 30218091 (3) Jaundice Current Visit: Yes Status: Acute Priority: High Code(s): R17 - UNSPECIFIED JAUNDICE SNOMED Code(s): 98300562 (4) Transaminitis Current Visit: Yes Status: Acute Priority: High Code(s): R74.0 - NONSPEC ELEV OF LEVELS OF TRANSAMNS & LACTIC ACID DEHYDRGNSE SNOMED Code(s): 794300366 (5) Urinary tract infection Narrative/Plan: Infectious Disease following, antibiotic recommendations are noted Current Visit: Yes Status: Acute Priority: High Code(s): N39.0 - URINARY TRACT INFECTION, SITE NOT SPECIFIED SNOMED Code(s): 47511628 Plan: Patient is being followed by Gastroenterology as well as Surgery. Status post ERCP. Monitoring of LFTs/bilirubin, possible liver biopsy in the future
--- NOTE | 2019-08-31 14:26 | PN ---
PROGRESS NOTE DATE OF SERVICE: 08/31/2019 REASON FOR FOLLOWUP: Pseudomonas urinary tract infection. INTERVAL HISTORY: The patient is currently afebrile. The patient is breathing comfortably. Patient denies having any chest pain. No shortness of breath or cough. No abdominal pain and urine has decreased, intense suspicion hematuria. PHYSICAL EXAMINATION: Blood pressure 130/68 with a pulse of 71, temperature 97.9, he is 99% on room air. General description is an elderly male, lying in bed in no distress. RESPIRATORY SYSTEM: Unlabored breathing, clear to auscultation anteriorly. HEART: S1, S2. Regular rate and rhythm. ABDOMEN: Soft, no tenderness. LABS: No new labs have been obtained today. DIAGNOSTIC IMPRESSION AND PLAN: Patient with Pseudomonas aeruginosa recurrent infection failing outpatient Rocephin and Fortaz therapy, more likely because of the lower dose of Fortaz. Patient clinically responding to cefepime 2 g q.12h to continue for 2 weeks and close outpatient followup. MMODL / IJN: [id number] /
--- NOTE | 2019-08-31 14:39 | P.DS ---
Providers Date of admission: 08/25/19 20:00 Expected date of discharge: 08/31/19 Attending physician: Prem Yadav Consults: 08/25/19 20:08 Consult Physician Stat Consulting Provider: Chasity Huggins Consult Reason/Comments: Hyperbilirubinemia, transaminitis, jaundice Do you want consulting provider notified?: Yes Consult Physician Stat Consulting Provider: Jacqueline Shelley Consult Reason/Comments: Hyperbilirubinemia, transaminitis, jaundice Do you want consulting provider notified?: Yes 08/26/19 22:40 Consult Physician Routine Consulting Provider: Veda Lua Consult Reason/Comments: Recurrent pseudomonas UTI Do you want consulting provider notified?: Yes 08/26/19 23:01 Consult Physician Routine Consulting Provider: Han Gorman Consult Reason/Comments: Non-Hodgkin's lymphoma Do you want consulting provider notified?: Yes 08/29/19 06:22 Consult Physician Stat Consulting Provider: Chandan Chavez Consult Reason/Comments: homicidal thoughts; violent behavior Do you want consulting provider notified?: Yes Primary care physician: [facility] Course: Presenting complaint: Jaundiced Interval history: History of diffuse large B-cell lymphoma non-Hodgkin's type status post treatment-successfully 2019. Was followed by Dr. Gama Patient admitted with episodes of significant diarrhea 2 or 3 times a week. Patient's urologist Dr. Dillon Velasquez called me this afternoon stating that patient has been incontinent of urine's since his TURP. And has had 2 rounds of treatment for Pseudomonas UTI. Has not been able to clear his. Patient is due to follow-up with Dr. Maldonado. Patient now presents significantly jaundiced. Now admitted with severe diarrhea and severe jaundice. Latter felt to be possibly drug induced. Also Pseudomonas UTI--outpatient treatment-complete 2 weeks of current antibiotics. LFTs within coming on. Patient had a bout of delirium improved. Today-laying in bed. Comfortable. Did tolerate his diet. Discussed with the patient. Current antibiotics to be completed for 2 weeks. Discussed with social problems specialist. Bed available this afternoon. Discussion and discharge planning more than 35 minutes Consultation: Dr. Gorman from oncology Dr. Lua from ID Dr. Rios from GI Dr. Goss from general surgery Dr. Brozovich from psychiatry On examination: VITAL SIGNS: 97.9, 71, 17, 103/68, 99% on room air GENERAL APPEARANCE:, Laying, more comfortable, jaundiced HEENT: Normal external appearance of nose and ear. Oral cavity normal EYES: Pupils equal. Conjunctiva yellow NECK: JVD not raised. Mass not palpable. RESPIRATORY: Respiratory effort normal. Lungs clear to auscultation. CARDIOVASCULAR: First and second sounds normal. No edema. ABDOMEN: Soft. Liver and spleen not palpable. No tenderness. No mass palpable. PSYCHIATRY: Alert and oriented x3. Mood and affect but anxious Investigations: White count 4.1 hemoglobin 11 platelets 150 Potassium 3.9 creatinine 0.69 total bilirubin 17 AST 297 ALT 543 albumin 2.3 Previous testing Potassium 3.4 glucose 68 AST-1898 ALT 1320 albumin 2.7 total bilirubin 16.1 UA positive for leukoesterase, WBC Alpha-1 antitrypsin 135, ceruloplasmin 224, and a screen negative CMV IgM antibody-nonreactive Cholangiopancreatography MRI-no specific Assessment: -Acute hepatitis with hyperbilirubinemia, possibly drug induced could be from the antibiotic treatment he recently received for his UTI-improving -Recurrent UTI which is being treated for Pseudomonas as an outpatient, failed twice per his urologist Dr. Velasquez -Essential hypertension -Hypothyroid -Coronary artery disease with stent -Diabetes mellitus type 2 -Chronic renal insufficiency -Chronic gait dysfunction uses a walker -Diffuse large B-cell lymphoma non-Hodgkin's type-good response to treatment in 2019 in remission -History of gastric banding -Acute delirium-better Disposition: [facility] Patient Condition at Discharge: Stable Plan - Discharge Summary New Discharge Prescriptions: New INSULIN ASPART (NovoLOG) [NovoLOG (formulary)] 0 unit SQ ACHS vial Famotidine [Pepcid] 20 mg PO BID tab Sodium Bicarbonate Tab 650 mg PO TID tab Continue metFORMIN HCL 1,000 mg PO BID Levothyroxine Sodium 88 mcg PO DAILY Cortisone Acetate [Cortone] 25 mg PO DAILY Metoprolol Succinate (ER) [Toprol XL] 25 mg PO BID Ibuprofen [Motrin] 800 mg PO Q8H PRN PRN Reason: Pain glyBURIDE [Diabeta] 2.5 mg PO AC-BID Tamsulosin HCl [Flomax] 0.4 mg PO DAILY Changed Diazepam 5 mg PO HS PRN #0 PRN Reason: INSOMNIA/SLEEP Discontinued Diazepam 15 mg PO HS PRN PRN Reason: INSOMNIA/SLEEP oxyCODONE HCL [Roxicodone] 30 mg PO QID Discharge Medication List Levothyroxine Sodium 88 mcg PO DAILY 07/09/18 [History] metFORMIN HCL 1,000 mg PO BID 07/09/18 [History] Cortisone Acetate [Cortone] 25 mg PO DAILY 09/12/18 [History] Ibuprofen [Motrin] 800 mg PO Q8H PRN 05/21/19 [History] Metoprolol Succinate (ER) [Toprol XL] 25 mg PO BID 05/21/19 [History] glyBURIDE [Diabeta] 2.5 mg PO AC-BID 05/21/19 [History] Tamsulosin HCl [Flomax] 0.4 mg PO DAILY 08/26/19 [History] Diazepam 5 mg PO HS PRN #0 08/31/19 [Rx] Famotidine [Pepcid] 20 mg PO BID tab 08/31/19 [Rx] INSULIN ASPART (NovoLOG) [NovoLOG (formulary)] 0 unit SQ ACHS vial 08/31/19 [Rx] Sodium Bicarbonate Tab 650 mg PO TID tab 08/31/19 [Rx] Follow up Appointment(s)/Referral(s): Dillon Rose MD [STAFF PHYSICIAN] - 09/14/19 10:20 am Jacqueline Shelley MD [STAFF PHYSICIAN] - 09/07/19 2:30 pm (With Lauryn) Chano Ames MD [Primary Care Provider] - 1-2 days Veda Lua MD [STAFF PHYSICIAN] - 09/13/19 2:45 pm Patricia Philip MD [STAFF PHYSICIAN] - 09/06/19 1:45 pm Patient Instructions/Handouts: Acute Liver Failure (DC), Urinary Tract Infection in Men (DC), Jaundice (DC) Activity/Diet/Wound Care/Special Instructions: 2 weeks of current abx per dr lua cbc/cmp weekly for 3 weeks
[2019-08-31 14:53] VITALS: BP 107/65; RESP 18; TEMP 98
[2019-09-01 15:53] LABS: Hepatitis B Virus DNA DETECTED (Not detected); Log HBV IU/mL 7.17 (<1.00)
[2019-09-02 14:48] LABS: Hepatitis BE Antigen POS (Negative)
== END 2019-08-31 16:02 | DRG 442 ==
LOC: EC 15:32 → 4SSUR 20:00
PROVIDERS: ADMIT Hospitalist; ATTEND Hospitalist
PROC: 05HF33Z Insertion of Infusion Device into Left Cephalic Vein, Percutaneous Approach (ICD-10-PCS; principal; 2019-08-30 13:50)
DX: B17.9 Acute viral hepatitis, unspecified (principal); N17.9 Acute kidney failure, unspecified; F05 Delirium due to known physiological condition; C83.30 Diffuse large B-cell lymphoma, unspecified site; N39.0 Urinary tract infection, site not specified; E27.40 Unspecified adrenocortical insufficiency; K52.1 Toxic gastroenteritis and colitis; I25.10 Atherosclerotic heart disease of native coronary artery without angina pectoris; E78.5 Hyperlipidemia, unspecified; E11.22 Type 2 diabetes mellitus with diabetic chronic kidney disease; M19.90 Unspecified osteoarthritis, unspecified site; E03.9 Hypothyroidism, unspecified; N40.0 Benign prostatic hyperplasia without lower urinary tract symptoms; E66.9 Obesity, unspecified; R32 Unspecified urinary incontinence; I12.9 Hypertensive chronic kidney disease with stage 1 through stage 4 chronic kidney disease, or unspecified chronic kidney disease; K52.9 Noninfective gastroenteritis and colitis, unspecified; R26.9 Unspecified abnormalities of gait and mobility; B96.5 Pseudomonas (aeruginosa) (mallei) (pseudomallei) as the cause of diseases classified elsewhere; T36.95XA Adverse effect of unspecified systemic antibiotic, initial encounter; N18.9 Chronic kidney disease, unspecified; Z11.59 Encounter for screening for other viral diseases; K59.00 Constipation, unspecified; Z79.899 Other long term (current) drug therapy; Z79.890 Hormone replacement therapy; Z79.84 Long term (current) use of oral hypoglycemic drugs; Z79.82 Long term (current) use of aspirin; Z88.5 Allergy status to narcotic agent; Z87.440 Personal history of urinary (tract) infections; Z95.5 Presence of coronary angioplasty implant and graft; Z98.890 Other specified postprocedural states; Z80.0 Family history of malignant neoplasm of digestive organs; Z85.46 Personal history of malignant neoplasm of prostate; Z87.442 Personal history of urinary calculi; Z87.891 Personal history of nicotine dependence; Z83.3 Family history of diabetes mellitus; Z68.32 Body mass index [BMI] 32.0-32.9, adult; Z90.79 Acquired absence of other genital organ(s); Z92.21 Personal history of antineoplastic chemotherapy; Z98.84 Bariatric surgery status
CPT/HCPCS: 36410; 36415; 74177; 74181; 76705; 76937; 80053; 80074; 80306; 80320; 80329; 81001; 82103; 82140; 82150; 82248; 82390; 82728; 83036; 83516; 83520; 83540; 83550; 83690; 85025; 85027; 85610; 85730; 86038; 86308; 86645; 86665; 87077; 87086; 87186; 87340; 87350; 87517; 96361; 96372; 96374; 99285

== ENCOUNTER 2019-09-27 11:36 | Inpatient (IN) | payer MEDICARE ==
--- NOTE | 2019-09-27 12:24 | ED ---
General Adult HPI - General Chief complaint: Weakness Stated complaint: Weakness Time Seen by Provider: 09/27/19 11:46 Source: patient, EMS Mode of arrival: EMS Limitations: physical limitation - History of Present Illness Initial comments: Dictation was produced using [employer] dictation software. please excuse any grammatical, word or spelling errors. This patient was cared for during a federal and state declared state of emergency secondary to Covid 19 Chief Complaint: 63-year-old male with multiple comorbidities presents for gener alized weakness. History of Present Illness: Patient 63-year-old male who presents today for generalized weakness. Patient brought in by EMS. According to EMS patient was just discharged from the [facility] today. He was transferred home however they weren't able to stand him up or get him into the house. Lately there were several stairs. Decided by family to call EMS to bring patient to the emergency department for readmission to [facility]. Patient has no complaints at this time. He does report that all he wants to do is sleep. He does request [place]. He has no pain complaints. Denies any nausea vomiting or shortness of breath. There is some documentation along with the patient from [email or web address]. Medications are reviewed. The ROS documented in this emergency department record has been reviewed and confirmed by me. Those systems with pertinent positive or negative responses have been documented in the HPI. All other systems are other negative and/or noncontributory. PHYSICAL EXAM: General Impression: Alert and oriented x3, not in acute distress HEENT: Normocephalic atraumatic, extra-ocular movements intact, pupils equal and reactive to light bilaterally, mucous membranes moist. Cardiovascular: Heart regular rate and rhythm Chest: Able to complete full sentences, no retractions, no tachypnea Abdomen: abdomen soft, non-tender, non-distended, no organomegaly Musculoskeletal: Pulses present and equal in all extremities, no peripheral dimple a Motor: no focal deficits noted Neurological: CN II-XII grossly intact, no focal motor or sensory deficits noted Skin: Intact with no visualized rashes Psych: Normal affect and mood ED course: 63-year-old male brought by EMS from home for weakness. He is too weak to be at home according to family. He was not able to get into the house. Vital signs upon arrival shows blood pressure of 88/60. Chart review was performed. Appears that patient was just discharged from the hospital July 30. Those 27 days ago. Patient is admitted for hyperbilirubinemia, transaminitis jaundice pseudomonal UTI. Patient was advised by multiple specialists during his admission. More history was obtained from [facility]. According to staff at that facility he was discharged today because his insurance cut him off from any sort of coverage at the [facility]. Laboratory evaluation obtained. Leukopenia of 2.7. Patient does have megaloblastic features with MCV of 104.8. Coag panel shows minor 1.4 likely secondary to liver disease. Metabolic panel obtained. Lactic acidosis of 4.2 likely secondary to liver failure. Glucose 114. No gap acidosis. Magnesium 1.3. Elevated liver markers which appear to be lower than when he was admitted. Patient reevaluated bedside in stable medical condition. Chest x-ray reviewed. Showing no definite acute processes. Vital signs shows blood pressure with measurements in the high 80s and low 90s. Presents feeling tired patient has no other complaints. Patient given intravenous fluids. Pending urine studies. Patient pending urine studies. Patient's blood pressure is normalized after small bolus of fluids. Patient will be given IV hydration. Patient reevaluated at bedside and found to be in stable medical condition. EKG interpretation: Ventricular rate 4, normal sinus rhythm, FL interval 150, QRS 76, QTC 470. No FL prolongation, no QTC prolongation, no ST or T-wave changes noted. EKG compared to figure 2019 showing no changes. Overall, this EKG is unremarkable - Related Data Home Medications Medication Instructions Recorded Confirmed Levothyroxine Sodium 88 mcg PO DAILY 07/09/18 09/27/19 metFORMIN HCL 1,000 mg PO BID 07/09/18 09/27/19 Cortisone Acetate [Cortone] 25 mg PO DAILY 09/12/18 09/27/19 Metoprolol Succinate (ER) [Toprol 25 mg PO BID 05/21/19 09/27/19 XL] glyBURIDE [Diabeta] 2.5 mg PO AC-BID 05/21/19 09/27/19 Tamsulosin HCl [Flomax] 0.4 mg PO DAILY 08/26/19 09/27/19 Acetaminophen [Tylenol] 650 mg PO Q4H PRN 09/27/19 09/27/19 DULoxetine HCL [Cymbalta] 30 mg PO DAILY 09/27/19 09/27/19 INSULIN ASPART (NovoLOG) [NovoLOG See Protocol SQ ACHS 09/27/19 09/27/19 (formulary)] Ibuprofen [Motrin Ib] 800 mg PO Q8H PRN 09/27/19 09/27/19 Lactulose 10 gm PO TID 09/27/19 09/27/19 Loperamide HCl [Imodium A-D] 2 mg PO Q4H PRN 09/27/19 09/27/19 Omeprazole Magnesium [PriLOSEC OTC] 20 mg PO BID 09/27/19 09/27/19 Previous Rx's Medication Instructions Recorded Sodium Bicarbonate Tab 650 mg PO TID tab 08/31/19 Allergies Allergy/AdvReac Type Severity Reaction Status Date / Time codeine AdvReac Severe Nausea & Verified 09/27/19 13:42 Vomiting Review of Systems ROS Statement: Those systems with pertinent positive or pertinent negative responses have been documented in the HPI. ROS Other: All systems not noted in ROS Statement are negative. Past Medical History Past Medical History: Coronary Artery Disease (CAD), Diabetes Mellitus, Hyperlipidemia, Osteoarthritis (OA), Thyroid Disorder Additional Past Medical History / Comment(s): ADRENAL INSUFFICIENCY, NIDDM, kidney stones, recurrent UTI History of Any Multi-Drug Resistant Organisms: None Reported Date of last positivie culture/infection: 07/09/18 MDRO Source:: ESBL URINE Past Surgical History: Back Surgery, Bariatric Surgery, Heart Catheterization With Stent Additional Past Surgical History / Comment(s): BACK SURG (decompression) X2. LAP BAND.carpel tunnel Past Anesthesia/Blood Transfusion Reactions: No Reported Reaction Date of Last Stent Placement:: 2014 Past Psychological History: Anxiety Smoking Status: Former smoker - Past Family History Father Family Medical History: Diabetes Mellitus Additional Family Medical History / Comment(s): of a ruptured aorta Mother Family Medical History: Cancer, Diabetes Mellitus Additional Family Medical History / Comment(s): PPM, liver CA General Exam Limitations: physical limitation Course Vital Signs 09/27/19 09/27/19 09/27/19 11:38 12:13 15:00 Temperature 97.9 F Pulse Rate 75 74 Respiratory 16 18 Rate Blood Pressure 93/62 88/60 106/61 O2 Sat by Pulse 98 96 Oximetry Medical Decision Making - Lab Data Result diagrams: 09/27/19 12:55 09/27/19 12:55 Lab Results 09/27/19 09/27/19 09/27/19 Range/Units 12:55 12:55 12:55 WBC 2.7 L (3.8-10.6) k/uL RBC 4.12 L (4.30-5.90) m/uL Hgb 14.1 D (13.0-17.5) gm/dL Hct 43.1 (39.0-53.0) % MCV 104.8 H D (80.0-100.0) fL MCH 34.3 (25.0-35.0) pg MCHC 32.8 (31.0-37.0) g/dL RDW 18.2 H (11.5-15.5) % Plt Count 163 (150-450) k/uL Neutrophils % 30 % Lymphocytes % 50 % Monocytes % 13 % Eosinophils % 3 % Basophils % 1 % Neutrophils # 0.8 L (1.3-7.7) k/uL Lymphocytes # 1.3 (1.0-4.8) k/uL Monocytes # 0.4 (0-1.0) k/uL Eosinophils # 0.1 (0-0.7) k/uL Basophils # 0.0 (0-0.2) k/uL Manual Slide Review Performed Anisocytosis Slight Macrocytosis Marked A PT 14.0 H (9.0-12.0) sec INR 1.4 H (<1.2) APTT 32.0 H (22.0-30.0) sec Sodium 134 L (137-145) mmol/L Potassium 3.9 (3.5-5.1) mmol/L Chloride 100 (98-107) mmol/L Carbon Dioxide 24 (22-30) mmol/L Anion Gap 10 mmol/L BUN 16 (9-20) mg/dL Creatinine 0.86 (0.66-1.25) mg/dL Est GFR (CKD-EPI)AfAm >90 (>60 ml/min/1.73 sqM) Est GFR (CKD-EPI)NonAf >90 (>60 ml/min/1.73 sqM) Glucose 114 H (74-99) mg/dL Plasma Lactic Acid Ras (0.7-2.0) mmol/L Calcium 8.4 (8.4-10.2) mg/dL Magnesium 1.3 L (1.6-2.3) mg/dL Total Bilirubin 12.4 H (0.2-1.3) mg/dL Conjugated Bilirubin 3.5 H (0.0-0.3) mg/dL Unconjugated Bilirubin 1.6 H (0.0-1.1) mg/dL Delta Bilirubin 7.3 H (0.0-0.2) mg/dL AST 194 H (17-59) U/L ALT 109 H (4-49) U/L Alkaline Phosphatase 150 H (38-126) U/L Troponin I (0.000-0.034) ng/mL Total Protein 5.5 L (6.3-8.2) g/dL Albumin 2.8 L (3.5-5.0) g/dL 09/27/19 09/27/19 Range/Units 12:55 12:55 WBC (3.8-10.6) k/uL RBC (4.30-5.90) m/uL Hgb (13.0-17.5) gm/dL Hct (39.0-53.0) % MCV (80.0-100.0) fL MCH (25.0-35.0) pg MCHC (31.0-37.0) g/dL RDW (11.5-15.5) % Plt Count (150-450) k/uL Neutrophils % % Lymphocytes % % Monocytes % % Eosinophils % % Basophils % % Neutrophils # (1.3-7.7) k/uL Lymphocytes # (1.0-4.8) k/uL Monocytes # (0-1.0) k/uL Eosinophils # (0-0.7) k/uL Basophils # (0-0.2) k/uL Manual Slide Review Anisocytosis Macrocytosis PT (9.0-12.0) sec INR (<1.2) APTT (22.0-30.0) sec Sodium (137-145) mmol/L Potassium (3.5-5.1) mmol/L Chloride (98-107) mmol/L Carbon Dioxide (22-30) mmol/L Anion Gap mmol/L BUN (9-20) mg/dL Creatinine (0.66-1.25) mg/dL Est GFR (CKD-EPI)AfAm (>60 ml/min/1.73 sqM) Est GFR (CKD-EPI)NonAf (>60 ml/min/1.73 sqM) Glucose (74-99) mg/dL Plasma Lactic Acid Ras 4.2 H* (0.7-2.0) mmol/L Calcium (8.4-10.2) mg/dL Magnesium (1.6-2.3) mg/dL Total Bilirubin (0.2-1.3) mg/dL Conjugated Bilirubin (0.0-0.3) mg/dL Unconjugated Bilirubin (0.0-1.1) mg/dL Delta Bilirubin (0.0-0.2) mg/dL AST (17-59) U/L ALT (4-49) U/L Alkaline Phosphatase (38-126) U/L Troponin I 0.028 (0.000-0.034) ng/mL Total Protein (6.3-8.2) g/dL Albumin (3.5-5.0) g/dL Disposition Clinical Impression: Generalized weakness Disposition: ADMITTED IP TO THIS HOSP Condition: Fair Referrals: Chano Ames MD [Primary Care Provider] - 1-2 days Decision Time: 15:21
[2019-09-27 13:20] LABS: ALT 109 U/L (4-49); AST 194 U/L (17-59); African American GFR (CKD) >90 (>60 ml/min/1.73 sqM); Albumin 2.8 g/dL (3.5-5.0); Alkaline Phosphatase 150 U/L (38-126); Anion Gap 10 mmol/L; Bilirubin, Conjugated 3.5 mg/dL (0.0-0.3); Bilirubin, Delta 7.3 mg/dL (0.0-0.2); Bilirubin,Unconjugated 1.6 mg/dL (0.0-1.1); Blood Urea Nitrogen 16 mg/dL (9-20); Calcium 8.4 mg/dL (8.4-10.2); Carbon Dioxide 24 mmol/L (22-30); Chloride 100 mmol/L (98-107); Glucose 114 mg/dL (74-99); Magnesium 1.3 mg/dL (1.6-2.3); Non-African American GFR(CKD) >90 (>60 ml/min/1.73 sqM); Potassium 3.9 mmol/L (3.5-5.1); Sodium 134 mmol/L (137-145); Total Bilirubin 12.4 mg/dL (0.2-1.3); Total Protein 5.5 g/dL (6.3-8.2)
--- NOTE | 2019-09-27 13:20 | XR ---
EXAMINATION TYPE: XR chest 1V portable DATE OF EXAM: 09/27/2019 Comparison: 05/21/2019 Clinical History: 63-year-old male hypotension, weakness Findings: Patient is obliqued towards the left. Heart normal size. Aorta and pulmonary vasculature within ana luisa l limits. Hazy peripheral and right lower lung densities related to overlying soft tissue. Right ante rior chest wall injection port with subclavian access and catheter tip at the upper to mid SVC level. No jaye consolidation or sizable effusion is seen. Lap band device is partially obscured by motion. Impression: Exam limited by patient positioning. No definite acute process.
[2019-09-27 13:24] LABS: Anisocytosis Slight; Basophils % (A) 1 %; Eosinophils # (A) 0.1 k/uL (0-0.7); Eosinophils % (A) 3 %; HCT 43.1 % (39.0-53.0); Lymphocytes # (A) 1.3 k/uL (1.0-4.8); Lymphocytes % (A) 50 %; MCH 34.3 pg (25.0-35.0); MCHC 32.8 g/dL (31.0-37.0); Macrocytosis Marked; Mean Platelet Volume 8.3; Monocytes # (A) 0.4 k/uL (0-1.0); Monocytes % (A) 13 %; Neutrophils # (A) 0.8 k/uL (1.3-7.7); Neutrophils % (A) 30 %; Platelet Count 163 k/uL (150-450); RBC 4.12 m/uL (4.30-5.90); RDW 18.2 % (11.5-15.5); WBC 2.7 k/uL (3.8-10.6)
[2019-09-27 13:29] LABS: HGB 14.1 gm/dL (13.0-17.5); MCV 104.8 fL (80.0-100.0)
[2019-09-27] MEDS ORDERED: MAGNESIUM OXIDE 400 MG TAB PO STA (13:35)
[2019-09-27 14:02] LABS: INR 1.4 (<1.2)
[2019-09-27] MEDS: 1: MVI, ADULT NO.4 WITH VIT K 10 ML, THIAMINE 100 MG, FOLIC ACID 1 MG in SODIUM CHLORIDE IV SCH ×4 (14:30)
[2019-09-27] MEDS ORDERED: LIDOCAINE URO-JET JELLY 2% 5 ML KIT URETHRAL ONE (15:00)
[2019-09-27] MEDS ORDERED: NALOXONE 0.4 MG/ML 1 ML VIAL IV PRN (15:19)
[2019-09-27 15:41] LABS: Appearance,Urine Cloudy (Clear); Bacteria,Urine Moderate /hpf; Bilirubin,Urine 2+ (Negative); Blood,Urine Small (Negative); Color,Urine Dark Brown; Glucose,Urine (UA) Negative (Negative); Hyaline Casts,Urine 1 /lpf (0-2); Ketones,Urine Negative (Negative); Leukocyte Esterase,Urine Small (Negative); Mucus,Urine Few /hpf; Nitrite,Urine Negative (Negative); Protein,Urine Trace (Negative); RBC,Urine 62 /hpf (0-5); Specific Gravity,Urine 1.026 (1.001-1.035); Squamous Epithelial Cell,Urine <1 /hpf (0-4); Urobilinogen,Urine >12.0 mg/dL (<2.0)
[2019-09-27] MEDS ORDERED: LOPERAMIDE 2 MG CAP PO PRN (17:05)
[2019-09-27] MEDS ORDERED: ACETAMINOPHEN TAB 325 MG TAB PO PRN (17:05)
[2019-09-27 18:32] LABS: Glucose,Whole Blood 145 mg/dL (75-99)
[2019-09-27] MEDS: INSULIN ASPART (NovoLOG) 100 UNIT/ML VIAL SQ SCH ×2 (18:35→22:09)
[2019-09-27 21:57] LABS: Glucose,Whole Blood 101 mg/dL (75-99)
[2019-09-27] MEDS: METOPROLOL SUCCINATE (ER) 25 MG TAB.ER.24H PO SCH (22:09)
[2019-09-27] MEDS: SODIUM CHLORIDE 0.9% 1,000 ML IV SCH (22:10)
[2019-09-27] MEDS: LACTULOSE 20 GM/30 ML CUP PO SCH ×2 (22:10→22:16)
[2019-09-27] MEDS: SODIUM BICARBONATE TAB 650 MG TAB PO SCH (22:10)
--- NOTE | 2019-09-27 22:11 | P.HPIM ---
History of Present Illness H&P Date: 09/27/19 Chief Complaint: Weak and tired History of presenting complaint: This is a 63-year-old patient was chronic stable medical conditions include recurrent UTIs with pseudomonas, essential hypertension, hypothyroid, coronary artery disease with stent, diabetes mellitus type 2, chronic kidney disease, chronic kidney dysfunction uses a walker, diffuse large B-cell lymphoma and non- Hodgkin's type. Good response to treatment 2019 in remission, gastric banding. Patient recently the hospital from August 24 through August 30. Treated for possibly drug-induced hepatitis and recurrent UTI with pseudomonas. Patient was discharged to [facility]. Patient is discharged from the [facility] today. When the ambulance arrived home. Patient is feeling very weak. Unable to get up. Patient states his appetite has not been good for last 2 weeks. No fever or chills. Patient was brought to the ER. Review of systems: GEN.: Tired with decreased appetite EYES: [None] HEENT: [None] NECK: [None] RESPIRATORY: [None] CARDIOVASCULAR: [None] GASTROINTESTINAL: [None] GENITOURINARY: [None] MUSCULOSKELETAL: [Chronic lower extremity weakness] LYMPHATICS: [None] HEMATOLOGICAL: [None] PSYCHIATRY: [None] NEUROLOGICAL: [None] Past medical history to include: recurrent UTIs with pseudomonas, essential hypertension, hypothyroid, coronary artery disease with stent, diabetes mellitus type 2, chronic kidney disease, chronic kidney dysfunction uses a walker, diffuse large B-cell lymphoma and non- Hodgkin's type. Good response to treatment 2019 in remission, gastric banding. Social history: No history of alcohol. Did smoke in the past. Patient did smoke a pipe over 10 years ago. He has a daughter at home and a 6-year-old grandson. On examination: VITAL SIGNS: 97.3, 73, 16, 88/53, 98% GENERAL APPEARANCE:, Laying in bed, awake HEENT: Normal external appearance of nose and ear. Oral cavity normal EYES: Pupils equal. Conjunctiva yellow NECK: JVD not raised. Mass not palpable. RESPIRATORY: Respiratory effort normal. Lungs clear to auscultation. CARDIOVASCULAR: First and second sounds normal. No edema. ABDOMEN: Soft. Liver and spleen not palpable. No tenderness. No mass palpable. PSYCHIATRY: Alert and oriented x3. Mood and affect but anxious NEUROLOGICAL: Decreased power in both lower extremity. Which actually is chronic Investigations: White count 2.7 hemoglobin 14.1 potassium 3.9 creatinine 0.86 lactic acid 4.2 Bilirubin 12.4 AST 194 ALT 109 albumin 2.8 UA positive for small U Estrace, RBC 62, bacteria moderate, Assessment: -Recent possibly drug induced hepatitis improving -Medical asthenia leading to poor balance weakness -Hypotension from decreased oral intake from dehydration -Hypothyroid -Coronary artery disease with stent -Diabetes mellitus type 2 -Chronic gait dysfunction uses a walker -Diffuse large B-cell lymphoma non-Hodgkin's type-good response to treatment in 2019 in remission -History of gastric banding -Type II lactic acidosis. From hypotension. No sepsis Plan: Patient lower extremity weakness is chronic. Patient is decreased appetite with hypotension. Home medications resumed. PTOT consulted. 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 LAP BAND.carpel tunnel Past Anesthesia/Blood Transfusion Reactions: No Reported Reaction Date of Last Stent Placement:: 2014 Past Psychological History: Anxiety Smoking Status: Former smoker Past Alcohol Use History: None Reported Additional Past Alcohol Use History / Comment(s): Patient denies any medical marijuana, marijuana, street drug or alcohol use. Patient states he has not smoked a pipe in over 10 years. He lives at home with his daughter and 6-year-old grandson. Past Drug Use History: None Reported - Past Family History Father Family Medical History: Diabetes Mellitus Additional Family Medical History / Comment(s): of a ruptured aorta Mother Family Medical History: Cancer, Diabetes Mellitus Additional Family Medical History / Comment(s): PPM, liver CA Medications and Allergies Home Medications Medication Instructions Recorded Confirmed Type Levothyroxine Sodium 88 mcg PO DAILY 07/09/18 09/27/19 History metFORMIN HCL 1,000 mg PO BID 07/09/18 09/27/19 History Cortisone Acetate [Cortone] 25 mg PO DAILY 09/12/18 09/27/19 History Metoprolol Succinate (ER) [Toprol 25 mg PO BID 05/21/19 09/27/19 History XL] glyBURIDE [Diabeta] 2.5 mg PO AC-BID 05/21/19 09/27/19 History Tamsulosin HCl [Flomax] 0.4 mg PO DAILY 08/26/19 09/27/19 History Sodium Bicarbonate Tab 650 mg PO TID tab 08/31/19 09/27/19 Rx Acetaminophen [Tylenol] 650 mg PO Q4H PRN 09/27/19 09/27/19 History DULoxetine HCL [Cymbalta] 30 mg PO DAILY 09/27/19 09/27/19 History INSULIN ASPART (NovoLOG) [NovoLOG See Protocol SQ ACHS 09/27/19 09/27/19 History (formulary)] Ibuprofen [Motrin Ib] 800 mg PO Q8H PRN 09/27/19 09/27/19 History Lactulose 10 gm PO TID 09/27/19 09/27/19 History Loperamide HCl [Imodium A-D] 2 mg PO Q4H PRN 09/27/19 09/27/19 History Omeprazole Magnesium [PriLOSEC OTC] 20 mg PO BID 09/27/19 09/27/19 History Allergies Allergy/AdvReac Type Severity Reaction Status Date / Time codeine AdvReac Severe Nausea & Verified 09/27/19 13:42 Vomiting Physical Exam Vitals: Vital Signs Temp Pulse Resp BP Pulse Ox 09/27/19 20:47 97.3 F L 73 16 88/53 98 09/27/19 20:00 72 16 88/54 98 09/27/19 16:15 116/66 09/27/19 15:00 106/61 09/27/19 12:13 74 18 88/60 96 09/27/19 11:38 97.9 F 75 16 93/62 98 Intake and Output 09/27/19 09/27/19 09/27/19 06:59 14:59 22:59 Other: Weight 90.718 kg 90.718 kg Results CBC & Chem 7: 09/27/19 12:55 09/27/19 12:55 Labs: Abnormal Lab Results - Last 24 Hours (Table) 09/27/19 09/27/19 09/27/19 Range/Units 12:55 12:55 12:55 WBC 2.7 L (3.8-10.6) k/uL RBC 4.12 L (4.30-5.90) m/uL MCV 104.8 H D (80.0-100.0) fL RDW 18.2 H (11.5-15.5) % Neutrophils # 0.8 L (1.3-7.7) k/uL Macrocytosis Marked A PT 14.0 H (9.0-12.0) sec INR 1.4 H (<1.2) APTT 32.0 H (22.0-30.0) sec Sodium 134 L (137-145) mmol/L Glucose 114 H (74-99) mg/dL POC Glucose (mg/dL) (75-99) mg/dL Plasma Lactic Acid Ras (0.7-2.0) mmol/L Magnesium 1.3 L (1.6-2.3) mg/dL Total Bilirubin 12.4 H (0.2-1.3) mg/dL Conjugated Bilirubin 3.5 H (0.0-0.3) mg/dL Unconjugated Bilirubin 1.6 H (0.0-1.1) mg/dL Delta Bilirubin 7.3 H (0.0-0.2) mg/dL AST 194 H (17-59) U/L ALT 109 H (4-49) U/L Alkaline Phosphatase 150 H (38-126) U/L Total Protein 5.5 L (6.3-8.2) g/dL Albumin 2.8 L (3.5-5.0) g/dL Urine Protein (Negative) Urine Blood (Negative) Urine Bilirubin (Negative) Ur Leukocyte Esterase (Negative) Urine RBC (0-5) /hpf Urine Bacteria (None) /hpf Urine Mucus (None) /hpf 09/27/19 09/27/19 09/27/19 Range/Units 12:55 15:22 15:49 WBC (3.8-10.6) k/uL RBC (4.30-5.90) m/uL MCV (80.0-100.0) fL RDW (11.5-15.5) % Neutrophils # (1.3-7.7) k/uL Macrocytosis PT (9.0-12.0) sec INR (<1.2) APTT (22.0-30.0) sec Sodium (137-145) mmol/L Glucose (74-99) mg/dL POC Glucose (mg/dL) (75-99) mg/dL Plasma Lactic Acid Ras 4.2 H* 3.7 H* (0.7-2.0) mmol/L Magnesium (1.6-2.3) mg/dL Total Bilirubin (0.2-1.3) mg/dL Conjugated Bilirubin (0.0-0.3) mg/dL Unconjugated Bilirubin (0.0-1.1) mg/dL Delta Bilirubin (0.0-0.2) mg/dL AST (17-59) U/L ALT (4-49) U/L Alkaline Phosphatase (38-126) U/L Total Protein (6.3-8.2) g/dL Albumin (3.5-5.0) g/dL Urine Protein Trace H (Negative) Urine Blood Small H (Negative) Urine Bilirubin 2+ H (Negative) Ur Leukocyte Esterase Small H (Negative) Urine RBC 62 H (0-5) /hpf Urine Bacteria Moderate H (None) /hpf Urine Mucus Few H (None) /hpf 09/27/19 09/27/19 09/27/19 Range/Units 18:30 19:01 21:56 WBC (3.8-10.6) k/uL RBC (4.30-5.90) m/uL MCV (80.0-100.0) fL RDW (11.5-15.5) % Neutrophils # (1.3-7.7) k/uL Macrocytosis PT (9.0-12.0) sec INR (<1.2) APTT (22.0-30.0) sec Sodium (137-145) mmol/L Glucose (74-99) mg/dL POC Glucose (mg/dL) 145 H 101 H (75-99) mg/dL Plasma Lactic Acid Ras 3.5 H* (0.7-2.0) mmol/L Magnesium (1.6-2.3) mg/dL Total Bilirubin (0.2-1.3) mg/dL Conjugated Bilirubin (0.0-0.3) mg/dL Unconjugated Bilirubin (0.0-1.1) mg/dL Delta Bilirubin (0.0-0.2) mg/dL AST (17-59) U/L ALT (4-49) U/L Alkaline Phosphatase (38-126) U/L Total Protein (6.3-8.2) g/dL Albumin (3.5-5.0) g/dL Urine Protein (Negative) Urine Blood (Negative) Urine Bilirubin (Negative) Ur Leukocyte Esterase (Negative) Urine RBC (0-5) /hpf Urine Bacteria (None) /hpf Urine Mucus (None) /hpf Thrombosis Risk Factor Assmnt - Choose All That Apply Each Factor Represents 1 point: Medical pt on bed rest, Obesity (BMI >25) Each Risk Factor Represents 2 Points: Age 61-74 years Thrombosis Risk Factor Assessment Total Risk Factor Score: 4 Thrombosis Risk Factor Assessment Level: Moderate Risk
[2019-09-28] MEDS: 1: MVI, ADULT NO.4 WITH VIT K 10 ML, THIAMINE 100 MG, FOLIC ACID 1 MG in SODIUM CHLORIDE IV SCH ×12 (03:25→22:19)
[2019-09-28] MEDS: SODIUM CHLORIDE 0.9% 1,000 ML IV SCH ×2 (04:40→13:03)
[2019-09-28] MEDS: LEVOTHYROXINE 88 MCG TAB PO SCH (05:48)
[2019-09-28 07:36] LABS: Glucose,Whole Blood 54 mg/dL (75-99)
[2019-09-28 07:50] LABS: Glucose,Whole Blood 56 mg/dL (75-99)
[2019-09-28 08:14] LABS: Glucose,Whole Blood 88 mg/dL (75-99)
[2019-09-28] MEDS: METOPROLOL SUCCINATE (ER) 25 MG TAB.ER.24H PO SCH ×2 (08:25→21:16)
[2019-09-28] MEDS: PANTOPRAZOLE 40 MG TABLET PO SCH (08:25)
[2019-09-28] MEDS: glipiZIDE 10 MG TAB PO SCH (08:25)
[2019-09-28] MEDS: SODIUM BICARBONATE TAB 650 MG TAB PO SCH ×3 (08:25→21:16)
[2019-09-28] MEDS: TAMSULOSIN 0.4 MG CAP.ER.24H PO SCH (08:25)
[2019-09-28] MEDS: INSULIN ASPART (NovoLOG) 100 UNIT/ML VIAL SQ SCH ×4 (08:26→21:16)
[2019-09-28] MEDS: DULoxetine HCL 30 MG CAPSULE.DR PO SCH (08:26)
[2019-09-28] MEDS: LACTULOSE 20 GM/30 ML CUP PO SCH (08:27)
[2019-09-28] MEDS ORDERED: CORTISONE ACETATE 25 MG PO SCH (09:00)
[2019-09-28 12:15] LABS: Glucose,Whole Blood 153 mg/dL (75-99)
[2019-09-28] MEDS: CEFEPIME 2 GM in SODIUM CHLORIDE 0.9% 100 ML IVPB SCH ×2 (14:29→22:19)
[2019-09-28] MEDS ORDERED: CHOLESTYRAMINE (WITH SUGAR) 4 GM PACKET PO SCH (15:00)
[2019-09-28 15:35] VITALS: BMI 33.3
[2019-09-28 17:22] LABS: Glucose,Whole Blood 139 mg/dL (75-99)
[2019-09-28 20:25] LABS: Glucose,Whole Blood 162 mg/dL (75-99)
--- NOTE | 2019-09-28 21:49 | P.PN ---
Progress Note - Text Progress Note Date: 09/28/19 Chief Complaint: Weak and tired History of presenting complaint: This is a 63-year-old patient was chronic stable medical conditions include recurrent UTIs with pseudomonas, essential hypertension, hypothyroid, coronary artery disease with stent, diabetes mellitus type 2, chronic kidney disease, chronic kidney dysfunction uses a walker, diffuse large B-cell lymphoma and non- Hodgkin's type. Good response to treatment 2019 in remission, gastric banding. Patient recently the hospital from August 24 through August 30. Treated for possibly drug-induced hepatitis and recurrent UTI with pseudomonas. Patient was discharged to [facility]. Patient is discharged from the [facility] today. When the ambulance arrived home. Patient is feeling very weak. Unable to get up. Patient states his appetite has not been good for last 2 weeks. No fever or chills. Patient was brought to the ER. Today-appetite remains low. Patient is on lactulose having 3-4 BMs a day. Tired. Review of systems: Was done for constitutional, cardiovascular, GI, pulmonary. relevant finding as above Active Medications Acetaminophen (Tylenol Tab) 650 mg PO Q4H PRN PRN Reason: Pain Duloxetine HCl (Cymbalta) 30 mg PO DAILY [facility] Last Admin: 09/28/19 08:26 Dose: 30 mg Documented by: Glipizide (Glucotrol) 10 mg PO DAILY [facility] Last Admin: 09/28/19 08:25 Dose: 10 mg Documented by: Parenteral Vitamin Supplement 10 ml/ Thiamine HCl 100 mg/Folic Acid 1 mg/ Sodium Chloride 1,011.2 mls @ 100 mls/hr IV .BY DURATION [facility] Last Admin: 09/28/19 10:25 Dose: 100 mls/hr Documented by: Sodium Chloride (Saline 0.9%) 1,000 mls @ 100 mls/hr IV .BY DURATION [facility] Last Admin: 09/28/19 03:25 Dose: Not Given Documented by: Sodium Chloride (Saline 0.9%) 1,000 mls @ 80 mls/hr IV .[id number] [facility] Last Admin: 09/28/19 13:03 Dose: Not Given Documented by: Cefepime HCl 2 gm/ Sodium (Chloride) 100 mls @ 200 mls/hr IVPB Q12HR [facility] Last Admin: 09/28/19 14:29 Dose: 200 mls/hr Documented by: Insulin Aspart (Novolog) 0 unit SQ ACHS [facility]; Protocol Last Admin: 09/28/19 21:16 Dose: 1 unit Documented by: Levothyroxine Sodium (Synthroid) 88 mcg PO DAILY@0630 [facility] Last Admin: 09/28/19 05:48 Dose: 88 mcg Documented by: Loperamide HCl (Imodium) 2 mg PO Q4H PRN PRN Reason: Diarrhea Metoprolol Succinate (Toprol Xl) 25 mg PO BID [facility] Last Admin: 09/28/19 21:16 Dose: 25 mg Documented by: Naloxone HCl (Narcan) 0.2 mg IV Q2M PRN PRN Reason: Opioid Reversal Cortisone Acetate [ (Cortone] 25 Mg) 25 mg PO DAILY [facility] Last Admin: 09/28/19 08:27 Dose: Not Given Documented by: Pantoprazole Sodium (Protonix) 40 mg PO AC-BRKFST [facility] Last Admin: 09/28/19 08:25 Dose: 40 mg Documented by: Sodium Bicarbonate (Sodium Bicarbonate Tab) 650 mg PO TID [facility] Last Admin: 09/28/19 21:16 Dose: 650 mg Documented by: Tamsulosin HCl (Flomax) 0.4 mg PO DAILY [facility] Last Admin: 09/28/19 08:25 Dose: 0.4 mg Documented by: On examination: VITAL SIGNS: 97.5, 82, 18, 97/73, 99% on 2 L GENERAL APPEARANCE:, Laying in bed, awake HEENT: Normal external appearance of nose and ear. Oral cavity normal EYES: Pupils equal. Conjunctiva yellow NECK: JVD not raised. Mass not palpable. RESPIRATORY: Respiratory effort normal. Lungs clear to auscultation. CARDIOVASCULAR: First and second sounds normal. No edema. ABDOMEN: Soft. Liver and spleen not palpable. No tenderness. No mass palpable. PSYCHIATRY: Alert and oriented x3. Mood and affect but anxious NEUROLOGICAL: Decreased power in both lower extremity. - chronic Investigations: Accu-Cheks 139, 162 Previous testing White count 2.7 hemoglobin 14.1 potassium 3.9 creatinine 0.86 lactic acid 4.2 Bilirubin 12.4 AST 194 ALT 109 albumin 2.8 UA positive for small U Estrace, RBC 62, bacteria moderate, Assessment: -Recent possibly drug induced hepatitis improving -Medical asthenia leading to poor balance weakness -Hypotension from decreased oral intake from dehydration -Hypothyroid -Coronary artery disease with stent -Diabetes mellitus type 2 -Chronic gait dysfunction uses a walker -Diffuse large B-cell lymphoma non-Hodgkin's type-good response to treatment in 2019 in remission -History of gastric banding -Type II lactic acidosis. From hypotension. No sepsis -Diarrhea from lactulose. -Possible UTI. Plan: -Discussed with the patient. Encouraged to increase oral intake. We'll DC lactulose. Dr. Reis from [place] is consulted. We'll put the patient on stress dose of hydrocortisone 25 mg every 8.
--- NOTE | 2019-09-28 23:46 | P.CONS ---
History of Present Illness - Reason for Consult Consult date: 09/28/19 Positive UA Requesting physician: Prem Yadav - Chief Complaint Weakness and no energy x a few days - History of Present Illness Patient is a 63-year-old male with a past medical history significant for recurrent pseudomonas urinary tract infection in this patient who was recently admitted to this facility and was treated with cefepime and subsequently discharged to assisted on IV cefepime patient has completed his antibiotic therapy and mention overall is feeling better patient was discharged from the assisted yesterday any menstrual the patient home however they were unable to stand him up. He stated to his room and decided to bring the patient back to the hospital on arrival to the ER the patient has been afebrile he did have leukopenia with white count of 2.7 did have elevated lactic acid, PCR was negative patient is complaining of diarrhea about 3 loose stools per day however the patient also been on lactulose for C. diff came back negative patient did have a positive UA was noticed to have elevated liver enzymes infectious disease was consulted for further management of antibiotic therapy Review of Systems Positive point has been mentioned in the HPI rest of the systems are negative Past Medical History Past Medical History: Coronary Artery Disease (CAD), Diabetes Mellitus, Hyperlipidemia, Osteoarthritis (OA), Thyroid Disorder Additional Past Medical History / Comment(s): ADRENAL INSUFFICIENCY, NIDDM, kidney stones, recurrent UTI History of Any Multi-Drug Resistant Organisms: None Reported Year Discovered:: 07/09/18 MDRO Source:: ESBL URINE Past Surgical History: Back Surgery, Bariatric Surgery, Heart Catheterization With Stent Additional Past Surgical History / Comment(s): BACK SURG (decompression) X2. LAP BAND.carpel tunnel Past Anesthesia/Blood Transfusion Reactions: No Reported Reaction Date of Last Stent Placement:: 2014 Past Psychological History: Anxiety Smoking Status: Former smoker Past Alcohol Use History: None Reported Additional Past Alcohol Use History / Comment(s): Patient denies any medical marijuana, marijuana, street drug or alcohol use. Patient states he has not smoked a pipe in over 10 years. He lives at home with his daughter and 6-year-old grandson. Past Drug Use History: None Reported - Past Family History Father Family Medical History: Diabetes Mellitus Additional Family Medical History / Comment(s): of a ruptured aorta Mother Family Medical History: Cancer, Diabetes Mellitus Additional Family Medical History / Comment(s): PPM, liver CA Medications and Allergies Home Medications Medication Instructions Recorded Confirmed Type Levothyroxine Sodium 88 mcg PO DAILY 07/09/18 09/27/19 History metFORMIN HCL 1,000 mg PO BID 07/09/18 09/27/19 History Cortisone Acetate [Cortone] 25 mg PO DAILY 09/12/18 09/27/19 History Metoprolol Succinate (ER) [Toprol 25 mg PO BID 05/21/19 09/27/19 History XL] glyBURIDE [Diabeta] 2.5 mg PO AC-BID 05/21/19 09/27/19 History Tamsulosin HCl [Flomax] 0.4 mg PO DAILY 08/26/19 09/27/19 History Sodium Bicarbonate Tab 650 mg PO TID tab 08/31/19 09/27/19 Rx Acetaminophen [Tylenol] 650 mg PO Q4H PRN 09/27/19 09/27/19 History DULoxetine HCL [Cymbalta] 30 mg PO DAILY 09/27/19 09/27/19 History INSULIN ASPART (NovoLOG) [NovoLOG See Protocol SQ ACHS 09/27/19 09/27/19 History (formulary)] Ibuprofen [Motrin Ib] 800 mg PO Q8H PRN 09/27/19 09/27/19 History Lactulose 10 gm PO TID 09/27/19 09/27/19 History Loperamide HCl [Imodium A-D] 2 mg PO Q4H PRN 09/27/19 09/27/19 History Omeprazole Magnesium [PriLOSEC OTC] 20 mg PO BID 09/27/19 09/27/19 History Allergies Allergy/AdvReac Type Severity Reaction Status Date / Time codeine AdvReac Severe Nausea & Verified 09/27/19 13:42 Vomiting Physical Exam Vitals: Vital Signs Temp Pulse Pulse Resp BP BP Pulse Ox 09/28/19 08:19 92 16 103/71 09/28/19 07:05 98.1 F 81 18 93/56 99 09/28/19 00:52 98.1 F 78 90/57 99 09/28/19 00:15 16 09/27/19 20:47 97.3 F L 73 16 88/53 98 09/27/19 20:00 72 16 88/54 98 09/27/19 16:15 116/66 09/27/19 15:00 106/61 Intake and Output 09/27/19 09/28/19 09/28/19 22:59 06:59 14:59 Intake Total 1011.2 Output Total 400 Balance 611.2 Intake: Intake, IV Titration 1011.2 Amount Mvi, Adult No.4 with Vit 1011.2 K 10 ml Thiamine 100 mg Folic Acid 1 mg In Sodium Chloride 0.9% 1,000 ml @ 100 mls/hr IV .BY DURATION [facility] Rx#: [id number] Output: Urine 400 Other: Voiding Method Indwelling Catheter Indwelling Catheter # Bowel Movements 3 Weight 90.718 kg GENERAL DESCRIPTION: An elderly male lying in bed, no distress. No tachypnea or accessory muscle of respiration use. HEENT: scleral icterus positive. Oral mucous membrane is dry. No pharyngeal e rythema or thrush NECK: Trachea central, no thyromegaly. LUNGS: Unlabored breathing. Clear to auscultation anteriorly. No wheeze or crackle. HEART: S1, S2, regular rate and rhythm. No loud murmur ABDOMEN: Soft, no tenderness , guarding or rigidity, no organomegaly EXTREMITIES: No edema of feet. SKIN: No rash, no masses palpable. NEUROLOGICAL: The patient is awake, alert, oriented x3, mood and affect normal. Results CBC & Chem 7: 09/27/19 12:55 09/27/19 12:55 Labs: Abnormal Lab Results - Last 24 Hours (Table) 09/27/19 09/27/19 09/27/19 Range/Units 12:55 12:55 12:55 WBC 2.7 L (3.8-10.6) k/uL RBC 4.12 L (4.30-5.90) m/uL MCV 104.8 H D (80.0-100.0) fL RDW 18.2 H (11.5-15.5) % Neutrophils # 0.8 L (1.3-7.7) k/uL Macrocytosis Marked A PT 14.0 H (9.0-12.0) sec INR 1.4 H (<1.2) APTT 32.0 H (22.0-30.0) sec Sodium 134 L (137-145) mmol/L Glucose 114 H (74-99) mg/dL POC Glucose (mg/dL) (75-99) mg/dL Plasma Lactic Acid Ras (0.7-2.0) mmol/L Magnesium 1.3 L (1.6-2.3) mg/dL Total Bilirubin 12.4 H (0.2-1.3) mg/dL Conjugated Bilirubin 3.5 H (0.0-0.3) mg/dL Unconjugated Bilirubin 1.6 H (0.0-1.1) mg/dL Delta Bilirubin 7.3 H (0.0-0.2) mg/dL AST 194 H (17-59) U/L ALT 109 H (4-49) U/L Alkaline Phosphatase 150 H (38-126) U/L Total Protein 5.5 L (6.3-8.2) g/dL Albumin 2.8 L (3.5-5.0) g/dL Urine Protein (Negative) Urine Blood (Negative) Urine Bilirubin (Negative) Ur Leukocyte Esterase (Negative) Urine RBC (0-5) /hpf Urine Bacteria (None) /hpf Urine Mucus (None) /hpf 09/27/19 09/27/19 09/27/19 Range/Units 12:55 15:22 15:49 WBC (3.8-10.6) k/uL RBC (4.30-5.90) m/uL MCV (80.0-100.0) fL RDW (11.5-15.5) % Neutrophils # (1.3-7.7) k/uL Macrocytosis PT (9.0-12.0) sec INR (<1.2) APTT (22.0-30.0) sec Sodium (137-145) mmol/L Glucose (74-99) mg/dL POC Glucose (mg/dL) (75-99) mg/dL Plasma Lactic Acid Ras 4.2 H* 3.7 H* (0.7-2.0) mmol/L Magnesium (1.6-2.3) mg/dL Total Bilirubin (0.2-1.3) mg/dL Conjugated Bilirubin (0.0-0.3) mg/dL Unconjugated Bilirubin (0.0-1.1) mg/dL Delta Bilirubin (0.0-0.2) mg/dL AST (17-59) U/L ALT (4-49) U/L Alkaline Phosphatase (38-126) U/L Total Protein (6.3-8.2) g/dL Albumin (3.5-5.0) g/dL Urine Protein Trace H (Negative) Urine Blood Small H (Negative) Urine Bilirubin 2+ H (Negative) Ur Leukocyte Esterase Small H (Negative) Urine RBC 62 H (0-5) /hpf Urine Bacteria Moderate H (None) /hpf Urine Mucus Few H (None) /hpf 09/27/19 09/27/19 09/27/19 Range/Units 18:30 19:01 21:56 WBC (3.8-10.6) k/uL RBC (4.30-5.90) m/uL MCV (80.0-100.0) fL RDW (11.5-15.5) % Neutrophils # (1.3-7.7) k/uL Macrocytosis PT (9.0-12.0) sec INR (<1.2) APTT (22.0-30.0) sec Sodium (137-145) mmol/L Glucose (74-99) mg/dL POC Glucose (mg/dL) 145 H 101 H (75-99) mg/dL Plasma Lactic Acid Ras 3.5 H* (0.7-2.0) mmol/L Magnesium (1.6-2.3) mg/dL Total Bilirubin (0.2-1.3) mg/dL Conjugated Bilirubin (0.0-0.3) mg/dL Unconjugated Bilirubin (0.0-1.1) mg/dL Delta Bilirubin (0.0-0.2) mg/dL AST (17-59) U/L ALT (4-49) U/L Alkaline Phosphatase (38-126) U/L Total Protein (6.3-8.2) g/dL Albumin (3.5-5.0) g/dL Urine Protein (Negative) Urine Blood (Negative) Urine Bilirubin (Negative) Ur Leukocyte Esterase (Negative) Urine RBC (0-5) /hpf Urine Bacteria (None) /hpf Urine Mucus (None) /hpf 09/27/19 09/28/19 09/28/19 Range/Units 22:02 07:30 07:46 WBC (3.8-10.6) k/uL RBC (4.30-5.90) m/uL MCV (80.0-100.0) fL RDW (11.5-15.5) % Neutrophils # (1.3-7.7) k/uL Macrocytosis PT (9.0-12.0) sec INR (<1.2) APTT (22.0-30.0) sec Sodium (137-145) mmol/L Glucose (74-99) mg/dL POC Glucose (mg/dL) 54 L 56 L (75-99) mg/dL Plasma Lactic Acid Ras 2.6 H* (0.7-2.0) mmol/L Magnesium (1.6-2.3) mg/dL Total Bilirubin (0.2-1.3) mg/dL Conjugated Bilirubin (0.0-0.3) mg/dL Unconjugated Bilirubin (0.0-1.1) mg/dL Delta Bilirubin (0.0-0.2) mg/dL AST (17-59) U/L ALT (4-49) U/L Alkaline Phosphatase (38-126) U/L Total Protein (6.3-8.2) g/dL Albumin (3.5-5.0) g/dL Urine Protein (Negative) Urine Blood (Negative) Urine Bilirubin (Negative) Ur Leukocyte Esterase (Negative) Urine RBC (0-5) /hpf Urine Bacteria (None) /hpf Urine Mucus (None) /hpf 09/28/19 09/28/19 Range/Units 11:20 11:56 WBC (3.8-10.6) k/uL RBC (4.30-5.90) m/uL MCV (80.0-100.0) fL RDW (11.5-15.5) % Neutrophils # (1.3-7.7) k/uL Macrocytosis PT (9.0-12.0) sec INR (<1.2) APTT (22.0-30.0) sec Sodium (137-145) mmol/L Glucose (74-99) mg/dL POC Glucose (mg/dL) 153 H (75-99) mg/dL Plasma Lactic Acid Ras 3.2 H* (0.7-2.0) mmol/L Magnesium (1.6-2.3) mg/dL Total Bilirubin (0.2-1.3) mg/dL Conjugated Bilirubin (0.0-0.3) mg/dL Unconjugated Bilirubin (0.0-1.1) mg/dL Delta Bilirubin (0.0-0.2) mg/dL AST (17-59) U/L ALT (4-49) U/L Alkaline Phosphatase (38-126) U/L Total Protein (6.3-8.2) g/dL Albumin (3.5-5.0) g/dL Urine Protein (Negative) Urine Blood (Negative) Urine Bilirubin (Negative) Ur Leukocyte Esterase (Negative) Urine RBC (0-5) /hpf Urine Bacteria (None) /hpf Urine Mucus (None) /hpf Assessment and Plan Assessment: 1- patient presented to hospital as weakness no energy and ability to walk in this patient also have a history of recurrent pseudomonas urinary tract infection did have a positive UA, and this patient had denies significant urinary symptoms And a Martini catheter has been placed on in the ER with a question of possible urinary retention, underlying pseudomonas recurrent UTI not entirely excluded 2-patient with elevated liver enzymes with a question of chronic hepatitis B versus other etiologies (1) Hepatitis Current Visit: Yes Status: Acute Code(s): K75.9 - INFLAMMATORY LIVER DISEASE, UNSPECIFIED SNOMED Code(s): 882426735 (2) Urinary tract infection Current Visit: No Status: Acute Priority: High Code(s): N39.0 - URINARY TRACT INFECTION, SITE NOT SPECIFIED SNOMED Code(s): 54322539 Plan: 1- we will empirically start the patient on cefepime 2 g every 12hr while waiting for urine culture finalized 2-we will check hepatitis B surface antigen , hepatitis B E antigen and anybody hepatitis B DNA and may benefit from liver biopsy this was discussed with GI 3-gentle IV fluid Will follow on a clinical condition and cultures to further adjust medication if needed Thank you for this consultation will follow this patient along with you Time with Patient: Greater than 30
[2019-09-29 00:50] LABS: Hepatitis B Core IgM Non-Reactive (Non-Reactive); Hepatitis B Surface AB- Quant 3.5 mIU/mL; Hepatitis B Surface Antibody Non-Reactive (Non-Reactive)
--- NOTE | 2019-09-29 02:27 | P.CONS ---
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 [facility] and [place] where he was receiving treatment after recent hospitalization, however upon presenting home the patient felt weak and came back to the hospital for further evaluation. The patient was previously seen on last hospitalization for elevated liver enzymes which were noted to be significantly elevated with transaminases in the thousands. At that time. Neurology was performed. The patient was found to have negative hepatitis B core IgM, positive surface antigen, positive E antigen, as well as a markedly elevated viral load. He had been seen in the outpatient setting in the gastroenterology clinic. At that time it was felt that given the patient's recent treatment with Rituxan elevation in liver enzymes and hepatitis B serology were likely indicative of a reactivation of hepatitis B. Entecavir was ordered for treatment however it is unclear if the patient has received and/or started treatment at this time. Overall liver enzymes are still markedly elevated but improved from prior admission with total bilirubin 12.4, alkaline phosphatase 150, AST 194 and ALT 109 with an INR of 1.4, platelet count 163,000, hemoglobin 14 and WBC 2.7. Review of Systems REVIEW OF SYSTEMS: CONSTITUTIONAL: Denies any fevers, chills, weight change is reporting extreme fatigue. CARDIOVASCULAR: Denies any chest pain, palpitations high or low blood pressures RESPIRATORY: Denies any shortness of breath, hemoptysis or cough. GENITOURINARY: No dysuria or hematuria. MUSCULOSKELETAL: Bilateral lower extremity weakness. SKIN: Denies any new rashes or lesions, or pallor however the patient has had jaundice since discharge from the hospital. PSYCHIATRIC: Denies any depression or anxiety. NEUROLOGY: Denies headache, denies any new focal deficits, but is reporting weakness in his legs. EARS/NOSE/THROAT: No recent hearing change, congestion, nasal discharge or sore throat. EYES: No pain in eyes, discharge or change in vision. GASTROINTESTINAL: As per HPI. Past Medical History Past Medical History: Coronary Artery Disease (CAD), Diabetes Mellitus, Hyperlipidemia, Osteoarthritis (OA), Thyroid Disorder Additional Past Medical History / Comment(s): ADRENAL INSUFFICIENCY, NIDDM, kidney stones, recurrent UTI History of Any Multi-Drug Resistant Organisms: None Reported Year Discovered:: 07/09/18 MDRO Source:: ESBL URINE Past Surgical History: Back Surgery, Bariatric Surgery, Heart Catheterization With Stent Additional Past Surgical History / Comment(s): BACK SURG (decompression) X2. LAP BAND.carpel tunnel Past Anesthesia/Blood Transfusion Reactions: No Reported Reaction Date of Last Stent Placement:: 2014 Past Psychological History: Anxiety Smoking Status: Former smoker Past Alcohol Use History: None Reported Additional Past Alcohol Use History / Comment(s): Patient denies any medical marijuana, marijuana, street drug or alcohol use. Patient states he has not smoked a pipe in over 10 years. He lives at home with his daughter and 6-year-old grandson. Past Drug Use History: None Reported - Past Family History Father Family Medical History: Diabetes Mellitus Additional Family Medical History / Comment(s): of a ruptured aorta Mother Family Medical History: Cancer, Diabetes Mellitus Additional Family Medical History / Comment(s): PPM, liver CA Medications and Allergies Home Medications Medication Instructions Recorded Confirmed Type Levothyroxine Sodium 88 mcg PO DAILY 07/09/18 09/27/19 History metFORMIN HCL 1,000 mg PO BID 07/09/18 09/27/19 History Cortisone Acetate [Cortone] 25 mg PO DAILY 09/12/18 09/27/19 History Metoprolol Succinate (ER) [Toprol 25 mg PO BID 05/21/19 09/27/19 History XL] glyBURIDE [Diabeta] 2.5 mg PO AC-BID 05/21/19 09/27/19 History Tamsulosin HCl [Flomax] 0.4 mg PO DAILY 08/26/19 09/27/19 History Sodium Bicarbonate Tab 650 mg PO TID tab 08/31/19 09/27/19 Rx Acetaminophen [Tylenol] 650 mg PO Q4H PRN 09/27/19 09/27/19 History DULoxetine HCL [Cymbalta] 30 mg PO DAILY 09/27/19 09/27/19 History INSULIN ASPART (NovoLOG) [NovoLOG See Protocol SQ ACHS 09/27/19 09/27/19 History (formulary)] Ibuprofen [Motrin Ib] 800 mg PO Q8H PRN 09/27/19 09/27/19 History Lactulose 10 gm PO TID 09/27/19 09/27/19 History Loperamide HCl [Imodium A-D] 2 mg PO Q4H PRN 09/27/19 09/27/19 History Omeprazole Magnesium [PriLOSEC OTC] 20 mg PO BID 09/27/19 09/27/19 History Allergies Allergy/AdvReac Type Severity Reaction Status Date / Time codeine AdvReac Severe Nausea & Verified 09/27/19 13:42 Vomiting Physical Exam Vitals: Vital Signs Temp Pulse Pulse Resp BP BP Pulse Ox 09/28/19 08:19 92 16 103/71 09/28/19 07:05 98.1 F 81 18 93/56 99 09/28/19 00:52 98.1 F 78 90/57 99 09/28/19 00:15 16 09/27/19 20:47 97.3 F L 73 16 88/53 98 09/27/19 20:00 72 16 88/54 98 09/27/19 16:15 116/66 09/27/19 15:00 106/61 Intake and Output 09/27/19 09/28/19 09/28/19 22:59 06:59 14:59 Intake Total 1011.2 Output Total 400 Balance 611.2 Intake: Intake, IV Titration 1011.2 Amount Mvi, Adult No.4 with Vit 1011.2 K 10 ml Thiamine 100 mg Folic Acid 1 mg In Sodium Chloride 0.9% 1,000 ml @ 100 mls/hr IV .BY DURATION [facility] Rx#: [id number] Output: Urine 400 Other: Voiding Method Indwelling Catheter Indwelling Catheter # Bowel Movements 3 Weight 90.718 kg On physical examination, patient appears comfortable in no apparent distress. HEAD: Normocephalic, atraumatic. EYES: Scleral icterus. No conjunctival injection. MOUTH: No lesions, tongue midline. NECK: Trachea midline, no gross abnormalities. CHEST: Clear to auscultation with no wheezing or rhonchi appreciated. HEART: Regular rate and rhythm. ABDOMEN: Soft, obese. Bowel sounds are positive. No organomegaly. No guarding or rigidity. EXTREMITIES: No pedal edema. SKIN: No rashes, jaundice. NEUROLOGIC: Alert and oriented x3. Results CBC & Chem 7: 09/27/19 12:55 09/27/19 12:55 Labs: Abnormal Lab Results - Last 24 Hours (Table) 09/27/19 09/27/19 09/27/19 Range/Units 12:55 12:55 15:22 WBC 2.7 L (3.8-10.6) k/uL RBC 4.12 L (4.30-5.90) m/uL MCV 104.8 H D (80.0-100.0) fL RDW 18.2 H (11.5-15.5) % Neutrophils # 0.8 L (1.3-7.7) k/uL Macrocytosis Marked A PT 14.0 H (9.0-12.0) sec INR 1.4 H (<1.2) APTT 32.0 H (22.0-30.0) sec POC Glucose (mg/dL) (75-99) mg/dL Plasma Lactic Acid Ras (0.7-2.0) mmol/L Urine Protein Trace H (Negative) Urine Blood Small H (Negative) Urine Bilirubin 2+ H (Negative) Ur Leukocyte Esterase Small H (Negative) Urine RBC 62 H (0-5) /hpf Urine Bacteria Moderate H (None) /hpf Urine Mucus Few H (None) /hpf 09/27/19 09/27/19 09/27/19 Range/Units 15:49 18:30 19:01 WBC (3.8-10.6) k/uL RBC (4.30-5.90) m/uL MCV (80.0-100.0) fL RDW (11.5-15.5) % Neutrophils # (1.3-7.7) k/uL Macrocytosis PT (9.0-12.0) sec INR (<1.2) APTT (22.0-30.0) sec POC Glucose (mg/dL) 145 H (75-99) mg/dL Plasma Lactic Acid Ras 3.7 H* 3.5 H* (0.7-2.0) mmol/L Urine Protein (Negative) Urine Blood (Negative) Urine Bilirubin (Negative) Ur Leukocyte Esterase (Negative) Urine RBC (0-5) /hpf Urine Bacteria (None) /hpf Urine Mucus (None) /hpf 0609/27/19 09/28/19 Range/Units 21:56 22:02 07:30 WBC (3.8-10.6) k/uL RBC (4.30-5.90) m/uL MCV (80.0-100.0) fL RDW (11.5-15.5) % Neutrophils # (1.3-7.7) k/uL Macrocytosis PT (9.0-12.0) sec INR (<1.2) APTT (22.0-30.0) sec POC Glucose (mg/dL) 101 H 54 L (75-99) mg/dL Plasma Lactic Acid Ras 2.6 H* (0.7-2.0) mmol/L Urine Protein (Negative) Urine Blood (Negative) Urine Bilirubin (Negative) Ur Leukocyte Esterase (Negative) Urine RBC (0-5) /hpf Urine Bacteria (None) /hpf Urine Mucus (None) /hpf 09/28/19 09/28/19 09/28/19 Range/Units 07:46 11:20 11:56 WBC (3.8-10.6) k/uL RBC (4.30-5.90) m/uL MCV (80.0-100.0) fL RDW (11.5-15.5) % Neutrophils # (1.3-7.7) k/uL Macrocytosis PT (9.0-12.0) sec INR (<1.2) APTT (22.0-30.0) sec POC Glucose (mg/dL) 56 L 153 H (75-99) mg/dL Plasma Lactic Acid Ras 3.2 H* (0.7-2.0) mmol/L Urine Protein (Negative) Urine Blood (Negative) Urine Bilirubin (Negative) Ur Leukocyte Esterase (Negative) Urine RBC (0-5) /hpf Urine Bacteria (None) /hpf Urine Mucus (None) /hpf Chest x-ray: report reviewed (No acute process noted on chest x-ray) Assessment and Plan (1) Hepatitis B infection Narrative/Plan: 63-year-old male with multiple medical comorbidities who presented back to the hospital from an [facility] due to weakness. Recent hospitalization where the patient was noted to have markedly elevated liver enzymes. At that time. Liver serol ogy was ordered and patient was found to have positive hepatitis B titers. Given treatment with Rituxan in December for large B-cell lymphoma concern is for reactivation of hepatitis B. He was seen in the outpatient setting with entecavir ordered. Overall liver enzymes are improved with total bilirubin 12.4, alkaline phosphatase 150, AST 194 and ALT 109. Current Visit: Yes Status: Acute Code(s): B19.10 - UNSPECIFIED VIRAL HEPATITIS B WITHOUT HEPATIC COMA SNOMED Code(s): 07811796 (2) Hepatitis Current Visit: Yes Status: Acute Code(s): K75.9 - INFLAMMATORY LIVER DISEASE, UNSPECIFIED SNOMED Code(s): 029839708 (3) Hyperbilirubinemia Current Visit: No Status: Acute Priority: High Code(s): E80.6 - OTHER DISORDERS OF BILIRUBIN METABOLISM SNOMED Code(s): 45862296 (4) Jaundice Current Visit: No Status: Acute Priority: High Code(s): R17 - UNSPECIFIED JAUNDICE SNOMED Code(s): 86837950 Plan: Supportive care Okay for diet Continue other medical management Continue to monitor CBC, BMP, LFTs Plan is for treatment with entecavir, this has been ordered in the outpatient setting, however it does not appear as if the patient has initiated therapy Thank you for allowing us to participate in the care of the patient, we will continue to follow
[2019-09-29] MEDS: LEVOTHYROXINE 88 MCG TAB PO SCH (05:42)
[2019-09-29] MEDS: 1: MVI, ADULT NO.4 WITH VIT K 10 ML, THIAMINE 100 MG, FOLIC ACID 1 MG in SODIUM CHLORIDE IV SCH ×8 (05:42→21:31)
[2019-09-29] MEDS: SODIUM CHLORIDE 0.9% 1,000 ML IV SCH ×2 (05:42→20:26)
[2019-09-29 06:59] LABS: Glucose,Whole Blood 88 mg/dL (75-99)
[2019-09-29] MEDS: INSULIN ASPART (NovoLOG) 100 UNIT/ML VIAL SQ SCH ×4 (07:18→21:48)
[2019-09-29] MEDS: CEFEPIME 2 GM in SODIUM CHLORIDE 0.9% 100 ML IVPB SCH ×2 (09:27→21:30)
[2019-09-29] MEDS: TAMSULOSIN 0.4 MG CAP.ER.24H PO SCH (09:28)
[2019-09-29] MEDS: glipiZIDE 10 MG TAB PO SCH (09:28)
[2019-09-29] MEDS: PANTOPRAZOLE 40 MG TABLET PO SCH (09:28)
[2019-09-29] MEDS: SODIUM BICARBONATE TAB 650 MG TAB PO SCH ×3 (09:28→21:30)
[2019-09-29] MEDS: METOPROLOL SUCCINATE (ER) 25 MG TAB.ER.24H PO SCH ×2 (09:28→21:30)
[2019-09-29] MEDS: DULoxetine HCL 30 MG CAPSULE.DR PO SCH (09:28)
[2019-09-29 10:18] LABS: Hepatitis B Surface Antigen Reactive (Non-Reactive)
[2019-09-29 11:34] LABS: Glucose,Whole Blood 134 mg/dL (75-99)
[2019-09-29 14:21] LABS: ALT 104 U/L (4-49); AST 184 U/L (17-59); African American GFR (CKD) >90 (>60 ml/min/1.73 sqM); Albumin 2.2 g/dL (3.5-5.0); Alkaline Phosphatase 123 U/L (38-126); Anion Gap 3 mmol/L; Blood Urea Nitrogen 13 mg/dL (9-20); Calcium 7.6 mg/dL (8.4-10.2); Carbon Dioxide 24 mmol/L (22-30); Chloride 105 mmol/L (98-107); Glucose 165 mg/dL (74-99); Non-African American GFR(CKD) >90 (>60 ml/min/1.73 sqM); Potassium 4.2 mmol/L (3.5-5.1); Sodium 132 mmol/L (137-145); Total Bilirubin 11.9 mg/dL (0.2-1.3); Total Protein 4.6 g/dL (6.3-8.2)
[2019-09-29 16:40] LABS: Glucose,Whole Blood 152 mg/dL (75-99)
--- NOTE | 2019-09-29 19:44 | P.PN ---
Progress Note - Text Progress Note Date: 09/29/19 Chief Complaint: Weak and tired History of presenting complaint: This is a 63-year-old patient was chronic stable medical conditions include recurrent UTIs with pseudomonas, essential hypertension, hypothyroid, coronary artery disease with stent, diabetes mellitus type 2, chronic kidney disease, chronic kidney dysfunction uses a walker, diffuse large B-cell lymphoma and non- Hodgkin's type. Good response to treatment 2019 in remission, gastric banding. Patient recently the hospital from August 24 through August 30. Treated for possibly drug-induced hepatitis and recurrent UTI with pseudomonas. Patient was discharged to [facility]. Patient is discharged from the [facility] today. When the ambulance arrived home. Patient is feeling very weak. Unable to get up. Patient states his appetite has not been good for last 2 weeks. No fever or chills. Patient was brought to the ER. Today-eating about 25% of his meals. Sometimes less. Still decreased appetite. Positive for hepatitis B. For outpatient treatment. Review of systems: Was done for constitutional, cardiovascular, GI, pulmonary. relevant finding as above Active Medications Acetaminophen (Tylenol Tab) 650 mg PO Q4H PRN PRN Reason: Pain Duloxetine HCl (Cymbalta) 30 mg PO DAILY [facility] Last Admin: 09/29/19 09:28 Dose: 30 mg Documented by: Glipizide (Glucotrol) 10 mg PO DAILY [facility] Last Admin: 09/29/19 09:28 Dose: 10 mg Documented by: Hydrocortisone Sodium Succinate (Solu-Cortef) 25 mg IV Q8H [facility] Parenteral Vitamin Supplement 10 ml/ Thiamine HCl 100 mg/Folic Acid 1 mg/ Sodium Chloride 1,011.2 mls @ 100 mls/hr IV .BY DURATION [facility] Last Admin: 09/29/19 05:42 Dose: 100 mls/hr Documented by: Sodium Chloride (Saline 0.9%) 1,000 mls @ 100 mls/hr IV .BY DURATION [facility] Last Admin: 09/28/19 22:19 Dose: 100 mls/hr Documented by: Sodium Chloride (Saline 0.9%) 1,000 mls @ 80 mls/hr IV .[id number] [facility] Last Admin: 09/29/19 05:42 Dose: Not Given Documented by: Cefepime HCl 2 gm/ Sodium (Chloride) 100 mls @ 200 mls/hr IVPB Q12HR [facility] Last Admin: 09/29/19 09:27 Dose: 200 mls/hr Documented by: Insulin Aspart (Novolog) 0 unit SQ ACHS [facility]; Protocol Last Admin: 09/29/19 17:12 Dose: 1 unit Documented by: Levothyroxine Sodium (Synthroid) 88 mcg PO DAILY@0630 [facility] Last Admin: 09/29/19 05:42 Dose: 88 mcg Documented by: Loperamide HCl (Imodium) 2 mg PO Q4H PRN PRN Reason: Diarrhea Metoprolol Succinate (Toprol Xl) 25 mg PO BID [facility] Last Admin: 09/29/19 09:28 Dose: 25 mg Documented by: Naloxone HCl (Narcan) 0.2 mg IV Q2M PRN PRN Reason: Opioid Reversal Pantoprazole Sodium (Protonix) 40 mg PO AC-BRKFST [facility] Last Admin: 09/29/19 09:28 Dose: 40 mg Documented by: Sodium Bicarbonate (Sodium Bicarbonate Tab) 650 mg PO TID [facility] Last Admin: 09/29/19 17:12 Dose: 650 mg Documented by: Tamsulosin HCl (Flomax) 0.4 mg PO DAILY [facility] Last Admin: 09/29/19 09:28 Dose: 0.4 mg Documented by: On examination: VITAL SIGNS: 98.3, 67, 16, 1309, 98% room air GENERAL APPEARANCE:, Sitting up in bed, awake HEENT: Normal external appearance of nose and ear. Oral cavity normal EYES: Pupils equal. Conjunctiva yellow NECK: JVD not raised. Mass not palpable. RESPIRATORY: Respiratory effort normal. Lungs clear to auscultation. CARDIOVASCULAR: First and second sounds normal. No edema. ABDOMEN: Soft. Liver and spleen not palpable. No tenderness. No mass palpable. PSYCHIATRY: Alert and oriented x3. Mood and affect but anxious NEUROLOGICAL: Decreased power in both lower extremity. - chronic Investigations: Potassium 4.2 creatinine 0.67 Accu-Cheks 152 AST 184 ALT 104 Previous testing White count 2.7 hemoglobin 14.1 potassium 3.9 creatinine 0.86 lactic acid 4.2 Bilirubin 12.4 AST 194 ALT 109 albumin 2.8 UA positive for small U Estrace, RBC 62, bacteria moderate, Hepatitis B surface antigen positive and hepatitis B core total antibody reactive Assessment: -Recent possibly drug induced hepatitis improving -Active hepatitis B for outpatient treatment with Entevir -Medical asthenia leading to poor balance weakness -Hypotension from decreased oral intake from dehydration -Hypothyroid -Coronary artery disease with stent -Diabetes mellitus type 2 -Chronic gait dysfunction uses a walker -Diffuse large B-cell lymphoma non-Hodgkin's type-good response to treatment in 2019 in remission -History of gastric banding -Type II lactic acidosis. From hypotension. No sepsis -Diarrhea from lactulose. -Possible UTI from cystitis. -Chronic lower extremity weakness causing gait dysfunction likely from deconditioning-patient baseline does use occasional walker or mostly wheelchair. In the past MRI was negative. And CSF analysis was unrevealing. EEG was normal. Plan: -Continue patient IV cefepime for the UTI. On stress dose of IV Solu-Cortef. Also getting IV fluids. Switch to by mouth thiamine. We'll decrease the dose of glipizide to 2.5 mg.
[2019-09-29] MEDS: HYDROCORTISONE SUCCINATE 100 MG/2 ML VIAL IV SCH (21:31)
[2019-09-29 21:40] LABS: Glucose,Whole Blood 212 mg/dL (75-99)
--- NOTE | 2019-09-29 23:06 | PN ---
PROGRESS NOTE DATE OF SERVICE: 09/29/2019 REASON FOR FOLLOWUP: 1. Urinary tract infection. 2. Possible chronic hepatitis B. INTERVAL HISTORY: The patient is currently afebrile. The patient is breathing comfortably. Denies having any chest pain or shortness of breath or cough. No nausea or vomiting. Diarrhea has resolved. Still complaining of weakness. PHYSICAL EXAMINATION: Blood pressure 95/69 with a pulse of 58, temperature 98.8. He is 100% on room air. General description is an elderly male lying in bed in no distress. RESPIRATORY SYSTEM: Unlabored breathing. Clear to auscultation anteriorly. HEART: S1, S2. Regular rate and rhythm. ABDOMEN: Soft. No tenderness. LABS: BUN of 13, creatinine 0.67. Urine cultures currently pending, though. DIAGNOSTIC IMPRESSION AND PLAN: 1. Patient with a positive urinalysis in this patient who did have a history of recurrent Pseudomonas urinary tract infection. The patient is currently covered with cefepime. Urine culture seems to be missing; will be ordered and adjust antibiotic further on the basis of the culture. 2. Patient with chronic hepatitis B and concern for acute workup in progress with possible consideration starting in the discussed with janiya. MMODL / IJN: [id number] /
--- NOTE | 2019-09-30 00:38 | P.PN ---
Subjective Progress Note Date: 09/29/19 Principal diagnosis: Hepatitis B, elevated liver enzymes Patient seen lying in bed, tolerating diet. Still complaining about inability to walk. Objective - Vital Signs Vital signs: Vital Signs Temp 98.3 F 09/29/19 07:00 Pulse 67 09/29/19 07:56 Resp 16 09/29/19 07:56 BP 113/69 09/29/19 07:00 Pulse Ox 98 09/29/19 07:00 Intake & Output 09/28/19 09/29/19 09/29/19 18:59 06:59 18:59 Intake Total 100 1011.2 Output Total 300 400 400 Balance -200 611.2 -400 Weight 90.718 kg Intake: Intake, IV Titration 100 1011.2 Amount Cefepime 2 gm In Sodium 100 Chloride 0.9% 100 ml @ 200 mls/hr IVPB Q12HR [facility] Rx#:[id number] Mvi, Adult No.4 with Vit 1011.2 K 10 ml Thiamine 100 mg Folic Acid 1 mg In Sodium Chloride 0.9% 1,000 ml @ 100 mls/hr IV .BY DURATION [facility] Rx#: [id number] Output: Urine 300 400 400 Uretheral (Martini) 300 Other: Voiding Method Indwelling Catheter Indwelling Catheter Indwelling Catheter # Bowel Movements 1 1 - Exam On physical examination, patient appears comfortable in no apparent distress. HEAD: Normocephalic, atraumatic. EYES: Scleral icterus. No conjunctival injection. MOUTH: No lesions, tongue midline. NECK: Trachea midline, no gross abnormalities. ABDOMEN: Soft, obese. Bowel sounds are positive. No organomegaly. No guarding or rigidity. EXTREMITIES: No pedal edema. SKIN: No rashes, jaundice. NEUROLOGIC: Alert and oriented x3. - Labs CBC & Chem 7: 09/27/19 12:55 09/29/19 13:47 Labs: Abnormal Lab Results - Last 24 Hours (Table) 09/28/19 09/28/19 09/28/19 Range/Units 15:03 17:08 20:23 Sodium (137-145) mmol/L Glucose (74-99) mg/dL POC Glucose (mg/dL) 139 H 162 H (75-99) mg/dL Calcium (8.4-10.2) mg/dL Total Bilirubin (0.2-1.3) mg/dL AST (17-59) U/L ALT (4-49) U/L Total Protein (6.3-8.2) g/dL Albumin (3.5-5.0) g/dL Hep Bs Antigen Reactive H (Non-Reactive) Hep B Core Total Ab Reactive H (Non-Reactive) 09/29/19 09/29/19 Range/Units 11:32 13:47 Sodium 132 L (137-145) mmol/L Glucose 165 H (74-99) mg/dL POC Glucose (mg/dL) 134 H (75-99) mg/dL Calcium 7.6 L (8.4-10.2) mg/dL Total Bilirubin 11.9 H (0.2-1.3) mg/dL AST 184 H (17-59) U/L ALT 104 H (4-49) U/L Total Protein 4.6 L (6.3-8.2) g/dL Albumin 2.2 L (3.5-5.0) g/dL Hep Bs Antigen (Non-Reactive) Hep B Core Total Ab (Non-Reactive) Assessment and Plan (1) Hepatitis B infection Narrative/Plan: 63-year-old male with multiple medical comorbidities who presented back to the hospital from an ECF due to weakness. Recent hospitalization where the patient was noted to have markedly elevated liver enzymes. At that time. Liver serology was ordered and patient was found to have positive hepatitis B titers. Given treatment with Rituxan in December for large B-cell lymphoma concern is for reactivation of hepatitis B. He was seen in the outpatient setting with entecavir ordered. Overall liver enzymes are improved with total bilirubin 12.4, alkaline phosphatase 150, AST 194 and ALT 109 on presentation. Current Visit: Yes Status: Acute Code(s): B19.10 - UNSPECIFIED VIRAL HEPATITIS B WITHOUT HEPATIC COMA SNOMED Code(s): 36050543 (2) Hepatitis Current Visit: Yes Status: Acute Code(s): K75.9 - INFLAMMATORY LIVER DI SEASE, UNSPECIFIED SNOMED Code(s): 003295545 (3) Hyperbilirubinemia Current Visit: No Status: Acute Priority: High Code(s): E80.6 - OTHER DISORDERS OF BILIRUBIN METABOLISM SNOMED Code(s): 14474831 (4) Jaundice Current Visit: No Status: Acute Priority: High Code(s): R17 - UNSPECIFIED JAUNDICE SNOMED Code(s): 21536815 Plan: Supportive care Okay for diet Continue other medical management Continue to monitor CBC, BMP, LFTs Plan is for treatment with entecavir, this has been ordered in the outpatient setting, however it does not appear as if the patient has initiated therapy and is not available on formulary, the GI office is making attempts to order the medication to be started after discharge Thank you for allowing us to participate in the care of the patient, we will continue to follow
[2019-09-30] MEDS: 1: MVI, ADULT NO.4 WITH VIT K 10 ML, THIAMINE 100 MG, FOLIC ACID 1 MG in SODIUM CHLORIDE IV SCH ×8 (03:32→12:58)
[2019-09-30] MEDS: HYDROCORTISONE SUCCINATE 100 MG/2 ML VIAL IV SCH ×3 (06:09→22:24)
[2019-09-30] MEDS: LEVOTHYROXINE 88 MCG TAB PO SCH (06:09)
[2019-09-30] MEDS: SODIUM CHLORIDE 0.9% 1,000 ML IV SCH ×2 (06:11→17:20)
[2019-09-30 07:33] LABS: Glucose,Whole Blood 206 mg/dL (75-99)
[2019-09-30] MEDS: INSULIN ASPART (NovoLOG) 100 UNIT/ML VIAL SQ SCH ×4 (08:04→22:25)
[2019-09-30] MEDS: CEFEPIME 2 GM in SODIUM CHLORIDE 0.9% 100 ML IVPB SCH ×2 (08:05→22:25)
[2019-09-30] MEDS: DULoxetine HCL 30 MG CAPSULE.DR PO SCH (08:05)
[2019-09-30] MEDS: SODIUM BICARBONATE TAB 650 MG TAB PO SCH ×3 (08:05→22:24)
[2019-09-30] MEDS: TAMSULOSIN 0.4 MG CAP.ER.24H PO SCH (08:05)
[2019-09-30] MEDS: PANTOPRAZOLE 40 MG TABLET PO SCH (08:05)
[2019-09-30] MEDS: METOPROLOL SUCCINATE (ER) 25 MG TAB.ER.24H PO SCH ×2 (08:05→22:17)
[2019-09-30 11:34] LABS: Glucose,Whole Blood 154 mg/dL (75-99)
[2019-09-30 11:45] LABS: ALT 80 U/L (4-49); AST 117 U/L (17-59); African American GFR (CKD) >90 (>60 ml/min/1.73 sqM); Alkaline Phosphatase 104 U/L (38-126); Anion Gap 3 mmol/L; Blood Urea Nitrogen 12 mg/dL (9-20); Calcium 7.2 mg/dL (8.4-10.2); Carbon Dioxide 23 mmol/L (22-30); Chloride 108 mmol/L (98-107); Glucose 171 mg/dL (74-99); Non-African American GFR(CKD) >90 (>60 ml/min/1.73 sqM); Potassium 3.9 mmol/L (3.5-5.1); Sodium 134 mmol/L (137-145); Total Bilirubin 9.9 mg/dL (0.2-1.3); Total Protein 4.2 g/dL (6.3-8.2)
[2019-09-30 11:49] LABS: INR 1.3 (<1.2); Prothrombin Time 13.3 sec (9.0-12.0)
--- NOTE | 2019-09-30 16:23 | PN ---
PROGRESS NOTE DATE OF SERVICE: 09/30/2019 REASON FOR FOLLOWUP: 1. Urinary tract infection. 2. Hepatitis B. INTERVAL HISTORY: The patient is currently afebrile, has been breathing comfortably. His main symptoms have been feeling weak and difficulty walking. No back pain. No chest pain. No shortness of breath or cough. He did have a Martini catheter. PHYSICAL EXAMINATION: Blood pressure 101/66, pulse of 73, temperature 98.2. He is 100% on room air. General description is an elderly male lying in bed in no distress. RESPIRATORY SYSTEM: Unlabored breathing. Clear to auscultation anteriorly. HEART: S1, S2. Regular rate and rhythm. ABDOMEN: Soft. No tenderness. LABS: INR is 1.3. Creatinine 0.59. Unfortunately urine cultures were not done. DIAGNOSTIC IMPRESSION AND PLAN: 1. Patient with a positive urinalysis in this patient with a history of recurrent urinary tract infections. Urine culture unfortunately not done this admission. It will be ordered. Continue with cefepime, adjusting antibiotic further based on the culture report. 2. Patient with hepatitis B . Will follow up with GI in the outpatient setting antiviral arranged. with Dr. Garcia yesterday. MMODL / IJN: [id number] /
[2019-09-30 16:46] LABS: Glucose,Whole Blood 205 mg/dL (75-99)
[2019-09-30 20:25] LABS: Glucose,Whole Blood 251 mg/dL (75-99)
--- NOTE | 2019-09-30 21:59 | P.PN ---
Progress Note - Text Progress Note Date: 09/30/19 Chief Complaint: Weak and tired History of presenting complaint: This is a 63-year-old patient was chronic stable medical conditions include recurrent UTIs with pseudomonas, essential hypertension, hypothyroid, coronary artery disease with stent, diabetes mellitus type 2, chronic kidney disease, chronic kidney dysfunction uses a walker, diffuse large B-cell lymphoma and non- Hodgkin's type. Good response to treatment 2019 in remission, gastric banding. Patient recently the hospital from August 24 through August 30. Treated for possibly drug-induced hepatitis and recurrent UTI with pseudomonas. Patient was discharged to [facility]. Patient is discharged from the [facility] today. When the ambulance arrived home. Patient is feeling very weak. Unable to get up. Patient states his appetite has not been good for last 2 weeks. No fever or chills. Patient was brought to the ER. Today-eating intermittently. No new issues. Review of systems: Was done for constitutional, cardiovascular, GI, pulmonary. relevant finding as above Active Medications Acetaminophen (Tylenol Tab) 650 mg PO Q4H PRN PRN Reason: Pain Duloxetine HCl (Cymbalta) 30 mg PO DAILY [facility] Last Admin: 09/30/19 08:05 Dose: 30 mg Documented by: Glipizide (Glucotrol) 2.5 mg PO AC-BRKT [facility] Hydrocortisone Sodium Succinate (Solu-Cortef) 25 mg IV Q8H [facility] Last Admin: 09/30/19 13:50 Dose: 25 mg Documented by: Parenteral Vitamin Supplement 10 ml/ Thiamine HCl 100 mg/Folic Acid 1 mg/ Sodium Chloride 1,011.2 mls @ 100 mls/hr IV .BY DURATION [facility] Last Admin: 09/30/19 03:32 Dose: 100 mls/hr Documented by: Sodium Chloride (Saline 0.9%) 1,000 mls @ 100 mls/hr IV .BY DURATION [facility] Last Admin: 09/30/19 12:58 Dose: 100 mls/hr Documented by: Sodium Chloride (Saline 0.9%) 1,000 mls @ 80 mls/hr IV .[id number] [facility] Last Admin: 09/30/19 17:20 Dose: Not Given Documented by: Cefepime HCl 2 gm/ Sodium (Chloride) 100 mls @ 200 mls/hr IVPB Q12HR [facility] Last Admin: 09/30/19 08:05 Dose: 200 mls/hr Documented by: Insulin Aspart (Novolog) 0 unit SQ ACHS [facility]; Protocol Last Admin: 09/30/19 17:20 Dose: 2 unit Documented by: Levothyroxine Sodium (Synthroid) 88 mcg PO DAILY@0630 [facility] Last Admin: 09/30/19 06:09 Dose: 88 mcg Documented by: Loperamide HCl (Imodium) 2 mg PO Q4H PRN PRN Reason: Diarrhea Metoprolol Succinate (Toprol Xl) 25 mg PO BID [facility] Last Admin: 09/30/19 08:05 Dose: 25 mg Documented by: Naloxone HCl (Narcan) 0.2 mg IV Q2M PRN PRN Reason: Opioid Reversal Pantoprazole Sodium (Protonix) 40 mg PO AC-BRKFST [facility] Last Admin: 09/30/19 08:05 Dose: 40 mg Documented by: Sodium Bicarbonate (Sodium Bicarbonate Tab) 650 mg PO TID [facility] Last Admin: 09/30/19 15:46 Dose: 650 mg Documented by: Tamsulosin HCl (Flomax) 0.4 mg PO DAILY [facility] Last Admin: 09/30/19 08:05 Dose: 0.4 mg Documented by: On examination: VITAL SIGNS: 98.6, 67, 17, 101/66, 97% room air GENERAL APPEARANCE:, Sitting up in bed, awake HEENT: Normal external appearance of nose and ear. Oral cavity normal EYES: Pupils equal. Conjunctiva yellow NECK: JVD not raised. Mass not palpable. RESPIRATORY: Respiratory effort normal. Lungs clear to auscultation. CARDIOVASCULAR: First and second sounds normal. No edema. ABDOMEN: Soft. Liver and spleen not palpable. No tenderness. No mass palpable. PSYCHIATRY: Alert and oriented x3. Mood and affect but anxious NEUROLOGICAL: Decreased power in both lower extremity. - chronic Investigations: Potassium 3.9 AST 117 ALT 80 albumin 2 Previous testing White count 2.7 hemoglobin 14.1 potassium 3.9 creatinine 0.86 lactic acid 4.2 Bilirubin 12.4 AST 194 ALT 109 albumin 2.8 UA positive for small U Estrace, RBC 62, bacteria moderate, Hepatitis B surface antigen positive and hepatitis B core total antibody reactive Assessment: -Recent possibly drug induced hepatitis improving -Active hepatitis B for outpatient treatment with Entevir -Medical asthenia leading to poor balance weakness -Hypotension from decreased oral intake from dehydration -Hypothyroid -Coronary artery disease with stent -Diabetes mellitus type 2 -Chronic gait dysfunction uses a walker -Diffuse large B-cell lymphoma non-Hodgkin's type-good response to treatment in 2019 in remission -History of gastric banding -Type II lactic acidosis. From hypotension. No sepsis -Diarrhea from lactulose. -Possible UTI from cystitis. -Chronic lower extremity weakness causing gait dysfunction likely from deconditioning-patient baseline does use occasional walker or mostly wheelchair. In the past MRI was negative. And CSF analysis was unrevealing. EEG was normal. Plan: Continue current medications for plan. Discussed with Dr. Leach from ID. Was switched to by mouth antibiotic. Overall prognosis guarded. Patient had recently at rehab. What was wheelchair-bound day. Do not expect significant improvement. Again discussed at length with the patient to increase oral intake. This point patient able to take his own decisions. Will need possible help with higher functions including financial matters. Discussed at length wit h social work job titles.
[2019-09-30 22:37] VITALS: RESP 16
--- NOTE | 2019-10-01 00:06 | P.PN ---
Subjective Progress Note Date: 09/30/19 Principal diagnosis: Hepatitis B, elevated liver enzymes Patient seen lying in bed no acute events reported. Tolerating diet with poor oral intake. No abdominal pain reported. Objective - Vital Signs Vital signs: Vital Signs Temp 98.6 F 09/30/19 07:00 Pulse 67 09/30/19 07:00 Resp 17 09/30/19 07:00 BP 101/66 09/30/19 07:00 Pulse Ox 97 09/30/19 07:00 Intake & Output 09/29/19 09/30/19 09/30/19 18:59 06:59 18:59 Intake Total 2461.2 1060 1000 Output Total 800 1450 Balance 1661.2 -390 1000 Intake: Intake, IV Titration 2111.2 1060 1000 Amount Cefepime 2 gm In Sodium 100 100 Chloride 0.9% 100 ml @ 200 mls/hr IVPB Q12HR [facility] Rx#:[id number] Mvi, Adult No.4 with Vit 1011.2 K 10 ml Thiamine 100 mg Folic Acid 1 mg In Sodium Chloride 0.9% 1,000 ml @ 100 mls/hr IV .BY DURATION [facility] Rx#: [id number] Sodium Chloride 0.9% 1, 1000 1000 000 ml @ 100 mls/hr IV . BY DURATION [facility] Rx#: [id number] Sodium Chloride 0.9% 1, 960 000 ml @ 80 mls/hr IV . [id number] [facility] Rx#:[id number] Oral 350 Output: Urine 800 1450 Other: Voiding Method Indwelling Catheter Indwelling Catheter Indwelling Catheter # Bowel Movements 1 - Exam On physical examination, patient appears comfortable in no apparent distress. HEAD: Normocephalic, atraumatic. EYES: Scleral icterus. No conjunctival injection. MOUTH: No lesions, tongue midline. NECK: Trachea midline, no gross abnormalities. ABDOMEN: Soft, obese. Bowel sounds are positive. No organomegaly. No guarding or rigidity. EXTREMITIES: No pedal edema. SKIN: No rashes, jaundice. NEUROLOGIC: Alert and oriented. - Labs CBC & Chem 7: 09/27/19 12:55 09/30/19 11:17 Labs: Abnormal Lab Results - Last 24 Hours (Table) 09/29/19 09/29/19 09/29/19 Range/Units 13:47 16:39 21:39 PT (9.0-12.0) sec INR (<1.2) Sodium 132 L (137-145) mmol/L Chloride (98-107) mmol/L Creatinine (0.66-1.25) mg/dL Glucose 165 H (74-99) mg/dL POC Glucose (mg/dL) 152 H 212 H (75-99) mg/dL Calcium 7.6 L (8.4-10.2) mg/dL Total Bilirubin 11.9 H (0.2-1.3) mg/dL AST 184 H (17-59) U/L ALT 104 H (4-49) U/L Total Protein 4.6 L (6.3-8.2) g/dL Albumin 2.2 L (3.5-5.0) g/dL 09/30/19 09/30/19 09/30/19 Range/Units 07:32 11:17 11:17 PT 13.3 H (9.0-12.0) sec INR 1.3 H (<1.2) Sodium 134 L (137-145) mmol/L Chloride 108 H (98-107) mmol/L Creatinine 0.59 L (0.66-1.25) mg/dL Glucose 171 H (74-99) mg/dL POC Glucose (mg/dL) 206 H (75-99) mg/dL Calcium 7.2 L (8.4-10.2) mg/dL Total Bilirubin 9.9 H (0.2-1.3) mg/dL AST 117 H (17-59) U/L ALT 80 H (4-49) U/L Total Protein 4.2 L (6.3-8.2) g/dL Albumin 2.0 L (3.5-5.0) g/dL 09/30/19 Range/Units 11:33 PT (9.0-12.0) sec INR (<1.2) Sodium (137-145) mmol/L Chloride (98-107) mmol/L Creatinine (0.66-1.25) mg/dL Glucose (74-99) mg/dL POC Glucose (mg/dL) 154 H (75-99) mg/dL Calcium (8.4-10.2) mg/dL Total Bilirubin (0.2-1.3) mg/dL AST (17-59) U/L ALT (4-49) U/L Total Protein (6.3-8.2) g/dL Albumin (3.5-5.0) g/dL Assessment and Plan (1) Hepatitis B infection Narrative/Plan: 63-year-old male with multiple medical comorbidities who presented back to the hospital from an ECF due to weakness. Recent hospitalization where the patient was noted to have markedly elevated liver enzymes. At that time. Liver serology was ordered and patient was found to have positive hepatitis B titers. Given treatment with Rituxan in December for large B-cell lymphoma concern is for reactivation of hepatitis B. He was seen in the outpatient setting with entecavir ordered. Overall liver enzymes are improved with total bilirubin 12.4, alkaline phosphatase 150, AST 194 and ALT 109 on presentation. Current Visit: Yes Status: Acute Code(s): B19.10 - UNSPECIFIED VIRAL HEPATITIS B WITHOUT HEPATIC COMA SNOMED Code(s): 90796211 (2) Hepatitis Current Visit: Yes Status: Acute Code(s): K75.9 - INFLAMMATORY LIVER DISEASE, UNSPECIFIED SNOMED Code(s): 944675986 (3) Hyperbilirubinemia Current Visit: No Status: Acute Priority: High Code(s): E80.6 - OTHER DISORDERS OF BILIRUBIN METABOLISM SNOMED Code(s): 87000821 (4) Jaundice Current Visit: No Status: Acute Priority: High Code(s): R17 - UNSPECIFIED JAUNDICE SNOMED Code(s): 13576928 Plan: Supportive care Okay for diet Continue other medical management Continue to monitor CBC, BMP, LFTs Plan is for treatment with entecavir, this has been ordered in the outpatient setting, however it does not appear as if the patient has initiated therapy and is not available on formulary, the GI office is making attempts to order the medication to be started after discharge Thank you for allowing us to participate in the care of the patient
[2019-10-01] MEDS: 1: MVI, ADULT NO.4 WITH VIT K 10 ML, THIAMINE 100 MG, FOLIC ACID 1 MG in SODIUM CHLORIDE IV SCH ×8 (01:07→11:27)
[2019-10-01 06:03] LABS: Appearance,Urine Clear (Clear); Bacteria,Urine Rare /hpf; Bilirubin,Urine 1+ (Negative); Blood,Urine Small (Negative); Budding Yeast,Urine Moderate /hpf; Color,Urine Dark Brown; Glucose,Urine (UA) Negative (Negative); Hyaline Casts,Urine 4 /lpf (0-2); Ketones,Urine Trace (Negative); Leukocyte Esterase,Urine Moderate (Negative); Mucus,Urine Many /hpf; Nitrite,Urine Negative (Negative); PH, Urine 6.5 (5.0-8.0); Protein,Urine 1+ (Negative); RBC,Urine 64 /hpf (0-5); Specific Gravity,Urine 1.025 (1.001-1.035); WBC,Urine 15 /hpf (0-5)
[2019-10-01] MEDS: LEVOTHYROXINE 88 MCG TAB PO SCH (06:17)
[2019-10-01] MEDS: HYDROCORTISONE SUCCINATE 100 MG/2 ML VIAL IV SCH ×2 (06:17→13:00)
[2019-10-01 07:33] LABS: Glucose,Whole Blood 191 mg/dL (75-99)
[2019-10-01] MEDS: TAMSULOSIN 0.4 MG CAP.ER.24H PO SCH (08:12)
[2019-10-01] MEDS: METOPROLOL SUCCINATE (ER) 25 MG TAB.ER.24H PO SCH (08:12)
[2019-10-01] MEDS: SODIUM BICARBONATE TAB 650 MG TAB PO SCH ×2 (08:12→16:12)
[2019-10-01] MEDS: PANTOPRAZOLE 40 MG TABLET PO SCH (08:12)
[2019-10-01] MEDS: CEFEPIME 2 GM in SODIUM CHLORIDE 0.9% 100 ML IVPB SCH (08:13)
[2019-10-01] MEDS: DULoxetine HCL 30 MG CAPSULE.DR PO SCH (08:13)
[2019-10-01] MEDS: INSULIN ASPART (NovoLOG) 100 UNIT/ML VIAL SQ SCH ×3 (08:17→17:22)
[2019-10-01] MEDS: SODIUM CHLORIDE 0.9% 1,000 ML IV SCH (08:17)
[2019-10-01 08:28] VITALS: TEMP 98.9
[2019-10-01] MEDS: MIDODRINE 5 MG TAB PO SCH ×3 (11:26→17:22)
[2019-10-01 11:57] LABS: Glucose,Whole Blood 236 mg/dL (75-99)
--- NOTE | 2019-10-01 12:22 | P.DS ---
Providers Date of admission: 09/27/19 15:19 Expected date of discharge: 10/01/19 Attending physician: Prem Yadav Consults: 09/27/19 13:34 Consult Physician Routine Consulting Provider: Jacqueline Shelley Consult Reason/Comments: abnormal liver labs Do you want consulting provider notified?: Yes 09/28/19 12:39 Consult Physician Routine Consulting Provider: Veda Lua Consult Reason/Comments: abnormal U/A Do you want consulting provider notified?: Yes Primary care physician: [facility] Course: Chief Complaint: Weak and tired History of presenting complaint: This is a 63-year-old patient was chronic stable medical conditions include recurrent UTIs with pseudomonas, essential hypertension, hypothyroid, coronary artery disease with stent, diabetes mellitus type 2, chronic kidney disease, chronic kidney dysfunction uses a walker, diffuse large B-cell lymphoma and non- Hodgkin's type. Good response to treatment 2019 in remission, gastric banding. Patient recently the hospital from August 24 through August 30. Treated for possibly drug-induced hepatitis and recurrent UTI with pseudomonas. Patient was discharged to [facility]. Patient is discharged from the [facility] today. When the ambulance arrived home. Patient is feeling very weak. Unable to get up. Patient states his appetite has not been good for last 2 weeks. No fever or chills. Patient was brought to the ER. Patient was empirically started on IV cefepime. As UA was positive. Patient had no fever or chills. Patient will be getting outpatient treatment for hepatitis B. Being coordinated by GI. Patient is very zuluaga over eating. does not have an appetite. spoke to him on several occasions to increase his oral intake.. Blood pressure tested on the lower side. As midodrine was added. Patient is able to take most decisions. He was capable of taking his own decisions. He may need help with higher functions example financial issues etc. This also discussed with her daughter. Today-had a very lengthy talk with patient's daughter over the phone. Given all the clinical picture scenarios and treatment plan. Also spoke to the social security specialist. Patient has been accepted at inpatient rehab. Also discussed with Dr. Ace from ID. 5 more days of IV antibiotics. Midline is being placed. Discharge statement Consultation: Dr. Rios from GI Dr. lua from ID. On examination: VITAL SIGNS: 98.9, 67, 16, 95/47, 97% on room air GENERAL APPEARANCE:, Sitting up in a chair the bedside. HEENT: Normal external appearance of nose and ear. Oral cavity normal EYES: Pupils equal. Conjunctiva yellow NECK: JVD not raised. Mass not palpable. RESPIRATORY: Respiratory effort normal. Lungs clear to auscultation. CARDIOVASCULAR: First and second sounds normal. No edema. ABDOMEN: Soft. Liver and spleen not palpable. No tenderness. No mass palpable. PSYCHIATRY: Alert and oriented x3. Mood and affect but anxious NEUROLOGICAL: Decreased power in both lower extremity. - chronic Investigations: Potassium 3.9 AST 117 ALT 80 albumin 2 Previous testing White count 2.7 hemoglobin 14.1 potassium 3.9 creatinine 0.86 lactic acid 4.2 Bilirubin 12.4 AST 194 ALT 109 albumin 2.8 UA positive for small U Estrace, RBC 62, bacteria moderate, Hepatitis B surface antigen positive and hepatitis B core total antibody reactive Assessment: -Recent possibly drug induced hepatitis improving -Active hepatitis B for outpatient treatment with Entevir -Medical asthenia leading to poor balance weakness -Hypotension from decreased oral intake from dehydration -Hypothyroid -Coronary artery disease with stent -Diabetes mellitus type 2 -Chronic gait dysfunction uses a walker -Diffuse large B-cell lymphoma non-Hodgkin's type-good response to treatment in 2019 in remission -History of gastric banding -Type II lactic acidosis. From hypotension. No sepsis -Diarrhea from lactulose. -Possible UTI from cystitis. -Chronic lower extremity weakness causing gait dysfunction likely from deconditioning-patient baseline does use occasional walker or mostly wheelchair. In the past MRI was negative. And CSF analysis was unrevealing. EEG was normal. -Mild cognitive impairment Disposition: [facility] BY [facility] Patient Condition at Discharge: Stable Plan - Discharge Summary Discharge Rx Participant: No New Discharge Prescriptions: New Midodrine [ProAmatine] 5 mg PO AC-TID tab Continue metFORMIN HCL 1,000 mg PO BID Levothyroxine Sodium 88 mcg PO DAILY Cortisone Acetate [Cortone] 25 mg PO DAILY Metoprolol Succinate (ER) [Toprol XL] 25 mg PO BID glyBURIDE [Diabeta] 2.5 mg PO AC-BID Tamsulosin HCl [Flomax] 0.4 mg PO DAILY Sodium Bicarbonate Tab 650 mg PO TID tab Acetaminophen [Tylenol] 650 mg PO Q4H PRN PRN Reason: Pain DULoxetine HCL [Cymbalta] 30 mg PO DAILY Ibuprofen [Motrin Ib] 800 mg PO Q8H PRN PRN Reason: Pain INSULIN ASPART (NovoLOG) [NovoLOG (formulary)] See Protocol SQ ACHS Loperamide HCl [Imodium A-D] 2 mg PO Q4H PRN PRN Reason: Diarrhea Omeprazole Magnesium [PriLOSEC OTC] 20 mg PO BID Discontinued Lactulose 10 gm PO TID Discharge Medication List Levothyroxine Sodium 88 mcg PO DAILY 07/09/18 [History] metFORMIN HCL 1,000 mg PO BID 07/09/18 [History] Cortisone Acetate [Cortone] 25 mg PO DAILY 09/12/18 [History] Metoprolol Succinate (ER) [Toprol XL] 25 mg PO BID 05/21/19 [History] glyBURIDE [Diabeta] 2.5 mg PO AC-BID 05/21/19 [History] Tamsulosin HCl [Flomax] 0.4 mg PO DAILY 08/26/19 [History] Sodium Bicarbonate Tab 650 mg PO TID tab 08/31/19 [Rx] Acetaminophen [Tylenol] 650 mg PO Q4H PRN 09/27/19 [History] DULoxetine HCL [Cymbalta] 30 mg PO DAILY 09/27/19 [History] INSULIN ASPART (NovoLOG) [NovoLOG (formulary)] See Protocol SQ ACHS 09/27/19 [History] Ibuprofen [Motrin Ib] 800 mg PO Q8H PRN 09/27/19 [History] Loperamide HCl [Imodium A-D] 2 mg PO Q4H PRN 09/27/19 [History] Omeprazole Magnesium [PriLOSEC OTC] 20 mg PO BID 09/27/19 [History] Midodrine [ProAmatine] 5 mg PO AC-TID tab 10/01/19 [Rx] Follow up Appointment(s)/Referral(s): Dillno Rose MD [STAFF PHYSICIAN] - 3 Weeks Chano Ames MD [Primary Care Provider] - 1-2 days (Office closed at time of discharge please call FridayOctober 03 to set up a follow up appointment) Yoel Garcia MD [STAFF PHYSICIAN] - 1 Week Activity/Diet/Wound Care/Special Instructions: cefepime 2 g q12h - 5 days cbc/bmp - 5 days
[2019-10-01] MEDS ORDERED: FLUCONAZOLE 100 MG TAB PO ONE (14:47)
[2019-10-01 15:33] VITALS: BP 103/70; PULSE 61
--- NOTE | 2019-10-01 16:36 | PN ---
PROGRESS NOTE DATE OF SERVICE: 10/01/2019 REASON FOR FOLLOWUP: Possible Pseudomonas urinary tract infection. INTERVAL HISTORY: Patient is currently afebrile, has been breathing comfortably. The patient denies having any chest pain. No shortness of breath. No cough. No nausea. No vomiting. No abdominal pain. Has been complaining of feeling weak and tired and able to get up and walk around. On examination, blood pressure 95/47, pulse of 67, temperature 98.9. He is 97% on room air. General description: The patient is an elderly male up in the chair in no distress. Respiratory system: Unlabored breathing, clear to auscultation anteriorly. Heart S1, S2. Regular rate and rhythm. Abdomen soft, no tenderness. LABS: Repeat urine is still significantly positive. Culture now also showing significant yeast. DIAGNOSTIC IMPRESSION AND PLAN: Patient with weakness which is multifactorial in this patient with possible component of urinary tract infection. Previous urine was positive for Pseudomonas. Unfortunately, no cultures were done on this admission. Repeat has been ordered which is currently pending. Patient seemed to be ready for discharge to the longterm with urine now showing yeast. The Martini catheter should be discontinued. We will give 1 dose of Fluconazole. Close outpatient followup. MMODL / IJN: [id number] /
[2019-10-01 16:55] LABS: Glucose,Whole Blood 244 mg/dL (75-99)
--- NOTE | 2019-10-02 10:16 | P.PN ---
Subjective Progress Note Date: 10/01/19 Principal diagnosis: Hepatitis B, elevated liver enzymes Patient seen sitting bedside today. No acute events reported. He has tolerated his diet. Objective - Vital Signs Vital signs: Vital Signs Temp 98.9 F 10/01/19 07:48 Pulse 67 10/01/19 07:48 Resp 16 10/01/19 07:48 BP 95/47 10/01/19 07:48 Pulse Ox 97 10/01/19 07:48 Intake & Output 09/30/19 10/01/19 10/01/19 18:59 06:59 18:59 Intake Total 2351.2 Output Total 250 Balance 2351.2 -250 Intake: Intake, IV Titration 2351.2 Amount Cefepime 2 gm In Sodium 100 Chloride 0.9% 100 ml @ 200 mls/hr IVPB Q12HR LASHANDA Rx#:[id number] Mvi, Adult No.4 with Vit 1011.2 K 10 ml Thiamine 100 mg Folic Acid 1 mg In Sodium Chloride 0.9% 1,000 ml @ 100 mls/hr IV .BY DURATION LASHANDA Rx#: [id number] Sodium Chloride 0.9% 1, 1000 000 ml @ 100 mls/hr IV . BY DURATION LASHANDA Rx#: [id number] Sodium Chloride 0.9% 1, 240 000 ml @ 80 mls/hr IV . [id number] LASHANDA Rx#:[id number] Output: Urine 250 Other: Voiding Method Indwelling Catheter Indwelling Catheter - Exam On physical examination, patient appears comfortable in no apparent distress. HEAD: Normocephalic, atraumatic. EYES: Scleral icterus. No conjunctival injection. MOUTH: No lesions, tongue midline. NECK: Trachea midline, no gross abnormalities. ABDOMEN: Soft, obese. Bowel sounds are positive. No organomegaly. No guarding or rigidity. EXTREMITIES: No pedal edema. SKIN: No rashes, jaundice. NEUROLOGIC: Alert and oriented. - Labs CBC & Chem 7: 09/27/19 12:55 09/30/19 11:17 Labs: Abnormal Lab Results - Last 24 Hours (Table) 09/30/19 09/30/19 09/30/19 Range/Units 11:17 11:17 11:33 PT 13.3 H (9.0-12.0) sec INR 1.3 H (<1.2) Sodium 134 L (137-145) mmol/L Chloride 108 H (98-107) mmol/L Creatinine 0.59 L (0.66-1.25) mg/dL Glucose 171 H (74-99) mg/dL POC Glucose (mg/dL) 154 H (75-99) mg/dL Calcium 7.2 L (8.4-10.2) mg/dL Total Bilirubin 9.9 H (0.2-1.3) mg/dL AST 117 H (17-59) U/L ALT 80 H (4-49) U/L Total Protein 4.2 L (6.3-8.2) g/dL Albumin 2.0 L (3.5-5.0) g/dL Urine Protein (Negative) Urine Ketones (Negative) Urine Blood (Negative) Urine Bilirubin (Negative) Ur Leukocyte Esterase (Negative) Urine RBC (0-5) /hpf Urine WBC (0-5) /hpf Urine Bacteria (None) /hpf Hyaline Casts (0-2) /lpf Urine Mucus (None) /hpf Urine Yeast (Budding) (None) /hpf 09/30/19 09/30/19 10/01/19 Range/Units 16:44 20:24 05:45 PT (9.0-12.0) sec INR (<1.2) Sodium (137-145) mmol/L Chloride (98-107) mmol/L Creatinine (0.66-1.25) mg/dL Glucose (74-99) mg/dL POC Glucose (mg/dL) 205 H 251 H (75-99) mg/dL Calcium (8.4-10.2) mg/dL Total Bilirubin (0.2-1.3) mg/dL AST (17-59) U/L ALT (4-49) U/L Total Protein (6.3-8.2) g/dL Albumin (3.5-5.0) g/dL Urine Protein 1+ H (Negative) Urine Ketones Trace H (Negative) Urine Blood Small H (Negative) Urine Bilirubin 1+ H (Negative) Ur Leukocyte Esterase Moderate H (Negative) Urine RBC 64 H (0-5) /hpf Urine WBC 15 H (0-5) /hpf Urine Bacteria Rare H (None) /hpf Hyaline Casts 4 H (0-2) /lpf Urine Mucus Many H (None) /hpf Urine Yeast (Budding) Moderate H (None) /hpf 10/01/19 Range/Units 07:31 PT (9.0-12.0) sec INR (<1.2) Sodium (137-145) mmol/L Chloride (98-107) mmol/L Creatinine (0.66-1.25) mg/dL Glucose (74-99) mg/dL POC Glucose (mg/dL) 191 H (75-99) mg/dL Calcium (8.4-10.2) mg/dL Total Bilirubin (0.2-1.3) mg/dL AST (17-59) U/L ALT (4-49) U/L Total Protein (6.3-8.2) g/dL Albumin (3.5-5.0) g/dL Urine Protein (Negative) Urine Ketones (Negative) Urine Blood (Negative) Urine Bilirubin (Negative) Ur Leukocyte Esterase (Negative) Urine RBC (0-5) /hpf Urine WBC (0-5) /hpf Urine Bacteria (None) /hpf Hyaline Casts (0-2) /lpf Urine Mucus (None) /hpf Urine Yeast (Budding) (None) /hpf Assessment and Plan (1) Hepatitis B infection Narrative/Plan: 63-year-old male with multiple medical comorbidities who presented back to the hospital from an ECF due to weakness. Recent hospitalization where the patient was noted to have markedly elevated liver enzymes. At that time. Liver serology was ordered and patient was found to have positive hepatitis B titers. Given treatment with Rituxan in December for large B-cell lymphoma concern is for reactivation of hepatitis B. He was seen in the outpatient setting with elizabeth wright ordered. Overall liver enzymes are improved with total bilirubin 12.4, alkaline phosphatase 150, AST 194 and ALT 109 on presentation, and again improved today. Status: Acute Code(s): B19.10 - UNSPECIFIED VIRAL HEPATITIS B WITHOUT HEPATIC COMA SNOMED Code(s): 04505419 (2) Hepatitis Status: Acute Code(s): K75.9 - INFLAMMATORY LIVER DISEASE, UNSPECIFIED SNOMED Code(s): 028023627 (3) Hyperbilirubinemia Status: Acute Priority: High Code(s): E80.6 - OTHER DISORDERS OF BILIRUBIN METABOLISM SNOMED Code(s): 07728595 (4) Jaundice Status: Acute Priority: High Code(s): R17 - UNSPECIFIED JAUNDICE SNOMED Code(s): 34277017 Plan: Supportive care Okay for diet Continue other medical management Continue to monitor CBC, BMP, LFTs Plan is for treatment with entecavir, this has been ordered in the outpatient setting, however it does not appear as if the patient has initiated therapy and is not available on formulary, the GI office is making attempts to order the medication to be started after discharge, with extensive discussion with the patient on the need for follow-up after discharge so that medicine can be initiated Thank you for allowing us to participate in the care of the patient
[2019-10-04 14:53] LABS: Hepatitis B Virus DNA DETECTED (Not detected); Log HBV IU/mL 6.41 (<1.00)
--- NOTE | 2019-10-05 12:14 | CDI ---
Documentation Clarification Form Date: 10/05/19 From: Carmen Asher CCS Phone: If you have a question about this query, please contact Maral Tellez, General Labor Forklift Operator at [phone] between 8am and 5pm. Admit Date: 09/27/19 Discharge Date:10/01/19 Patient Name: Esequiel Dukes Visit Number: [id number] ATTENTION: The Clinical Documentation Specialists (CDI) and [facility] Coding Staff appreciate your assistance in clarifying documentation. Please respond to the clarification below the line at the bottom and electronically sign. The CDI & [facility] Coding staff will review the response and follow-up if needed. Please note: Queries are made part of the Legal Health Record. If you have any questions, please contact the author of this message via ITS. Dear Dr. Yadav, CKD is documented in the H&P, Consult, PNs, DS. History/Risk Factors: DM, HTN, Hep B, CAD Clinical Indicators: CKD Current BUN: 16, 13 Creatnine: .86, .67 GFR: >90 In order to capture the severity of condition, please clarify the stage of the CKD, if known: CKD Stage 1 (GFR > 90) CKD Stage 2 (GFR 60-89) CKD Stage 3 (GFR 30-59) CKD Stage 4 (GFR 15-29) CKD Stage 5 (GFR <15) ESRD Other, please specify Unable to determine NO CKD MTDD
--- NOTE | 2019-10-05 12:20 | CDI ---
Documentation Clarification Form Date: 10/05/19 From: Carmen Asher CCS Phone: If you have a question about this query, please contact Maral Tellez, Industrial Servicer at [phone] between 8am and 5pm. Admit Date: 09/27/19 Discharge Date:10/01/19 Patient Name: Esequiel Dukes Visit Number: [id number] ATTENTION: The Clinical Documentation Specialists (CDI) and [facility] Coding Staff appreciate your assistance in clarifying documentation. Please respond to the clarification below the line at the bottom and electronically sign. The CDI & [facility] Coding staff will review the response and follow-up if needed. Please note: Queries are made part of the Legal Health Record. If you have any questions, please contact the author of this message via ITS. Dear Dr. Yadav, The diagnosis liver failure was documented in the record, but is not noted in subsequent documentation. ED documents: Lactic acidosis of 4.2 likely secondary to liver failure. History/Risk Factors: Hep B, HTN, DM, CAD, Dehydration Clinical Indicators: Weakness, markedly elevated liver enzymes, hypotension Treatment: Workup, plan for outpatient Hep B treatment Please clarify if the liver failure was Present/active this admission Treated and resolved this admission Ruled out Other, please specify Clinically unable to determine No liver failure MTDD
[2019-10-05 14:48] LABS: Hepatitis BE Antigen POS (Negative)
[2019-10-05 14:50] LABS: Hepatitis BE Antibody POS (Negative)
== END 2019-10-01 19:25 | DRG 442 ==
LOC: EC 11:36 → 5NMEDONC 15:19 → OBSVTOIN 15:19 → 4SSUR 20:26
PROVIDERS: ADMIT Hospitalist; ATTEND Hospitalist
PROC: 05HF33Z Insertion of Infusion Device into Left Cephalic Vein, Percutaneous Approach (ICD-10-PCS; principal; 2019-10-01 16:22)
DX: B19.10 Unspecified viral hepatitis B without hepatic coma (principal); C83.30 Diffuse large B-cell lymphoma, unspecified site; E87.2 Acidosis; E27.40 Unspecified adrenocortical insufficiency; B37.49 Other urogenital candidiasis; Z11.59 Encounter for screening for other viral diseases; I95.9 Hypotension, unspecified; Z79.4 Long term (current) use of insulin; E11.9 Type 2 diabetes mellitus without complications; E86.0 Dehydration; E03.9 Hypothyroidism, unspecified; I25.10 Atherosclerotic heart disease of native coronary artery without angina pectoris; R26.2 Difficulty in walking, not elsewhere classified; D72.819 Decreased white blood cell count, unspecified; E78.5 Hyperlipidemia, unspecified; M19.90 Unspecified osteoarthritis, unspecified site; I10 Essential (primary) hypertension; F41.9 Anxiety disorder, unspecified; G31.84 Mild cognitive impairment of uncertain or unknown etiology; E66.9 Obesity, unspecified; Z68.33 Body mass index [BMI] 33.0-33.9, adult; Z71.3 Dietary counseling and surveillance; Z79.890 Hormone replacement therapy; Z79.899 Other long term (current) drug therapy; Z95.5 Presence of coronary angioplasty implant and graft; Z98.84 Bariatric surgery status; Z87.440 Personal history of urinary (tract) infections; Z92.21 Personal history of antineoplastic chemotherapy; Z99.3 Dependence on wheelchair; Z87.891 Personal history of nicotine dependence; Z98.890 Other specified postprocedural states; Z88.5 Allergy status to narcotic agent; Z87.442 Personal history of urinary calculi; Z83.3 Family history of diabetes mellitus; Z80.0 Family history of malignant neoplasm of digestive organs; Z82.49 Family history of ischemic heart disease and other diseases of the circulatory system
CPT/HCPCS: 36410; 36415; 51702; 71045; 76937; 80053; 81001; 82140; 82248; 83605; 83735; 84484; 85025; 85610; 85730; 86704; 86705; 86706; 86707; 87086; 87324; 87340; 87350; 87517; 93005; 96365; 96366; 99285

== ENCOUNTER 2019-12-05 18:39 | Inpatient (IN) | payer MEDICARE ==
[2019-12-05 19:23] LABS: Anisocytosis Slight; HCT 35.3 % (39.0-53.0); HGB 11.2 gm/dL (13.0-17.5); Hypochromasia Slight; MCH 31.9 pg (25.0-35.0); MCHC 31.7 g/dL (31.0-37.0); MCV 100.5 fL (80.0-100.0); Macrocytosis Slight; Mean Platelet Volume 8.6; Platelet Count 174 k/uL (150-450); RBC 3.51 m/uL (4.30-5.90); RDW 16.8 % (11.5-15.5)
--- NOTE | 2019-12-05 19:29 | XR ---
EXAMINATION TYPE: XR chest 1V portable DATE OF EXAM: 12/05/2019 COMPARISON: 09/27/2019 HISTORY: Short of breath TECHNIQUE: FINDINGS: There is some infiltrate and atelectasis left lung base. There are chest leads. There is no gross heart failure. There is poor inspiration. Bony thorax is intact. IMPRESSION: Left lower lobe infiltrate and atelectasis is new compared to old exam. No gross heart fa ilure seen. Inspiration decreased compared to old exam.
[2019-12-05 19:32] LABS: Albumin 1.9 g/dL (3.5-5.0); Calcium 7.6 mg/dL (8.4-10.2); Magnesium 1.7 mg/dL (1.6-2.3); Total Bilirubin 2.9 mg/dL (0.2-1.3); Total Protein 3.6 g/dL (6.3-8.2)
[2019-12-05 19:36] LABS: Lactic Acid, Venous 9.5 mmol/L (0.7-2.0); Potassium 2.4 mmol/L (3.5-5.1)
[2019-12-05] MEDS ORDERED: SODIUM CHLORIDE 0.9% 1,000 ML IV ONE ×3 (19:42→21:16)
[2019-12-05] MEDS ORDERED: HYDROmorphone 1 MG/ML 1 ML SYRINGE IVP STA (19:43)
[2019-12-05 19:47] LABS: INR 1.5 (<1.2); Partial Thromboplastin Time 31.8 sec (22.0-30.0); Prothrombin Time 14.7 sec (9.0-12.0)
[2019-12-05 19:50] LABS: Band Neutrophils % 2 %; Lymphocytes # (M) 6.24 k/uL (1.0-4.8); Monocytes # (M) 0.96 k/uL (0-1.0); Neutrophils % (M) 38 %; Nucleated Red Blood Cells 0 /100 WBC (0-0); Reactive Lymphocytes Present; Total Cells Counted 100
[2019-12-05 19:51] LABS: Toxic Vacuolation Present
[2019-12-05] MEDS ORDERED: cefTRIAXone IN SWFI 1,000 MG/10 ML SYRINGE IVP STA (19:54)
[2019-12-05] MEDS: POTASSIUM CHLORIDE 10 MEQ in WATER FOR INJECTION 1 100ML.BAG IVPB SCH (20:50)
[2019-12-05] MEDS: SODIUM CHLORIDE 0.9% 1,000 ML IV SCH ×2 (21:01→23:54)
[2019-12-05] MEDS ORDERED: PIPERACILLIN-TAZOBACTAM 3.375 GM in SODIUM CHLORIDE 0.9% 100 ML IVPB STA (21:16)
[2019-12-05] MEDS ORDERED: NALOXONE 0.4 MG/ML 1 ML VIAL IV PRN (21:18)
--- NOTE | 2019-12-05 21:27 | ED ---
General Adult HPI - General Chief complaint: Altered Mental Status Stated complaint: NVD, Low o2, Hypotensive Time Seen by Provider: 12/05/19 18:59 Source: EMS, RN notes reviewed, old records reviewed Mode of arrival: EMS Limitations: no limitations - History of Present Illness Initial comments: 63 presenting with hypoxia altered mental status. Patient was found at the detention and have oxygen saturation in the 60s. Exact details surrounding this are unknown. Patient does have paperwork indicating that he is a DO NOT RESUSCITATE. There was a brief episode where CPR was initiated for absent healthcare. After the paperwork was noted to indicate that the patient was a DO NOT RESUSCITATE no further CPR was initiated. No drugs were administered. Patient did have either return of spontaneous circulation or palpable pulse. Patient is hypotensive, hypoxic requiring supplemental oxygen. No history is obtained from the patient. - Related Data Home Medications Medication Instructions Recorded Confirmed Levothyroxine Sodium 88 mcg PO DAILY 07/09/18 09/27/19 metFORMIN HCL 1,000 mg PO BID 07/09/18 09/27/19 Cortisone Acetate [Cortone] 25 mg PO DAILY 09/12/18 09/27/19 Metoprolol Succinate (ER) [Toprol 25 mg PO BID 05/21/19 09/27/19 XL] glyBURIDE [Diabeta] 2.5 mg PO AC-BID 05/21/19 09/27/19 Tamsulosin HCl [Flomax] 0.4 mg PO DAILY 08/26/19 09/27/19 Acetaminophen [Tylenol] 650 mg PO Q4H PRN 09/27/19 09/27/19 DULoxetine HCL [Cymbalta] 30 mg PO DAILY 09/27/19 09/27/19 INSULIN ASPART (NovoLOG) [NovoLOG See Protocol SQ ACHS 09/27/19 09/27/19 (formulary)] Ibuprofen [Motrin Ib] 800 mg PO Q8H PRN 09/27/19 09/27/19 Loperamide HCl [Imodium A-D] 2 mg PO Q4H PRN 09/27/19 09/27/19 Omeprazole Magnesium [PriLOSEC OTC] 20 mg PO BID 09/27/19 09/27/19 Previous Rx's Medication Instructions Recorded Sodium Bicarbonate Tab 650 mg PO TID tab 08/31/19 Fluconazole [Diflucan] 100 mg PO DAILY #7 tab 10/01/19 Midodrine [ProAmatine] 5 mg PO AC-TID tab 10/01/19 Allergies Allergy/AdvReac Type Severity Reaction Status Date / Time codeine AdvReac Severe Nausea & Verified 09/27/19 13:42 Vomiting Review of Systems ROS Statement: Those systems with pertinent positive or pertinent negative responses have been documented in the HPI. ROS Other: All systems not noted in ROS Statement are negative. Past Medical History Past Medical History: Coronary Artery Disease (CAD), Diabetes Mellitus, Hyperlipidemia, Osteoarthritis (OA), Thyroid Disorder Additional Past Medical History / Comment(s): ADRENAL INSUFFICIENCY, NIDDM, kidney stones, recurrent UTI History of Any Multi-Drug Resistant Organisms: None Reported Date of last positivie culture/infection: 07/09/18 MDRO Source:: ESBL URINE Past Surgical History: Back Surgery, Bariatric Surgery, Heart Catheterization With Stent Additional Past Surgical History / Comment(s): BACK SURG (decompression) X2. LAP BAND.carpel tunnel Past Anesthesia/Blood Transfusion Reactions: No Reported Reaction Date of Last Stent Placement:: 2014 Past Psychological History: Anxiety Smoking Status: Never smoker Past Alcohol Use History: None Reported Past Drug Use History: None Reported - Past Family History Father Family Medical History: Diabetes Mellitus Additional Family Medical History / Comment(s): of a ruptured aorta Mother Family Medical History: Cancer, Diabetes Mellitus Additional Family Medical History / Comment(s): PPM, liver CA General Exam Limitations: no limitations Course Vital Signs 12/05/19 12/05/19 12/05/19 19:07 20:21 20:49 Temperature 97.8 F Pulse Rate 89 80 79 Respiratory 10 L 19 14 Rate Blood Pressure 92/79 54/36 48/27 O2 Sat by Pulse 80 L 94 L 100 Oximetry - Reevaluation(s) Reevaluation #1: 12/05/192007 I did discuss at length the patient's care with his daughter. She indicates that a power of civil rights attorney and guardianship has been initiated but she is uncertain if this process was completed. She states the patient's brother who is his primary decision maker is quite ill and is in the hospital currently. She states that she did know that her father would not want to be resuscitated if his heart were to stop that feels that medical management including IV fluids and IV antibiotics is acceptable. EKG Findings - EKG Comments: EKG Findings:: EKG: Normal sinus rhythm, prolonged QT, rate of 87, CT interval 174, QRS duration 90, QTC 478, no ST segment elevation. Medical Decision Making - Medical Decision Making 63-year-old male liver failure, chronic debility, currently residing in detention presenting with hypoxia altered mental status and hypotension. Patient is in sinus rhythm with prolonged QT. He has significant laboratory abnormalities including leukocytosis at 12. Potassium of 2.4 which is a gun to be replaced with IV potassium in the emergency department. He has a lactic acidosis of 9.5 albumin 1.5. He has a normal pneumonia. His hemoglobin is 11.2 which is stable for this patient. Chest x-ray showing a left lower lobe infiltrate. He is given 3 L of IV fluid and placed on maintenance fluid. He started on antibiotics in the emergency department. Patient is a DO NOT RESUSCITATE, according to his daughter would not want aggressive medical management but she is agreeable to IV fluids and IV antibiotics. Patient remains hypotensive while in the emergency department. Continued fluid resuscitation will be attempted case is been discussed at length with Dr. Yadav who is agreeable with admission. If the patient were to continue to decompensate or have a cardiac arrest he will not be resuscitated. - Lab Data Result diagrams: 12/05/19 19:12 12/05/19 19:12 Lab Results 12/05/19 12/05/19 12/05/19 Range/Units 19:12 19:12 19:12 WBC 12.0 H (3.8-10.6) k/uL RBC 3.51 L (4.30-5.90) m/uL Hgb 11.2 L (13.0-17.5) gm/dL Hct 35.3 L (39.0-53.0) % MCV 100.5 H (80.0-100.0) fL MCH 31.9 (25.0-35.0) pg MCHC 31.7 (31.0-37.0) g/dL RDW 16.8 H (11.5-15.5) % Plt Count 174 (150-450) k/uL Neutrophils % (Manual) 38 % Band Neutrophils % 2 % Lymphocytes % (Manual) 52 % Monocytes % (Manual) 8 % Neutrophils # (Manual) 4.80 (1.3-7.7) k/uL Lymphocytes # (Manual) 6.24 H (1.0-4.8) k/uL Monocytes # (Manual) 0.96 (0-1.0) k/uL Nucleated RBCs 0 (0-0) /100 WBC Manual Slide Review Performed Reactive Lymphocytes Present Toxic Vacuolation Present Hypochromasia Slight Anisocytosis Slight Macrocytosis Slight PT 14.7 H (9.0-12.0) sec INR 1.5 H (<1.2) APTT 31.8 H (22.0-30.0) sec Sodium 133 L (137-145) mmol/L Potassium 2.4 L* (3.5-5.1) mmol/L Chloride 92 L (98-107) mmol/L Carbon Dioxide 25 (22-30) mmol/L Anion Gap 16 mmol/L BUN 20 (9-20) mg/dL Creatinine 2.13 H (0.66-1.25) mg/dL Est GFR (CKD-EPI)AfAm 37 (>60 ml/min/1.73 sqM) Est GFR (CKD-EPI)NonAf 32 (>60 ml/min/1.73 sqM) Glucose 60 L (74-99) mg/dL Plasma Lactic Acid Ras (0.7-2.0) mmol/L Calcium 7.6 L (8.4-10.2) mg/dL Magnesium 1.7 (1.6-2.3) mg/dL Total Bilirubin 2.9 H (0.2-1.3) mg/dL AST 32 (17-59) U/L ALT 15 (4-49) U/L Alkaline Phosphatase 93 (38-126) U/L Ammonia (<30) umol/L Total Protein 3.6 L (6.3-8.2) g/dL Albumin 1.9 L (3.5-5.0) g/dL 12/05/19 Range/Units 19:12 WBC (3.8-10.6) k/uL RBC (4.30-5.90) m/uL Hgb (13.0-17.5) gm/dL Hct (39.0-53.0) % MCV (80.0-100.0) fL MCH (25.0-35.0) pg MCHC (31.0-37.0) g/dL RDW (11.5-15.5) % Plt Count (150-450) k/uL Neutrophils % (Manual) % Band Neutrophils % % Lymphocytes % (Manual) % Monocytes % (Manual) % Neutrophils # (Manual) (1.3-7.7) k/uL Lymphocytes # (Manual) (1.0-4.8) k/uL Monocytes # (Manual) (0-1.0) k/uL Nucleated RBCs (0-0) /100 WBC Manual Slide Review Reactive Lymphocytes Toxic Vacuolation Hypochromasia Anisocytosis Macrocytosis PT (9.0-12.0) sec INR (<1.2) APTT (22.0-30.0) sec Sodium (137-145) mmol/L Potassium (3.5-5.1) mmol/L Chloride (98-107) mmol/L Carbon Dioxide (22-30) mmol/L Anion Gap mmol/L BUN (9-20) mg/dL Creatinine (0.66-1.25) mg/dL Est GFR (CKD-EPI)AfAm (>60 ml/min/1.73 sqM) Est GFR (CKD-EPI)NonAf (>60 ml/min/1.73 sqM) Glucose (74-99) mg/dL Plasma Lactic Acid Ras 9.5 H* (0.7-2.0) mmol/L Calcium (8.4-10.2) mg/dL Magnesium (1.6-2.3) mg/dL Total Bilirubin (0.2-1.3) mg/dL AST (17-59) U/L ALT (4-49) U/L Alkaline Phosphatase (38-126) U/L Ammonia <9 (<30) umol/L Total Protein (6.3-8.2) g/dL Albumin (3.5-5.0) g/dL Critical Care Time Critical Care Time: Yes Total Critical Care Time: 35 Disposition Clinical Impression: Delirium due to general medical condition, Dehydration, Pneumonia, Sepsis Disposition: ADMITTED IP TO THIS [facility] Condition: Serious Is patient prescribed a controlled substance at d/c from ED?: No Referrals: Herman Martinez DO [Primary Care Provider] - 1-2 days Decision to Admit Reason: Admit from EC Decision Date: 12/05/19 Decision Time: 21:33
[2019-12-05] MEDS ORDERED: DEXTROSE 50% SYRINGE 50 ML IVP STA (21:32)
[2019-12-05] MEDS ORDERED: fentaNYL (PF) 50 MCG/ML 2 ML AMP IVP STA (22:12)
[2019-12-05 23:08] LABS: Glucose,Whole Blood 101 mg/dL (75-99)
[2019-12-05 23:24] LABS: Glucose,Whole Blood 78 mg/dL (75-99)
[2019-12-06] MEDS: POTASSIUM CHLORIDE 10 MEQ in WATER FOR INJECTION 1 100ML.BAG IVPB SCH ×2 (00:53→02:40)
[2019-12-06 02:52] VITALS: BP 64/37; PULSE 55; RESP 8; TEMP 96.3
[2019-12-06] MEDS ORDERED: PIPERACILLIN-TAZOBACTAM 3.375 GM in SODIUM CHLORIDE 0.9% 100 ML IVPB SCH (06:00)
[2019-12-06] MEDS ORDERED: PANTOPRAZOLE 40 MG/10 ML VIAL IV SCH (09:00)
--- NOTE | 2019-12-06 16:17 | P.HPIM ---
History of Present Illness H&P Date: 12/06/19 Chief Complaint: Hypoxic [facility]. Multiple medical problems. Found of saturation the 60s in the ECF. Brief resuscitation was done until the paperwork was found. Patient is a DO NOT RESUSCITATE. Patient's hypertensive hypoxic brought to the ER. Doing poorly. ER physician spoke to patient's daughter. No code to be maintained. Moved to ICU. Coo consulted. Patient continued to do poorly succumbed underlying condition. Patient was not seen by me. For additional information refer to the chart. Assessment: Pneumonia with sepsis and septic shock Past Medical History Past Medical History: Coronary Artery Disease (CAD), Diabetes Mellitus, Hyperlipidemia, Osteoarthritis (OA), Thyroid Disorder Additional Past Medical History / Comment(s): ADRENAL INSUFFICIENCY, NIDDM, kidney stones, recurrent UTI History of Any Multi-Drug Resistant Organisms: None Reported Date of last positivie culture/infection: 07/09/18 MDRO Source:: ESBL URINE Past Surgical History: Back Surgery, Bariatric Surgery, Heart Catheterization With Stent Additional Past Surgical History / Comment(s): BACK SURG (decompression) X2. LAP BAND.carpel tunnel Past Anesthesia/Blood Transfusion Reactions: No Reported Reaction Date of Last Stent Placement:: 2014 Past Psychological History: Anxiety Additional Psychological History / Comment(s): . Smoking Status: Former smoker Past Alcohol Use History: None Reported Additional Past Alcohol Use History / Comment(s): Patient denies any medical marijuana, marijuana, street drug or alcohol use. Patient states he has not smoked a pipe in over 10 years. He lives at home with his daughter and 6-year-old grandson. Past Drug Use History: None Reported - Past Family History Father Family Medical History: Diabetes Mellitus Additional Family Medical History / Comment(s): of a ruptured aorta Mother Family Medical History: Cancer, Diabetes Mellitus Additional Family Medical History / Comment(s): PPM, liver CA Medications and Allergies Allergies Allergy/AdvReac Type Severity Reaction Status Date / Time codeine AdvReac Severe Nausea & Verified 09/27/19 13:42 Vomiting Physical Exam Vitals: Vital Signs Temp Pulse Pulse Resp BP BP Pulse Ox 12/05/19 22:51 96.3 F L 55 L 8 L 64/37 94 L 12/05/19 22:20 26 H 64/38 94 L 12/05/19 22:00 78 19 46/29 100 12/05/19 21:51 81 16 62/30 94 L 12/05/19 21:40 76 17 45/32 95 12/05/19 21:20 75 16 55/31 96 12/05/19 21:00 79 22 48/33 100 12/05/19 20:49 79 14 48/27 100 12/05/19 20:40 80 19 49/28 99 12/05/19 20:21 80 19 54/36 94 L 12/05/19 19:07 97.8 F 89 10 L 92/79 80 L Intake and Output 12/05/19 12/06/19 12/06/19 22:59 06:59 14:59 Other: Voiding Method Indwelling Catheter Weight 108.862 kg Results CBC & Chem 7: 12/05/19 19:12 12/05/19 19:12 Labs: Abnormal Lab Results - Last 24 Hours (Table) 12/05/19 12/05/19 12/05/19 Range/Units 19:12 19:12 19:12 WBC 12.0 H (3.8-10.6) k/uL RBC 3.51 L (4.30-5.90) m/uL Hgb 11.2 L (13.0-17.5) gm/dL Hct 35.3 L (39.0-53.0) % MCV 100.5 H (80.0-100.0) fL RDW 16.8 H (11.5-15.5) % Lymphocytes # (Manual) 6.24 H (1.0-4.8) k/uL PT 14.7 H (9.0-12.0) sec INR 1.5 H (<1.2) APTT 31.8 H (22.0-30.0) sec Sodium 133 L (137-145) mmol/L Potassium 2.4 L* (3.5-5.1) mmol/L Chloride 92 L (98-107) mmol/L Creatinine 2.13 H (0.66-1.25) mg/dL Glucose 60 L (74-99) mg/dL POC Glucose (mg/dL) (75-99) mg/dL Plasma Lactic Acid Ras (0.7-2.0) mmol/L Calcium 7.6 L (8.4-10.2) mg/dL Total Bilirubin 2.9 H (0.2-1.3) mg/dL Total Protein 3.6 L (6.3-8.2) g/dL Albumin 1.9 L (3.5-5.0) g/dL 12/05/19 12/05/19 12/05/19 Range/Units 19:12 22:48 23:06 WBC (3.8-10.6) k/uL RBC (4.30-5.90) m/uL Hgb (13.0-17.5) gm/dL Hct (39.0-53.0) % MCV (80.0-100.0) fL RDW (11.5-15.5) % Lymphocytes # (Manual) (1.0-4.8) k/uL PT (9.0-12.0) sec INR (<1.2) APTT (22.0-30.0) sec Sodium (137-145) mmol/L Potassium (3.5-5.1) mmol/L Chloride (98-107) mmol/L Creatinine (0.66-1.25) mg/dL Glucose (74-99) mg/dL POC Glucose (mg/dL) 101 H (75-99) mg/dL Plasma Lactic Acid Ras 9.5 H* 9.1 H* (0.7-2.0) mmol/L Calcium (8.4-10.2) mg/dL Total Bilirubin (0.2-1.3) mg/dL Total Protein (6.3-8.2) g/dL Albumin (3.5-5.0) g/dL 12/06/19 Range/Units 01:48 WBC (3.8-10.6) k/uL RBC (4.30-5.90) m/uL Hgb (13.0-17.5) gm/dL Hct (39.0-53.0) % MCV (80.0-100.0) fL RDW (11.5-15.5) % Lymphocytes # (Manual) (1.0-4.8) k/uL PT (9.0-12.0) sec INR (<1.2) APTT (22.0-30.0) sec Sodium (137-145) mmol/L Potassium (3.5-5.1) mmol/L Chloride (98-107) mmol/L Creatinine (0.66-1.25) mg/dL Glucose (74-99) mg/dL POC Glucose (mg/dL) (75-99) mg/dL Plasma Lactic Acid Ras 11.3 H* (0.7-2.0) mmol/L Calcium (8.4-10.2) mg/dL Total Bilirubin (0.2-1.3) mg/dL Total Protein (6.3-8.2) g/dL Albumin (3.5-5.0) g/dL
--- NOTE | 2019-12-06 16:18 | P.DS ---
Providers Date of admission: 12/05/19 21:18 Expected date of discharge: 12/06/19 Attending physician: Prem Yadav Primary care physician: Herman Martinez [facility] Course: This patient is brought in from the skilled nursing. Multiple medical problems. Found of saturation the 60s in the ECF. Brief resuscitation was done until the paperwork was found. Patient is a DO NOT RESUSCITATE. Patient's hypertensive hypoxic brought to the ER. Doing poorly. ER physician spoke to patient's daughter. No code to be maintained. Moved to ICU. Accounts Payable Professional consulted. Patient continued to do poorly succumbed underlying condition. Patient was not seen by me. For additional information refer to the chart. Assessment: Pneumonia with sepsis and septic shock Cause of : Pneumonia Patient Condition at Discharge: Poor Plan - Discharge Summary Discharge Rx Participant: Yes New Discharge Prescriptions: Discontinued metFORMIN HCL 1,000 mg PO BID Levothyroxine Sodium 88 mcg PO DAILY Cortisone Acetate [Cortone] 25 mg PO DAILY Metoprolol Succinate (ER) [Toprol XL] 25 mg PO BID glyBURIDE [Diabeta] 2.5 mg PO AC-BID Tamsulosin HCl [Flomax] 0.4 mg PO DAILY Sodium Bicarbonate Tab 650 mg PO TID tab Acetaminophen [Tylenol] 650 mg PO Q4H PRN PRN Reason: Pain DULoxetine HCL [Cymbalta] 30 mg PO DAILY Ibuprofen [Motrin Ib] 800 mg PO Q8H PRN PRN Reason: Pain INSULIN ASPART (NovoLOG) [NovoLOG (formulary)] See Protocol SQ ACHS Loperamide HCl [Imodium A-D] 2 mg PO Q4H PRN PRN Reason: Diarrhea Omeprazole Magnesium [PriLOSEC OTC] 20 mg PO BID Midodrine [ProAmatine] 5 mg PO AC-TID tab Fluconazole [Diflucan] 100 mg PO DAILY #7 tab Follow up Appointment(s)/Referral(s): Herman Martinez DO [Primary Care Provider] - 1-2 days Discharge Disposition: - Preliminary Cause of Preliminary Cause of : Pneumonia
--- NOTE | 2019-12-13 07:55 | CDI ---
Documentation Clarification Form Date: 12/13/2019 CDS: Drea Schmitt, CCS, CCDS Admit Date: 12/05/2019 Patient Name: Esequiel Dukes Discharge Date: 12/06/2019 ATTENTION: The Clinical Documentation Specialists (CDI) and [facility] Coding Staff appreciate your assistance in clarifying documentation. Please respond to the clarification below the line at the bottom and electronically sign. The CDI & [facility] Coding staff will review the response and follow-up if needed. Please note: Queries are made part of the Legal Health Record. If you have any questions, please contact the author of this message via ITS. Dear Dr. Prem Yadav: Hypoxia is documented in the ED note on 12/04, the History & Physical & the 12/05 Discharge Summary. History/Risk Factors: Liver Failure, Chronic Debility, resides in Long-Term, CAD with Coronary Stent, DM II, Hyperlipidemia, Adrenal Insufficiency, Kidney stones & Recurrent UTI. Tobacco use: Former smoker. Home oxygen: No supplemental O2. Clinical Indicators: Presented to ED on 12/04 with Hypoxia, Nausea, Vomiting, Diarrhea and Hypotensive. Admitted with Sepsis, Severe Sepsis w/o shock and Pneumonia. Patient is DNR. <24 hrs from admission. Vital signs 12/04: T 97.8, P 89, R 10* (cough, SOB, shallow, irregular), BP 92/79*, PO 80 RA - 94 6Lnc. RAD: 12/04 CXR: Left lower lobe infiltrate and atelectasis, new in comparison. Treatment: IV fluid 1,000 mls @ 999 mls/hr x3, IV Rocephin, IV Kcl, IV fluid 1,000 mls @ 130, O2 6Lnc, IV Dextrose/Water, IV Fentanyl Citrate. In your professional opinion, can you please clarify if these findings signify one of the following conditions? Acute Respiratory Failure Acute on Chronic Respiratory Failure Chronic Respiratory Failure Other Diagnosis, please specify Unable to determine o With Hypoxia o With Hypercapnia o Other, please specify: (Last Query Form Revision: November 2018) Acute hypoxic respiratory failure MTDD
--- NOTE | 2019-12-13 21:14 | CDI ---
Documentation Clarification Form Date: 12/14/2019 From: Abdias Funk Phone: If you have a question about this query, please contact Maral Tellez, Healthcare Interpreter at [phone] between 8am and 5pm. Admit Date: 12/05/2019 Discharge Date: 12/06/2019 Patient Name: Esequiel Dukes Visit Number: [id number] ATTENTION: The Clinical Documentation Specialists (CDI) and [facility] Coding Staff appreciate your assistance in clarifying documentation. Please respond to the clarification below the line at the bottom and electronically sign. The CDI & [facility] Coding staff will review the response and follow-up if needed. Please note: Queries are made part of the Legal Health Record. If you have any questions, please contact the author of this message via ITS. Dear Prem Ambrocio MD., The patient presented with the Sepsis secondary to Pneumonia. Per ED 63-year-old male liver failure, chronic debility, currently residing in detention presenting with hypoxia altered mental status and hypotension History/Risk Factors: Liver Failure, Chronic Debility, resides in [facility], CAD with Coronary Stent, DM II, Hyperlipidemia, Adrenal Insufficiency, Kidney stones Recurrent UTI. Tobacco use: Former smoker. Clinical Indicators: Presented to ED on 12/04 with Hypoxia, Nausea, Vomiting, Diarrhea and Hypotensive.Admitted with Sepsis, Severe Sepsis w/o shock and Pneumonia.Patient is DNR. <24 hrs from admission. Vital signs 12/04: T 97.8, P 89, R 10* (cough, SOB, shallow, irregular), BP 92/79*, PO 80 RA - 94 6Lnc. Treatment: IV fluid 1,000 mls @ 999 mls/hr x3, IV Rocephin, IV Kcl, IV fluid 1,000 mls @ 130, O2 6Lnc, IV Dextrose/Water, IV Fentanyl Citrate. In your professional opinion, can you please clarify Acuity Liver Failure? Acute Liver Failure Acute on Chronic Liver Failure Chronic Liver Failure Other, please specify Unable to determine Chronic liver failure MTDD
== END 2019-12-06 06:45 | disposition expired | DRG 871 ==
LOC: EC 18:39 → 2SICU 21:18
PROVIDERS: ADMIT Hospitalist; ATTEND Hospitalist
PROC: 5A12012 Performance of Cardiac Output, Single, Manual (ICD-10-PCS; principal; 2019-12-05)
DX: A41.9 Sepsis, unspecified organism (principal); J18.9 Pneumonia, unspecified organism; R65.21 Severe sepsis with septic shock; R40.2312 Coma scale, best motor response, none, at arrival to emergency department; R40.2112 Coma scale, eyes open, never, at arrival to emergency department; R40.2222 Coma scale, best verbal response, incomprehensible words, at arrival to emergency department; J96.01 Acute respiratory failure with hypoxia; E87.2 Acidosis; F05 Delirium due to known physiological condition; E27.40 Unspecified adrenocortical insufficiency; Z66 Do not resuscitate; I25.10 Atherosclerotic heart disease of native coronary artery without angina pectoris; E78.5 Hyperlipidemia, unspecified; M19.90 Unspecified osteoarthritis, unspecified site; F41.9 Anxiety disorder, unspecified; K72.10 Chronic hepatic failure without coma; R53.81 Other malaise; E07.9 Disorder of thyroid, unspecified; K72.90 Hepatic failure, unspecified without coma; R09.02 Hypoxemia; E86.0 Dehydration; E11.9 Type 2 diabetes mellitus without complications; Z79.4 Long term (current) use of insulin; Z79.890 Hormone replacement therapy; Z79.899 Other long term (current) drug therapy; Z88.5 Allergy status to narcotic agent; Z87.440 Personal history of urinary (tract) infections; Z87.442 Personal history of urinary calculi; Z86.19 Personal history of other infectious and parasitic diseases; Z98.890 Other specified postprocedural states; Z98.84 Bariatric surgery status; Z87.891 Personal history of nicotine dependence; Z95.5 Presence of coronary angioplasty implant and graft; Z83.3 Family history of diabetes mellitus; Z80.0 Family history of malignant neoplasm of digestive organs; Z82.49 Family history of ischemic heart disease and other diseases of the circulatory system
CPT/HCPCS: 71045; 80053; 82140; 83605; 83735; 85025; 85610; 85730; 93005; 96361; 96365; 96367; 96374; 96375; 99291